=== PATIENT | male | born 1965 | race Caucasian/White ===

== ENCOUNTER 2021-08-12 20:39 | Observation (INO) ==
[2021-08-12 21:01] LABS: Basophils # (auto) 0.04 K/uL (0-0.2); Basophils % (auto) 0.8 %; Eosinophils # (auto) 0.32 K/uL (0-0.5); Eosinophils % (auto) 6.5 %; Hemoglobin 11.3 g/dL (14.0-18.0); Immature Granulocytes # (auto) 0.01 K/uL (0.00-0.02); Immature Granulocytes % (auto) 0.2 %; Lymphocytes # (auto) 1.41 K/uL (1.2-3.4); Lymphocytes % (auto) 28.7 %; Mean Corpuscular Hemoglobin 34.9 pg (25-34); Mean Corpuscular Hgb Conc 34.2 g/dL (32-36); Mean Corpuscular Volume 101.9 fL (80-100); Mean Platelet Volume 10.1 fL (7.4-10.4); Monocytes # (auto) 0.62 K/uL (0.11-0.59); Monocytes % (auto) 12.6 %; Neutrophils # (auto) 2.51 K/uL (1.4-6.5); Neutrophils % (auto) 51.2 %; Platelet Count 109 K/uL (130-400); RDW Coefficient of Variation 13.2 % (11.5-14.5); RDW Standard Deviation 49.1 fL (36.4-46.3); Red Blood Count 3.24 M/uL (4.7-6.1); White Blood Count 4.91 K/uL (4.8-10.8)
[2021-08-12 21:21] LABS: Albumin Globulin Ratio 1.3 (0.9-2); Albumin Level 3.7 gm/dl (3.4-5.0); BUN Creatinine Ratio 14.5 (10-20); Calcium 8.3 mg/dl (8.5-10.1); Creatinine Clr Calc Pharmacy 90.7 ml/min; Est GFR (African American) 114.8 ml/min; Est GFR (Non-African American) 99.1 ml/min; Globulin 2.9 gm/dl (2.5-4.0); Total Protein 6.6 gm/dl (6.0-8.3)
--- NOTE | 2021-08-12 21:29 | CT Scan Report ---
CT head/brain wo con CLINICAL HISTORY: etoh, fall Technique: Contiguous axial CT images of the head were acquired from the base of the skull to the praveena delma without intravenous contrast administration. Images were viewed in brain, subdural and bone [facility]. Automated dose lowering techniques and/or adjustment according to patient size were utilized for this exam. Comparison: Comparison is made to CT head 01/09/2021 Findings: Areas of decreased attenuation are present in the periventricular and subcortical white matter bilate rally consistent with small vessel ischemic disease. Generalized cerebral atrophy with commensurate e nlargement of the ventricles, sulci, and cisterns is also present. There is no acute intracranial hem orrhage or evidence of acute territorial infarction. No shift of the midline structures, mass effect, or extra-axial abnormalities are shown. Atherosclerotic calcifications are present in the intracran ial segments of the internal carotid arteries. Imaged portions of the paranasal sinuses and mastoid air cells are clear. The orbits appear normal. There are no acute fractures of the calvaria or scalp swelling. Impression: No acute intracranial hemorrhage, no evidence of acute territorial infarction or other acute intracra nial disease process. ACT 112: Negative or not required by law. Electronically signed by: Alessandro Ames M.D. 08/12/2021 9:27 PM
[2021-08-12 21:42] LABS: Troponin I High Sensitivity 5.9 pg/ml (0-20)
[2021-08-12 22:02] LABS: RBC Morphology Unremarkable
[2021-08-12] MEDS ORDERED: POTASSIUM CHLORIDE / WTR 10 MEQ/100 ML PLCT IV ONE (23:31)
--- NOTE | 2021-08-13 00:29 | Emergency Department Note ---
Impression & Plan Alcohol intoxication, Hypomagnesemia, Acute hypokalemia, Fall, Abrasion of forearm, left ED Provider Note INFORMANT: Patient and EMS ED PROVIDER(S): Alvaro Landers MD CHIEF COMPLAINT: Alcohol intoxication PLAN: Disposition: Admitted Condition: Good Outpatient prescription management: none Referral: None MEDICAL DECISION MAKING: Patient presented to the emergency department because of alcohol intoxication and a fall. He was intoxicated on clinical examination. CT imaging of the head was performed and was negative for acute process. Patient's CBC was unremarkable. Chemistry panel revealed marked hypomagnesemia and hypokalemia. Patient had a significant elevation of his blood alcohol level at 470 mg/dL. ECG did not reveal any dysrhythmia nor did cardiac monitoring. Further management in the hospital will be necessary. Patient was given IV magnesium and potassium. Consultation was made with Dr. Emory Kaur of the [facility] service. Patient was evaluated in the ER for further management. Triage Nursing notes reviewed and agree them. Vital Signs: reviewed and remarkable for no significant abnormalities Differential diagnosis: Alcohol intoxication, toxicologic, infection, hypoglycemia, electrolyte abnormalities, cardiac sources, intracerebral event, neurologic, trauma, as well as other pathologies. Diagnostics interpreted by me: EC Lead ECG performed and revealed Normal sinus rhythm at 73, normal [place], QRS normal. No elevation or depression. No PACs or PVCs Cardiac Monitoring: Cardiac monitoring ordered by me: The patient was placed on continuous cardiac monitoring and observed. It revealed a normal sinus rhythm at 70 beats per minute without ectopy or evidence of dysrhythmia. Imaging studies: Head CT: A noncontrast CT scan of the head was performed and was negative for tumor, fracture, intracranial hemorrhage, or other acute pathology. HPI: The patient is a 55 year old male who presents to the Emergency Room with complaints of alcohol intoxication. This started this evening. Patient mitts to drinking multiple martinis. He was trying to walk home and felt like he could not make it. He slumped over a guardrail. He suffered abrasions to the left forearm. There was abrasion on the scalp as well. Patient Was found by bystanders who thought he was and called 911. EMS arrived. Patient was intoxicated. A breathalyzer test was performed and was 0.389. Pt also notes the following associated symptoms, chronic neck back pain. Patient states that he does not feel he has any new neck or back injury. The patient has been given no medication for relieving factors. Current pain is rated as 3/10. Tetanus up-to-date. Pt denies headache, fevers, chills, diaphoresis, visual changes, new neck pain, chest pain, breathing difficulties, nausea, vomiting, abdominal pain, new back pain, urinary symptoms, numbness, weakness, lymphadenopathy, rash, or other complaints. ROS: See above HPI for pertinent positives & negatives. A total of 8 systems reviewed and were otherwise negative. PAST MEDICAL HISTORY:See Below , RENÉE, thrombocytopenia PAST SURGICAL HISTORY:See Below, FAMILY HISTORY:See Below SOCIAL HISTORY:See Below, drinks alcohol HOME MEDICATIONS:See Below ALLERGIES:See Below VITALS:See Below PHYSICAL EXAMINATION: GENERAL: Awake, alert, intoxicated-appearing, in no distress HENT: Normocephalic, abrasions noted to the frontal scalp. Oropharynx unre markable. EYES: Normal conjunctiva. Sclera non-icteric. PERRLA. EOMI. NECK: Inspection normal. Non-tender. Supple. No nuchal rigidity. FROM. No masses. RESPIRATORY: Clear to auscultation. No wheezes. No rales. Normal respiratory effort. CARDIAC: Normal rate. Normal rhythm. No murmurs. No rubs. Extremities warm and well perfused. Pulses equal. No JVD. GI: Soft, non-distended. No tenderness to palpation. No rebound or guarding. No masses. MUSCULOSKELETAL: Abrasions noted to the left forearm. Chest examination reveals no tenderness. The back is symmetrical on inspection without obvious ab normality. There is no CVA tenderness to palpation. No joint edema. LOWER EXTREMITIES: Calves are equal size bilaterally and non-tender. No edema. No discoloration. NEURO: Intoxicated sensorium. No focal sensory or motor deficits noted. SKIN: No rash or jaundice noted. Alvaro Landers MD Past Med/Surg History Medical History Anxiety and depression Asthma Back problem Elevated PSA Fatty liver History of rectal bleeding History of skin cancer Hx of esophageal reflux Positive colorectal cancer screening using Cologuard test (~08/09/20) Sleep apnea Varicose veins of both lower extremities Surgical History History of colonoscopy History of tonsillectomy Hx of wisdom tooth extraction Family History Mother Breast cancer Father Diabetes Colorectal cancer Stroke Brother Prostate cancer Heart disease Colorectal cancer Other Unknown family medical history Denies family history of Ovarian cancer Coronary heart disease Myocardial infarction Congenital kidney disease Lung cancer Cystic kidney disease Social History Smoking Status: Unknown if ever smoked Second Hand Exposure: No; Hx Alcohol Use: Yes Alcohol type: beer, wine and hard liquor Alcohol Intake Frequency: 4 or More x per/Week Alcohol Intake Frequency Comment: pt states he drinks daily 5 drinks Hx Substance Use: No Preferred Language: Japanese Communication Ability: Effective Visual Impairment: Limited Hearing Ability: Normal Access Representative Required: No Beliefs That Will Affect Care: None marital status: Current Living Situation: Alone current occupational status: retired How many Children do You have: 2 Feels Safe at Home: Yes Childhood Exposure to Second-Hand Smoke: Yes caffeine: Yes Dental Care, Regularly: No Physical Activity Frequency: Does not Exercise Seatbelt Use: always Sunscreen Use: No Assistive Devices: Glasses Allergies Allergies Allergy/AdvReac Type Severity Reaction Status Date / Time No Known Allergies Allergy Verified 08/12/21 20:54 Home Meds Home Medications Medication Instructions Recorded Confirmed multivitamin 1 tab PO [facility] 09/19/20 08/12/21 folic acid 1 mg tablet 1 mg PO M 08/12/21 08/12/21 pantoprazole 40 mg tablet,delayed 40 mg PO [facility] 08/12/21 08/12/21 release (Protonix) Results & Data (ED) Vital Signs Vital Signs - 24 hr 08/12/21 20:26 08/12/21 20:44 Temperature 36.7 C Temperature Source Oral Pulse Rate 70 Respiratory Rate 16 Respiratory Effort / Characteristics Non-Labored Respiratory Depth Normal Respiratory Pattern Regular Blood Pressure 107/71 Blood Pressure Mean 83 Pulse Oximetry 97 97 Oxygen Delivery Method Room Air Room Air Sepsis Recent Fever Within 48 Hours No Sepsis New/Unexplained Change in Mental Status No Sepsis Action Taken by Nursing No Action Required Laboratory Data Result diagrams: 08/12/21 20:40 08/12/21 20:40 Lab Results 08/12/21 08/12/2122 Range/Units 20:40 20:40 20:40 WBC 4.91 (4.8-10.8) K/uL RBC 3.24 L (4.7-6.1) M/uL Hgb 11.3 L (14.0-18.0) g/dL Hct 33.0 L (42-52) % MCV 101.9 H (80-100) fL MCH 34.9 H (25-34) pg MCHC 34.2 (32-36) g/dL RDW Std Deviation 49.1 H (36.4-46.3) fL RDW Coeff of Melissa 13.2 (11.5-14.5) % Plt Count 109 L (130-400) K/uL MPV 10.1 (7.4-10.4) fL Immature Gran % (Auto) 0.2 % Neut % (Auto) 51.2 % Lymph % (Auto) 28.7 % [place] % (Auto) 12.6 % Eos % (Auto) 6.5 % Baso % (Auto) 0.8 % Neut # (Auto) 2.51 (1.4-6.5) K/uL Lymph # (Auto) 1.41 (1.2-3.4) K/uL [place] # (Auto) 0.62 H (0.11-0.59) K/uL Eos # (Auto) 0.32 (0-0.5) K/uL Baso # (Auto) 0.04 (0-0.2) K/uL Immature Gran # (Auto) 0.01 (0.00-0.02) K/uL RBC Morphology Unremarkable Sodium 140 (136-145) mmol/L Potassium 3.0 L (3.5-5.1) mmol/L Chloride 104 (98-107) mmol/L Carbon Dioxide 25 (21-32) mmol/L Anion Gap 11 (3-11) BUN 12 (6-23) mg/dl Creatinine 0.83 (0.6-1.4) mg/dl Est Cr Clr Drug Dosing 90.7 ml/min Est GFR ( Amer) 114.8 ml/min Est GFR (Non-Af Amer) 99.1 ml/min BUN/Creatinine Ratio 14.5 (10-20) Glucose 90 (70-99(Fasting)) mg/dl Calcium 8.3 L (8.5-10.1) mg/dl Magnesium 1.0 L (1.7-2.4) mg/dl Total Bilirubin 1.0 (0.2-1.0) mg/dl AST 48 H (13-39) U/L ALT 21 (7-52) U/L Alkaline Phosphatase 68 (34-104) U/L Troponin I High Sens 5.9 (0-20) pg/ml Total Protein 6.6 (6.0-8.3) gm/dl Albumin 3.7 (3.4-5.0) gm/dl Globulin 2.9 (2.5-4.0) gm/dl Albumin/Globulin Ratio 1.3 (0.9-2) Ethyl Alcohol mg/dL 470.4 H (<10.0) mg/dl SARS-CoV-2, RNA, NAAT (NEGATIVE) 08/13/21 Range/Units 00:00 WBC (4.8-10.8) K/uL RBC (4.7-6.1) M/uL Hgb (14.0-18.0) g/dL Hct (42-52) % MCV (80-100) fL MCH (25-34) pg MCHC (32-36) g/dL RDW Std Deviation (36.4-46.3) fL RDW Coeff of Melissa (11.5-14.5) % Plt Count (130-400) K/uL MPV (7.4-10.4) fL Immature Gran % (Auto) % Neut % (Auto) % Lymph % (Auto) % [place] % (Auto) % Eos % (Auto) % Baso % (Auto) % Neut # (Auto) (1.4-6.5) K/uL Lymph # (Auto) (1.2-3.4) K/uL [place] # (Auto) (0.11-0.59) K/uL Eos # (Auto) (0-0.5) K/uL Baso # (Auto) (0-0.2) K/uL Immature Gran # (Auto) (0.00-0.02) K/uL RBC Morphology Sodium (136-145) mmol/L Potassium (3.5-5.1) mmol/L Chloride (98-107) mmol/L Carbon Dioxide (21-32) mmol/L Anion Gap (3-11) BUN (6-23) mg/dl Creatinine (0.6-1.4) mg/dl Est Cr Clr Drug Dosing ml/min Est GFR ( Amer) ml/min Est GFR (Non-Af Amer) ml/min BUN/Creatinine Ratio (10-20) Glucose (70-99(Fasting)) mg/dl Calcium (8.5-10.1) mg/dl Magnesium (1.7-2.4) mg/dl Total Bilirubin (0.2-1.0) mg/dl AST (13-39) U/L ALT (7-52) U/L Alkaline Phosphatase (34-104) U/L Troponin I High Sens (0-20) pg/ml Total Protein (6.0-8.3) gm/dl Albumin (3.4-5.0) gm/dl Globulin (2.5-4.0) gm/dl Albumin/Globulin Ratio (0.9-2) Ethyl Alcohol mg/dL (<10.0) mg/dl SARS-CoV-2, RNA, NAAT NEGATIVE (NEGATIVE) Imaging Data Radiologist's Impression: Head CT 08/12/21 20:59 CT head/brain wo con CLINICAL HISTORY: etoh, fall Technique: Contiguous axial CT images of the head were acquired from the base of the skull to the vertex without intravenous contrast administration. Images were viewed in brain, subdural and bone windows. Automated dose lowering techniques and/or adjustment according to patient size were utilized for this exam. Comparison: Comparison is made to CT head 01/09/2021 Findings: Areas of decreased attenuation are present in the periventricular and subcortical white matter bilaterally consistent with small vessel ischemic disease. Generalized cerebral atrophy with commensurate enlargement of the ventricles, sulci, and cisterns is also present. There is no acute intracranial hemorrhage or evidence of acute territorial infarction. No shift of the midline structures, mass effect, or extra-axial abnormalities are shown. Atherosclerotic calcifications are present in the intracranial segments of the internal carotid arteries. Imaged portions of the paranasal sinuses and mastoid air cells are clear. The orbits appear normal. There are no acute fractures of the calvaria or scalp swelling. Impression: No acute intracranial hemorrhage, no evidence of acute territorial infarction or other acute intracranial disease process. ACT 112: Negative or not required by law. Electronically signed by: Alessandro Ames M.D. 08/12/2021 9:27 PM Discharge Plan Visit Data Chief Complaint: Alcohol Intoxication Stated Complaint: ALCOHOL OVERDOSE ED Provider: Alvaro Landers Discharge Problem: Alcohol intoxication, Hypomagnesemia, Acute hypokalemia, Fall, Abrasion of forearm, left Forms Stand Alone Forms: [facility] [employer] Prescriptions Prescriptions: No Action multivitamin Tablet 1 tab PO QAM RF: 0 pantoprazole [Protonix] 40 mg tablet,delayed release (DR/EC) 40 mg PO QAM RF: 0 folic acid 1 mg tablet 1 mg PO QAM RF: 0 Referrals Referrals: Valdemar Santo DO [Primary Care Provider] -
[2021-08-13] MEDS ORDERED: THIAMINE HCL 200 MG in SODIUM CHLORIDE 0.9% 50 ML IV STA (00:50)
--- NOTE | 2021-08-13 00:52 | History & Physical Report ---
Date of Service August 13, 2021 Assessment & Plan (1) Alcohol intoxication: Plan: Severe alcohol intoxication, with alcohol level 470.4 (2) Hypomagnesemia: Plan: Magnesium 1.0 upon admission 2 g IV ordered by the ED, will add additional 2 for total of 4 (3) Acute hypokalemia: Plan: Potassium 3.0 upon admission 1K rider ordered by the ED NSS plus KCl 20 mEq at 125 mils per hour Repeat BMP and magnesium every morning (4) Fall: Plan: Multiple abrasions, but no other injuries (5) Cirrhosis: Plan: Cirrhosis/hepatic steatosis/esophageal varices/folate deficiency/vitamin D deficiency/thrombocytopenia Secondary to alcohol dependence Counseling regarding cessation of alcohol (6) Alcohol dependence: Plan: See above (7) Thrombocytopenia: Plan: Platelets 109 upon admission Follow serially (8) Folate deficiency: Plan: Continue folate 1 mg p.o. daily Add thiamine 100 mg p.o. daily Give thiamine 200 mg IV now History of Present Illness Chief Complaint: The patient presented to the emergency department due to severe alcohol intoxication and a fall. Primary Care Provider: Valdemar Santo DO The patient is a 55-year-old male with a past medical history including alcohol intoxication, esophageal varices, cirrhosis, alcohol dependence, thromb ocytopenia, folate deficiency, hepatic steatosis, vitamin D deficiency, elevated LFTs, RENÉE and gastritis. He presents to the emergency department after reportedly drinking multiple martinis, with trying to walk home and felt like he could not make it. He was found slumped over a guardrail where he was found by bystanders who thought he was and called 911. Allergies Allergy/AdvReac Type Severity Reaction Status Date / Time No Known Allergies Allergy Verified 08/12/21 20:54 Home Medications Medication Instructions Recorded Confirmed Type multivitamin 1 tab PO QAM 09/19/20 08/12/21 History folic acid 1 mg tablet 1 mg PO QAM 08/12/21 08/12/21 History pantoprazole 40 mg tablet,delayed 40 mg PO QAM 08/12/21 08/12/21 History release (Protonix) Past Med/Surg History Medical History Anxiety and depression Asthma Back problem Elevated PSA Fatty liver History of rectal bleeding History of skin cancer Hx of esophageal reflux Positive colorectal cancer screening using Cologuard test (~05/11/21) Sleep apnea Varicose veins of both lower extremities Surgical History History of colonoscopy History of tonsillectomy Hx of wisdom tooth extraction Family History Mother Breast cancer Father Diabetes Colorectal cancer Stroke Brother Prostate cancer Heart disease Colorectal cancer Other Unknown family medical history Denies family history of Ovarian cancer Coronary heart disease Myocardial infarction Congenital kidney disease Lung cancer Cystic kidney disease Social History Smoking Status: Unknown if ever smoked Second Hand Exposure: No; Hx Alcohol Use: Yes Alcohol type: beer, wine and hard liquor Alcohol Intake Frequency: 4 or More x per/Week Alcohol Intake Frequency Comment: pt states he drinks daily 5 drinks Hx Substance Use: No Preferred Language: Korean Communication Ability: Effective Visual Impairment: Limited Hearing Ability: Normal Aquatic Habitat Biologist Required: No Beliefs That Will Affect Care: None marital status: Current Living Situation: Alone current occupational status: retired How many Children do You have: 2 Feels Safe at Home: Yes Childhood Exposure to Second-Hand Smoke: Yes caffeine: Yes Dental Care, Regularly: No Physical Activity Frequency: Does not Exercise Seatbelt Use: always Sunscreen Use: No Assistive Devices: Glasses Review of Systems Review of Systems: Limited review of systems due to severe alcohol intoxication Physical Exam Physical Exam: The patient is awake, intoxicated, multiple skin abrasions, in bed and in no acute distress. HEENT--PERRL, EOMI, mucous membranes and oropharynx normal. Neck--supple. No JVD. No bruits. Thyroid normal, trachea midline, no adenopathy. Heart--normal S1 and S2. No murmurs, rubs or gallops. Lungs--clear bilaterally, no respiratory distress, no accessory muscle use. Abdomen--normal bowel sounds and soft. Nontender. Nondistended. Extremities--no cyanosis or clubbing. No edema. Dermatologic--normal skin turgor, normal color, no abnormal lymph nodes, no rash. Neurologic--cranial nerves II through XII grossly intact. Rheumatologic--normal range of motion. Psychiatric--intoxicated Results & Data Results & Data ([facility]) Vital Signs (Past 12 Hours) Vital Signs Temp Pulse Resp BP Pulse Ox 08/12/21 20:44 97 08/12/21 20:26 36.7 C 70 16 107/71 97 Laboratory Results Laboratory Results WBC 4.91 K/uL (4.8-10.8) 08/12/21 20:40 RBC 3.24 M/uL (4.7-6.1) L 08/12/21 20:40 Hgb 11.3 g/dL (14.0-18.0) L 08/12/21 20:40 Hct 33.0 % (42-52) L 08/12/21 20:40 MCV 101.9 fL (80-100) H 08/12/21 20:40 MCH 34.9 pg (25-34) H 08/12/21 20:40 MCHC 34.2 g/dL (32-36) 08/12/21 20:40 RDW Std Deviation 49.1 fL (36.4-46.3) H 08/12/21 20:40 RDW Coeff of Melissa 13.2 % (11.5-14.5) 08/12/21 20:40 Plt Count 109 K/uL (130-400) L 08/12/21 20:40 MPV 10.1 fL (7.4-10.4) 08/12/21 20:40 Immature Gran % (Auto) 0.2 % 08/12/21 20:40 Neut % (Auto) 51.2 % 08/12/21 20:40 Lymph % (Auto) 28.7 % 08/12/21 20:40 [place] % (Auto) 12.6 % 08/12/21 20:40 Eos % (Auto) 6.5 % 08/12/21 20:40 Baso % (Auto) 0.8 % 08/12/21 20:40 Neut # (Auto) 2.51 K/uL (1.4-6.5) 08/12/21 20:40 Lymph # (Auto) 1.41 K/uL (1.2-3.4) 08/12/21 20:40 [place] # (Auto) 0.62 K/uL (0.11-0.59) H 08/12/21 20:40 Eos # (Auto) 0.32 K/uL (0-0.5) 08/12/21 20:40 Baso # (Auto) 0.04 K/uL (0-0.2) 08/12/21 20:40 Immature Gran # (Auto) 0.01 K/uL (0.00-0.02) 08/12/21 20:40 RBC Morphology Unremarkable 08/12/21 20:40 Sodium 140 mmol/L (136-145) 08/12/21 20:40 Potassium 3.0 mmol/L (3.5-5.1) L 08/12/21 20:40 Chloride 104 mmol/L (98-107) 08/12/21 20:40 Carbon Dioxide 25 mmol/L (21-32) 08/12/21 20:40 Anion Gap 11 (3-11) 08/12/21 20:40 BUN 12 mg/dl (6-23) 08/12/21 20:40 Creatinine 0.83 mg/dl (0.6-1.4) 08/12/21 20:40 Est Cr Clr Drug Dosing 90.7 ml/min 08/12/21 20:40 Est GFR ( Amer) 114.8 ml/min 08/12/21 20:40 Est GFR (Non-Af Amer) 99.1 ml/min 08/12/21 20:40 BUN/Creatinine Ratio 14.5 (10-20) 08/12/21 20:40 Glucose 90 mg/dl (70-99(Fasting)) 08/12/21 20:40 Calcium 8.3 mg/dl (8.5-10.1) L 08/12/21 20:40 Magnesium 1.0 mg/dl (1.7-2.4) L 08/12/21 20:40 Total Bilirubin 1.0 mg/dl (0.2-1.0) 08/12/21 20:40 AST 48 U/L (13-39) H 08/12/21 20:40 ALT 21 U/L (7-52) 08/12/21 20:40 Alkaline Phosphatase 68 U/L (34-104) 08/12/21 20:40 Troponin I High Sens 5.9 pg/ml (0-20) 08/12/21 20:40 Total Protein 6.6 gm/dl (6.0-8.3) 08/12/21 20:40 Albumin 3.7 gm/dl (3.4-5.0) 08/12/21 20:40 Globulin 2.9 gm/dl (2.5-4.0) 08/12/21 20:40 Albumin/Globulin Ratio 1.3 (0.9-2) 08/12/21 20:40 Ethyl Alcohol mg/dL 470.4 mg/dl (<10.0) H 08/12/21 20:40 SARS-CoV-2, RNA, NAAT NEGATIVE (NEGATIVE) 08/13/21 00:[address] 08/12/21 20:59 CT head/brain wo con CLINICAL HISTORY: etoh, fall Technique: Contiguous axial CT images of the head were acquired from the base of the skull to the vertex without intravenous contrast administration. Images were viewed in brain, subdural and bone windows. Automated dose lowering techniques and/or adjustment according to patient size were utilized for this exam. Comparison: Comparison is made to CT head 01/09/2021 Findings: Areas of decreased attenuation are present in the periventricular and subcortical white matter bilaterally consistent with small vessel ischemic disease. Generalized cerebral atrophy with commensurate enlargement of the ventricles, sulci, and cisterns is also present. There is no acute intracranial hemorrhage or evidence of acute territorial infarction. No shift of the midline structures, mass effect, or extra-axial abnormalities are shown. Atherosclerotic calcifications are present in the intracranial segments of the internal carotid arteries. Imaged portions of the paranasal sinuses and mastoid air cells are clear. The orbits appear normal. There are no acute fractures of the calvaria or scalp swelling. Impression: No acute intracranial hemorrhage, no evidence of acute territorial infarction or other acute intracranial disease process. ACT 112: Negative or not required by law. Electronically signed by: Alessandro Ames M.D. 08/12/2021 9:27 PM Code Status & VTE Plan Code Status Full code VTE Prophylaxis Plan VTE Prophylaxis will be ordered: Yes PG Care Time/CCT Total # of Minutes Spent Total Time Spent with Patient: Total time spent is greater than 50% in coordination of care (as documented) at patient's floor/unit and/or counseling patient: Coding Level of Care Code 77281 Initial Inpt Care Lvl 3 Diagnoses Alcohol intoxication F10.929 Hypomagnesemia E83.42 Acute hypokalemia E87.6 Fall W19.XXXA Cirrhosis K74.60 Alcohol dependence F10.20 Thrombocytopenia D69.6 Folate deficiency E53.8
[2021-08-13] MEDS: MAGNESIUM SULFATE / D5W 1 GM/100 ML BAG IV SCH ×4 (01:00→05:01)
[2021-08-13] MEDS ORDERED: ONDANSETRON INJ 2 MG/ML 2 ML VIAL IV PRN (02:25)
[2021-08-13] MEDS ORDERED: LORazepam 2 MG/1 ML VIAL IV PRN ×3 (02:25)
[2021-08-13] MEDS ORDERED: ATIVAN IV ALCOHOL WITHDRAWL IV PRN (02:25)
[2021-08-13] MEDS: NSS + 20MEQ KCL 20 MEQ/1,000 ML BAG IV SCH ×3 (03:45→19:54)
[2021-08-13 06:22] LABS: Hematocrit (blood only) 27.8 % (42-52); Hemoglobin 9.8 g/dL (14.0-18.0); Mean Corpuscular Hemoglobin 35.6 pg (25-34); Mean Corpuscular Hgb Conc 35.3 g/dL (32-36); Mean Corpuscular Volume 101.1 fL (80-100); RDW Coefficient of Variation 13.4 % (11.5-14.5); RDW Standard Deviation 49.3 fL (36.4-46.3); Red Blood Count 2.75 M/uL (4.7-6.1); White Blood Count 3.05 K/uL (4.8-10.8)
[2021-08-13 06:39] LABS: Albumin Globulin Ratio 1.3 (0.9-2); BUN Creatinine Ratio 14.3 (10-20); Bilirubin,Total 0.7 mg/dl (0.2-1.0); Calcium 7.8 mg/dl (8.5-10.1); Creatinine Clr Calc Pharmacy 107.6 ml/min; Est GFR (African American) 123.1 ml/min; Est GFR (Non-African American) 106.2 ml/min; Globulin 2.4 gm/dl (2.5-4.0); Total Protein 5.4 gm/dl (6.0-8.3)
[2021-08-13 07:09] LABS: Basophils # (auto) 0.04 K/uL (0-0.2); Basophils % (auto) 1.3 %; Eosinophils % (auto) 6.6 %; Immature Granulocytes # (auto) 0.02 K/uL (0.00-0.02); Immature Granulocytes % (auto) 0.7 %; Lymphocytes % (auto) 26.2 %; Mean Platelet Volume 9.6 fL (7.4-10.4); Monocytes # (auto) 0.42 K/uL (0.11-0.59); Monocytes % (auto) 13.8 %; Neutrophils # (auto) 1.57 K/uL (1.4-6.5); Neutrophils % (auto) 51.4 %; Platelet Count 90 K/uL (130-400); Platelet Estimate Decreased (Normal)
--- NOTE | 2021-08-13 07:31 | Hospitalist Progress Note ---
Date of Service August 13, 2021 Assessment & Plan (1) Alcohol dependence: Plan: Patient is a 55 year old male that presented initially for severe alcohol intoxication with medical alcohol level 470.4. Patient was found to have been unconscious over a guardrail where he waas found by bystanders that had called 911 for evaluation of the patient. Severe Alcohol Use Disorder with history of Cirrhosis -Last supposed drink 21:00 on 08/12/21 -Reported initial medical alcohol level of 470.4 on admission -Notes he drinks 6-12 alcoholic beverages daily and is interested in cessation -AWSS ordered with PRN ativan for withdrawal symptoms -LFTs stable -Continue Folate 1mg QD -Thiamine 100mg QD -Discussed Naltrexone therapy, inpatient and outpatient rehab -Patient interested in Naltrexone therapy - may benefit with initiation prior to discharge -IVF NSS +20meq KCl 125ml/hr Fall -Secondary to intoxication -CT head negative for acute bleed or fractures Hypokalemia -Potassium 3 this AM -Will replete Hypomagnesemia -Mag 1 on admission, repleted with 4g IV -Repeat this AM 1.9 Thrombocytopenia -Platelets 90k this AM -Continue to monitor Dispo: M/S Telemetry FEN: Regular diet, NSS +20meq KCl 125ml/hr DVT: SCDs Code: Full (2) Alcohol intoxication: (3) Hypomagnesemia: (4) Fall: (5) Esophageal varices: (6) Cirrhosis: (7) Thrombocytopenia: Admission and Anticipated Discharge Date Admission Date: August 13, 2021 Supervising Physician Co-Signing Physician Notes I personally examined the patient and verified all chapman points of history and exam, discussed case, and agree with decision making with Dr Mcgarry. Mildly shaky. 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 Despite all that he is optimistic that this time he will succeed. Quite excited to try naltrexone Vitals noted, in general he is mildly tremulous but otherwise no distress. HEENT normocephalic atraumatic mucous membranes moist. Breathing unlabored no accessory muscle use good effort. Skin shows no rashes no pallor or icterus. Neuro without focal deficitsminor tremor as above Alcohol intoxication/abuse/withdrawaldoes sincerely want to try for sobriety. Trial of naltrexone once he is out of intoxication does seem to be a pretty reasonable plan. Discussed with patient cause for optimism given that his bilirubin is completely normal, I mistakenly quoted an INR value of 1.2 is being currentit was his most recent, but was from DecemberI will check a current 1 in the morning. Supportive care, symptom triggered benzodiazepines, thiamine and folate. Otherwise as above Subjective Patient evaluated at the bedside this morning. Patient noting that he has slight recollection of the night prior. He remembers his last drink being around 9PM last night and believes he had at least 2 martinis and 4oz of hard liquor in the form of shots. He states that he recalls the ambulance picking him up and arriving at the ED, but not much otherwise. He states that this has occurred at least 2 times in the past. He does not recall falling, but does note slight L head tenderness. He also notes that he drinks at minimum 6 drinks daily, but more often is closer to 10-12 on average. Currently he notes that he realizes he has a problem and wants to improve. He has done AA for at least 1 year and has trialed therapy in the past with minimal improvements. He has not trialed any medications in regards to cessation. He denies any fever, chills, SOB, chest pain, abdominal pain, nausea. Review of Systems Review of Systems: All systems reviewed & are unremarkable except as noted in Subjective Physical Exam Constitutional: cooperative; no acute distress Eyes: PERRL, conjunctivae normal, anicteric sclerae ENMT: external ear and nose normal, oropharynx normal Neck: trachea midline, no thyromegaly Respiratory: normal respiratory effort, lungs clear to auscultation Cardiovascular: RRR, no murmur, no edema Gastrointestinal (Abdomen): normal bowel sounds, soft, nontender, no hepatosplenomegaly Skin: no rashes, warm and dry Neurologic: PERRL, EOMI, accommodation nl, no face palsy, no dysarthria Psychiatric: A+Ox3, euthymic affect Results & Data Results & Data ([facility]) Vital Signs (Past 12 Hours) Vital Signs Temp Pulse Pulse Resp BP BP Pulse Ox 08/13/21 06:40 36.5 C 82 20 96/53 L 94 08/13/21 05:31 92 H 08/13/21 04:11 36.6 C 91 H 18 93/58 L 96 08/13/21 03:36 36.4 C L 97 H 18 99/56 L 94 08/13/21 02:00 116/64 96 08/13/21 01:40 86 14 95 08/13/21 01:30 92 H 16 96 08/13/21 01:20 95 H 15 95 08/13/21 01:10 82 14 96 08/13/21 01:00 79 14 92/63 L 94 08/13/21 00:50 81 19 97 08/13/21 00:40 70 17 95 08/13/21 00:30 90 17 95 08/13/21 00:20 79 16 99 08/13/21 00:10 85 19 96 08/13/21 00:00 95 H 22 100/68 96 08/12/21 23:50 87 14 94 08/12/21 23:40 94 H 15 08/12/21 23:30 14 08/12/21 23:20 15 90 08/12/21 23:10 0 L 16 94 08/12/21 23:00 16 90/66 L 08/12/21 22:50 14 08/12/21 22:40 17 08/12/21 22:30 15 08/12/21 22:20 15 08/12/21 22:10 15 08/12/21 22:00 16 96/60 L 08/12/21 21:50 16 08/12/21 21:40 15 08/12/21 21:30 91 H 18 08/12/21 21:20 73 13 08/12/21 21:19 81 14 105/73 08/12/21 21:00 85 15 08/12/21 20:52 67 20 94 08/12/21 20:48 99 08/12/21 20:44 97 08/12/21 20:26 36.7 C 70 16 107/71 97 Resident Activity Tracking Resident Involvement: Resident Care Provided Care Provided: Adult [facility] Medicine
[2021-08-13] MEDS ORDERED: POTASSIUM CHLORIDE CRTAB 20 MEQ TABCR PO STA (07:34)
[2021-08-13] MEDS: FOLIC ACID 1 MG TAB PO SCH (08:09)
[2021-08-13] MEDS: PANTOprazole 40 MG TAB PO SCH (08:09)
[2021-08-13] MEDS: MULTIVITAMIN TAB PO SCH (08:09)
[2021-08-13] MEDS ORDERED: THIAMINE HCL 100 MG TAB PO SCH (09:00)
--- NOTE | 2021-08-13 10:28 | Electrocardiogram Report ---
Test Reason : Blood Pressure : / mmHG Vent. Rate : 073 BPM Atrial Rate : 073 BPM P-R Int : 144 ms QRS Dur : 086 ms QT Int : 402 ms P-R-T Axes : 013 019 023 degrees QTc Int : 442 ms Normal sinus rhythm Normal ECG No previous ECGs available Confirmed by Konrad Stevenson ([id number]) on 08/13/2021 10:28:18 AM Referred By: REFERRED SELF Confirmed By:Konrad Stevenson
[2021-08-13] MEDS ORDERED: POTASSIUM CHLORIDE CRTAB 20 MEQ TABCR PO ONE (12:00)
[2021-08-14] MEDS: NSS + 20MEQ KCL 20 MEQ/1,000 ML BAG IV SCH (04:01)
--- NOTE | 2021-08-14 06:04 | Hospitalist Progress Note ---
Date of Service August 14, 2021 Assessment & Plan (1) Alcohol dependence: Plan: Patient is a 55 year old male with history of cirrhosis, esophageal varices, RENÉE that presented for severe alcohol intoxication with medical alcohol level 470.4. Patient was found to have been unconscious over a guardrail where he was found by bystanders that had called 911 for evaluation of the patient. Severe Alcohol Use Disorder -Last supposed drink 21:00 on 08/12/21 ; consumes between 6-12 beverages/day -Initial medical alcohol level of 470.4 on admission -AWSS ordered with PRN ativan for withdrawal symptoms -- has not yet required -LFTs largely stable - TBili appreciated at 1.5 in the AM of 08/14, otherwise WNL -Continue Folate 1mg , thiamine 300mg daily -- would likely benefit from scheduled MVI as outpatient -Discussed Naltrexone therapy, inpatient and outpatient rehab: interested -Plan on initiating naltrexone prior to discharge -Stop IVF, tolerating PO well Alcohol-Associated Cirrhosis, Esophageal Varices -Diagnosed as outpatient, follows with [facility] Hepatology (see note 08/2020) -Complicated by grade I esophageal varices and portal hypertensive gastropathy (EGD 08/2020) - follows with [facility] GI (last visit 09/2020), not currently on beta-blockade -MELD 10, Child-Davis 6 (Class A) -Follow-up with Hepatology/GI as outpatient: follow-up planned for later this summer Fall - [employer]; secondary to intoxication - CT head negative for acute bleed or fractures Hypokalemia -- resolved - Noted on arrival, DOA#1 - Replete p.r.n. Hypomagnesemia - Noted on arrival, intermittently throughout admission - Replete p.r.n. Macrocytic Anemia / Leukopenia / Thrombocytopenia - Platelets stable around ~90-100 throughout admission; WBCs ~3-3.5; Hgb 9-10 - Suspect secondary to marrow suppression in setting of chronic EtOH use - Continue to monitor while here - Check B12, folate - No e/o active bleeding Dispo: M/S Telemetry FEN: Regular diet DVT: SCDs-- will hold in setting of elevated INR, thrombocytopenia for now Code: Full (2) Alcohol intoxication: (3) Hypomagnesemia: (4) Fall: (5) Esophageal varices: (6) Cirrhosis: (7) Thrombocytopenia: Admission and Anticipated Discharge Date Admission Date: August 13, 2021 Supervising Physician Co-Signing Physician Notes I also saw the patient and confirmed chapman portions of the history and physical examination. I agree with the impression and plan as noted in the resident documentation. Exam 114/74, 75, 18, 37.2, 93% room air Lying semireclined in bed, no distress. States he feels well. Very mild shakes of the upper extremities. Heart regular rate and rhythm Lungs clear with nonlabored respirations Data Hemoglobin 9.7, platelet count 95. PT 12.5, INR 1.2 Sodium 139, potassium 4.2, BUN 8, creatinine 0.67 Total bilirubin 1.5, total protein 5.5, albumin 3.0 Alcohol use disorder Alcohol associated cirrhosis, esophageal varices Hypokalemia, repleted Hypomagnesemia, repleted Monitor for withdrawal Continue folate and thiamine supplementation Discussed naltrexone prior to discharge He is established with hepatology/gastroenterology and has follow-up planned for later this summer Subjective NAEO. Feeling a little shaky this morning. Not really anxious. Eager to make changes to prevent something like this from happening againt -- says this was an "eye opening" event. No CP, palpitations, SOB. No nausea. No hallucinations. No h/o alcoholic hallucinations or DTs. Said he's tried AA, an IOP (back in 2013), and methodist groups to help with cessation in past. Really interested in naltrexone. Review of Systems Review of Systems: as per HPI Physical Exam Physical Exam: General: 55-year old male who is alert, oriented, and NAD. Tremulous in the upper extremities appreciated. No diaphoresis. HEENT: NCAT. - Eyes - Sclera are white, anicteric, and without injection. - Mouth - MMM - Neck - supple, no appreciable JVD Cardiac: Normal rate and regular rhythm; S1 and S2 present with no murmurs, rubs, or gallops. Pulmonary: Good respiratory effort with symmetric expansion of the chest. No use of accessory muscles. Lungs were clear to auscultation bilaterally with no crackles or wheezes. Abdominal: Normoactive bowel sounds. Abdomen was soft, nondistended, and non- tender to palpation. Extremities: Upper and lower extremities are warm and well perfused. No peripheral edema in the lower extremities bilaterally Results & Data Results & Data ([facility]) Vital Signs (Past 12 Hours) Vital Signs Temp Pulse Pulse Resp BP BP Pulse Ox 08/14/21 02:51 36.9 C 79 18 117/75 95 08/14/21 02:25 08/14/21 01:59 72 08/13/21 22:36 36.8 C 72 16 110/73 95 08/13/21 19:24 37.3 C 84 20 111/69 96 Pulse Ox 08/14/21 02:51 08/14/21 02:25 95 08/14/21 01:59 08/13/21 22:36 08/13/21 19:24 Resident Activity Tracking Resident Involvement: Resident Care Provided Care Provided: Adult Hospital Medicine
[2021-08-14 07:10] LABS: Hemoglobin 9.7 g/dL (14.0-18.0); Mean Corpuscular Hemoglobin 34.8 pg (25-34); Mean Corpuscular Hgb Conc 33.4 g/dL (32-36); Mean Corpuscular Volume 103.9 fL (80-100); RDW Coefficient of Variation 13.3 % (11.5-14.5); RDW Standard Deviation 50.8 fL (36.4-46.3); Red Blood Count 2.79 M/uL (4.7-6.1); White Blood Count 3.23 K/uL (4.8-10.8)
[2021-08-14 07:13] LABS: INR 1.2 (0.9-1.1); Prothrombin Time 12.5 Seconds (9.0-12.0)
[2021-08-14 07:18] LABS: Mean Platelet Volume 10.2 fL (7.4-10.4); Platelet Count 95 K/uL (130-400)
[2021-08-14 07:34] LABS: Albumin Globulin Ratio 1.2 (0.9-2); BUN Creatinine Ratio 11.9 (10-20); Basophils # (auto) 0.02 K/uL (0-0.2); Basophils % (auto) 0.6 %; Bilirubin,Total 1.5 mg/dl (0.2-1.0); Calcium 7.5 mg/dl (8.5-10.1); Creatinine Clr Calc Pharmacy 112.4 ml/min; Eosinophils # (auto) 0.16 K/uL (0-0.5); Est GFR (African American) 125.4 ml/min; Est GFR (Non-African American) 108.2 ml/min; Globulin 2.5 gm/dl (2.5-4.0); Lymphocytes # (auto) 0.62 K/uL (1.2-3.4); Lymphocytes % (auto) 19.2 %; Monocytes # (auto) 0.44 K/uL (0.11-0.59); Monocytes % (auto) 13.6 %; Neutrophils # (auto) 1.99 K/uL (1.4-6.5); Neutrophils % (auto) 61.6 %; Potassium 4.2 mmol/L (3.5-5.1); Total Protein 5.5 gm/dl (6.0-8.3)
[2021-08-14] MEDS: PANTOprazole 40 MG TAB PO SCH (09:06)
[2021-08-14] MEDS: MULTIVITAMIN TAB PO SCH (09:07)
[2021-08-14] MEDS: FOLIC ACID 1 MG TAB PO SCH (09:07)
[2021-08-14] MEDS: THIAMINE HCL 100 MG TAB PO SCH (09:11)
[2021-08-14] MEDS: MAGNESIUM SULFATE / D5W 1 GM/100 ML BAG IV SCH ×2 (09:12→11:22)
--- NOTE | 2021-08-15 06:28 | Hospitalist Progress Note ---
Date of Service August 15, 2021 Assessment & Plan (1) Alcohol dependence: Plan: Patient is a 55 year old male with history of cirrhosis, esophageal varices, RENÉE that presented for severe alcohol intoxication with medical alcohol level 470.4. Patient was found to have been unconscious over a guardrail where he was found by bystanders that had called 911 for evaluation of the patient. Severe Alcohol Use Disorder -Last supposed drink 21:00 on 08/12/21 ; consumes between 6-12 beverages/day -Initial medical alcohol level of 470.4 on admission -AWSS ordered with PRN ativan for withdrawal symptoms -- has not yet required -LFTs largely stable - TBili appreciated at 1.5 in the AM of 08/14, otherwise WNL -Continue Folate 1mg , thiamine 300mg daily -- would likely benefit from scheduled MVI as outpatient -Discussed Naltrexone therapy, inpatient and outpatient rehab -Plan on initiating naltrexone within next 7 days -Will consider gabapentin vs. Librium taper upon d/c -Consult CM: appreciate aid with identifying inpatient/outpatient rehab options Alcohol-Associated Cirrhosis, Esophageal Varices -Diagnosed as outpatient, follows with [facility] [place] Hepatology (see note 08/2020) -Complicated by grade I esophageal varices and portal hypertensive gastropathy (EGD 08/2020) - follows with [facility] [place] GI (last visit 09/2020), not currently on beta-blockade -MELD 10, Child-Davis 6 (Class A) -Follow-up with Hepatology/GI as outpatient: follow-up planned for later this summer Fall - [employer]; secondary to intoxication - CT head negative for acute bleed or fractures Hypokalemia -- resolved - Noted on arrival, DOA#1 - Replete p.r.n. Hypomagnesemia - Noted on arrival, intermittently throughout admission - Replete p.r.n. Macrocytic Anemia / Leukopenia / Thrombocytopenia - Platelets stable around ~90-100 throughout admission; WBCs ~3-3.5; Hgb 9-11 - Suspect secondary to marrow suppression in setting of chronic EtOH use - Continue to monitor while here - Check B12, folate: WNL - No e/o active bleeding Dispo: M/S Telemetry FEN: Regular diet DVT: SCDs-- will hold in setting of elevated INR, thrombocytopenia for now Code: Full (2) Alcohol intoxication: (3) Hypomagnesemia: (4) Fall: (5) Esophageal varices: (6) Cirrhosis: (7) Thrombocytopenia: Admission and Anticipated Discharge Date Admission Date: August 13, 2021 Supervising Physician Co-Signing Physician Notes Attending attestation Pt seen and examined in concert with Dr. Molina. In agreement with the documented findings as noted in the resident documentation with any exceptions or additions as noted here. Resting comfortably with mild tremor as the only symptom presently. On examination, S1/S2 nl RRR no MCG. CTAB. Abd NT/ND BS+ve. Mild tremor of the hands bilaterally at rest. VS as appreciated. Data: Hgb 11.1, Plt 111. M.0 Alcohol use disorder with associated cirrhosis with esophageal varices - continue thiamine/folate. Interested in naltrexone, reviewed risk/benefit. GI f/u as outpatient Hypomagnesemia - repleted Macrocytic anemia - improving, continue thiamine/folate Else see resident documentation as noted. Subjective NAEO. Feeling well. No CP/palpitations/SOB/n/v. Tremors getting better. Slept we ll. --- AWSS overnight scored at: (2) x 2 No Ativan administered. Review of Systems Review of Systems: as per HPI Physical Exam Physical Exam: General: 55-year old male who is alert, oriented, and NAD. Mild tremor in the upper extremities appreciated. No diaphoresis. HEENT: NCAT. - Eyes - Sclera are white, anicteric, and without injection. - Mouth - MMM - Neck - supple, no appreciable JVD Cardiac: Normal rate and regular rhythm; S1 and S2 present with no murmurs, rubs, or gallops. Pulmonary: Good respiratory effort with symmetric expansion of the chest. No use of accessory muscles. Lungs were clear to auscultation bilaterally with no crackles or wheezes. Abdominal: Normoactive bowel sounds. Abdomen was soft, nondistended, and non- tender to palpation. Extremities: Upper and lower extremities are warm and well perfused. No peripheral edema in the lower extremities bilaterally Results & Data Results & Data ([facility]) Vital Signs (Past 12 Hours) Vital Signs Temp Pulse Pulse Resp BP BP Pulse Ox 08/15/21 03:22 37.3 C 72 18 125/73 92 08/14/21 23:30 72 08/14/21 23:25 37.3 C 89 18 142/84 H 96 08/14/21 19:12 37.3 C 83 20 127/78 94 Resident Activity Tracking Resident Involvement: Resident Care Provided Care Provided: Adult Hospital Medicine
[2021-08-15 08:50] LABS: Basophils # (auto) 0.03 K/uL (0-0.2); Basophils % (auto) 0.5 %; Eosinophils # (auto) 0.24 K/uL (0-0.5); Eosinophils % (auto) 4.3 %; Hematocrit (blood only) 32.8 % (42-52); Hemoglobin 11.1 g/dL (14.0-18.0); Immature Granulocytes # (auto) 0.01 K/uL (0.00-0.02); Immature Granulocytes % (auto) 0.2 %; Lymphocytes % (auto) 12.6 %; Mean Corpuscular Hgb Conc 33.8 g/dL (32-36); Mean Corpuscular Volume 103.5 fL (80-100); Mean Platelet Volume 10.6 fL (7.4-10.4); Monocytes # (auto) 0.52 K/uL (0.11-0.59); Monocytes % (auto) 9.4 %; Neutrophils # (auto) 4.05 K/uL (1.4-6.5); Platelet Count 111 K/uL (130-400); RDW Standard Deviation 48.8 fL (36.4-46.3); Red Blood Count 3.17 M/uL (4.7-6.1); White Blood Count 5.55 K/uL (4.8-10.8)
[2021-08-15] MEDS: MULTIVITAMIN TAB PO SCH (09:02)
[2021-08-15] MEDS: PANTOprazole 40 MG TAB PO SCH (09:02)
[2021-08-15] MEDS: FOLIC ACID 1 MG TAB PO SCH (09:02)
[2021-08-15] MEDS: THIAMINE HCL 100 MG TAB PO SCH (09:03)
[2021-08-15] MEDS: MAGNESIUM SULFATE / D5W 1 GM/100 ML BAG IV SCH ×4 (09:06→15:31)
[2021-08-15 09:19] LABS: Albumin Globulin Ratio 1.2 (0.9-2); Albumin Level 3.5 gm/dl (3.4-5.0); BUN Creatinine Ratio 14.3 (10-20); Bilirubin,Total 1.9 mg/dl (0.2-1.0); Calcium 8.6 mg/dl (8.5-10.1); Creatinine Clr Calc Pharmacy 134.5 ml/min; Est GFR (Non-African American) 116.4 ml/min; Total Protein 6.5 gm/dl (6.0-8.3)
[2021-08-15 09:43] LABS: Folate (Folic Acid) > 22.30 ng/ml (>5.38)
[2021-08-15 09:44] LABS: Vitamin B12 368 pg/ml (180-914)
--- NOTE | 2021-08-16 06:33 | Discharge Summary ---
Date of Service August 16, 2021 Admission HPI Per Admitting Provider The patient is a 55-year-old male with a past medical history including alcohol intoxication, esophageal varices, cirrhosis, alcohol dependence, thrombocytopenia, folate deficiency, hepatic steatosis, vitamin D deficiency, elevated LFTs, RENÉE and gastritis. He presents to the emergency department after reportedly drinking multiple martinis, with trying to walk home and felt like he could not make it. He was found slumped over a guardrail where he was found by bystanders who thought he was and called 911. Admission Exam Per Admitting Provider The patient is awake, intoxicated, multiple skin abrasions, in bed and in no acute distress. HEENT--PERRL, EOMI, mucous membranes and oropharynx normal. Neck--supple. No JVD. No bruits. Thyroid normal, trachea midline, no adenopathy. Heart--normal S1 and S2. No murmurs, rubs or gallops. Lungs--clear bilaterally, no respiratory distress, no accessory muscle use. Abdomen--normal bowel sounds and soft. Nontender. Nondistended. Extremities--no cyanosis or clubbing. No edema. Dermatologic--normal skin turgor, normal color, no abnormal lymph nodes, no rash. Neurologic--cranial nerves II through XII grossly intact. Rheumatologic--normal range of motion. Psychiatric--intoxicated Principal Diagnosis severe alcohol intoxication Discharge Exam General: 55-year old male who is alert, oriented, and NAD. Mild tremor in the upper extremities appreciated. No diaphoresis. HEENT: NCAT. - Eyes - Sclera are white, anicteric, and without injection. - Mouth - MMM - Neck - supple, no appreciable JVD Cardiac: Normal rate and regular rhythm; S1 and S2 present with no murmurs, rubs, or gallops. Pulmonary: Good respiratory effort with symmetric expansion of the chest. No use of accessory muscles. Lungs were clear to auscultation bilaterally with no crackles or wheezes. Abdominal: Normoactive bowel sounds. Abdomen was soft, nondistended, and non- tender to palpation. Extremities: Upper and lower extremities are warm and well perfused. No peripheral edema in the lower extremities bilaterally Discharge Data Allergies Allergy/AdvReac Type Severity Reaction Status Date / Time No Known Allergies Allergy Verified 08/12/21 20:54 Consultations 08/13/21 00:17 ED Decision to Admit Stat Ordered Studies 08/12/21 20:59 CT head/brain wo con Stat mpression: No acute intracranial hemorrhage, no evidence of acute territorial infarction or other acute intracranial disease process. Hospital Course (1) Alcohol dependence: Patient is a 55 year old male with history of cirrhosis, esophageal varices, RENÉE that presented for severe alcohol intoxication with medical alcohol level 470.4. Patient was found to have been unconscious over a guardrail where he was found by bystanders that had called 911 for evaluation of the patient. Severe Alcohol Use Disorder -Last supposed drink 21:00 on 08/12/21 ; consumes between 6-12 beverages/day -Initial medical alcohol level of 470.4 on admission -AWSS ordered with PRN ativan for withdrawal symptoms -- has not yet required -LFTs largely stable - however, history of cirrhosis noted which may distort results - TBili elevated up to 1.9 on admission - Recheck CMP within 1 week following discharge -Continue Folate 1mg , thiamine 300mg daily -- will continue at discharge -Discussed Naltrexone, inpatient/outpatient therapy: - Not interested in EtOH abuse therapy services at this time - Would like to start Naltrexone. Initiate at 50mg. Start 08/20/21 with close PCP f/u and monitoring of CMP - Patient did not demonstrate significant signs of withdrawal >72 hours since his last drink. He is still at [id number] risk for withdrawal. Initiate gabapentin taper on d/c, close PCP f/u. Alcohol-Associated Cirrhosis, Esophageal Varices -Diagnosed as outpatient, follows with [facility] (see note 08/2020) -Complicated by grade I esophageal varices and portal hypertensive gastropathy (EGD 08/2020) - follows with [facility] (last visit 09/2020), not currently on beta-blockade -MELD 10, Child-Davis 6 (Class A) -Follow-up with Hepatology/GI as outpatient: follow-up EGD will be needed this summer Fall - [employer]; secondary to intoxication - CT head negative for acute bleed or fractures Hypokalemia -- resolved - Noted on arrival, DOA#1; resolved prior to discharge Hypomagnesemia - Noted on arrival, intermittently throughout admission - Start Mg Oxide 400mg daily on discharge - Recheck Mg level in 1 month Macrocytic Anemia / Leukopenia / Thrombocytopenia - Platelets stable around ~90-100 throughout admission; WBCs ~3-3.5; Hgb 9-11 - Suspect secondary to marrow suppression in setting of chronic EtOH use - Check B12, folate: WNL - Monitor CBC as outpatient Code: Full (2) Alcohol intoxication: (3) Hypomagnesemia: (4) Fall: (5) Esophageal varices: (6) Cirrhosis: (7) Thrombocytopenia: Total Time Total Time Spent Total Time Spent (In Minutes): 30 Discharge Plan Discharge Items Patient Disposition: Home - Self-Care Reason For Visit: ALCOHOL INTOXICATION, HYPOMAGNESEMIA, HYPOKALEMIA Discharge Diagnosis: alcohol use disorder alcohol intoxication Activity: Per Instructions section Non-emergency contact: Primary Care Provider Call non-emergency contact if: you have any medication questions and your temperature is above 101 Follow-up/Referrals: Valdemar Santo DO [Primary Care Provider] - 08/23/21 11:30 am Diet: Regular Addtl Attending Provider Instructions: You were seen in [facility] for alcohol intoxication and altered mental status. During your stay here, we ensured safe recovery from the state and repletion of nutritional deficits (potassium, magnesium). Thankfully, your recovery course was largely uncomplicated. Because she reported consuming between 6-12 drinks per day, you were monitored closely for alcohol withdrawal. While you are still considered higher than average risk for withdrawal, you demonstrated only mild symptoms while here. We also connected you with case management, who did discuss inpatient and outpatient alcohol treatment options; you noted that you would like to hold off from engaging with these services at this time. However, we did discuss initiating naltrexone (a medication that helps decrease the urge/craving for consumption of alcohol)this will be initiated shortly after your discharge. Upon your discharge, please note the following medication additions/deletions/modifications: Begin naltrexone 50 mg daily on 08/20/2021 with close PCP follow-up a few days after initiation Begin gabapentin taper (as discussed, you are at higher than average risk for withdrawal symptoms, which can present later in some peoplethis medication reduces symptoms of withdrawal) on the following schedule: --> Take 300mg three times daily for days 1, 2, and 3 following discharge --> Take 300mg two times daily for days 4 and 5 --> If further doses are needed for withdrawal symptoms, please speak with your PCP immediately Take thiamine 100 mg daily and folate 1 mg daily Take magnesium oxide 400 mg daily It is critical that you follow-up with your primary care physician within the next 7 days to review this visit and the initiation of naltrexone. Like we discussed, alcohol cessation is most effective when combined tactics are usedmedication and rehabilitation therapy. We commend you for taking the steps to treat this condition. In the interim, if you experience any significantly worsening anxiety, tremor, hallucinations, fever, chills, night sweats, palpitations, feeling like her heart is racing, or other worrisome symptoms, please report to the ER immediately for evaluation. We wish you all the best in your recovery, and it was a pleasure for caring for you while you are here. Pending Studies at Discharge: No Stand-Alone Forms: My [facility], Smoking Cessation Medications and DC Order Prescriptions: New thiamine HCl (vitamin B1) 100 mg Tablet 100 mg PO QAM 30 Days Qty: 30 RF: 2 naltrexone 50 mg tablet 50 mg PO DAILY Qty: 30 RF: 0 gabapentin 300 mg capsule See Rx Instructions .ROUTE .COMPLEX Qty: 13 RF: 0 magnesium oxide 400 mg (241.3 mg magnesium) tablet 400 mg PO DAILY Qty: 30 RF: 0 Continued multivitamin Tablet 1 tab PO QAM RF: 0 pantoprazole [Protonix] 40 mg tablet,delayed release (DR/EC) 40 mg PO QAM RF: 0 folic acid 1 mg tablet 1 mg PO QAM RF: 0 Discharge Orders: Discharge Order (Routine); Ordered 08/16/21 Ordered By: Henrik Hsu/Other Patient Handouts: Alcoholism: Myths and Facts, Alcoholism Resources, Alcoholism: Getting Help, Alcohol Addiction Admission Data Admit Date/Time: 08/13/21 00:50 Attending Provider: Hernesto Helm Admit Provider: Emory Kuar Primary Care Provider: Valdemar Santo Other Providers: Emory Kaur ; Henrik Gomez Other Interventions: Discharge Summary Assessment (RN) Last Done: 08/16/21 11:10 Supervising Physician Co-Signing Physician Notes I also saw the patient and confirmed chapman portions of the history and physical examination. I agree with the impression and plan as noted in the resident documentation. Exam 130/84, 91, 18, 37.2, 95% on room air Seated in bedside chair, no complaints. He feels well. Heart regular rate and rhythm Lungs clear with nonlabored respirations Data Sodium 137, potassium 4.8, BUN 13, creatinine 0.75 Magnesium 1.3, total bilirubin 1.5. Alcohol use disorder Alcohol associated cirrhosis, esophageal varices Hypokalemia, repleted Hypomagnesemia, repleted Discussed abstinence from all alcohol Discussed plan above including naltrexone Gabapentin taper Add p.o. Mag-Ox as outpatient CMP in 1 week Additional as noted in resident documentation Resident Activity Tracking Resident Involvement: Resident Care Provided Care Provided: Adult Hospital Medicine
[2021-08-16 08:18] LABS: Albumin Globulin Ratio 1.1 (0.9-2); Albumin Level 3.6 gm/dl (3.4-5.0); BUN Creatinine Ratio 17.3 (10-20); Bilirubin,Total 1.5 mg/dl (0.2-1.0); Calcium 9.5 mg/dl (8.5-10.1); Creatinine Clr Calc Pharmacy 100.4 ml/min; Est GFR (African American) 119.7 ml/min; Est GFR (Non-African American) 103.3 ml/min; Globulin 3.2 gm/dl (2.5-4.0); Potassium 4.8 mmol/L (3.5-5.1); Total Protein 6.8 gm/dl (6.0-8.3)
[2021-08-16] MEDS: MULTIVITAMIN TAB PO SCH (08:20)
[2021-08-16] MEDS: FOLIC ACID 1 MG TAB PO SCH (08:20)
[2021-08-16] MEDS: THIAMINE HCL 100 MG TAB PO SCH (08:20)
[2021-08-16] MEDS: PANTOprazole 40 MG TAB PO SCH (08:21)
[2021-08-16] MEDS ORDERED: GABAPENTIN 300 MG CAP PO SCH (09:00)
[2021-08-16] MEDS ORDERED: MAGNESIUM OXIDE 400 MG TAB PO SCH (21:00)
== END 2021-08-16 12:20 | disposition home or self-care (01) ==
LOC: ED 20:39 → SUATTDRO 08-13 00:50 → INTOOBSV 08-13 00:50 → 2N 08-13 00:50

== ENCOUNTER 2021-12-23 02:58 | Inpatient (IN) ==
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
[2021-12-23 03:50] LABS: Basophils # (auto) 0.07 K/uL (0-0.2); Basophils % (auto) 1.8 %; Eosinophils # (auto) 0.29 K/uL (0-0.50); Eosinophils % (auto) 7.4 %; Hematocrit (blood only) 29.1 % (40.1-51.0); Hemoglobin 10.3 g/dl (14.0-18.0); Immature Granulocytes # (auto) 0.01 K/uL (0.00-0.02); Immature Granulocytes % (auto) 0.3 %; Lymphocytes # (auto) 1.15 K/uL (1.2-3.4); Lymphocytes % (auto) 29.5 %; Mean Platelet Volume 10.1 fL (9.4-12.4); Monocytes # (auto) 0.39 K/uL (0.24-0.82); Neutrophils # (auto) 1.99 K/uL (1.4-6.5); Platelet Count 101 K/uL (130-400)
[2021-12-23 04:12] LABS: Albumin Globulin Ratio 1.3 (0.9-2); Albumin Level 3.7 gm/dl (3.4-5.0); BUN Creatinine Ratio 10.3 (10-20); Bilirubin,Total 1.3 mg/dl (0.2-1.0); Calcium 7.8 mg/dl (8.5-10.1); Creatinine Clr Calc Pharmacy 86.2 ml/min; Est GFR (Non-African American) 100.9 ml/min; Globulin 2.9 gm/dl (2.5-4.0); Potassium 2.6 mmol/L (3.5-5.1); Total Protein 6.6 gm/dl (6.0-8.3)
[2021-12-23 04:15] LABS: Mean Corpuscular Hemoglobin 35.3 pg (25.0-34.0); Mean Corpuscular Hgb Conc 35.4 g/dL (32.0-36.0); Mean Corpuscular Volume 99.7 fL (80.0-100.0); RDW Coefficient of Variation 13.4 % (11.5-14.5); RDW Standard Deviation 49.5 fL (36.4-46.3); Red Blood Count 2.92 M/uL (4.63-6.08)
[2021-12-23] MEDS ORDERED: POTASSIUM CHLORIDE 10 MEQ TABCR PO STA (04:38)
[2021-12-23] MEDS ORDERED: SODIUM CHLORIDE 0.9% 1000ML 1,000 ML IV ONE (04:38)
--- NOTE | 2021-12-23 05:07 | History & Physical Report ---
Date of Service December 23, 2021 Assessment & Plan (1) Alcohol dependence: Plan: All his issues stem from his alcohol abuse. * Electrolyte disturbances -> Will replete K+, Mg as needed. * Alcohol withdrawal -> None on prior admission, but will put in BONNIE and Ativan PRN. * Cirrhosis with varices -> Diagnosed by liver elastogram in [place] in 2020. No signs/symptoms of bleeding from varices or decompensation from cirrhosis. Continue PPI. F/u with GI as outpatient. * Leukopenia & thrombocytopenia -> Due to bone marrow suppression and cirrhosis from alcohol. 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 Will get PT/INR to ensure no need for steroids, but unlikely. - Continue thiamine and folate daily - Offer alcohol abuse medication on discharge. Last time took naltrexone for 1 week, then stopped. (2) DVT prophylaxis: Plan: SCDs - Avoid heparin in setting of known varices. FULL CODE per patient on admission. History of Present Illness Primary Care Provider: Valdemar Santo, 56yo M w/ hx of alcoholism, alcoholic cirrhosis who presents with alcohol intoxication and electrolyte abnormalities related to this. Patient was admitted in July for the same. Has been drinking since that time. Again tonight, drank enough that he was found intoxicated and unable to get home. Was brought to the ER and found to have low potassium and low magnesium. Denies any emesis, hematemesis, melena. Allergies Allergy/AdvReac Type Severity Reaction Status Date / Time No Known Allergies Allergy Verified 08/12/21 20:54 Home Medications Medication Instructions Recorded Confirmed Type multivitamin 1 tab PO QAM 09/19/20 08/12/21 History folic acid 1 mg tablet 1 mg PO QAM 08/12/21 08/12/21 History pantoprazole 40 mg tablet,delayed 40 mg PO QAM gastritis, erosions 08/12/21 08/12/21 History release (Protonix) gabapentin 300 mg capsule See Rx Instructions .Route 08/16/21 Rx .COMPLEX #13 caps magnesium oxide 400 mg (241.3 mg 400 mg PO DAILY #30 tabs 08/16/21 Rx magnesium) tablet naltrexone 50 mg tablet 50 mg PO DAILY #30 tabs 08/16/21 Rx thiamine HCl (vitamin B1) 100 mg 100 mg PO QAM 30 days #30 tabs 08/16/21 Rx tablet Past Med/Surg History Medical History Abrasion of forearm, left Acute hypokalemia Alcohol intoxication Anxiety and depression Asthma "MILD" NO INHALER Back problem "MESSED UP DISCS IN MY BACK" Elevated PSA Fall Fatty liver History of rectal bleeding History of skin cancer ON CHEEK--removed in office Hx of esophageal reflux Hypomagnesemia Positive colorectal cancer screening using Cologuard test (~08/09/20) Sleep apnea DOES NOT USE DEVICE Varicose veins of both lower extremities Surgical History History of colonoscopy History of tonsillectomy Hx of wisdom tooth extraction Family History Mother Breast cancer Father Diabetes Colorectal cancer Stroke Brother Prostate cancer Heart disease Colorectal cancer Other Unknown family medical history Denies family history of Ovarian cancer Coronary heart disease Myocardial infarction Congenital kidney disease Lung cancer Cystic kidney disease Social History Smoking Status: Never smoker Second Hand Exposure: No; Hx Alcohol Use: Yes Alcohol type: beer, wine and hard liquor Alcohol Intake Frequency: 4 or More x per/Week Alcohol Intake Frequency Comment: pt states he drinks daily 5 drinks Hx Substance Use: No Preferred Language: Welsh Communication Ability: Effective Visual Impairment: Limited Hearing Ability: Normal School Bus Driver/Mechanic Required: No Beliefs That Will Affect Care: None marital status: Current Living Situation: Alone current occupational status: retired How many Children do You have: 2 Feels Safe at Home: Yes Childhood Exposure to Second-Hand Smoke: Yes caffeine: Yes Dental Care, Regularly: No Physical Activity Frequency: Does not Exercise Seatbelt Use: always Sunscreen Use: No Assistive Devices: Glasses Review of Systems Review of Systems: All systems reviewed & are unremarkable except as noted in HPI & below Physical Exam Constitutional: WD/WN, vitals as above Eyes: EOM intact bilaterally; no conjunctival abnormality ENMT: external ear and nose normal, oropharynx normal Neck: trachea midline, no thyromegaly normal visual inspection Respiratory: normal respiratory effort, lungs clear to auscultation no respiratory distress Cardiovascular: RRR, no murmur, no edema Gastrointestinal (Abdomen): Inspection/Auscultation: abdomen normal to inspection; abdomen not distended Musculoskeletal: no cyanosis or clubbing, extremities motor strength 5/5 Skin: no rashes, warm and dry Neurologic: moves all extremities and awake No tongue fasculations and no tremor Psychiatric: Orientation: alert, oriented to person and cooperative Results & Data Results & Data ([facility]) Vital Signs (Past 12 Hours) Vital Signs Temp Pulse Resp BP Pulse Ox O2 Del Method 12/23/21 03:17 96 Room Air 12/23/21 03:17 97 Room Air 12/23/21 03:08 36.6 C 88 16 115/79 98 Room Air Code Status & VTE Plan VTE Prophylaxis Plan VTE Prophylaxis will be ordered: Yes PG Care Time/CCT Total # of Minutes Spent Total Time Spent with Patient: Total time spent is greater than 50% in coordination of care (as documented) at patient's floor/unit and/or counseling patient: Coding Level of Care Code 00233 Initial Inpt Care Lvl 3 Diagnoses Alcohol dependence F10.20 DVT prophylaxis Z29.9
[2021-12-23] MEDS ORDERED: MULTI-VITAMIN INFUSION 10 ML, THIAMINE HCL 100 MG, FOLIC ACID 1 MG in SODIUM CHLORIDE 0... IV ONE (05:15)
[2021-12-23] MEDS: POTASSIUM CHLORIDE / WTR 10 MEQ/100 ML PLCT IV SCH ×4 (05:51→13:50)
[2021-12-23 05:58] LABS: INR 1.3 (0.9-1.1); Prothrombin Time 13.5 Seconds (9.0-12.0)
[2021-12-23] MEDS: MAGNESIUM SULFATE / D5W 1 GM/100 ML BAG IV SCH ×7 (06:55→23:23)
[2021-12-23] MEDS ORDERED: LORazepam 1 MG in SYRINGE 0.5 ML IV PRN (09:49)
[2021-12-23] MEDS ORDERED: ONDANSETRON INJ 2 MG/ML 2 ML VIAL IV PRN (09:49)
[2021-12-23] MEDS ORDERED: PANTOprazole 40 MG TAB PO SCH (09:49)
[2021-12-23] MEDS ORDERED: ACETAMINOPHEN 500 MG TAB PO PRN (09:49)
[2021-12-23] MEDS: THIAMINE HCL 100 MG TAB PO SCH (12:25)
[2021-12-23] MEDS: FOLIC ACID 1 MG TAB PO SCH (12:25)
[2021-12-23] MEDS: PANTOprazole 40 MG TAB PO SCH ×2 (12:25→21:17)
--- NOTE | 2021-12-23 16:03 | Hospitalist Progress Note ---
Date of Service December 23, 2021 Assessment & Plan (1) DVT prophylaxis: Plan: SCDs - Avoid heparin in setting of known varices. Early ambulation. (2) Hypomagnesemia: Plan: IV replacement. Serial labs (3) Hypokalemia: Plan: Replacement therapy. Serial labs (4) Alcoholic intoxication: Plan: Supportive care. Treat withdrawal symptoms as needed (5) Alcoholism: Plan: Supportive care. Treat withdrawal symptoms as needed (6) Esophageal varices: Plan: Due to underlying alcohol induced cirrhosis. No current upper GI bleeding (7) Cirrhosis: Plan: Alcohol induced. We will follow Plan Eventual discharge to home. Hopefully tomorrow, December 24 Admission and Anticipated Discharge Date Admission Date: December 23, 2021 Subjective Currently alert and oriented. Potassium and magnesium supplementation underway. Hopefully he will be able to go home tomorrow, December 24 Review of Systems Review of Systems: Constitutional-no fever or chills ENT-no blurred vision, no double vision, no epistaxis, no sore throat Respiratory-no cough, no wheezing, no shortness of breath Cardiac-no palpitations, no chest pain, no syncope GI-no nausea, vomiting, diarrhea, melena, hematochezia -no urinary retention, no urinary incontinence, no dysuria, no hematuria Musculoskeletal-no joint pain, no muscle tenderness Skin-no bruising, no rashes, no pruritus Neuro-no isolated weakness, no paresthesia, no weakness Psych-no depression, no anxiety Physical Exam Physical Exam: General-alert and oriented x3, no fevers, no chills HEENT-head atraumatic and normocephalic, pupils equal and reactive to light, extraocular muscles intact Neck-no lymphadenopathy or thyromegaly, trachea midline Chest-clear to auscultation percussion. No rales wheezing or rhonchi Cardiac-regular rate and rhythm, normal S1 and S2, no murmurs Abdomen-normal bowel sounds, nontender, no hepatosplenomegaly Extremities-no cyanosis, clubbing, or edema Neuro-cranial nerves II through XII intact, motor and sensory function within normal limits, strength symmetrical , no focal deficits Psych-normal affect, normal mood Results & Data Results & [facility] ([facility]) Vital Signs (Past 12 Hours) Vital Signs Temp Pulse Pulse Resp BP BP Pulse Ox 12/23/21 11:57 115 H 12/23/21 11:54 12/23/21 09:49 36.6 C 90 20 111/81 97 12/23/21 09:20 66 17 100 12/23/21 09:10 80 10 L 100 12/23/21 09:00 74 14 100 12/23/21 09:00 93/64 L 12/23/21 08:30 83 14 100 12/23/21 08:30 89/68 L 12/23/21 08:00 88 21 100 12/23/21 08:00 103/71 12/23/21 06:24 96/62 L 12/23/21 06:24 81 97 O2 Del Method O2 Flow Rate 12/23/21 11:57 12/23/21 11:54 Nasal Cannula 2 12/23/21 09:49 Nasal Cannula 2 12/23/21 09:20 12/23/21 09:10 12/23/21 09:00 12/23/21 09:00 12/23/21 08:30 12/23/21 08:30 12/23/21 08:00 12/23/21 08:00 12/23/21 06:24 12/23/21 06:24 Laboratory Results 12/23/21 03:35 12/23/21 03:35 PG Care Time/CCT Total # of Minutes Spent Total Time Spent with Patient: Total time spent is greater than 50% in coordination of care (as documented) at patient's floor/unit and/or counseling patient: Coding Level of Care Code 87643 Subseq Hosp Care Lvl 3 Diagnoses DVT prophylaxis Z29.9 Hypomagnesemia E83.42 Hypokalemia E87.6 Alcoholic intoxication F10.929 Alcoholism F10.20 Esophageal varices I85.00 Cirrhosis K74.60
[2021-12-23 18:02] LABS: Albumin Globulin Ratio 1.3 (0.9-2); Albumin Level 3.2 gm/dl (3.4-5.0); BUN Creatinine Ratio 10.8 (10-20); Bilirubin,Total 1.1 mg/dl (0.2-1.0); Calcium 7.4 mg/dl (8.5-10.1); Creatinine Clr Calc Pharmacy 110.9 ml/min; Est GFR (African American) 126.1 ml/min; Est GFR (Non-African American) 108.8 ml/min; Globulin 2.4 gm/dl (2.5-4.0); Potassium 3.3 mmol/L (3.5-5.1); Total Protein 5.6 gm/dl (6.0-8.3)
[2021-12-23] MEDS ORDERED: POTASSIUM CHLORIDE CRTAB 20 MEQ TABCR PO STA (19:15)
--- NOTE | 2021-12-23 22:42 | Electrocardiogram Report ---
Test Reason : Blood Pressure : / mmHG Vent. Rate : 091 BPM Atrial Rate : 091 BPM P-R Int : 122 ms QRS Dur : 070 ms QT Int : 390 ms P-R-T Axes : 067 029 026 degrees QTc Int : 479 ms Poor data quality, interpretation may be adversely affected Normal sinus rhythm Borderline ECG When compared with ECG of 12-AUG-2021 20:51, No significant change was found Confirmed by Britton Chavarria ([id number]) on 12/23/2021 10:42:18 PM Referred By: REFERRED SELF Confirmed By:Britton Chavarria
[2021-12-24 06:10] LABS: Hematocrit (blood only) 26.8 % (40.1-51.0); Hemoglobin 9.4 g/dl (14.0-18.0); Mean Platelet Volume 10.2 fL (9.4-12.4); Platelet Count 75 K/uL (130-400); White Blood Count 2.97 K/ul (4.8-10.8)
[2021-12-24 06:31] LABS: Mean Corpuscular Hemoglobin 35.1 pg (25.0-34.0); Mean Corpuscular Hgb Conc 35.1 g/dL (32.0-36.0); RDW Coefficient of Variation 13.6 % (11.5-14.5); RDW Standard Deviation 49.9 fL (36.4-46.3); Red Blood Count 2.68 M/uL (4.63-6.08)
[2021-12-24 07:27] LABS: Albumin Globulin Ratio 1.3 (0.9-2); Albumin Level 3.3 gm/dl (3.4-5.0); BUN Creatinine Ratio 9.7 (10-20); Bilirubin,Total 2.4 mg/dl (0.2-1.0); Calcium 7.7 mg/dl (8.5-10.1); Creatinine Clr Calc Pharmacy 100.5 ml/min; Est GFR (African American) 120.9 ml/min; Est GFR (Non-African American) 104.3 ml/min; Globulin 2.5 gm/dl (2.5-4.0); Magnesium 1.7 mg/dl (1.7-2.4); Phosphorus 1.9 mg/dl (2.5-4.9); Potassium 3.4 mmol/L (3.5-5.1); Total Protein 5.8 gm/dl (6.0-8.3)
[2021-12-24] MEDS ORDERED: LORazepam 1 MG TAB PO PRN (07:51)
[2021-12-24] MEDS: FOLIC ACID 1 MG TAB PO SCH (08:34)
[2021-12-24] MEDS: PANTOprazole 40 MG TAB PO SCH (08:34)
[2021-12-24] MEDS: THIAMINE HCL 100 MG TAB PO SCH (08:34)
[2021-12-24] MEDS ORDERED: POTASSIUM CHLORIDE CRTAB 20 MEQ TABCR PO STA (10:11)
[2021-12-24] MEDS ORDERED: MAGNESIUM OXIDE 400 MG TAB PO SCH (10:15)
--- NOTE | 2021-12-24 12:21 | Discharge Summary ---
Date of Service December 24, 2021 Admission HPI Per Admitting Provider 56yo M w/ hx of alcoholism, alcoholic cirrhosis who presents with alcohol intoxication and electrolyte abnormalities related to this. Patient was admitted in July for the same. Has been drinking since that time. Aga in [facility], drank enough that he was found intoxicated and unable to get home. Was brought to the ER and found to have low potassium and low magnesium. Denies any emesis, hematemesis, melena. Principal Diagnosis Alcoholism, alcohol intoxication, hypokalemia, hypomagnesemia Discharge Exam General-alert and oriented x3, no fevers, no chills HEENT-head atraumatic and normocephalic, pupils equal and reactive to light, extraocular muscles intact Neck-no lymphadenopathy or thyromegaly, trachea midline Chest-clear to auscultation percussion. No rales wheezing or rhonchi Cardiac-regular rate and rhythm, normal S1 and S2 Abdomen-normal bowel sounds, nontender, no hepatosplenomegaly Extremities-no cyanosis, clubbing, or edema Neuro-cranial nerves II through XII intact, motor and sensory function within normal limits, strength symmetrical , no focal deficits Psych-normal affect, normal mood Discharge Data Allergies Allergy/AdvReac Type Severity Reaction Status Date / Time No Known Allergies Allergy Verified 12/23/21 06:58 Consultations 12/23/21 04:39 ED Decision to Admit Stat 12/23/21 04:48 ED Decision to Admit Stat Hospital Course (1) DVT prophylaxis: SCDs - Avoid heparin in setting of known varices. Early ambulation. (2) Hypomagnesemia: IV replacement. Serial labs (3) Hypokalemia: Replacement therapy. Serial labs (4) Alcoholic intoxication: Supportive care. Treat withdrawal symptoms as needed (5) Alcoholism: Supportive care. Treat withdrawal symptoms as needed (6) Esophageal varices: Due to underlying alcohol induced cirrhosis. No current upper GI bleeding (7) Cirrhosis: Alcohol induced. We will follow Plan Home today, December 24 Total Time Total Time Spent Total Time Spent (In Minutes): 35 minutes Discharge Plan Discharge Items Patient Disposition: Home - Self-Care Reason For Visit: ALCHOHOL INTOXICATION Discharge Diagnosis: Alcohol intoxication, hypokalemia, hypomagnesemia Condition on Discharge: Good Activity: Resume your previous activity Non-emergency contact: Primary Care Provider Call non-emergency contact if: you have any medication questions Follow-up/Referrals: Valdemar Santo, [Primary Care Provider] - Diet: Regular Addtl Attending Provider Instructions: Stop all alcohol consumption if possible. Take magnesium supplements as directed Pending Studies at Discharge: No Stand-Alone Forms: My [facility], Smoking Cessation Medications and DC Order Prescriptions: New magnesium oxide 400 mg (241.3 mg magnesium) Tablet 400 mg PO BID Qty: 60 0RF Continued multivitamin Liquid 10 ml PO DAILY pantoprazole [Protonix] 40 mg tablet,delayed release (DR/EC) 40 mg PO QAM folic acid 1 mg tablet 1 mg PO QAM Rx Instructions: TAKE 1 TAB BY MOUTH EVERY MORNING Discharge Orders: Discharge Order (Routine); Ordered 12/24/21 Ordered By: Song Zamorano Admission Data Admit Date/Time: 12/23/21 04:59 Attending Provider: Song Zamorano Admit Provider: Randy Velasquez Primary Care Provider: Valdemar Santo Other Providers: Randy Velasquez Coding Level of Care Code D/C DAY MANAGEMENT >30 MINS Diagnoses DVT prophylaxis Z29.9 Hypomagnesemia E83.42 Hypokalemia E87.6 Alcoholic intoxication F10.929 Alcoholism F10.20 Esophageal varices I85.00 Cirrhosis K74.60
== END 2021-12-24 14:55 | disposition home or self-care (01) | DRG 897 ==
LOC: ED 02:58 → 2E 04:59 → SUATTDRO 04:59 → 2E 09:30

== ENCOUNTER 2023-09-15 00:24 | Inpatient (IN) ==
--- NOTE | 2023-09-15 01:03 | Emergency Department Note ---
Impression & Plan Alcohol overdose, Hypomagnesemia, Acute alteration in mental status, Hypokalemia ED Provider Note CHIEF COMPLAINT: Altered mental status from possible alcohol overdose HISTORY OF PRESENT ILLNESS: Patient is a 57-year-old male, well-known to the emergency department for frequent visits, known history of alcohol abuse, prostate cancer, cirrhosis, esophageal varices, among other chronic medical problems who was brought to the emergency department via EMS for for evaluation of altered mental status, presumably from alcohol intoxication. History obtained from EMS and nursing staff. Patient was found passed out downtown by bystanders. He was unconscious when police/EMS arrived, and he was thus brought to the emergency department. No identified trauma. Patient is unconscious at time of exam and further history is unable to be obtained. REVIEW OF SYSTEMS: Review of systems was limited secondary to patient's altered status. PMH: External medical records are reviewed and summarized as above/below. See Problem List. SOCIAL HISTORY: Alcoholic PHYSICAL EXAM VITALS: Vitals are noted on the nurse's note and reviewed by myself. Oxygen saturations low on room air, placed on nasal cannula oxygen, 3 L. GENERAL: White male, snoring respirations, prone on the gurney. HEAD: Normocephalic atraumatic. EARS: External ear normal. External auditory canals clear, tympanic membranes pearly luo without erythema or effusion bilaterally. No hemotympanum EYES: Pupils equal round and reactive to light. Conjunctivae with scant injection. EOMI intact spontaneously NOSE: Patent, turbinates without inflammation or discharge. MOUTH: Mucous membranes moist. Tonsils are not enlarged. Pharynx without erythema, blood, vomitus, or exudate. Uvula midline. Airway patent. NECK: Supple without nuchal rigidity. No lymphadenopathy. Cervical spine is nontender. HEART: Regular rate and rhythm. LUNGS: Clear to auscultation bilaterally. ABDOMEN: Positive normal bowel sounds x 4. Soft, nontender, without masses or organomegaly. No guarding or rebound tenderness. MUSCULOSKELETAL: No muscle atrophy, erythema, or edema noted. Gross motor function intact to all extremities. NEURO: Patient was unconscious with snoring respirations. SKIN: The skin was without rashes, erythema, edema, or bruising. EMERGENCY DEPARTMENT COURSE: The patient was seen and assessed as above. Full history unable to be obtained due to AMS. Physical exam performed. Nursing notes and EMR were reviewed. The patient appears to be altered on my examination. I suspect this is from an alcohol overdose. Conservative care measures and aspiration precautions were instituted. The patient was placed in a prone position. An order was placed for continuous cardiac monitoring. The monitor shows a rate of 85 with normal sinus rhythm. Patient did require supplemental oxygen by nasal cannula, then subsequently oxy mask. Blood work was obtained and was reviewed. Per my interpretation: Chronic, stable anemia, hemoglobin 11.2, hematocrit 33.3. Chronic thrombocytopenia, platelet count 91. Blood alcohol is markedly elevated at 667. Hypokalemia, potassium 2.8, hypomagnesia, magnesium 1.3. Mildly elevated bilirubin and AST, remainder transaminases are normal. No BARRERA. Patient reviewed with attending physician, Dr. Yung. Given his markedly elevated blood alcohol level, in addition to electrolyte imbalances requiring repletion, will discuss admission with hospitalist service for further care and management. Patient was ordered a banana bag, K riders and magnesium repletion. Patient reviewed with environmental conflict manager and discussed with the [facility] hospitalist. Patient discussed with Dr. Pillai. Please refer to admission H&P for further information. Differential diagnosis: Etiologies such as alcohol intoxication, metabolic, infection, hypoglycemia, electrolyte abnormalities, cardiac sources, intracerebral event, toxicologic, neurologic, as well as others were entertained. Past Med/Surg History Problem List (Updated 09/15/23 @ 04:05 by Tobi Pickard) Hypokalemia (Acute) Acute alteration in mental status (Acute) Hypomagnesemia (Acute) Alcohol overdose (Acute) Prostate cancer (Chronic 06/27/23) B12 deficiency Alcohol use disorder, severe, dependence Cirrhosis Thrombocytopenia (07/06/20) Cirrhosis vs. Folate deficiency vs. EtOH marrow suppression Esophageal varices Elevated PSA, less than 10 ng/ml (07/11/20) Urology referral placed. Hypomagnesemia (Acute) Obstructive sleep apnea Tubular adenoma Urinary urgency Vitamin D deficiency (07/11/20) Medical History Gastritis Elevated ferritin (07/11/20) HH genetic testing ordered. Cirrhosis History of COVID-19 2021 Back problem "MESSED UP DISCS IN MY BACK" Hx of esophageal reflux History of skin cancer ON CHEEK--removed in office Anxiety and depression Varicose veins of both lower extremities Sleep apnea CPAP Asthma "MILD" NO INHALER Hepatic steatosis (07/15/20) On US 07/15/2020 Not immune to hepatitis B virus He's waiting to find a ride to get scheduled. Looking into local pharmacies. Hepatitis A vaccination not up to date He's waiting to find a ride to get scheduled. Looking into local pharmacies. Surgical History History of tonsillectomy History of colonoscopy 08/2020 repeat 3 yrs Hx of wisdom tooth extraction Family History Mother Breast cancer Father Diabetes Colorectal cancer Stroke Brother Prostate cancer Heart disease Colorectal cancer Other Unknown family medical history Denies family history of Ovarian cancer Coronary heart disease Myocardial infarction Congenital kidney disease Lung cancer Cystic kidney disease Social History Smoking Status: Unknown if ever smoked Second Hand Exposure: No; Do You Dip or Chew Tobacco: No; Hx Alcohol Use: Yes Alcohol type: beer, wine and hard liquor Alcohol Intake Frequency: 4 or More x per/Week Alcohol Intake Frequency Comment: pt states he drinks daily 5 drinks Hx Substance Use: No Preferred Language: Slovenian Communication Ability: Effective Visual Impairment: Limited Hearing Ability: Normal Cloth Covered Helmet Puller Required: No Beliefs That Will Affect Care: None marital status: Current Living Situation: Alone current occupational status: retired How many Children do You have: 2 Feels Safe at Home: Yes Childhood Exposure to Second-Hand Smoke: Yes Diet: regular caffeine: Yes Dental Care, Regularly: Yes Seatbelt Use: always Sunscreen Use: No Assistive Devices: Crutches and Glasses Allergies Allergies Allergy/AdvReac Type Severity Reaction Status Date / Time No Known Allergies Allergy Verified 09/11/23 09:12 Home Meds Home Medications Medication Instructions Recorded Confirmed ibuprofen 600 mg tablet 600 mg PO DAILY PRN Pain 05/30/23 09/11/23 naltrexone microspheres 380 mg 0 mg IM DIRECTED 07/08/23 09/11/23 intramuscular suspension,extended release (Vivitrol) naltrexone microspheres 380 mg mg IM .Q28 days 09/11/23 09/11/23 intramuscular suspension,extended release (Vivitrol) Previous Rx's Medication Instructions Recorded folic acid 1 mg tablet 1 mg PO QAM #90 tabs 07/26/22 sildenafil 25 mg tablet 25 mg PO DAILY PRN sexual activity 09/13/22 #30 tabs cane #2 ea 11/13/22 fluticasone propionate 50 1 spray intranasal BID 90 days #48 11/14/22 mcg/actuation nasal grams spray,suspension (Allergy Relief (fluticasone)) magnesium oxide 400 mg (241.3 mg 400 mg PO BID 90 days #180 tabs 11/20/22 magnesium) tablet thiamine HCl (vitamin B1) 100 mg 100 mg PO QAM #90 tabs 05/14/23 tablet famotidine 40 mg tablet 40 mg PO QAM #90 tabs 05/16/23 potassium chloride 20 mEq 20 meq PO QAM #90 tabs 09/05/23 tablet,extended release Results & Data (ED) Vital Signs Vital Signs - 24 hr 09/15/23 00:17 09/15/23 00:42 09/15/23 00:44 Pulse Rate 120 H 85 Pulse Rate [Apical] Respiratory Rate 20 Respiratory Effort / Characteristics Non-Labored Respiratory Depth Normal Respiratory Pattern Regular Blood Pressure 115/78 Blood Pressure [Right Arm] Blood Pressure Mean 90 Blood Pressure Mean [Right Arm] Pulse Oximetry 98 87 L Oxygen Delivery Method Nasal Cannula Room Air Nasal Cannula Oxygen Flow Rate 3 0 Sepsis Recent Fever Within 48 Hours No Sepsis New/Unexplained Change in Mental Status N/A Sepsis Action Taken by Nursing No Action Required Oxygen Flow Rate - Titration 3 Pulse Oximetry Post Tiitration 98 09/15/23 00:44 09/15/23 01:00 09/15/23 02:00 Pulse Rate Pulse Rate [Apical] 105 H 126 H Respiratory Rate 20 18 Respiratory Effort / Characteristics Non-Labored Non-Labored Respiratory Depth Normal Normal Respiratory Pattern Regular Regular Blood Pressure Blood Pressure [Right Arm] 113/78 136/112 H Blood Pressure Mean Blood Pressure Mean [Right Arm] 89 120 Pulse Oximetry 98 91 92 Oxygen Delivery Method Nasal Cannula Nasal Cannula Nasal Cannula Oxygen Flow Rate 3 3 4 Sepsis Recent Fever Within 48 Hours Sepsis New/Unexplained Change in Mental Status Sepsis Action Taken by Nursing Oxygen Flow Rate - Titration Pulse Oximetry Post Tiitration 09/15/23 03:00 09/15/23 04:00 Pulse Rate Pulse Rate [Apical] 128 H 115 H Respiratory Rate 18 18 Respiratory Effort / Characteristics Non-Labored Non-Labored Respiratory Depth Normal Normal Respiratory Pattern Regular Regular Blood Pressure Blood Pressure [Right Arm] 93/58 L 82/62 L Blood Pressure Mean Blood Pressure Mean [Right Arm] 69 68 Pulse Oximetry 90 93 Oxygen Delivery Method Nasal Cannula Oxymask Oxygen Flow Rate 4 6 Sepsis Recent Fever Within 48 Hours Sepsis New/Unexplained Change in Mental Status Sepsis Action Taken by Nursing Oxygen Flow Rate - Titration Pulse Oximetry Post Tiitration Home Medications Current Medication List: was personally reviewed by me Laboratory Data Attestation: I reviewed the patient's lab results. 09/15/23 00:53 09/15/23 00:53 Lab Results 09/15/23 Range/Units 00:53 WBC 5.05 (4.8-10.8) K/ul RBC 3.30 L (4.70-6.10) M/uL Hgb 11.2 L (14.0-18.0) g/dl Hct 33.3 L (42.0-52.0) % MCV 100.9 H (80.0-100.0) fL MCH 33.9 (25.0-34.0) pg MCHC 33.6 (32.0-36.0) g/dL RDW Std Deviation 59.7 H (36.4-46.3) fL RDW Coeff of Melissa 16.1 H (11.5-14.5) % Plt Count 91 L (130-400) K/uL MPV 10.1 (9.4-12.4) fL Immature Gran % (Auto) 0.2 % Neut % (Auto) 41.3 % Lymph % (Auto) 33.3 % Giles % (Auto) 14.5 % Eos % (Auto) 7.7 % Baso % (Auto) 3.0 % Neut # (Auto) 2.09 (1.40-6.50) K/uL Lymph # (Auto) 1.68 (1.20-3.40) K/uL Giles # (Auto) 0.73 H (0.11-0.59) K/uL Eos # (Auto) 0.39 (0.00-0.50) K/uL Baso # (Auto) 0.15 (0.00-0.20) K/uL Immature Gran # (Auto) 0.01 (0.01-0.20) K/uL PT 13.5 H (9.0-12.0) Seconds INR 1.3 H (0.9-1.1) Sodium 141 (136-145) mmol/L Potassium 2.8 L (3.5-5.1) mmol/L Chloride 106 (98-107) mmol/L Carbon Dioxide 25 (21-32) mmol/L Anion Gap 10 (3-11) BUN 14 (6-23) mg/dl Creatinine 1.18 (0.6-1.4) mg/dl Est Cr Clr Drug Dosing 58.5 ml/min Est GFR ( Amer) 78.9 ml/min Est GFR (Non-Af Amer) 68.1 ml/min BUN/Creatinine Ratio 11.9 (10-20) Glucose 198 H (70-99(Fasting)) mg/dl Calcium 8.0 L (8.6-10.3) mg/dl Magnesium 1.3 L (1.7-2.4) mg/dl Total Bilirubin 1.6 H (0.2-1.0) mg/dl AST 80 H (13-39) U/L ALT 35 (7-52) U/L Alkaline Phosphatase 92 (34-104) U/L Total Creatine Kinase 164 (30-223) U/L Total Protein 7.4 (6.0-8.3) gm/dl Albumin 3.7 (3.4-5.0) gm/dl Globulin 3.7 (2.5-4.0) gm/dl Albumin/Globulin Ratio 1.0 (0.9-2) TSH 1.865 (0.300-4.500) uIu/ml Ethyl Alcohol mg/dL 667.8 H (<10.0) mg/dl Administered Medications Multivitamins 10 ml/ Thiamine HCl 100 mg/ Folic Acid 1 mg/Sodium Chloride 1,011.2 mls @ 500 mls/hr IV .Q2H2M ONE Stop: 09/15/23 05:26 Last Admin: 09/15/23 04:26 Dose: 500 mls/hr Documented By: RADHA Potassium Chloride (K Vlad / Wtr) 10 meq in 100 mls @ 100 mls/hr IV Q1H JORGE L Stop: 09/15/23 06:29 Last Admin: 09/15/23 05:03 Dose: 100 mls/hr Documented By: Infusion: 09/15/23 04:51 Dose: Infused Documented By: Admin: 09/15/23 03:51 Dose: 100 mls/hr Documented By: RADHA Discontinued Medications Multivitamins 10 ml/ Thiamine HCl 100 mg/ Folic Acid 1 mg/Sodium Chloride 1,011.2 mls @ 500 mls/hr IV .Q2H2M ONE Stop: 09/15/23 02:45 Last Admin: 09/15/23 03:53 Dose: Not Given Documented By: RADHA Magnesium Sulfate/Dextrose (Magnesium Sulfate / D5w) 1 gm in 100 mls @ 100 mls/hr IV NOW STA Stop: 09/15/23 04:25 Last Infusion: 09/15/23 05:03 Dose: Infused Documented By: Admin: 09/15/23 03:51 Dose: 100 mls/hr Documented By: RADHA Discharge Plan Visit Data Chief Complaint: Alcohol Intoxication Stated Complaint: UNCONSCIOUS ALCOHOL OVERDOSE ED Provider: Joanna Yung ED Midlevel Provider: Tobi Pickard Discharge Problem: Alcohol overdose, Hypomagnesemia, Acute alteration in mental status, Hypokalemia Patient Disposition: Being Evaluated by Hospitalist Discharge Instructions Interventions: ED Discharge Assessment Last Done: 09/15/23 05:05
[2023-09-15 01:21] LABS: Basophils # (auto) 0.15 K/uL (0.00-0.20); Eosinophils # (auto) 0.39 K/uL (0.00-0.50); Eosinophils % (auto) 7.7 %; Hematocrit (blood only) 33.3 % (42.0-52.0); Hemoglobin 11.2 g/dl (14.0-18.0); Immature Granulocytes # (auto) 0.01 K/uL (0.01-0.20); Immature Granulocytes % (auto) 0.2 %; Lymphocytes # (auto) 1.68 K/uL (1.20-3.40); Lymphocytes % (auto) 33.3 %; Mean Corpuscular Hemoglobin 33.9 pg (25.0-34.0); Mean Corpuscular Hgb Conc 33.6 g/dL (32.0-36.0); Mean Corpuscular Volume 100.9 fL (80.0-100.0); Mean Platelet Volume 10.1 fL (9.4-12.4); Monocytes # (auto) 0.73 K/uL (0.11-0.59); Monocytes % (auto) 14.5 %; Neutrophils # (auto) 2.09 K/uL (1.40-6.50); Neutrophils % (auto) 41.3 %; Platelet Count 91 K/uL (130-400); RDW Coefficient of Variation 16.1 % (11.5-14.5); RDW Standard Deviation 59.7 fL (36.4-46.3); White Blood Count 5.05 K/ul (4.8-10.8)
[2023-09-15 01:33] LABS: Albumin Level 3.7 gm/dl (3.4-5.0); BUN Creatinine Ratio 11.9 (10-20); Bilirubin,Total 1.6 mg/dl (0.2-1.0); Creatinine Clr Calc Pharmacy 58.5 ml/min; Est GFR (African American) 78.9 ml/min; Est GFR (Non-African American) 68.1 ml/min; Globulin 3.7 gm/dl (2.5-4.0); Magnesium 1.3 mg/dl (1.7-2.4); Potassium 2.8 mmol/L (3.5-5.1); Total Protein 7.4 gm/dl (6.0-8.3)
[2023-09-15 01:48] LABS: Thyroid Stimulating Hormone 1.865 uIu/ml (0.300-4.500)
[2023-09-15 01:49] LABS: INR 1.3 (0.9-1.1); Prothrombin Time 13.5 Seconds (9.0-12.0)
[2023-09-15] MEDS: POTASSIUM CHLORIDE / WTR 10 MEQ/100 ML PLCT IV SCH (03:51)
[2023-09-15] MEDS: MAGNESIUM SULFATE / D5W 1 GM/100 ML BAG IV STA (03:51)
--- NOTE | 2023-09-15 03:51 | History & Physical Report ---
Date of Service September 15, 2023 Assessment & Plan (1) Alcohol overdose: Plan: -Limited exam due to patient's level of consciousness. -Found facedown, no signs of trauma, alcohol level of 667.8. -Potassium of 2.8, magnesium 1.3. AST of 80. -Banana bag given in the ED, magnesium and potassium repletion started in the ED. -AWSS ordered due to patient being at high risk to go through alcohol withdrawal. -Continue with supportive care. Will monitor on telemetry. -Should reassess once patient's level of consciousness improves. -Drug profile and UA pending collection. -CBC, CMP, magnesium, phosphorus in the a.m. -Thiamine 100 mg every morning. -Currently requiring OxyMask at 6 L. Should reassess respiratory status once consciousness improves. (2) Acute alteration in mental status: Plan: -As above. (3) Hypomagnesemia: Plan: -Magnesium of 1.3. -Started repletion in the ED, continued at time of admission. -Monitor with daily labs. (4) Hypokalemia: Plan: -Potassium of 2.8, started repletion in the ED, continue at time of admission. -Will monitor with daily labs. Plan Fluids: Multivitamin infusion x 2 L Nutrition: Regular diet Code status: Unable to assess, full code on previous admissions. Should recheck CODE STATUS once level of consciousness improves DVT ppx: Should consider if extended stay. Dispo: PCU/telemetry History of Present Illness Chief Complaint: Alcohol intoxication, hypomagnesia, hypokalemia Primary Care Provider: Valdemar Santo DO Patient was brought in by EMS after being found unconscious downtown. Patient does have a history of alcoholism. Unable to obtain full history from patient as he is obtunded in the ED. Majority of history obtained from EMS and nursing staff. Patient was found passed out downtown by bystanders. He was unconscious when arriving to the ED and no identified trauma was noted. Patient was unconscious on admission but snoring. Allergies Allergy/AdvReac Type Severity Reaction Status Date / Time No Known Allergies Allergy Verified 09/11/23 09:12 Home Medications Medication Instructions Recorded Confirmed Type folic acid 1 mg tablet 1 mg PO QAM #90 tabs 07/26/22 09/11/23 Rx sildenafil 25 mg tablet 25 mg PO DAILY PRN sexual activity 09/13/22 09/11/23 Rx #30 tabs cane #2 ea 11/13/22 09/11/23 Rx fluticasone propionate 50 1 spray intranasal BID 90 days #48 11/14/22 09/11/23 Rx mcg/actuation nasal grams spray,suspension (Allergy Relief (fluticasone)) magnesium oxide 400 mg (241.3 mg 400 mg PO BID 90 days #180 tabs 11/20/22 09/11/23 Rx magnesium) tablet thiamine HCl (vitamin B1) 100 mg 100 mg PO QAM #90 tabs 05/14/23 09/11/23 Rx tablet famotidine 40 mg tablet 40 mg PO QAM #90 tabs 05/16/23 09/11/23 Rx ibuprofen 600 mg tablet 600 mg PO DAILY PRN Pain 05/30/23 09/11/23 History naltrexone microspheres 380 mg 0 mg IM DIRECTED 07/08/23 09/11/23 History intramuscular suspension,extended release (Vivitrol) potassium chloride 20 mEq 20 meq PO QAM #90 tabs 09/05/23 09/11/23 Rx tablet,extended release naltrexone microspheres 380 mg mg IM .Q28 days 09/11/23 09/11/23 History intramuscular suspension,extended release (Vivitrol) Past Med/Surg History Problem List (Updated 09/15/23 @ 19:30 by Darshan Stafford MD) Acute encephalopathy Septic shock Aspiration pneumonitis ARDS (adult respiratory distress syndrome) Hypokalemia (Acute) Acute alteration in mental status (Acute) Hypomagnesemia (Acute) Alcohol overdose (Acute) Prostate cancer (Chronic 06/27/23) B12 deficiency Alcohol use disorder, severe, dependence Cirrhosis Thrombocytopenia (07/06/20) Cirrhosis vs. Folate deficiency vs. EtOH marrow suppression Esophageal varices Elevated PSA, less than 10 ng/ml (07/11/20) Urology referral placed. Hypomagnesemia (Acute) Obstructive sleep apnea Tubular adenoma Urinary urgency Vitamin D deficiency (07/11/20) Medical History Gastritis Elevated ferritin (07/11/20) HH genetic testing ordered. Cirrhosis History of COVID-19 2021 Back problem "MESSED UP DISCS IN MY BACK" Hx of esophageal reflux History of skin cancer ON CHEEK--removed in office Anxiety and depression Varicose veins of both lower extremities Sleep apnea CPAP Asthma "MILD" NO INHALER Hepatic steatosis (07/15/20) On US 07/15/2020 Not immune to hepatitis B virus He's waiting to find a ride to get scheduled. Looking into local pharmacies. Hepatitis A vaccination not up to date He's waiting to find a ride to get scheduled. Looking into local pharmacies. Surgical History History of tonsillectomy History of colonoscopy 08/2020 repeat 3 yrs Hx of wisdom tooth extraction Family History Mother Breast cancer Father Diabetes Colorectal cancer Stroke Brother Prostate cancer Heart disease Colorectal cancer Other Unknown family medical history Denies family history of Ovarian cancer Coronary heart disease Myocardial infarction Congenital kidney disease Lung cancer Cystic kidney disease Social History Smoking Status: Unknown if ever smoked Second Hand Exposure: No; Do You Dip or Chew Tobacco: No; Hx Alcohol Use: Yes Alcohol type: beer, wine and hard liquor Alcohol Intake Frequency: 4 or More x per/Week Alcohol Intake Frequency Comment: pt states he drinks daily 5 drinks Hx Substance Use: No Preferred Language: Amharic Communication Ability: Effective Visual Impairment: Limited Hearing Ability: Normal Assistant Terminal Manager Required: No Beliefs That Will Affect Care: None marital status: Current Living Situation: Alone current occupational status: retired How many Children do You have: 2 Feels Safe at Home: Yes Childhood Exposure to Second-Hand Smoke: Yes Diet: regular caffeine: Yes Dental Care, Regularly: Yes Seatbelt Use: always Sunscreen Use: No Assistive Devices: Crutches and Glasses Review of Systems Review of Systems: Unobtainable due to reduced consciousness Physical Exam Physical Exam: Constitutional: Snoring respirations with oxygen mask, laying face down HEENT: NCAT, no conjunctival injection CV: regular rhythm, no murmur appreciated, extremities well-perfused, no LE edema Resp: CTABL, no wheezes/rales/rhonchi appreciated, snoring respirations GI: soft, nondistended, nontender, BS normoactive MSK: no gross deformities appreciated Skin: warm, dry, no rash appreciated Results & Data Results & Data Vital Signs (Past 12 Hours) Vital Signs Pulse Pulse Resp BP BP Pulse Ox O2 Del Method 09/15/23 03:00 128 H 18 93/58 L 90 Nasal Cannula 09/15/23 02:00 126 H 18 136/112 H 92 Nasal Cannula 09/15/23 01:00 105 H 20 113/78 91 Nasal Cannula 09/15/23 00:44 98 Nasal Cannula 09/15/23 00:44 87 L Room Air, Nasal Cannula 09/15/23 00:42 85 09/15/23 00:17 120 H 20 115/78 98 Nasal Cannula O2 Flow Rate 09/15/23 03:00 4 09/15/23 02:00 4 09/15/23 01:00 3 09/15/23 00:44 3 09/15/23 00:44 0 09/15/23 00:42 09/15/23 00:17 3 Supervising Physician Co-Signing Physician Notes Attending addendum: I have physically seen this patient, have supervised the medical residents activities, and agree with the H&P unless as otherwise noted. Assessment and Plan: Alcohol overdose- NPO Alcohol level 667.8 Vital signs stable and patient is afebrile Patient laying face down in bed Stable on current level of oxygen supplementation OxyMask at 6 L Benign examination Thiamine 100 mg IV every morning Folic acid 1 mg IV every morning Complete banana bags, then place on maintenance IV fluids as noted Pantoprazole 40 mg IV daily Zofran 4 mg IV every 6 hours as needed Electrolyte disturbances/hypomagnesemia/hypokalemia- Magnesium 1.3 on admission give IV supplementation and recheck laboratories in a.m. 2.8 on admission, give IV supplementation and recheck laboratories in a.m. Normal LFTs- AST 80 and total bilirubin 1.6 Repeat laboratories in a.m. likely secondary to alcohol abuse
[2023-09-15] MEDS: MULTI-VITAMIN INFUSION 10 ML, THIAMINE HCL 100 MG, FOLIC ACID 1 MG in SODIUM CHLORIDE 0... IV ONE ×2 (03:53→04:26)
[2023-09-15] MEDS ORDERED: ONDANSETRON INJ 2 MG/ML 2 ML VIAL IV PRN (05:04)
[2023-09-15] MEDS ORDERED: LORazepam 1 MG in SYRINGE 0.5 ML IV PRN (05:04)
[2023-09-15] MEDS: MAGNESIUM SULFATE / D5W 1 GM/100 ML BAG IV SCH (05:39)
--- NOTE | 2023-09-15 07:42 | Hospitalist Progress Note ---
Date of Service September 15, 2023 Assessment & Plan (1) Alcohol overdose: Plan: 57 year old male with history of chronic alcohol use admitted for alcohol intoxication and found to be hypoxic, obtunded and have a multifocal pneumonia on CXR. Acute alteration in mental status: -Patient found facedown without signs of trauma along with alcohol level 667.8 prior to admission. -Remained somnolent throughout admission today with tachycardia and soft blood pressures. -On admission bicarb 24 and 25, requiring 6L O2 then 8L. -CT head negative for any acute process. -CXR revealed multifocal pneumonia. -Will obtain lactate, repeat CBC, CMP, INR, blood cultures, U/A and urine culture. -Needed to be intubated and transferred to ICU. -Cause of AMS may be from alcohol intoxication. -On intubation there was tongue edema noted reminiscent of possible seizure - placed order for EEG as well as seizure precautions. -Alcohol use treatment as below. -Continue to monitor closely in ICU. Hypoxia/PNA/Hypotension: -Patient hypoxic on entry to 80's, placed on 6L O2 then 8L. -At code purple patient desatting on 8L requiring intubation. -Hypotensive on admission, soft pressures for most of 09/14, hypotensive again at code purple. -Placed on levophed at time of code purple. -CXR revealed multifocal PNA, question of community acquired vs aspiration. -Patient meets sepsis criteria with possible pulmonary infection source. -Started on Zosyn 4.5gm q8h, methylpred 80mg IV q8hr -Will check lactate, repeat CBC. -Management of intubation and pressors per molded goods operator team, consulted and will appreciate assistance. Alcohol Use: -Limited exam due to patient's level of consciousness. -Found facedown, no signs of trauma, alcohol level of 667.8 on admission. -Potassium of 2.8, magnesium 1.3. AST of 80. -Banana bag given in the ED, magnesium and potassium repletion started in the ED. -AWSS ordered due to patient being at high risk to go through alcohol withdrawal however no Ativan received -Drug profile and UA pending collection. -Thiamine 100 mg IV qAM. Hypomagnesemia/Hypokalemia: -Given banana bag in the ER. -ICU repletion protocol. Diet: NPO while obtunded/intubated. Code status: Unable to assess, has been full code at previous admissions. No contacts in the system can be located to call. Dispo: ICU. (2) Acute alteration in mental status: (3) Hypomagnesemia: (4) Hypokalemia: Admission and Anticipated Discharge Date Admission Date: September 15, 2023 Supervising Physician Co-Signing Physician Notes I personally examined the patient and verified chapman points of history and exam, discussed case, and agree with decision making and plan documented by Dr. Ac. Patient on admission for alcohol intoxication/poisoning in setting of chronic alcohol use disorder. Oxygen saturations dropped during imaging, required intubation for respiratory support, and sent to ICU for further management. Subjective Patient seen this AM without much response however sleeping with saturations in the low 90's on 6L O2. I was notified later in the day that patient was still unresponsive by nursing and not reactive to blood draw/prick. Upon evaluation of the patient he was still unresponsive to tactile and verbal stimuli however pupils were still reactive to light. At that time I ordered a stat CT head, CXR, EKG, and VBG as well as ordered 500cc plasmalyte. A few minutes after my evaluation a code purple was called after patient returned from CT due to low blood pressure, tachycardia, and hypoxia with Dex coma scale of 6. Patient was intubated, placed on levophed, and then sent to the ICU at that time. Review of Systems Review of Systems: As per HPI. Physical Exam Constitutional: somnolent unable to be aroused. Eyes: PERRL, conjunctivae normal, anicteric sclerae Respiratory: vibratory expiratory breathing however clear to auscultation on the posterior talia ng tenorio on inhalation. Cardiovascular: Rate/Rhythm: regular rhythm and + tachycardic Heart Sounds: normal S1 and normal S2 Results & Data Results & Data Vital Signs (Past 12 Hours) Vital Signs Pulse Pulse Resp BP BP Pulse Ox Pulse Ox 09/15/23 07:08 136 H 09/15/23 06:18 91 09/15/23 05:30 105 H 16 99/65 L 90 09/15/23 04:35 110 H 09/15/23 04:30 108 H 15 80/62 L 96 09/15/23 04:15 112 H 14 73/58 L 94 09/15/23 04:00 115 H 18 82/62 L 93 09/15/23 03:44 82/62 L 09/15/23 03:30 130 H 17 71/49 L 89 L 09/15/23 03:00 128 H 18 93/58 L 90 09/15/23 02:00 125 H 20 136/112 H 88 L 09/15/23 02:00 126 H 18 136/112 H 92 09/15/23 01:00 105 H 20 113/78 91 09/15/23 00:44 98 09/15/23 00:44 87 L 09/15/23 00:42 85 09/15/23 00:17 120 H 20 115/78 98 O2 Del Method O2 Del Method O2 Flow Rate O2 Flow Rate 09/15/23 07:08 09/15/23 06:18 Oxymask 6 09/15/23 05:30 09/15/23 04:35 09/15/23 04:30 09/15/23 04:15 09/15/23 04:00 Oxymask 6 09/15/23 03:44 09/15/23 03:30 09/15/23 03:00 Nasal Cannula 4 09/15/23 02:00 09/15/23 02:00 Nasal Cannula 4 09/15/23 01:00 Nasal Cannula 3 09/15/23 00:44 Nasal Cannula 3 09/15/23 00:44 Room Air, Nasal Cannula 0 09/15/23 00:42 09/15/23 00:17 Nasal Cannula 3 Resident Activity Tracking Resident Involvement: Resident Care Provided Care Provided: Adult Hospital Medicine
[2023-09-15 07:57] LABS: Basophils # (auto) 0.12 K/uL (0.00-0.20); Basophils % (auto) 1.4 %; Eosinophils # (auto) 0.07 K/uL (0.00-0.50); Eosinophils % (auto) 0.8 %; Hematocrit (blood only) 39.2 % (42.0-52.0); Hemoglobin 12.9 g/dl (14.0-18.0); Immature Granulocytes # (auto) 0.02 K/uL (0.01-0.20); Immature Granulocytes % (auto) 0.2 %; Lymphocytes # (auto) 1.02 K/uL (1.20-3.40); Lymphocytes % (auto) 11.9 %; Mean Corpuscular Hemoglobin 33.7 pg (25.0-34.0); Mean Corpuscular Hgb Conc 32.9 g/dL (32.0-36.0); Mean Corpuscular Volume 102.3 fL (80.0-100.0); Mean Platelet Volume 9.8 fL (9.4-12.4); Monocytes # (auto) 1.55 K/uL (0.11-0.59); Monocytes % (auto) 18.1 %; Neutrophils # (auto) 5.77 K/uL (1.40-6.50); Neutrophils % (auto) 67.6 %; Platelet Count 148 K/uL (130-400); RDW Coefficient of Variation 15.6 % (11.5-14.5); RDW Standard Deviation 58.7 fL (36.4-46.3); Red Blood Count 3.83 M/uL (4.70-6.10); White Blood Count 8.55 K/ul (4.8-10.8)
[2023-09-15 08:34] LABS: Alanine Aminotransferase 37 U/L (7-52); Albumin Globulin Ratio 0.9 (0.9-2); Albumin Level 3.8 gm/dl (3.4-5.0); Alkaline Phosphatase 105 U/L (34-104); Anion Gap 7 (3-11); BUN Creatinine Ratio 11.8 (10-20); Bilirubin,Total 1.4 mg/dl (0.2-1.0); Blood Urea Nitrogen 14 mg/dl (6-23); Calcium 7.8 mg/dl (8.6-10.3); Carbon Dioxide 24 mmol/L (21-32); Chloride 108 mmol/L (98-107); Est GFR (African American) 78.1 ml/min; Est GFR (Non-African American) 67.4 ml/min; Globulin 4.1 gm/dl (2.5-4.0); Glucose 212 mg/dl (70-99(Fasting)); Magnesium 2.2 mg/dl (1.7-2.4); Phosphorus 7.2 mg/dl (2.5-4.9); Sodium 139 mmol/L (136-145); Total Protein 7.9 gm/dl (6.0-8.3)
[2023-09-15] MEDS: THIAMINE HCL 100 MG TAB PO SCH (10:06)
[2023-09-15] MEDS: THIAMINE HCL 100 MG in SYRINGE 9 ML IV SCH (10:36)
[2023-09-15] MEDS ORDERED: ETOMIDATE 2 MG/ML 20 ML VIAL IV ONE (12:39)
[2023-09-15] MEDS ORDERED: SUCCINYLCHOLINE CHLORIDE 20 MG/ML 10 ML VIAL IV ONE (12:39)
[2023-09-15] MEDS ORDERED: STAT IV Infusion **Titration per Protocol STA ×5 (16:18→19:20)
[2023-09-15] MEDS: NOREPINEPHRINE/D5W 4 MG/250 ML PLCT IV SCH (16:20)
[2023-09-15] MEDS: NOREPINEPHRINE/D5W 4 MG/250 ML IV ONE (16:22)
[2023-09-15] MEDS: PLASMA-LYTE A 500 ML IV ONE (16:24)
--- NOTE | 2023-09-15 16:29 | XRay Report ---
XR chest 1V portable HISTORY: 57 years-old Male Hypoxia acute respiratory failure COMPARISON: 05/19/2023 TECHNIQUE: AP view the chest FINDINGS: Endotracheal tube overlies the midline, 3.8 cm superior to the carmine. Heart is mildly enlarged. Patc hy right mid lung and right upper lobe predominant bilateral airspace opacities. No pneumothorax or p leural effusion. IMPRESSION: 1. Endotracheal tube overlies the midline, 3.8 cm superior to the carmine. 2. Findings suggestive of multifocal pneumonia. ACT 112: Negative or not required by law. The above report was generated using voice recognition software. It may contain grammatical, syntax o r spelling errors. Electronically signed by: Zachery Dsouza M.D. 09/15/2023 4:27 PM
--- NOTE | 2023-09-15 16:32 | Emergency Department Note ---
ED Visit Note CODE PURPLE: Date: 09/15/23. Time: 4:00pm Called to room C5 for code purple Code being run by Nursing staff Code Status: Full per nursing staff and resident who arrived Brief summary: 57-year-old alcoholic admitted overnight for altered mental status and severe alcohol intoxication. He had just returned from CT and has become completely obtunded. Reportedly has been having worsening mental status throughout the morning and afternoon. No recent Ativan or other medications given. On examination patient is obtunded not protecting airway with sonorous respirations. He has fair amount of saliva within the mouth as well as some bloody secretions. Tongue itself is bitten and bruised. At this point patient is in need of definitive airway. He was intubated by me without difficulty. Postintubation O2 93% crackles all lung tenorio. Suspect aspiration. Medical team primary at bedside plan to take to the ICU for further management. Pressors along with blood cultures, abx, being ordered by medical team. Endotracheal Intubation Indication: Respiratory failure The patient was being bagged by respiratory with BVM. Suction, airway equipment, RSI drugs, respiratory equipment, and appropriate personnel were prepared prior to the initiation of the procedure. A time out was taken. Induction was performed with succinylcholine and etomidate. After observing the clinical benefit of the medications, the airway was easily visualized utilizing a #3 glide scope. A 8.0 size ETT tube was placed atraumatically to 23 cm using standard technique. The cuff inflated without signs of malfunction. There were bilateral breath sounds, positive colormetric change, no gastric sounds, a good capnography waveform, and post procedure pulse oximetry was 93%. There were no complications. X ray results are stated below per my interpretation: Chest: 1 view: ET Tube sits about 3 cm above carmine without pneumothorax. There are infitrates throughout consistent with multifocal pneumonia. Yazan Almaguer MD
--- NOTE | 2023-09-15 16:32 | CT Scan Report ---
CT head/brain wo con CLINICAL HISTORY: 57 years-old Male with Somnolent since arrival, alcohol intox. Acutely altered men james status TECHNIQUE: Multiple axial CT images of the head were obtained without contrast. A dose lowering tech nique was utilized adhering to the principles of ALARA. CT DOSE: 781.9 mGy.cm COMPARISON: 03/23/2023 FINDINGS: No acute intracranial hemorrhage, midline shift, intracranial mass, hydrocephalus, territorial ischem ia or abnormal extra-axial collection. Mild involutional changes. The calvarium is intact. Small right maxillary sinus air-fluid level. Mastoid air cells are clear. IMPRESSION: No acute intracranial abnormality ACT 112: Negative or not required by law. The above report was generated using voice recognition software. It may contain grammatical, syntax o r spelling errors. Electronically signed by: Zachery Dsouza M.D. 09/15/2023 4:30 PM
[2023-09-15] MEDS ORDERED: SUCCINYLCHOLINE CHLORIDE 20 MG/ML 10 ML VIAL IV STA (16:38)
[2023-09-15] MEDS ORDERED: VECURONIUM BROMIDE 10 MG VIAL IV STA (17:13)
[2023-09-15] MEDS: PROPOFOL IV EMULSION 10 MG/ML 100 ML VIAL IV ONE (17:19)
[2023-09-15] MEDS: ETOMIDATE 2 MG/ML 20 ML VIAL IV ONE (17:19)
[2023-09-15] MEDS: RAPID SEQUENCE INDUCTION BAG ONE (17:19)
[2023-09-15] MEDS: VECURONIUM BROMIDE 10 MG VIAL IV ONE (17:20)
[2023-09-15] MEDS: fentaNYL citrate 2,500 MCG/250 ML BAG IV ONE (17:20)
[2023-09-15] MEDS: THIAMINE HCL 500 MG in SODIUM CHLORIDE 0.9% 50 ML IV SCH (17:27)
[2023-09-15] MEDS: VASOPRESSIN 20 UNITS in 0.9 % SODIUM CHLORIDE 100 ML IV SCH (17:27)
[2023-09-15] MEDS ORDERED: STAT IV/IM STA (17:36)
--- NOTE | 2023-09-15 17:43 | Procedure Note ---
Procedure Note Date of Service September 15, 2023 Note PREOPERATIVE DIAGNOSIS: Hypoxemic respiratory failure currently on ventilator, hemoptysis and diffuse right midlung and right upper lung infiltrates on x-ray POSTOPERATIVE DIAGNOSIS: Same as above PROCEDURE PERFORMED: Flexible fiberoptic bronchoscopy with bronchial washings from the right upper lobe and right lower lobe COMPLICATIONS: None. INDICATION: Evaluate for active bleeding and rule out infection PROCEDURE: Emergency consent was implied as the patient was currently intubated and sedated. Neuromuscular blockade was added with 10 mg of vecuronium as well due to severe hypoxemic respiratory failure. Procedure was indicated to rule out active bleeding and airway anomalies. Timeout performed immediately prior to procedure. Patient was placed on 100% FiO2 via the ventilator with full vent support. Bronchoscope was inserted via the endotracheal tube adapter. The endotracheal tube appeared approximately 3-1/2 cm above the carmine. Carmine appeared sharp. Trachea appeared normal. Evaluation of the bilateral tracheobronchial tree revealed bilateral mucous plugging with evidence of bloody secretions. No active bleeding was identified in the tracheobronchial tree. Washings were performed of the right lower lobe and right upper lobe with approximately 120 mL of saline. Approximately 50 mL returned bloody appearing fluid was aspirated back and sent to the lab. Washings were performed of the left lower lobe as well to clear out impacted mucus. The scope was then withdrawn and the patient tolerated the procedure well. Recommendations: The airways particularly in the in the right upper lobe and right lower lobe did appear to have impacted bloody secretions, but this cleared with sequential lavage. Doubtful of diffuse alveolar hemorrhage at this time. Please follow routine bronchoscopy cultures, Legionella DNA probe, cell counts and cytology from the washings. Will continue with full vent support at this time. Coding CPT Codes Pulmonary/Thoracic - Pulmonary and Thoracic: 94564 Dx bronchoscopy/wash ([id number]) [facility] [place] (Charges) Pulmonary/Thoracic Procedure 1: Pulmonary and Thoracic: 24072 Dx bronchoscopy/wash
[2023-09-15 18:04] LABS: Basophils # (auto) 0.02 K/uL (0.00-0.20); Basophils % (auto) 0.2 %; Hematocrit (blood only) 36.2 % (42.0-52.0); Hemoglobin 11.7 g/dl (14.0-18.0); Immature Granulocytes # (auto) 0.07 K/uL (0.01-0.20); Immature Granulocytes % (auto) 0.5 %; Lymphocytes # (auto) 0.22 K/uL (1.20-3.40); Lymphocytes % (auto) 1.7 %; Mean Corpuscular Hgb Conc 32.3 g/dL (32.0-36.0); Mean Corpuscular Volume 105.2 fL (80.0-100.0); Mean Platelet Volume 9.7 fL (9.4-12.4); Monocytes # (auto) 1.58 K/uL (0.11-0.59); Monocytes % (auto) 12.4 %; Neutrophils % (auto) 85.2 %; Platelet Count 197 K/uL (130-400); Red Blood Count 3.44 M/uL (4.70-6.10); White Blood Count 12.79 K/ul (4.8-10.8)
[2023-09-15 18:05] LABS: Appearance Urine Clear (Clear); Bacteria Urine Automated None Seen (None Seen); Bilirubin Urine Negative (Negative); Blood Urine Negative (Negative); Color Urine Dark Yellow; Epithelial Cell Urine Auto 0-2 /hpf (0-2); Glucose Urine UA Negative (Negative); Ketones Urine Negative (Negative); Leukocyte Esterase Urine Negative (Negative); Nitrite Urine Negative (Negative); Protein Urine 2+ (Negative); RBC Urine Automated 0-2 /hpf (0-2); Specific Gravity Urine 1.018 (1.000-1.030); Urobilinogen Urine Negative (Negative); WBC Urine Automated 0-5 /hpf (0-5); pH Urine 5.5 (4.5-7.5)
[2023-09-15 18:22] LABS: Albumin Level 3.8 gm/dl (3.4-5.0); Bilirubin,Total 1.8 mg/dl (0.2-1.0); Calcium 7.7 mg/dl (8.6-10.3); Creatinine Clr Calc Pharmacy 51.9 ml/min; Est GFR (African American) 68.3 ml/min; Est GFR (Non-African American) 58.9 ml/min; Globulin 3.8 gm/dl (2.5-4.0); Magnesium 1.9 mg/dl (1.7-2.4); Phosphorus 6.3 mg/dl (2.5-4.9); Potassium 4.5 mmol/L (3.5-5.1); Total Protein 7.6 gm/dl (6.0-8.3)
[2023-09-15 18:26] LABS: INR 1.2 (0.9-1.1); Partial Thromboplastin Time 27 Seconds (21-31)
[2023-09-15 18:33] LABS: Troponin I High Sensitivity 54.8 pg/ml (0-20)
[2023-09-15 18:44] LABS: Amphetamines+Metham, Urine Neg (Neg); Barbiturates, Urine Neg (Neg); Benzodiazepine, Urine Neg (Neg); Cocaine, Urine Neg (Neg); Fentanyl, Urine Neg (Neg); MDMA (Ecstacy), Urine Neg (Neg); Marijuana, Urine Neg (Neg); Methadone, Urine Neg (Neg); Opiate, Urine Neg (Neg); Phencyclidine, Urine Neg (Neg)
[2023-09-15 18:54] LABS: C Reactive Protein 0.55 mg/dl (0-0.5)
[2023-09-15] MEDS: ICU Protocol for HYPERglycemia SCH (19:02)
[2023-09-15] MEDS: fentaNYL citrate 2,500 MCG/250 ML BAG IV SCH (19:05)
[2023-09-15 19:14] LABS: Eosinophil Body Fluid Man 1 %; Fluid Mono/Macrophage 8 %; Lymphocyte Body Fluid Man 1 %; Neutrophil Body Fluid Man 90 %
[2023-09-15] MEDS: propofoL 1,000 MG/100 ML VIAL IV SCH (19:27)
--- NOTE | 2023-09-15 19:37 | Critical Care Consultation ---
Date of Consultation September 15, 2023 Assessment & Plan (1) ARDS (adult respiratory distress syndrome): (2) Aspiration pneumonitis: (3) Septic shock: (4) Alcohol overdose: (5) Prostate cancer: (6) Acute encephalopathy: Supervising Physician Co-Signing Physician Notes 57-year-old male who presented to the ER obtunded and found to have ARDS with septic shock. Presumably with aspiration pneumonitis versus pneumonia. Patient currently intubated and sedated. He is on a lung protective ventilation strategy. Plateau pressures currently acceptable. High PEEP and low FiO2 strategy at this time. Neuromuscular blockade initiated to help with ventilator synchrony and hypoxemia. Continue propofol and fentanyl for tolerance of the ventilator. Right femoral arterial line placed to monitor hemodynamics. Currently requiring high doses of Levophed and vasopressin. IV methylprednisone at a dose of 80 mg, 3 times daily initiated given hypotension and ARDS from presumptive pneumonitis. HIV screen checked emergently as well given the patient's history of alcoholism and unclear history. Fortunately HIV rapid antigen was negative. Bronchoscopy performed emergently with cultures and Legionella DNA screen sent. Pneumocystis PCR sent as well. Will check respiratory viral panel. MRSA screen negative on admission. Continue Zosyn and will add azithromycin. Hemoptysis noted was likely related to traumatic intubation and possible injury to the tongue from questionable seizure. Diffuse alveolar hemorrhage unlikely as the bloody secretions cleared with sequential aliquots of saline. Will continue Protonix 40 mg twice daily. Patient with re ported history of esophageal varices. Will hold off on OG or NG tube insertion at this time. Can consider insertion tomorrow for nutrition if hemoglobin remains stable and patient requires prolonged ventilation. Will initiate high- dose thiamine protocol. CRITICAL CARE TIME - I have personally spent 83 minutes of critical care time in the direct management of this patient. This is a life/limb threatening event. This includes time spent evaluating patient, direct bedside care, chart review, placing orders, interpretation of diagnostic studies, discussion with consultants, patient, and family members, as well as other required patient management activities. This time is exclusive of all separately billable procedures, and teaching time and separate from and in addition to any other critical care service time. History of Present Illness Reason for Consultation: Acute hypoxic respiratory failure and septic shock Attending Physician: Nikki Guevara DO History of Present Illness 57-year-old male with a history of severe alcoholism, cirrhosis and intermediate risk prostate cancer who presented to the ER obtunded. No history is obtainable from the patient as he is currently intubated and sedated. He was found unconscious [place]. Throughout his ER course he decompensated and became apneic. He was intubated by the ER staff. He was also hypotensive prior to his intubation and a norepinephrine infusion was started. After he was intubated he was found to have bright red blood coming through his endotracheal tube. There is transferred to the ICU. I emergently bronched the patient and aspirated bloody secretions. Patient required escalating doses of Levophed that was rapidly being titrated up and vasopressin was added. I emergently placed a right femoral arterial line. He is currently on Zosyn and has received 2 L of crystalloid infusion in the ER. I did perform a cardiac POCUS, thoracic ultrasound and abdominal ultrasound. EF appears to be intact. No evidence of overt RV failure. No pericardial effusion noted. IVC appeared dilated with minimal respiratory variation. Thoracic ultrasound revealed diffuse B-lines without evidence of pleural effusions. Abdominal ultrasound revealed small amount of ascites around the liver. No overt hydronephrosis noted. Allergies Allergy/AdvReac Type Severity Reaction Status Date / Time No Known Allergies Allergy Verified 09/11/23 09:12 Home Medications Medication Instructions Recorded Confirmed Type folic acid 1 mg tablet 1 mg PO QAM #90 tabs 07/26/22 09/11/23 Rx sildenafil 25 mg tablet 25 mg PO DAILY PRN sexual activity 09/13/22 09/11/23 Rx #30 tabs cane #2 ea 11/13/22 09/11/23 Rx fluticasone propionate 50 1 spray intranasal BID 90 days #48 11/14/22 09/11/23 Rx mcg/actuation nasal grams spray,suspension (Allergy Relief (fluticasone)) magnesium oxide 400 mg (241.3 mg 400 mg PO BID 90 days #180 tabs 11/20/22 09/11/23 Rx magnesium) tablet thiamine HCl (vitamin B1) 100 mg 100 mg PO QAM #90 tabs 05/14/23 09/11/23 Rx tablet famotidine 40 mg tablet 40 mg PO QAM #90 tabs 05/16/23 09/11/23 Rx ibuprofen 600 mg tablet 600 mg PO DAILY PRN Pain 05/30/23 09/11/23 History naltrexone microspheres 380 mg 0 mg IM DIRECTED 07/08/23 09/11/23 History intramuscular suspension,extended release (Vivitrol) potassium chloride 20 mEq 20 meq PO QAM #90 tabs 09/05/23 09/11/23 Rx tablet,extended release naltrexone microspheres 380 mg mg IM .Q28 days 09/11/23 09/11/23 History intramuscular suspension,extended release (Vivitrol) Patient History Medical History Gastritis Elevated ferritin (07/11/20) HH genetic testing ordered. Cirrhosis History of COVID-19 2021 Back problem "MESSED UP DISCS IN MY BACK" Hx of esophageal reflux History of skin cancer ON CHEEK--removed in office Anxiety and depression Varicose veins of both lower extremities Sleep apnea CPAP Asthma "MILD" NO INHALER Hepatic steatosis (07/15/20) On US 07/15/2020 Not immune to hepatitis B virus He's waiting to find a ride to get scheduled. Looking into local pharmacies. Hepatitis A vaccination not up to date He's waiting to find a ride to get scheduled. Looking into local pharmacies. Surgical History History of tonsillectomy History of colonoscopy 08/2020 repeat 3 yrs Hx of wisdom tooth extraction Family History Mother Breast cancer Father Diabetes Colorectal cancer Stroke Brother Prostate cancer Heart disease Colorectal cancer Other Unknown family medical history Denies family history of Ovarian cancer Coronary heart disease Myocardial infarction Congenital kidney disease Lung cancer Cystic kidney disease Social History Smoking Status: Unknown if ever smoked Second Hand Exposure: No; Do You Dip or Chew Tobacco: No; Hx Alcohol Use: Yes Alcohol type: beer, wine and hard liquor Alcohol Intake Frequency: 4 or More x per/Week Alcohol Intake Frequency Comment: pt states he drinks daily 5 drinks Hx Substance Use: No Preferred Language: Kosovan Communication Ability: Effective Visual Impairment: Limited Hearing Ability: Normal Cloth Mercerizer Back Tender Required: No Beliefs That Will Affect Care: None marital status: Current Living Situation: Alone current occupational status: retired How many Children do You have: 2 Feels Safe at Home: Yes Childhood Exposure to Second-Hand Smoke: Yes Diet: regular caffeine: Yes Dental Care, Regularly: Yes Seatbelt Use: always Sunscreen Use: No Assistive Devices: Crutches and Glasses Review of Systems Review of Systems: Unobtainable due to cognitive status and Unobtainable due to endotracheal tube Physical Exam Physical Exam: Constitutional: Thin appearing male who is currently intubated and sedated. Eyes: Pupils are equal round and reactive to light. Conjunctivae are normal. Anicteric sclera. Ears nose, mouth and throat: Endotracheal tube in place. Neck: Trachea is midline. Visual inspection is normal. Respiratory: Clear to auscultation bilaterally. No use of accessory muscles. No significant clubbing noted. Cardiovascular: Regular rate and rhythm. No murmurs. No edema. Gastrointestinal: Normal bowel sounds, soft, nontender and nondistended. No hepatosplenomegaly noted. Musculoskeletal: No cyanosis. Patient is able to move all extremities. Skin: No rashes, warm dry and intact. Neurologic: Patient was moving limbs spontaneously prior to the use of neuromuscular blockade. Otherwise exam is limited due to sedation. Psychiatric: Unable to assess. Results & Data Results & Data Vital Signs (Past 12 Hours) Vital Signs Temp Pulse Pulse Resp BP BP Pulse Ox 09/15/23 16:46 90/64 L 09/15/23 16:45 35.6 C L 116 H 18 96 09/15/23 16:40 93/59 L 09/15/23 16:38 115 H 26 H 94 09/15/23 16:20 73/50 L 09/15/23 16:06 112 H 28 H 84 L 09/15/23 15:45 83/59 L 09/15/23 15:45 154 H 21 89 L 09/15/23 15:03 148 H 22 90 09/15/23 11:06 130 H 19 107/71 89 L 09/15/23 10:33 132 H 19 108/75 89 L 09/15/23 09:15 141 H 20 117/85 90 09/15/23 09:11 09/15/23 08:36 139 H 17 118/70 90 09/15/23 08:00 133 H 17 105/78 90 09/15/23 07:45 141 H 16 101/66 90 09/15/23 07:08 136 H 09/15/23 07:06 119 H 16 113/72 90 09/15/23 06:18 Pulse Ox O2 Del Method O2 Del Method O2 Flow Rate O2 Flow Rate FiO2 09/15/23 16:46 09/15/23 16:45 09/15/23 16:40 09/15/23 16:38 70 09/15/23 16:20 09/15/23 16:06 09/15/23 15:45 09/15/23 15:45 09/15/23 15:03 09/15/23 11:06 Oxymask 8 09/15/23 10:33 Oxymask 8 09/15/23 09:15 Oxymask 8 09/15/23 09:11 Oxymask 8 09/15/23 08:36 Oxymask 6 09/15/23 08:00 Oxymask 6 09/15/23 07:45 Oxymask 6 09/15/23 07:08 09/15/23 07:06 Oxymask 6 09/15/23 06:18 91 Oxymask 6 Coding Level of Care Code 81065 Prolonged Care (int'l) Diagnoses ARDS (adult respiratory distress syndrome) J80 Aspiration pneumonitis J69.0 Septic shock A41.9; R65.21 Alcohol overdose T51.91XA Prostate cancer C61 Acute encephalopathy G93.40 Time Spent (min) 83
--- NOTE | 2023-09-15 20:06 | Procedure Note ---
Procedure Note Date of Service September 15, 2023 Note INTERNAL JUGULAR CENTRAL LINE PROCEDURE NOTE: Procedure: Internal Jugular Central Line Placement Attending: Dr. Stafford Provider: MICHEL Caldwell Indication: Central Drug Administration, Anesthesia: None Line placed emergently and intubated patient with septic shock, requiring central access with vasopressor support. A time-out was completed verifying correct patient, procedure, site, positioning, and implants(s) or special equipment if applicable. Patients Right Neck was cleansed and draped in the typical sterile fashion using Chloraprep. The Internal Jugular Vein and Carotid Artery were identified using ultrasound. The Internal Jugular vein was cannulated under direct ultrasound guidance using an introducer needle on a syringe. Good venous blood return was maintained prior to removal of syringe from introducer needle. Using Seldinger Technique, a guide wire was advanced through the introducer needle without resistance. The introducer needle was removed and ultrasound images were obtained of the guide wire within the Internal Jugular Vein and saved to the patients medical record. A small incision was made in penetrating fashion at the guide wire insertion site utilizing an 11 blade scalpel. The dilator was advanced to the vessel without resistance. The dilator was exchanged for the triple lumen catheter which was advanced into the vessel without resistance. The guide wire was removed intact from the catheter without issue. Claves were placed on each catheter tip with confirmation of good blood flow from each lumen. Each port was easily flushed with sterile saline. The catheter was placed at 16 cm and sutured in place. BioPatch was applied to the catheter and a sterile Tegaderm dressing was applied over the catheter with careful attention to sterility. Patient tolerated procedure well. No immediate complications were met. Post procedure x-ray was completed, placement was appropriate and no pneumothorax was noted. Images obtained are saved for permanent record Procedural Ultrasound Guidance: Procedure Date: 09/15/2023 Indication: Central Venous Catheter Insertion Attending: Dr. Stafford Provider: MICHEL Caldwell Artery AND Vein visualized: Yes Compressible Vein: Yes Guidewire or Short Catheter seen in vein prior to dilation: Yes Line confirmed in Vein with ultrasound: Yes Images obtained are saved for permanent record. Coding CPT Codes Tubes, Drains, and Vasc Access - Tubes, Drains, and Vasc Access: [id number] Insertion Of Non-tunneled Catheter Age 5 Yrs> ([id number]) Tubes, Drains, and Vasc Access - Tubes, Drains, and Vasc Access: [id number] Ultrasound Guidance For Vascular ([id number]) [facility] [place] Codes (Charges) Tubes, Drains, and Vasc Access Procedure 1: Tubes, Drains, and Vasc Access: [id number] Insertion Of Non-tunneled Catheter Age 5 Yrs> Procedure 2: Tubes, Drains, and Vasc Access: [id number] Ultrasound Guidance For Vascular
[2023-09-15 20:38] LABS: iSTAT Art Bld Gas pCO2 Correct 40 mmHg (35-46); iSTAT Art Bld Gas pH Corrected 7.259 (7.35-7.45); iSTAT Arterial Blood Gas HCO3 18 meg/L (19-24); iSTAT Arterial Blood Gas pCO2 41 mmHg (35-46); iSTAT Arterial Blood Gas pH 7.26 (7.35-7.45); iSTAT Arterial Blood Gas pO2 209 mmHg (80-95); iSTAT Arterial Blood Gas pO2 C 207; iSTAT Carbon Dioxide 19 mmol/L (24-31); iSTAT FiO2 50 %; iSTAT Hematocrit 38 % (42-52); iSTAT Hemoglobin 12.9 g/dl (14.0-18.0); iSTAT Site Art Line; iSTAT Sodium 142 mmol/L (135-144)
[2023-09-15] MEDS: PIPERACILLIN/TAZOBACTAM 4.5 GM/100 ML BAG IV ONE (20:40)
[2023-09-15] MEDS: CALCIUM GLUCONATE 1,000 MG/60 ML BAG IV SCH (20:46)
[2023-09-15] MEDS: ARTIFICIAL TEARS OP OINT 3.5 GM TUBE OP SCH (20:56)
[2023-09-15] MEDS ORDERED: methylPREDNISolone 125 MG/2 ML VIAL IV SCH (21:00)
[2023-09-15] MEDS: AZITHROMYCIN 500 MG in DEXTROSE 5% 250 ML IV STA (21:12)
[2023-09-15] MEDS: ICU ELECTROLYTE REPLACEMENT PROTOCOL SCH (21:32)
--- NOTE | 2023-09-15 21:40 | Billing Data ---
Date of Service September 15, 2023 Coding Level of Care Code 59201 INT INP/OBS CARE
[2023-09-15] MEDS: MAGNESIUM SULFATE / D5W 1 GM/100 ML BAG IV ONE (21:55)
[2023-09-15] MEDS: methylPREDNISolone 80 MG in SYRINGE 0 ML IV SCH (22:08)
[2023-09-15] MEDS: PANTOprazole 40 MG in SYRINGE 0 ML IV SCH (22:08)
[2023-09-15] MEDS ORDERED: GLUCOSE 10 TAB/TUBE PO PRN (22:56)
[2023-09-15] MEDS ORDERED: DEXTROSE 50% 50 ML SYRINGE IV PRN (22:56)
[2023-09-15] MEDS ORDERED: GLUCAGON FOR INJ 1 MG VIAL SQ PRN (22:56)
[2023-09-15] MEDS ORDERED: CARBOHYDRATES FOR HYPOGLYCEMIA PO PRN (22:56)
[2023-09-15] MEDS ORDERED: GLUCOSE 40% GEL 15 GM TUBE PO PRN (22:56)
[2023-09-15] MEDS: LACTULOSE SYRUP 30 GM/45 ML UDP PO SCH (23:19)
[2023-09-16] MEDS: INSULIN ASPART PER UNIT CHARGE SC SCH ×2 (00:19→17:19)
[2023-09-16] MEDS: LACTULOSE 200GM/700ML WTR ENEMA PR SCH (02:29)
[2023-09-16] MEDS: PIPERACILLIN/TAZOBACTAM 4.5 GM in DEXTROSE 5% MINI-B 100 ML IV SCH (03:15)
[2023-09-16 03:46] LABS: iSTAT Art Bld Gas pCO2 Correct 26 mmHg (35-46); iSTAT Art Bld Gas pH Corrected 7.381 (7.35-7.45); iSTAT Arterial Blood Gas HCO3 15 meg/L (19-24); iSTAT Arterial Blood Gas pCO2 25 mmHg (35-46); iSTAT Arterial Blood Gas pO2 120 mmHg (80-95); iSTAT Arterial Blood Gas pO2 C 126; iSTAT Carbon Dioxide 16 mmol/L (24-31); iSTAT FiO2 40 %; iSTAT Hematocrit 31 % (42-52); iSTAT Hemoglobin 10.5 g/dl (14.0-18.0); iSTAT Potassium 3.4 mmol/L (3.3-5.0); iSTAT Site Art Line; iSTAT Sodium 140 mmol/L (135-144)
[2023-09-16 04:09] LABS: Hematocrit (blood only) 28.3 % (42.0-52.0); Hemoglobin 9.6 g/dl (14.0-18.0); Mean Corpuscular Hemoglobin 33.6 pg (25.0-34.0); Mean Corpuscular Hgb Conc 33.9 g/dL (32.0-36.0); Mean Platelet Volume 10.4 fL (9.4-12.4); Platelet Count 75 K/uL (130-400); Platelet Estimate Decreased (Normal); RDW Coefficient of Variation 14.8 % (11.5-14.5); RDW Standard Deviation 54.4 fL (36.4-46.3); Red Blood Count 2.86 M/uL (4.70-6.10)
[2023-09-16 04:36] LABS: Albumin Globulin Ratio 0.9 (0.9-2); Albumin Level 2.8 gm/dl (3.4-5.0); BUN Creatinine Ratio 17.5 (10-20); Bilirubin,Total 1.5 mg/dl (0.2-1.0); Calcium 7.7 mg/dl (8.6-10.3); Creatinine Clr Calc Pharmacy 78.4 ml/min; Est GFR (Non-African American) 86.3 ml/min; Globulin 3.1 gm/dl (2.5-4.0); Magnesium 1.6 mg/dl (1.7-2.4); Phosphorus 1.3 mg/dl (2.5-4.9); Potassium 3.5 mmol/L (3.5-5.1); Total Protein 5.9 gm/dl (6.0-8.3)
[2023-09-16 04:36] LABS: Adenovirus PCR Not Detected (NotDetected); Bordetella parapertussis PCR Not Detected (NotDetected); Bordetella pertussis PCR Not Detected (NotDetected); Chlamydia pneumoniae PCR Not Detected (NotDetected); Coronavirus 229E PCR Not Detected (NotDetected); Coronavirus CoV-2 (COVID19)PCR Not Detected (NotDetected); Coronavirus HKU1 PCR Not Detected (NotDetected); Coronavirus NL63 PCR Not Detected (NotDetected); Coronavirus OC43PCR Not Detected (NotDetected); Human Metapneumovirus PCR Not Detected (NotDetected); Influenza A PCR Not Detected (NotDetected); Influenza B PCR Not Detected (NotDetected); Mycoplasma pneumoniae PCR Not Detected (NotDetected); Parainfluenza Virus 1 PCR Not Detected (NotDetected); Parainfluenza Virus 2 PCR Not Detected (NotDetected); Parainfluenza Virus 3 PCR Not Detected (NotDetected); Parainfluenza Virus 4 PCR Not Detected (NotDetected); Respiratory Syncytial VirusPCR Not Detected (NotDetected); Rhinovirus/Enterovirus PCR Not Detected (NotDetected)
[2023-09-16] MEDS ORDERED: POTASSIUM PHOS 3 MMOL/1 ML INFUSION IV STA (04:52)
[2023-09-16] MEDS: MAGNESIUM SULFATE / D5W 1 GM/100 ML BAG IV SCH (05:03)
[2023-09-16] MEDS: POTASSIUM PHOSPHATE 24 MMOL in SODIUM CHLORIDE 0.9% 500 ML IV ONE (05:10)
[2023-09-16] MEDS: CISATRACURIUM BESYLATE 40 MG in DEXTROSE 5% 80 ML IV SCH (05:15)
--- NOTE | 2023-09-16 06:47 | Critical Care Progress Note ---
Date of Service September 16, 2023 Assessment & Plan (1) Acute encephalopathy: (2) Septic shock: (3) Aspiration pneumonitis: (4) ARDS (adult respiratory distress syndrome): (5) Alcohol overdose: (6) Thrombocytopenia: Plan Assessment 57-year-old male who presented to the ER obtunded admitted to the ICU for ARDS with septic shock. Presumably with aspiration pneumonitis versus pneumonia. Critical care indication: need for mechanical ventilation- Currently intubated and sedated need for pressor support Plan: Neurologic CAM ICU negative Sedation: Propofol and fentanyl while intubated Acute encephalopathy - Secondary to EtOH vs Metabolic Alcohol use disorder - AWSS - will consider phenobarb Cardiac Hypotension: BP 90/60 - Currently on Levophed and Vasopressin - IV methylprednisone - Troponin elevation- secondary to hypotension/septic shock - JOSE: mild concentric left ventricular hypertrophy, EF 60-65% Respiratory Hypoxemic respiratory failure currently on Mechanical ventilation Will extubate today Hemoptysis - Secondary to traumatic intubation ARDS - right midlung and right upper lung infiltrates on CXR Bronchoscopy done yesterday- Cultures and legionella NIKKY screen sent Gastrointestinal: - hx of esophageal varices - hx of Severe alcoholism, cirrhosis - Alcohol overdose - level at admission 667 Diet: NPO Protonix 40 mg High dose thiamine Renal/electrolytes: Hypomagnesemia Hypophosphatemia Replete electrolytes as needed Genitourinary No concerns at this time Rosas catheter draining normal-appearing urine at this time Strict I/O's Endocrine BSG stable Continue ISS per protocol Hematologic Hgb 9.6 drop from 11.7 - Thrombocytopenia: - Cirrhosis vs EtOH use Will monitor for any drops in the setting hemoptysis Follow daily CBC: Infectious disease Septic Shock - Pneumonia vs aspiration pneumonitis Lactic acid: 3.5 - Continue Zosyn and Azithromycin - Continue IV methylprednisone -Follow blood and urine,bronchoscopy culture - Follow Legionella DNA screen Monitor fever curve Integumentary No concerns at this time Lines/access Right femoral arterial line placed for hemodynamics Internal jugular central line placed lat night Prophylaxis DVT ppx: Hold for now GI ppx: Protonix Thank you the opportunity to participate in this patient's care. Please see attending documentation for further recommendations. Admission and Anticipated Discharge Date Admission Date: September 15, 2023 Supervising Physician Co-Signing Physician Notes Dr. Maninder Marquez was resident physician during care of patient. I separately evaluated patient for chapman portions of the history and the exam. I was present during the critical portion of medical decision making, and I discussed the case with the resident. I generally agree with the findings and plan. Liberated from the ventilator this morning. Alert oriented. Has longstanding h istory of alcoholism, reports he was approximately 1 year sober previously. Otherwise he has engaged in daily alcohol consumption. Exhibits insight and understanding into the underlying disease process. Patient reports that he is interested in attempting to decrease his alcohol consumption, however he is not not interested in inpatient recovery/rehabilitation programs. He reports that he is currently in an outpatient program. Will require medication to facilitate safe decrease in alcohol consumption. Patient reports this alcohol level was the highest he has ever had when he has needed medical intervention secondary to his alcohol use. Patient is already tremulous after extubation. Given that patient does not desire inpatient treatment I feel phenobarbital is better suited given long half-life and tapering effect. Will proceed with 15 mg/kg IV load, extended infusion from 30 minutes to 60 and then treat with additional as needed phenobarbital as needed. Ordered oral taper to start at 5 PM this evenin mg phenobarbital 4 times daily then decreasing 3 times daily day 2, twice daily day 3 and once day 4. Patient has remained asymptomatic and off ventilator for greater than 2 hours stable for downgrade out of ICU. Subjective 57 year old male with PMH of severe alcoholism, cirrhosis and intermediate risk prostate cancer who presented to the ER obtunded. Patient was intubated on the ED. Currently intubated and sedated. He continue to be hypotensive currently on pressors: norepinephrine and vasopressin. Hemoptysis was found to me secondary to traumatic intubation and injury to the tongue. Bronchoscopy was performed yesterday - cultures were sent. Diffuse alveolar hemorrhage was rule out. Review of Systems Review of Systems: as per HPI - patient sedated Physical Exam Constitutional: + ill appearing, + thin and + mechanical ly ventilated Eyes: + anicteric sclerae Pupils are equal round and reactive to light Respiratory: normal respiratory effort, lungs clear to auscultation Cardiovascular: RRR, no murmur, no edema Gastrointestinal (Abdomen): normal bowel sounds, soft, nontender, no hepatosplenomegaly Musculoskeletal: Extremities: no clubbing Move all limbs spontaneously Results & Data Results & Data Vital Signs (Past 12 Hours) Vital Signs Temp Pulse Resp BP Pulse Ox O2 Del Method FiO2 09/16/23 04:00 30 09/16/23 03:55 Mechanical Vent 30 09/16/23 03:46 92/62 L 09/16/23 03:42 38.0 C H 91 H 24 96 09/16/23 03:39 93 H 24 96 30 09/16/23 03:36 38.0 C H 92 H 24 95 09/16/23 03:21 37.9 C H 92 H 26 H 96 09/16/23 03:00 37.4 C 95 H 26 H 97 09/16/23 02:39 36.9 C 97 H 26 H 99 09/16/23 02:18 38.0 C H 92 H 28 H 98 09/16/23 02:00 38.0 C H 93 H 26 H 97 09/16/23 01:48 38.0 C H 93 H 26 H 97 09/16/23 01:30 38.0 C H 91 H 26 H 100 09/16/23 01:24 38.0 C H 91 H 26 H 98 09/16/23 01:09 38.0 C H 89 26 H 99 09/16/23 00:51 37.9 C H 87 26 H 99 09/16/23 00:30 37.9 C H 87 26 H 99 09/16/23 00:15 37.9 C H 85 26 H 100 09/16/23 00:09 37.9 C H 86 26 H 98 09/16/23 00:00 40 09/16/23 00:00 85 09/15/23 23:57 37.9 C H 86 26 H 98 09/15/23 23:45 86 26 H 98 40 09/15/23 23:36 37.9 C H 86 26 H 99 09/15/23 23:18 37.8 C H 87 26 H 100 09/15/23 23:00 37.7 C H 86 26 H 99 09/15/23 22:51 37.6 C H 86 26 H 100 09/15/23 22:33 37.5 C 86 26 H 100 09/15/23 22:12 37.4 C 89 26 H 99 09/15/23 21:54 37.3 C 89 26 H 98 09/15/23 21:21 37.1 C 89 26 H 96 09/15/23 21:03 37.0 C 89 26 H 97 09/15/23 20:52 81/59 L 09/15/23 20:36 36.8 C 92 H 26 H 94 09/15/23 20:35 87/61 L 09/15/23 20:33 36.8 C 94 H 26 H 94 09/15/23 20:15 36.7 C 93 H 22 96 09/15/23 20:12 36.7 C 94 H 22 96 09/15/23 20:00 40 09/15/23 19:45 36.5 C 96 H 22 93 09/15/23 19:30 36.5 C 97 H 10 L 97 09/15/23 19:30 100/69 09/15/23 19:15 36.4 C L 88 22 98 09/15/23 19:15 91/70 L 09/15/23 19:10 90/68 L 09/15/23 19:06 36.3 C L 89 22 97 09/15/23 19:00 36.3 C L 90 22 97 09/15/23 19:00 89/69 L 09/15/23 18:48 36.3 C L 89 22 97 Mechanical Vent Resident Activity Tracking Resident Involvement: Resident Care Provided Care Provided: Adult Hospital Medicine
--- NOTE | 2023-09-16 07:02 | Hospitalist Progress Note ---
"Date of Service September 16, 2023 Assessment & Plan (1) Alcohol overdose: (2) Acute alteration in mental status: (3) Hypomagnesemia: (4) Hypokalemia: (5) Acute encephalopathy: (6) Septic shock: (7) Aspiration pneumonitis: (8) ARDS (adult respiratory distress syndrome): (9) Thrombocytopenia: Gage Romero is a 57M with history of severe alcohol use disorder, cirrhosis, esophageal varices, and RENÉE admitted for alcohol intoxication and found to be hypoxic, obtunded and have a multifocal pneumonia on CXR. Patient now admitted to the ICU requiring intubation and pressors. AWSS protocol ordered. Patient requiring pressor support and mechanical ventilation, currently receiving ICU level care. Acute alteration in mental status: - Patient found facedown without signs of trauma along with alcohol level 667.8 prior to admission. - Remained somnolent throughout admission today with tachycardia and soft blood pressures. - On admission bicarb 24 and 25, requiring 6L O2 then 8L. - CT head negative for any acute process. - CXR revealed multifocal pneumonia. - Blood cultures NGTD - UA unremarkable, culture NGTD - Lactate elevated, but now downtrending - Patient w/ hx of chronic alcohol abuse, AMS likely 2/2 acute intoxication Will require AWSS protocol for increased withdrawal risk - EEG and seizure precautions ordered - Ongoing mgmt in ICU Hypoxia/PNA/Hypotension | Sepsis - Code Purple 09/14, subsequently requiring mechanical ventilation and pressor support - CXR revealed multifocal PNA, question of community acquired vs aspiration. Patient meets sepsis criteria with possible pulmonary infection source. - Lactate elevation as above, now downtrending - Bronchoscopy performed 09/14, cultures and Legionella pending - Continue Zosyn, Azithromycin, and Methylpred - Further BP/O2 support per ICU team Acute on Chronic Alcohol Use - Limited exam due to patient's level of consciousness - ETOH 667.8 on admission Potassium of 2.8, magnesium 1.3. AST of 80. Banana bag plus electrolyte repletion in ED, ongoing per ICU protocol - AWSS ordered due to patient being at high risk to go through alcohol withdrawal however no Ativan received - Drug profile negative - Continue Thiamine 100 mg IV qAM. Hypomagnesemia/Hypokalemia: - Given banana bag in the ER. - ICU repletion protocol. Diet: NPO while obtunded/intubated. Code status: Unable to assess, has been full code at previous admissions. No contacts in the system can be located to call. Dispo: ICU. Admission and Anticipated Discharge Date Admission Date: September 15, 2023 Supervising Physician Co-Signing Physician Notes I personally examined the patient and verified all chapman points of history and exam, discussed case, and agree with decision making with Dr Tillman Intubated whenever I saw him. ICU team later informed me that he was able to be extubated and started on p.o. phenobarbital. Vitals noted, sedated and intubated whenever I saw him. On exam otherwise as above. Alcohol abuse/overdose/pneumonia with septic shockcontinue ICU management. Appreciate assistance. Otherwise as above. Subjective 09/15: Patient resting comfortably in bed. No acute distress. Acute events managed by ICU overnight. No additional HPI as patient remained intubated. Review of Systems Review of Systems: As per HPI. Physical Exam Constitutional: + ill appearing, + thin and + mechanical ly ventilated; no acute distress Eyes: PERRL, conjunctivae normal, anicteric sclerae Respiratory: normal respiratory effort, lungs clear to auscultation Intubated w/ active mechanical ventilation Cardiovascular: Rate/Rhythm: regular rhythm and + tachycardic Heart Sounds: normal S1 and normal S2 Extremities: normal capillary refill; no edema Gastrointestinal (Abdomen): normal bowel sounds, soft, nontender, no hepatosplenomegaly Musculoskeletal: Extremities: no clubbing Skin: no rashes, warm and dry Neurologic: awake Results & Data Results & Data Vital Signs (Past 12 Hours) Vital Signs Temp Pulse Resp BP Pulse Ox O2 Del Method FiO2 09/16/23 04:00 30 09/16/23 03:55 Mechanical Vent 30 09/16/23 03:46 92/62 L 09/16/23 03:42 38.0 C H 91 H 24 96 09/16/23 03:39 93 H 24 96 30 09/16/23 03:36 38.0 C H 92 H 24 95 09/16/23 03:21 37.9 C H 92 H 26 H 96 09/16/23 03:00 37.4 C 95 H 26 H 97 09/16/23 02:39 36.9 C 97 H 26 H 99 09/16/23 02:18 38.0 C H 92 H 28 H 98 09/16/23 02:00 38.0 C H 93 H 26 H 97 09/16/23 01:48 38.0 C H 93 H 26 H 97 09/16/23 01:30 38.0 C H 91 H 26 H 100 09/16/23 01:24 38.0 C H 91 H 26 H 98 09/16/23 01:09 38.0 C H 89 26 H 99 09/16/23 00:51 37.9 C H 87 26 H 99 09/16/23 00:30 37.9 C H 87 26 H 99 09/16/23 00:15 37.9 C H 85 26 H 100 09/16/23 00:09 37.9 C H 86 26 H 98 09/16/23 00:00 40 09/16/23 00:00 85 09/15/23 23:57 37.9 C H 86 26 H 98 09/15/23 23:45 86 26 H 98 40 09/15/23 23:36 37.9 C H 86 26 H 99 09/15/23 23:18 37.8 C H 87 26 H 100 09/15/23 23:00 37.7 C H 86 26 H 99 09/15/23 22:51 37.6 C H 86 26 H 100 09/15/23 22:33 37.5 C 86 26 H 100 09/15/23 22:12 37.4 C 89 26 H 99 09/15/23 21:54 37.3 C 89 26 H 98 09/15/23 21:21 37.1 C 89 26 H 96 09/15/23 21:03 37.0 C 89 26 H 97 09/15/23 20:52 81/59 L 09/15/23 20:36 36.8 C 92 H 26 H 94 09/15/23 20:35 87/61 L 09/15/23 20:33 36.8 C 94 H 26 H 94 09/15/23 20:15 36.7 C 93 H 22 96 09/15/23 20:12 36.7 C 94 H 22 96 09/15/23 20:00 40 09/15/23 19:45 36.5 C 96 H 22 93 09/15/23 19:30 36.5 C 97 H 10 L 97 09/15/23 19:30 100/69 09/15/23 19:15 36.4 C L 88 22 98 09/15/23 19:15 91/70 L 09/15/23 19:10 90/68 L 09/15/23 19:06 36.3 C L 89 22 97 Resident Activity Tracking Resident Involvement: Resident Care Provided Care Provided: Adult Hospital Medicine"
--- NOTE | 2023-09-16 07:08 | XRay Report ---
XR chest 1V portable HISTORY: 57 years-old Male CVC Insertion COMPARISON: Chest radiograph of same day at 4:21 PM TECHNIQUE: AP view of the chest FINDINGS: Endotracheal tube overlies the midline, 5.5 cm superior to the carmine. Heart is mildly enlarged. Righ t IJ central venous catheter distal tip is noted in the expected location of the mid SVC. Patchy righ t mid lung and right upper lobe predominant bilateral airspace opacities. No pneumothorax or pleural effusion. IMPRESSION: 1. Endotracheal tube overlies the midline, 5.5 cm superior to the carmine. 2. Right IJ central venous catheter distal tip is noted in the expected location of the mid SVC. 3. Findings suggestive of multifocal pneumonia. ACT 112: Negative or not required by law. The above report was generated using voice recognition software. It may contain grammatical, syntax o r spelling errors. Electronically signed by: Zachery Dsouza M.D. 09/16/2023 7:07 AM
[2023-09-16] MEDS ORDERED: Nursing to Pharmacy Communication SCH ×2 (07:15→14:45)
[2023-09-16] MEDS: PROPOFOL BOLUS FROM BAG IV PRN (09:09)
[2023-09-16] MEDS: fentaNYL BOLUS from BAG IV PRN (09:09)
--- NOTE | 2023-09-16 09:26 | Electroencephalogram ---
EEG Procedure Note Date of Service September 16, 2023 Start / End Times Start Time: 608 End Time: [address] Ac History 57-year-old with history of possible seizures. Home Medication List Medication Instructions Recorded Confirmed Type folic acid 1 mg tablet 1 mg PO QAM #90 tabs 07/26/22 09/11/23 Rx sildenafil 25 mg tablet 25 mg PO DAILY PRN sexual activity 09/13/22 09/11/23 Rx #30 tabs cane #2 ea 11/13/22 09/11/23 Rx fluticasone propionate 50 1 spray intranasal BID 90 days #48 11/14/22 09/11/23 Rx mcg/actuation nasal grams spray,suspension (Allergy Relief (fluticasone)) magnesium oxide 400 mg (241.3 mg 400 mg PO BID 90 days #180 tabs 11/20/22 09/11/23 Rx magnesium) tablet thiamine HCl (vitamin B1) 100 mg 100 mg PO QAM #90 tabs 05/14/23 09/11/23 Rx tablet famotidine 40 mg tablet 40 mg PO QAM #90 tabs 05/16/23 09/11/23 Rx ibuprofen 600 mg tablet 600 mg PO DAILY PRN Pain 05/30/23 09/11/23 History naltrexone microspheres 380 mg 0 mg IM DIRECTED 07/08/23 09/11/23 History intramuscular suspension,extended release (Vivitrol) potassium chloride 20 mEq 20 meq PO QAM #90 tabs 09/05/23 09/11/23 Rx tablet,extended release naltrexone microspheres 380 mg mg IM .Q28 days 09/11/23 09/11/23 History intramuscular suspension,extended release (Vivitrol) Inpatient Medication List Fentanyl Citrate (Fentanyl Bolus From Bag) 50 mcg IV Q60M PRN PRN Reason: Pain or Agitation Stop: 09/29/23 17:35 Last Admin: 09/16/23 09:09 Dose: 50 mcg Documented By: GORDO Co-signed By: KIKI Norepinephrine Bitartrate (Levophed/D5w) 4 mg in 250 mls @ 13.478 mls/hr IV .[id number] JORGE L; Protocol Stop: 10/15/23 16:29 Last Titration: 09/16/23 07:05 Dose: 0.06 mcg/kg/min, 13.5 mls/hr Documented By: GORDO Co-signed By: [id number] Titration: 09/16/23 03:27 Dose: 0.06 mcg/kg/min, 13.5 mls/hr Documented By: [id number] Titration: 09/16/23 00:24 Dose: 0.04 mcg/kg/min, 9 mls/hr Documented By: [id number] Titration: 09/16/23 00:04 Dose: 0.06 mcg/kg/min, 13.5 mls/hr Documented By: [id number] Titration: 09/15/23 22:13 Dose: 0.08 mcg/kg/min, 18 mls/hr Documented By: [id number] Titration: 09/15/23 20:22 Dose: 0.1 mcg/kg/min, 22.5 mls/hr Documented By: [id number] Admin: 09/15/23 20:08 Dose: 0.15 mcg/kg/min, 33.7 mls/hr Documented By: [id number] Co-signed By: KOJO Titration: 09/15/23 20:08 Dose: Infused Documented By: [id number] Co-signed By: KOJO Titration: 09/15/23 19:06 Dose: 0.2 mcg/kg/min, 44.9 mls/hr Documented By: Admin: 09/15/23 16:20 Dose: 0.05 mcg/kg/min, 11.2 mls/hr Documented By: MT Co-signed By: SALMA Piperacillin Sod/Tazobactam (Sod 4.5 gm/ Dextrose) 100 mls @ 25 mls/hr IV Q8H JORGE L; Protocol Stop: 09/22/23 23:29 Last Infusion: 09/16/23 06:56 Dose: Infused Documented By: [id number] Admin: 09/16/23 03:15 Dose: 25 mls/hr Documented By: [id number] Thiamine HCl 500 mg/ Sodium (Chloride) 55 mls @ 210 mls/hr IV Q8H JORGE L Stop: 10/15/23 17:14 Last Infusion: 09/16/23 08:40 Dose: Infused Documented By: Admin: 09/16/23 08:01 Dose: 210 mls/hr Documented By: Infusion: 09/16/23 01:37 Dose: Infused Documented By: [id number] Admin: 09/16/23 01:21 Dose: 210 mls/hr Documented By: [id number] Infusion: 09/15/23 18:05 Dose: Infused Documented By: Admin: 09/15/23 17:27 Dose: 210 mls/hr Documented By: ROB Vasopressin 20 units/ Sodium (Chloride) 101 mls @ 0 mls/hr IV .Q0M JORGE L Stop: 10/15/23 17:29 Last Infusion: 09/16/23 05:57 Dose: Infused Documented By: [id number] Infusion: 09/16/23 01:21 Dose: 0 unit/min, 0 mls/hr Documented By: [id number] Infusion: 09/15/23 19:05 Dose: 0.04 unit/min, 12.1 mls/hr Documented By: ROB Co-signed By: [id number] Admin: 09/15/23 17:27 Dose: 0.04 unit/min, 12.1 mls/hr Documented By: ROB Co-signed By: KIKI Fentanyl Citrate (Fentanyl Citrate) 2,500 mcg in 250 mls @ 15 mls/hr IV .[id number] JORGE L; Protocol Stop: 09/29/23 17:44 Last Titration: 09/16/23 09:08 Dose: 150 mcg/hr, 15 mls/hr Documented By: GORDO Co-signed By: KIKI Titration: 09/16/23 07:05 Dose: 125 mcg/hr, 12.5 mls/hr Documented By: GORDO Co-signed By: [id number] Titration: 09/16/23 06:10 Dose: 125 mcg/hr, 12.5 mls/hr Documented By: [id number] Co-signed By: PARAS Admin: 09/15/23 19:05 Dose: 100 mcg/hr, 10 mls/hr Documented By: ROB Co-signed By: [id number] Cisatracurium Besylate 40 mg/ (Dextrose) 100 mls @ 8.985 mls/hr IV .Q11H8M JORGE L; Protocol Stop: 10/15/23 17:59 Last Admin: 09/16/23 06:12 Dose: Not Given Documented By: [id number] Admin: 09/16/23 05:15 Dose: Not Given Documented By: [id number] Pantoprazole Sodium 40 mg/ (Syringe) 10 mls @ 5 mls/min IV BID JORGE L Stop: 10/15/23 20:59 Last Admin: 09/16/23 08:01 Dose: 5 mls/min Documented By: Admin: 09/15/23 22:08 Dose: 5 mls/min Documented By: [id number] Methylprednisolone 80 mg/ (Syringe) 1.28 mls @ 0.427 mls/min IV TID JORGE L Stop: 10/15/23 20:59 Last Admin: 09/15/23 22:08 Dose: 0.427 mls/min Documented By: [id number] Propofol (Diprivan) 1,000 mg in 100 mls @ 15.84 mls/hr IV .Q6H19M JORGE L; Protocol Stop: 09/18/23 19:29 Last Titration: 09/16/23 09:08 Dose: 40 mcg/kg/min, 15.8 mls/hr Documented By: Titration: 09/16/23 08:00 Dose: 35 mcg/kg/min, 13.9 mls/hr Documented By: Admin: 09/16/23 07:31 Dose: 30 mcg/kg/min, 11.9 mls/hr Documented By: GORDO Co-signed By: JOE Titration: 09/16/23 07:31 Dose: Infused Documented By: GORDO Co-signed By: CB Titration: 09/16/23 07:05 Dose: 30 mcg/kg/min, 11.9 mls/hr Documented By: GORDO Co-signed By: [id number] Admin: 09/15/23 23:06 Dose: 30 mcg/kg/min, 11.9 mls/hr Documented By: [id number] Co-signed By: TP Titration: 09/15/23 23:06 Dose: Infused Documented By: [id number] Co-signed By: TP Titration: 09/15/23 21:51 Dose: 30 mcg/kg/min, 11.9 mls/hr Documented By: [id number] Titration: 09/15/23 20:55 Dose: 25 mcg/kg/min, 9.9 mls/hr Documented By: [id number] Admin: 09/15/23 19:27 Dose: 20 mcg/kg/min, 7.9 mls/hr Documented By: LAF Co-signed By: CLC Magnesium Sulfate/Dextrose (Magnesium Sulfate / D5w) 1 gm in 100 mls @ 50 mls/hr IV Q2H JORGE L Stop: 09/16/23 11:14 Last Admin: 09/16/23 08:59 Dose: 50 mls/hr Documented By: Infusion: 09/16/23 08:56 Dose: Infused Documented By: Admin: 09/16/23 06:56 Dose: 50 mls/hr Documented By: [id number] Infusion: 09/16/23 06:56 Dose: Infused Documented By: [id number] Admin: 09/16/23 05:03 Dose: 50 mls/hr Documented By: [id number] Potassium Phosphate 24 mmol/ (Sodium Chloride) 508 mls @ 88 mls/hr IV ONE ONE Stop: 09/16/23 11:01 Last Admin: 09/16/23 05:10 Dose: 88 mls/hr Documented By: [id number] Insulin Aspart (Insulin Aspart Per Unit Charge) 0 units SC Q6 JORGE L Stop: 10/16/23 00:00 Last Admin: 09/16/23 05:25 Dose: 2 units Documented By: [id number] Co-signed By: TP Admin: 09/16/23 00:19 Dose: 3 units Documented By: [id number] Co-signed By: CLC Lactulose (Lactulose 200gm/700ml Wtr Enema) 200 gm IL Q8H [facility], [facility]–1983 Stop: 10/16/23 00:00 Last Admin: 09/16/23 08:04 Dose: 200 gm Documented By: Admin: 09/16/23 02:29 Dose: 200 gm Documented By: [id number] Multi-Ingredient Cream (Artificial Tears Op Oint 3.5 Gm Tube) 1 appln OP Q4H [facility], 1928–1983 Stop: 10/15/23 17:44 Last Admin: 09/16/23 08:02 Dose: 1 appln Documented By: Admin: 09/16/23 05:07 Dose: 1 appln Documented By: [id number] Admin: 09/16/23 01:39 Dose: 1 appln Documented By: [id number] Admin: 09/15/23 22:31 Dose: 1 appln Documented By: [id number] Admin: 09/15/23 20:56 Dose: 1 appln Documented By: [id number] Propofol (Propofol Bolus From Bag) 20 mg IV Q5M PRN PRN Reason: Sedation Stop: 09/18/23 19:19 Last Admin: 09/16/23 09:09 Dose: 20 mg Documented By: GORDO Co-signed By: KIKI Discontinued Medications Etomidate (Etomidate 2 Mg/Ml 20 Ml Vial) 20 mg IV NOW ONE Stop: 09/15/23 16:39 Last Admin: 09/15/23 17:19 Dose: Not Given Documented By: ROB Fentanyl Citrate (Fentanyl Citrate 2,500 Mcg/250 Ml Bag) Confirm Administered Dose 2,500 mcg IV .STK-MED ONE Stop: 09/15/23 16:58 Last Admin: 09/15/23 17:20 Dose: 100 mcg Documented By: ROB Co-signed By: TAYLOR Multivitamins 10 ml/ Thiamine HCl 100 mg/ Folic Acid 1 mg/Sodium Chloride 1,011.2 mls @ 500 mls/hr IV .Q2H2M ONE Stop: 09/15/23 02:45 Last Admin: 09/15/23 03:53 Dose: Not Given Documented By: RADHA Multivitamins 10 ml/ Thiamine HCl 100 mg/ Folic Acid 1 mg/Sodium Chloride 1,011.2 mls @ 500 mls/hr IV .Q2H2M ONE Stop: 09/15/23 05:26 Last Infusion: 09/15/23 06:33 Dose: Infused Documented By: Admin: 09/15/23 04:26 Dose: 500 mls/hr Documented By: RADHA Potassium Chloride (K Vlad / Wtr) 10 meq in 100 mls @ 100 mls/hr IV Q1H JORGE L Stop: 09/15/23 06:29 Last Infusion: 09/15/23 07:15 Dose: Infused Documented By: Admin: 09/15/23 06:11 Dose: 100 mls/hr Documented By: Infusion: 09/15/23 06:10 Dose: Infused Documented By: Admin: 09/15/23 05:03 Dose: 100 mls/hr Documented By: Infusion: 09/15/23 04:51 Dose: Infused Documented By: Admin: 09/15/23 03:51 Dose: 100 mls/hr Documented By: RADHA Magnesium Sulfate/Dextrose (Magnesium Sulfate / D5w) 1 gm in 100 mls @ 100 mls/hr IV NOW STA Stop: 09/15/23 04:25 Last Infusion: 09/15/23 05:03 Dose: Infused Documented By: Admin: 09/15/23 03:51 Dose: 100 mls/hr Documented By: RADHA Magnesium Sulfate/Dextrose (Magnesium Sulfate / D5w) 1 gm in 100 mls @ 50 mls/hr IV Q2H JORGE L Stop: 09/15/23 09:14 Last Infusion: 09/15/23 09:25 Dose: Infused Documented By: Admin: 09/15/23 07:25 Dose: 50 mls/hr Documented By: Infusion: 09/15/23 07:25 Dose: Infused Documented By: Admin: 09/15/23 05:39 Dose: 50 mls/hr Documented By: BRENDON Thiamine HCl 100 mg/ Syringe 10 mls @ 2 mls/min IV QAM JORGE L Stop: 10/15/23 09:29 Last Admin: 09/15/23 10:36 Dose: 2 mls/min Documented By: DEANNA Parenteral Electrolytes (Plasma-Lyte A Ph 7.4) 500 mls @ 999 mls/hr IV .Q31M ONE Stop: 09/15/23 16:14 Last Infusion: 09/15/23 19:09 Dose: Infused Documented By: Admin: 09/15/23 16:24 Dose: 999 mls/hr Documented By: MT Piperacillin Sod/Tazobactam Sod (Zosyn) 4.5 gm in 100 mls @ 200 mls/hr IV NOW ONE Stop: 09/15/23 16:47 Last Infusion: 09/15/23 21:11 Dose: Infused Documented By: [id number] Admin: 09/15/23 20:40 Dose: 200 mls/hr Documented By: [id number] Calcium Gluconate () 1,000 mg in 60 mls @ 240 mls/hr IV Q15M [facility], [facility]1983 Stop: 09/15/23 19:44 Last Infusion: 09/15/23 22:00 Dose: Infused Documented By: [id number] Admin: 09/15/23 21:11 Dose: 240 mls/hr Documented By: [id number] Infusion: 09/15/23 21:01 Dose: Infused Documented By: [id number] Admin: 09/15/23 20:46 Dose: 240 mls/hr Documented By: [id number] Azithromycin 500 mg/ Dextrose 255 mls @ 127.5 mls/hr IV NOW STA Stop: 09/15/23 21:35 Last Infusion: 09/15/23 23:19 Dose: Infused Documented By: [id number] Admin: 09/15/23 21:12 Dose: 127.5 mls/hr Documented By: [id number] Magnesium Sulfate/Dextrose (Magnesium Sulfate / D5w) 1 gm in 100 mls @ 50 mls/hr IV ONE ONE Stop: 09/15/23 23:44 Last Infusion: 09/16/23 00:03 Dose: Infused Documented By: [id number] Admin: 09/15/23 21:55 Dose: 50 mls/hr Documented By: [id number] Lactulose (Lactulose Syrup 30 Gm/45 Ml Udp) 30 gm PO TID [facility], [facility]1983 Stop: 10/15/23 20:59 Last Admin: 09/15/23 23:19 Dose: Not Given Documented By: [id number] Miscellaneous (Rapid Sequence Induction Bag) Confirm Administered Dose 1 each N/A .STK-MED ONE Stop: 09/15/23 16:09 Last Admin: 09/15/23 17:19 Dose: Not Given Documented By: ROB Juarez (Icu Protocol For Hyperglycemia) 1 each N/A ACHS [facility], [facility]–1983 Stop: 09/17/23 16:43 Last Admin: 09/16/23 07:34 Dose: Not Given Documented By: Admin: 09/15/23 22:48 Dose: 1 each Documented By: [id number] Admin: 09/15/23 19:02 Dose: 1 each Documented By: ROB Juarez (Icu Electrolyte Replacement Protocol) 1 each N/A BID@18 [facility], [facility]–1983; Protocol Stop: 09/22/23 17:59 Last Admin: 09/15/23 21:32 Dose: 1 each Documented By: [id number] Norepinephrine Bitartrate (Norepinephrine/D5w 4 Mg/250 Ml) Confirm Administered Dose 4 mg IV .STK-MED ONE Stop: 09/15/23 16:17 Last Admin: 09/15/23 16:22 Dose: Not Given Documented By: MT Propofol (Propofol Iv Emulsion 10 Mg/Ml 100 Ml Vial) Confirm Administered Dose 1,000 mg IV .STK-MED ONE Stop: 09/15/23 16:45 Last Admin: 09/15/23 17:19 Dose: 20 mg Documented By: ROB Co-signed By: TAYLOR Thiamine HCl (Thiamine Hcl 100 Mg Tab) 100 mg PO QAM [facility], [facility]1983 Stop: 10/15/23 08:59 Last Admin: 09/15/23 10:06 Dose: Not Given Documented By: DEANNA Vecuronium [place] (Vecuronium [place] 10 Mg Vial) Confirm Administered Dose 10 mg IV .Advise Only ONE Stop: 09/15/23 17:07 Last Admin: 09/15/23 17:20 Dose: 10 mg Documented By: ROB Co-signed By: TAYLOR Description This is a 21 electrode EEG with a single channel dedicated to limited EKG. The electrodes were placed in accordance with the International 10-20 system. Interpretation The predominant background activity consists of an irregular 5.5 Hz activity, of up to 30 mV in amplitude, seen occasionally in the posterior head regions from time to time. Otherwise, the background was low amplitude 3 to 5 Hz activity of an irregular nature seen in all head regions diffusely. There was considerable artifact including muscle tension bifrontally, A1 and A2 artifact from time to time and head rocking artifact. Photic stimulation was performed and elicited no change in the background activity and no abnormal responses were seen. Hyperventilation was not performed. Throughout the recording, no focal abnormalities or potentially epileptogenic discharges were seen. The patient remained in a low amplitude slow generalized dysrhythmic state throughout the entire recording and drowsiness and sleep were not obtained. In summary, this EEG was abnormal, revealing a moderate generalized cerebral dysrhythmia of low amplitude. This generalized slowing showed no focal abnormalities or potentially epileptogenic discharges. Clinical Correlation The abscence of potentially epileptogenic activity does not exclude a seizure disorder, since interictally, EEGs can be normal. The generalized slowing is consistent with a moderate encephalopathy, which could be due to a wide variety of causes. Clinical correlation is required. [facility] Procedure Codes Indication for Procedure (1) Acute encephalopathy: Neurology Neurology: 49837 EEG include record awake & drowsy
--- NOTE | 2023-09-16 10:27 | XCELERA ---
[id number] \\[id number]
[2023-09-16] MEDS ORDERED: PANTOprazole 40 MG in SYRINGE 0 ML IV SCH (11:00)
[2023-09-16] MEDS: LANTUS PER UNIT CHARGE SC ONE (11:34)
[2023-09-16 11:35] LABS: Base Excess VBG -6.3 mEq/L; HCO3 VBG 18 mmol/L; Oxygen Saturation VBG 96.8 %; PCO2 VBG 32 mmHg (38-50); PO2 VBG 84 mmHg; pH VBG 7.36 (7.36-7.41)
[2023-09-16 11:40] LABS: BUN Creatinine Ratio 18.6 (10-20); Calcium 7.5 mg/dl (8.6-10.3); Creatinine Clr Calc Pharmacy 87.1 ml/min; Est GFR (African American) 111.6 ml/min; Est GFR (Non-African American) 96.3 ml/min; Potassium 3.4 mmol/L (3.5-5.1)
--- NOTE | 2023-09-16 12:00 | Billing Data ---
Date of Service September 16, 2023 Coding Level of Care Code 44398 SUB INP/OBS CARE MIN
[2023-09-16] MEDS ORDERED: PHENobarbital sodium 65 MG/ML VIAL IV STA (12:46)
[2023-09-16] MEDS: PHENobarbital sodium 65 MG/ML VIAL IV STA (15:00)
--- NOTE | 2023-09-16 17:10 | Billing Data ---
Date of Service September 16, 2023 Coding Level of Care Code 59254 SUB INP/OBS CARE
[2023-09-16] MEDS: PHENobarbitaL 30 MG TAB PO SCH (17:20)
[2023-09-16] MEDS: AZITHROMYCIN 250 MG in DEXTROSE 5% 250 ML IV SCH (20:19)
[2023-09-17 05:19] LABS: Hematocrit (blood only) 25.3 % (42.0-52.0); Hemoglobin 8.7 g/dl (14.0-18.0); Mean Corpuscular Hemoglobin 33.6 pg (25.0-34.0); Mean Corpuscular Hgb Conc 34.4 g/dL (32.0-36.0); Mean Corpuscular Volume 97.7 fL (80.0-100.0); Mean Platelet Volume 10.6 fL (9.4-12.4); Platelet Count 51 K/uL (130-400); RDW Coefficient of Variation 15.1 % (11.5-14.5); RDW Standard Deviation 54.2 fL (36.4-46.3); Red Blood Count 2.59 M/uL (4.70-6.10); White Blood Count 2.51 K/ul (4.8-10.8)
[2023-09-17 05:35] LABS: Albumin Level 2.9 gm/dl (3.4-5.0); BUN Creatinine Ratio 23.8 (10-20); Bilirubin,Total 1.9 mg/dl (0.2-1.0); Calcium 7.5 mg/dl (8.6-10.3); Creatinine Clr Calc Pharmacy 93.7 ml/min; Est GFR (African American) 114.9 ml/min; Est GFR (Non-African American) 99.2 ml/min; Globulin 2.9 gm/dl (2.5-4.0); Potassium 3.2 mmol/L (3.5-5.1); Total Protein 5.8 gm/dl (6.0-8.3)
[2023-09-17 06:05] LABS: INR 1.4 (0.9-1.1)
[2023-09-17 07:09] LABS: Magnesium 1.8 mg/dl (1.7-2.4); Phosphorus 2.3 mg/dl (2.5-4.9)
[2023-09-17] MEDS: POTASSIUM CHLORIDE / WTR 20 MEQ/100 ML PLCT IV SCH (07:16)
[2023-09-17] MEDS: POTASSIUM CHLORIDE / WTR 10 MEQ/100 ML PLCT IV SCH (07:40)
--- NOTE | 2023-09-17 07:56 | Critical Care Progress Note ---
Date of Service September 17, 2023 Assessment & Plan (1) Acute encephalopathy: (2) Alcohol overdose: (3) Thrombocytopenia: (4) Acute alcohol intoxication: (5) Alcohol use disorder, severe, dependence: Plan Assessment 57-year-old male who presented to the ER obtunded admitted to the ICU for ARDS with septic shock. Presumably with aspiration pneumonitis versus pneumonia. Critical care indication: need for mechanical ventilation- Currently intubated and sedated need for pressor support Plan: Neurologic Alcohol use disorder - AWSS - - 15 mg/kg IV load yesterday now on taper:, 120 mg phenobarbital 4 times daily then decreasing 3 times daily day 2, twice daily day 3 and once day 4. Cardiac Hypotension: Resolved, likely secondary to sedation effects Respiratory Liberated from ventilator yesterday Gastrointestinal: - hx of esophageal varices - hx of Severe alcoholism, cirrhosis, baseline alcoholic hepatitis - Alcohol overdose - level at admission 667 Renal/electrolytes: -Daily multivitamin Endocrine BSG stable Continue ISS per protocol Hematologic Hgb 9.6 drop from 11.7 - Thrombocytopenia: - Cirrhosis vs EtOH use Follow daily CBC: Infectious disease -No growth and blood cultures Integumentary No concerns at this time Lines/access Peripheral IVs Prophylaxis -Patient ambulatory Stable for downgrade out of ICU versus discharge Admission and Anticipated Discharge Date Admission Date: September 15, 2023 Subjective No tremulousness, no withdrawal symptoms at this time. Desires to go home. Physical Exam Physical Exam: General: Alert. nontoxic. Skin: Warm, dry, Head: Atraumatic Ears, nose, mouth and throat: airway patent Cardiovascular: Normal peripheral perfusion Respiratory: no respiratory distress Gastrointestinal: Non distended Musculoskeletal: No deformity Results & Data Results & Data Vital Signs (Past 12 Hours) Vital Signs Temp Pulse Resp BP BP Pulse Ox O2 Del Method 09/17/23 05:00 37.7 C H 114/69 09/17/23 05:00 37.8 C H 85 14 95 09/17/23 04:45 123/61 09/17/23 04:00 37.7 C H 78 14 92 09/17/23 03:12 37.7 C H 79 16 95 09/17/23 03:01 101/58 L 09/17/23 02:48 37.7 C H 82 17 95 09/17/23 02:27 37.5 C 90 18 92 09/17/23 02:00 115/70 09/17/23 01:45 37.4 C 86 20 115/70 91 09/17/23 01:33 37.4 C 89 24 89 L 09/17/23 01:15 37.5 C 79 18 92 09/17/23 01:06 37.5 C 80 16 91 09/17/23 00:45 37.5 C 84 16 91 09/17/23 00:30 37.4 C 81 18 111/66 91 09/17/23 00:00 87 09/16/23 23:03 37.7 C H 90 15 111/66 90 09/16/23 23:00 108/67 09/16/23 22:30 37.6 C H 89 15 90 09/16/23 22:27 37.6 C H 87 15 92 09/16/23 22:09 37.6 C H 87 15 111/66 93 09/16/23 21:45 37.6 C H 88 17 92 09/16/23 21:33 37.6 C H 96 H 19 93 09/16/23 21:21 37.6 C H 91 H 15 90 09/16/23 21:06 37.6 C H 89 17 90 09/16/23 21:00 114/69 09/16/23 20:51 37.6 C H 93 H 17 92 09/16/23 20:45 Nasal Cannula 09/16/23 20:27 37.5 C 89 16 93 09/16/23 20:21 37.5 C 90 17 92 09/16/23 20:15 37.5 C 92 H 16 93 09/16/23 20:09 37.5 C 102 H 18 93 09/16/23 20:00 37.5 C 85 17 92 09/16/23 20:00 122/71 09/16/23 19:57 37.5 C 94 H 15 92 O2 Flow Rate 09/17/23 05:00 09/17/23 05:00 09/17/23 04:45 09/17/23 04:00 09/17/23 03:12 09/17/23 03:01 09/17/23 02:48 09/17/23 02:27 09/17/23 02:00 09/17/23 01:45 09/17/23 01:33 09/17/23 01:15 09/17/23 01:06 09/17/23 00:45 09/17/23 00:30 09/17/23 00:00 09/16/23 23:03 09/16/23 23:00 09/16/23 22:30 09/16/23 22:27 09/16/23 22:09 09/16/23 21:45 09/16/23 21:33 09/16/23 21:21 09/16/23 21:06 09/16/23 21:00 09/16/23 20:51 09/16/23 20:45 2 09/16/23 20:27 09/16/23 20:21 09/16/23 20:15 09/16/23 20:09 09/16/23 20:00 09/16/23 20:00 09/16/23 19:57 Critical Care Results & Data Vital Signs (Past 12 Hours) Vital Signs Temp Pulse Resp BP BP Pulse Ox O2 Del Method 09/17/23 05:00 37.7 C H 114/69 09/17/23 05:00 37.8 C H 85 14 95 09/17/23 04:45 123/61 09/17/23 04:00 37.7 C H 78 14 92 09/17/23 03:12 37.7 C H 79 16 95 09/17/23 03:01 101/58 L 09/17/23 02:48 37.7 C H 82 17 95 09/17/23 02:27 37.5 C 90 18 92 09/17/23 02:00 115/70 09/17/23 01:45 37.4 C 86 20 115/70 91 09/17/23 01:33 37.4 C 89 24 89 L 09/17/23 01:15 37.5 C 79 18 92 09/17/23 01:06 37.5 C 80 16 91 09/17/23 00:45 37.5 C 84 16 91 09/17/23 00:30 37.4 C 81 18 111/66 91 09/17/23 00:00 87 09/16/23 23:03 37.7 C H 90 15 111/66 90 09/16/23 23:00 108/67 09/16/23 22:30 37.6 C H 89 15 90 09/16/23 22:27 37.6 C H 87 15 92 09/16/23 22:09 37.6 C H 87 15 111/66 93 09/16/23 21:45 37.6 C H 88 17 92 09/16/23 21:33 37.6 C H 96 H 19 93 09/16/23 21:21 37.6 C H 91 H 15 90 09/16/23 21:06 37.6 C H 89 17 90 09/16/23 21:00 114/69 09/16/23 20:51 37.6 C H 93 H 17 92 09/16/23 20:45 Nasal Cannula 09/16/23 20:27 37.5 C 89 16 93 09/16/23 20:21 37.5 C 90 17 92 09/16/23 20:15 37.5 C 92 H 16 93 09/16/23 20:09 37.5 C 102 H 18 93 09/16/23 20:00 37.5 C 85 17 92 09/16/23 20:00 122/71 09/16/23 19:57 37.5 C 94 H 15 92 O2 Flow Rate 09/17/23 05:00 09/17/23 05:00 09/17/23 04:45 09/17/23 04:00 09/17/23 03:12 09/17/23 03:01 09/17/23 02:48 09/17/23 02:27 09/17/23 02:00 09/17/23 01:45 09/17/23 01:33 09/17/23 01:15 09/17/23 01:06 09/17/23 00:45 09/17/23 00:30 09/17/23 00:00 09/16/23 23:03 09/16/23 23:00 09/16/23 22:30 09/16/23 22:27 09/16/23 22:09 09/16/23 21:45 09/16/23 21:33 09/16/23 21:21 09/16/23 21:06 09/16/23 21:00 09/16/23 20:51 09/16/23 20:45 2 09/16/23 20:27 09/16/23 20:21 09/16/23 20:15 09/16/23 20:09 09/16/23 20:00 09/16/23 20:00 09/16/23 19:57 Lab & Micro Results (Past 24 Hours) RBC 2.59 M/uL (4.70-6.10) L 09/17/23 WBC 2.51 K/ul (4.8-10.8) L 09/17/23 Hgb 8.7 g/dl (14.0-18.0) L 09/17/23 Hct 25.3 % (42.0-52.0) L 09/17/23 MCV 97.7 fL (80.0-100.0) 09/17/23 MCH 33.6 pg (25.0-34.0) 09/17/23 MCHC 34.4 g/dL (32.0-36.0) 09/17/23 RDW Standard Deviation 54.2 fL (36.4-46.3) H 09/17/23 RDW Coefficient of Variation 15.1 % (11.5-14.5) H 09/17/23 Plt Count 51 K/uL (130-400) L 09/17/23 MPV 10.6 fL (9.4-12.4) 09/17/23 Na 138 mmol/L (136-145) 09/17/23 K 3.2 mmol/L (3.5-5.1) L 09/17/23 Cl 110 mmol/L (98-107) H 09/17/23 CO2 23 mmol/L (21-32) 09/17/23 Anion Gap 5 (3-11) 09/17/23 BUN 19 mg/dl (6-23) 09/17/23 Creatinine 0.80 mg/dl (0.6-1.4) 09/17/23 Estimated GFR ( Amer) 114.9 ml/min 09/17/23 Estimated GFR (Non-Af Amer) 99.2 ml/min 09/17/23 BUN/Creatinine Ratio 23.8 (10-20) H 09/17/23 Glu 152 mg/dl (70-99(Fasting)) H 09/17/23 Ca 7.5 mg/dl (8.6-10.3) L 09/17/23 Phosphorus Level 2.3 mg/dl (2.5-4.9) L 09/17/23 Total Bilirubin 1.9 mg/dl (0.2-1.0) H 09/17/23 AST 56 U/L (13-39) H 09/17/23 ALT 29 U/L (7-52) 09/17/23 Alkaline Phosphatase 63 U/L (34-104) 09/17/23 TP 5.8 gm/dl (6.0-8.3) L 09/17/23 Albumin 2.9 gm/dl (3.4-5.0) L 09/17/23 Globulin 2.9 gm/dl (2.5-4.0) 09/17/23 Albumin/Globulin Ratio 1.0 (0.9-2) 09/17/23 Mg 1.8 mg/dl (1.7-2.4) 09/17/23 04:55 Calcium Level 7.5 mg/dl (8.6-10.3) L 09/17/23 04:55 Prothromb Time International Ratio 1.4 (0.9-1.1) H 09/17/23 04 :55 Venous Blood pH 7.36 (7.36-7.41) 09/16/23 10:55 Venous Blood Partial Pressure CO2 32 mmHg (38-50) L 09/16/23 10 :55 Venous Blood Partial Pressure O2 84 mmHg 09/16/23 10:55 Venous Blood HCO3 18 mmol/L 09/16/23 10:55 Venous Blood Base Excess -6.3 mEq/L 09/16/23 10:55 Venous Blood Oxygen Saturation 96.8 % 09/16/23 10:55 Microbiology 09/15/23 17:37 Aerobic Blood Culture - Preliminary Blood No growth in Aerobic bottle after 24 hours. Anaerobic Blood Culture - Preliminary No growth in Anaerobic bottle after 24 hours. 09/15/23 17:47 Aerobic Blood Culture - Preliminary Blood No growth in Aerobic bottle after 24 hours. Anaerobic Blood Culture - Preliminary No growth in Anaerobic bottle after 24 hours. 09/15/23 Unknown Urine Culture - Preliminary Urine,Clean Catch No growth - Less than 1,000 colonies/mL, Final report to follow. 09/15/23 17:28 Gram Stain - Final Bronch Wash,Right Lower Lobe Bronchial Culture - Preliminary Light normal davis present, final report to follow. I & O Totals 24 Hours 09/16/23 09/17/23 09/18/23 06:59 06:59 06:59 Intake Total 2101.747 / 2101.747 2673.648 / 2673.648 Output Total 995 / 995 1250 / 1250 Balance 1106.747 / 1944.233 3507.648 / 1423.648 Cumulative 09/15/23 00:14 thru 09/17/23 05:46 Intake Total 6086.595 Output Total 2245 Balance 3841.595 RT Ventilator Mngmt (Last Documented) Ventilator Ordered Settings Ventilator Support Mode Assist Control 09/16/23 08:02 Respiratory Rate 14 09/17/23 05:00 Ventilator Tidal Volume 450 09/16/23 08:02 Setting Minute Ventilation 10.8 09/16/23 08:02 Positive End Expiratory 5 09/16/23 08:02 Pressure Fraction of Inspired Oxygen 30 09/16/23 08:02 Peak Inspiratory Flow 60 09/16/23 08:02 Ventilator - PT Measurements Respiratory Rate 14 Exhaled Tidal Volume 450 Minute Ventilation 10.8 Peak Inspiratory Airway 18 Pressure Plateau Pressure 12.1 Respiratory Cycle Inspiratory: 1:3.2 Expiratory Ratio Inspiratory Phase Time 0.60 End-Tidal CO2 19 Static Lung Compliance 63.38 Dynamic Lung Compliance 34.62 Normal Static Lung Compliance 48.00 Patient Measurements Comment placed patient on 3L NC Coding Level of Care Code 77232 SUB INP/OBS CARE 3/50MIN Diagnoses Acute encephalopathy G93.40 Unintentional poisoning by alcohol, initial encounter T51.91XA Encounter type: initial encounter Injury intent: accidental or unintentional Thrombocytopenia D69.6 Acute alcoholic intoxication without complication F10.920 Complication of substance-induced condition: uncomplicated Alcohol use disorder, severe, dependence F10.20 (2) Alcohol overdose Encounter type: initial encounter Injury intent: accidental or unintentional Qualified Code(s): T51.91XA - Toxic effect of unspecified alcohol, accidental (unintentional), initial encounter (4) Acute alcohol intoxication Complication of substance-induced condition: uncomplicated Qualified Code(s): F10.920 - Alcohol use, unspecified with intoxication, uncomplicated
[2023-09-17] MEDS: FAMOTIDINE 40 MG TABLET PO SCH (11:30)
[2023-09-17 12:35] LABS: BUN Creatinine Ratio 24.4 (10-20); Calcium 7.8 mg/dl (8.6-10.3); Creatinine Clr Calc Pharmacy 92.4 ml/min; Est GFR (African American) 113.8 ml/min; Est GFR (Non-African American) 98.2 ml/min; Potassium 3.5 mmol/L (3.5-5.1)
--- NOTE | 2023-09-17 19:41 | Hospitalist Progress Note ---
"Date of Service September 17, 2023 Assessment & Plan (1) Alcohol overdose: (2) Acute alteration in mental status: (3) Hypomagnesemia: (4) Hypokalemia: (5) Acute encephalopathy: (6) Septic shock: (7) Aspiration pneumonitis: (8) ARDS (adult respiratory distress syndrome): (9) Thrombocytopenia: Plan alcohol overdose: - initially was probably aspiration pneumonitis and sepsis as well as hypotension/septic shockfortunately improved quite quicklynow extubated and off of pressors, weaning down oxygen quickly. Very minimal withdrawal on current dosing of phenobarbcontinue for now. Hypoxia/PNA/Hypotension | Sepsis - Most likely aspiration pneumonitis with sepsisICU has stopped all antibiotics, which seems to be reasonable given his rapid improvementfollow closely, obviously, with a low threshold to resume antibiotics if it seems like there truly is a pneumonia smoldering, but this does not appear to be the case Acute on Chronic Alcohol Use - with chemical evidence of cirrhosis given bilirubin and INR, as well as marrow suppression given pancytopeniacontinue thiamine/folate. Asked patient to consider if depression might be driving thishe agrees. Will need to try to build more of a support structure, as well as overall multimodal depression management. Offered encouragement and support. stable for transfer to medical, PT/OT eval and treat. Continue to build im pression and plan. Admission and Anticipated Discharge Date Admission Date: September 15, 2023 Subjective feeling surprisingly well overall. Very weak. Notes that on directed questioning he may be drinking to self medicate for depression. Has very little in the world, no real friends no close contacts and no close family. Is willing to try to make changes to improve/reclaim his life. Openly acknowledges there are several hurdles in his way. Review of Systems Review of Systems: All systems reviewed & are unremarkable except as noted in HPI & below Physical Exam Physical Exam: In general he is awake and alert very fatigued. No distress. HEENT normocephalic atraumatic mucous membranes moist. Breathing unlabored no accessory muscle use good effort. Skin shows no rashes no pallor or icterus. Neuro without focal deficits Results & Data Results & Data Vital Signs (Past 12 Hours) Vital Signs Temp Pulse Pulse Resp BP BP Pulse Ox 09/17/23 17:28 98.4 F 09/17/23 17:03 56 L 17 117/67 99 09/17/23 16:48 69 09/17/23 16:02 73 15 96 09/17/23 15:08 81 22 93 09/17/23 15:00 99/68 L 09/17/23 14:48 65 14 88 L 09/17/23 14:03 75 15 89 L 09/17/23 13:00 81 18 95 09/17/23 13:00 120/73 09/17/23 12:00 93 H 20 88 L 09/17/23 12:00 102/62 09/17/23 11:03 62 20 91 09/17/23 10:00 99.9 F H 75 18 89 L 09/17/23 10:00 120/74 09/17/23 09:12 09/17/23 09:00 100.0 F H 85 15 94 09/17/23 09:00 115/67 09/17/23 08:00 79 09/17/23 08:00 100.0 F H 83 19 112/68 96 O2 Del Method O2 Flow Rate 09/17/23 17:28 09/17/23 17:03 Nasal Cannula 1 09/17/23 16:48 09/17/23 16:02 09/17/23 15:08 09/17/23 15:00 09/17/23 14:48 09/17/23 14:03 09/17/23 13:00 09/17/23 13:00 09/17/23 12:00 09/17/23 12:00 09/17/23 11:03 09/17/23 10:00 09/17/23 10:00 09/17/23 09:12 Nasal Cannula 2 09/17/23 09:00 09/17/23 09:00 09/17/23 08:00 09/17/23 08:00 Nasal Cannula 2 PG Care Time/CCT Total # of Minutes Spent Total Time Spent with Patient: Total time spent is greater than 50% in coordination of care (as documented) at patient's floor/unit and/or counseling patient: Coding Level of Care Code 49200 SUB INP/OBS CARE 3/50MIN Diagnoses Unintentional poisoning by alcohol, initial encounter T51.91XA Encounter type: initial encounter Injury intent: accidental or unintentional Acute alteration in mental status R41.82 Hypomagnesemia E83.42 Hypokalemia E87.6 Acute encephalopathy G93.40 Septic shock A41.9; R65.21 Aspiration pneumonitis J69.0 ARDS (adult respiratory distress syndrome) J80 Thrombocytopenia D69.6 (1) Alcohol overdose Encounter type: initial encounter Injury intent: accidental or unintentional Qualified Code(s): T51.91XA - Toxic effect of unspecified alcohol, accidental (unintentional), initial encounter"
[2023-09-17] MEDS: THIAMINE HCL 100 MG TAB PO SCH (20:39)
[2023-09-18 06:24] LABS: Hematocrit (blood only) 27.7 % (42.0-52.0); Hemoglobin 9.7 g/dl (14.0-18.0); Immature Granulocytes # (auto) 0.02 K/uL (0.01-0.20); Immature Granulocytes % (auto) 0.4 %; Lymphocytes # (auto) 0.69 K/uL (1.20-3.40); Mean Corpuscular Hemoglobin 34.2 pg (25.0-34.0); Mean Corpuscular Volume 97.5 fL (80.0-100.0); Mean Platelet Volume 11.3 fL (9.4-12.4); Monocytes # (auto) 0.42 K/uL (0.11-0.59); Monocytes % (auto) 8.5 %; Neutrophils # (auto) 3.81 K/uL (1.40-6.50); Neutrophils % (auto) 77.1 %; Platelet Count 57 K/uL (130-400); RDW Standard Deviation 53.9 fL (36.4-46.3); Red Blood Count 2.84 M/uL (4.70-6.10); White Blood Count 4.94 K/ul (4.8-10.8)
[2023-09-18 06:42] LABS: Albumin Globulin Ratio 0.9 (0.9-2); Albumin Level 2.7 gm/dl (3.4-5.0); BUN Creatinine Ratio 26.7 (10-20); Bilirubin,Total 2.2 mg/dl (0.2-1.0); Calcium 7.5 mg/dl (8.6-10.3); Creatinine Clr Calc Pharmacy 99.3 ml/min; Est GFR (Non-African American) 101.8 ml/min; Globulin 2.9 gm/dl (2.5-4.0); Potassium 3.2 mmol/L (3.5-5.1); Total Protein 5.6 gm/dl (6.0-8.3)
[2023-09-18] MEDS: POTASSIUM CHLORIDE / WTR 10 MEQ/100 ML PLCT IV SCH (06:57)
--- NOTE | 2023-09-18 07:01 | Hospitalist Progress Note ---
"Date of Service September 18, 2023 Assessment & Plan (1) Alcohol overdose: (2) Acute alteration in mental status: (3) Hypomagnesemia: (4) Hypokalemia: (5) Acute encephalopathy: (6) Septic shock: (7) Aspiration pneumonitis: (8) ARDS (adult respiratory distress syndrome): (9) Thrombocytopenia: Gage Romero is a 57M with history of severe alcohol use disorder, cirrhosis, esophageal varices, and RENÉE admitted for alcohol intoxication and found to be hypoxic, obtunded and have a aspiration pneumonitis on CXR. Patient s/p ICU admission requiring intubation and pressors, stable for downgrade 09/15. Ongoing care w/ AWSS protocol ordered. Downgraded from ICU 09/15. Alcohol overdose - Patient presented with EtOH level > 600 - Patient required intubation and pressors, now on room air - Initiated on phenobarbital, continue inpatient Minimal withdrawal symptoms on examination Continue to monitor Hypoxia/PNA/Hypotension | Sepsis - Presented w/ imaging concerning for PNA vs aspiration pneumonitis Likely pneumonitis, clinical picture not c/w infectious origin Antibiotics discontinued, labs remain stable, hemodynamically stable - Sepsis resolved - Now on room air Acute on Chronic Alcohol Use - Chemical evidence of cirrhosis given bilirubin and INR, as well as marrow suppression given pancytopenia - Patient notes overuse often provoked by depression/life stressors, per patient - AO x 2, concern exists for Wernicke Encephalopathy Increased Thiamine dosing from 100 PO BID to 250 mg IV BID - Continue Phenobarbital for withdrawal symptoms - Patient will require more support structure upon discharge Continued encouragement and support - PT/OT ordered Diet: Carb Consistent Code: Full Dispo: Med/Surg, building Dispo plan Admission and Anticipated Discharge Date Admission Date: September 15, 2023 Supervising Physician Co-Signing Physician Notes I personally examined the patient and verified all chapman points of history and exam, discussed case, and agree with decision making with Dr Tillman sleeping, moderately easy to awaken, quite confused. HUB BORER at the bedside notes that he has been confused. Vitals noted, in general he is asleep, easily awoken very confused no physical distress, somewhat emotionally upset. HEENT normocephalic atraumatic mucous membranes moist. Breathing unlabored no accessory muscle use good effort. Skin without rashes pallor or icterus. Neuro without focal deficits. Alcohol abuse/intoxication, aspiration with pneumonitis andseptic shock- now improved from pneumonitis/septic shock/aspiration, alcohol intoxication is worn off, yesterday seemed far more lucidtoday's mental status seems to be deterioratingobviously concerned about alcohol withdrawal syndrome, given that he is not tachycardic tremulous or diaphoretic, I also will need to monitor closely for if he is having altered mental status from phenobarbital; and of course concerns on Warnicke/Korsakoffshe has been given high-dose thiamine 500 mg 3 times daily for 2 days, I had switched him to 100 mg twice daily p.o. yesterday, but given his mentationwe will continue with higher dosing IV and carry through with high-dose thiamine dosing at 250 mg daily on the heels of kennedy chen been on 500 3 times daily cirrhosisgave 5 mg of vitamin Kfollow for any change in INR. While he does appear to have fairly severe liver disease, fortunately his MELD is reasonably reassuring, and I really do wonder if with prolonged sobriety he could have significant improvements. DVT prophylaxispharmacologic contraindicated due to his thrombocytopenia, does have SCDs ordered Subjective Patient notes feeling well overall. Denies chest pain, dyspnea, fevers, or chills. Notes that life stressors are driving his drinking - most notably housing instability and lack of friends and family support. Patient concerned about timeline for leaving. Currently AO x 2, knows full name and reason for visit, uncertain of location and notes year is 1994. Review of Systems Review of Systems: as per HPI Physical Exam Physical Exam: Gen: NAD, alert, disheveled, AO x 2 HEENT: Supple, MMM Resp:Non-labored, no wheezing/rhonchi/rales, CTAB CV:RRR, normal S1/S2, no M/R/G Abd: Soft, non-distended, no TTP, normoactive bowels, no masses Extr: 2+ dp bilaterally, no edema, no tremors or clonus Skin: No rashes lesions or erythema Results & Data Results & Data Vital Signs (Past 12 Hours) Vital Signs Temp Pulse Pulse Resp BP BP Pulse Ox 09/18/23 03:21 36.7 C 90 18 95/58 L 95 09/18/23 01:30 09/18/23 00:00 66 09/17/23 22:54 36.7 C 77 20 120/68 96 09/17/23 21:00 82 20 110/79 99 09/17/23 20:00 37.2 C 58 L 19 110/69 95 09/17/23 19:15 09/17/23 19:15 37.2 C 86 20 108/66 98 O2 Del Method O2 Flow Rate 09/18/23 03:21 Room Air 09/18/23 01:30 Nasal Cannula 2 09/18/23 00:00 09/17/23 22:54 Room Air 09/17/23 21:00 09/17/23 20:00 09/17/23 19:15 Nasal Cannula 2 09/17/23 19:15 Nasal Cannula 2 Resident Activity Tracking Resident Involvement: Resident Care Provided Care Provided: Adult Hospital Medicine (1) Alcohol overdose Encounter type: initial encounter Injury intent: accidental or unintentional Qualified Code(s): T51.91XA - Toxic effect of unspecified alcohol, accidental (unintentional), initial encounter"
[2023-09-18] MEDS: MULTIVITAMIN TAB PO SCH (07:52)
[2023-09-18] MEDS: FOLIC ACID 1 MG TAB PO SCH (07:52)
[2023-09-18] MEDS: PHYTONADIONE 5 MG TAB PO ONE (08:32)
[2023-09-18 13:39] LABS: BUN Creatinine Ratio 23.3 (10-20); Calcium 7.7 mg/dl (8.6-10.3); Est GFR (African American) 119.3 ml/min; Potassium 3.5 mmol/L (3.5-5.1)
--- NOTE | 2023-09-18 17:43 | Billing Data ---
Date of Service September 18, 2023 Coding Level of Care Code 83726 SUB INP/OBS CARE MIN
[2023-09-18] MEDS ORDERED: THIAMINE HCL 100 MG TAB PO SCH (21:00)
[2023-09-18] MEDS: THIAMINE HCL 250 MG in SODIUM CHLORIDE 0.9% 50 ML IV SCH (21:13)
[2023-09-19] MEDS: DICLOFENAC SOD 1% GEL 100 GM TUBE EXT PRN (00:51)
--- NOTE | 2023-09-19 07:16 | Hospitalist Progress Note ---
"Date of Service September 19, 2023 Assessment & Plan (1) Alcohol overdose: (2) Acute alteration in mental status: (3) Hypomagnesemia: (4) Hypokalemia: (5) Acute encephalopathy: (6) Septic shock: (7) Aspiration pneumonitis: (8) ARDS (adult respiratory distress syndrome): (9) Thrombocytopenia: Gage Romero is a 57M with history of severe alcohol use disorder, cirrhosis, esophageal varices, and RENÉE admitted for alcohol intoxication and found to be hypoxic, obtunded and have a aspiration pneumonitis on CXR. Patient s/p ICU admission requiring intubation and pressors, stable for downgrade 09/15. Ongoing care w/ AWSS protocol ordered. Downgraded from ICU 09/15. Alcohol overdose - Patient presented with EtOH level > 600 - Patient required intubation and pressors, now on room air - Initiated on phenobarbital, continue inpatient taper as ordered Nol withdrawal symptoms on examination Continue to monitor Hypoxia/PNA/Hypotension | Sepsis - Presented w/ imaging concerning for PNA vs aspiration pneumonitis Likely pneumonitis, clinical picture not c/w infectious origin Antibiotics discontinued, labs remain stable, hemodynamically stable - Sepsis resolved - Now on room air Acute on Chronic Alcohol Use - Chemical evidence of cirrhosis given bilirubin and INR, as well as marrow suppression given pancytopenia - Patient notes overuse often provoked by depression/life stressors, per patient - Concern for Wernicke-Korsakoff given ongoing AMS (currently AO x 2) Phenobarbital tapering off Increased Thiamine dosing from 100 PO BID to 250 mg IV BID - Patient will require more support structure upon discharge Continued encouragement and support CM support required - PT/OT recommended ongoing therapy +/- rehab Diet: Carb Consistent Code: Full Dispo: Med/Surg, will require CM for Dispo Admission and Anticipated Discharge Date Admission Date: September 15, 2023 Supervising Physician Co-Signing Physician Notes I personally examined the patient and verified all chapman points of history and exam, discussed case, and agree with decision making with Dr Tillman sleeping when I see him. One-to-one sitter who is with him for about the last 4 hours prior to me seeing him notes that he is still quite confused. Vitals noted, in general he is asleep, easily awoken very confused no physical distress, somewhat emotionally upset. HEENT normocephalic atraumatic mucous membranes moist. Breathing unlabored no accessory muscle use good effort. Skin without rashes pallor or icterus. Neuro without focal deficits. Alcohol abuse/intoxication, aspiration with pneumonitis and septic shock- now improved from pneumonitis/septic shock/aspiration, alcohol intoxication is worn off, Altered mental status either from alcohol withdrawal, or from phenobarbital related sedation (starting to taper today); also on the differential would be some degree of Warnicke Korsakoffhe is on high-dose thiamine supplementation. Continue to follow closely. cirrhosisgave 5 mg of vitamin K Unfortunately no change in INR. While he does appear to have fairly severe liver disease, fortunately his MELD is reasonably reassuring, and I really do wonder if with prolonged sobriety he could have significant improvements. DVT prophylaxispharmacologic contraindicated due to his thrombocytopenia, does have SCDs ordered Subjective Patient sleeping on arrival but arousable to voice. 1:1 at bedside. No acute events overnight. Patient endorses good sleep and appetite. Denies discomfort. Remains AO x 2. Review of Systems Review of Systems: as per HPI Physical Exam Physical Exam: Gen: NAD, somnolent but arousable, disheveled, AO x 2 HEENT: Supple, MMM Resp:Non-labored, no wheezing/rhonchi/rales, CTAB CV:RRR, normal S1/S2, no M/R/G Abd: Soft, non-distended, no TTP, normoactive bowels, no masses Extr: 2+ dp bilaterally, no edema, no tremors or clonus Skin: No rashes lesions or erythema Results & Data Results & Data Vital Signs (Past 12 Hours) Vital Signs Temp Pulse Pulse Resp BP Pulse Ox O2 Del Method 09/18/23 23:47 37.2 C 67 20 117/73 91 Room Air 09/18/23 22:00 77 09/18/23 21:30 Room Air 09/18/23 19:51 37.1 C 69 20 121/67 94 Room Air Resident Activity Tracking Resident Involvement: Resident Care Provided Care Provided: Adult Hospital Medicine (1) Alcohol overdose Encounter type: initial encounter Injury intent: accidental or unintentional Qualified Code(s): T51.91XA - Toxic effect of unspecified alcohol, accidental (unintentional), initial encounter"
[2023-09-19 07:22] LABS: Basophils # (auto) 0.01 K/uL (0.00-0.20); Basophils % (auto) 0.1 %; Eosinophils # (auto) 0.03 K/uL (0.00-0.50); Eosinophils % (auto) 0.4 %; Hemoglobin 10.9 g/dl (14.0-18.0); Immature Granulocytes # (auto) 0.03 K/uL (0.01-0.20); Immature Granulocytes % (auto) 0.4 %; Lymphocytes # (auto) 0.92 K/uL (1.20-3.40); Lymphocytes % (auto) 11.9 %; Mean Corpuscular Hemoglobin 34.1 pg (25.0-34.0); Mean Corpuscular Hgb Conc 35.2 g/dL (32.0-36.0); Mean Corpuscular Volume 96.9 fL (80.0-100.0); Mean Platelet Volume 11.1 fL (9.4-12.4); Monocytes # (auto) 1.03 K/uL (0.11-0.59); Monocytes % (auto) 13.3 %; Neutrophils # (auto) 5.72 K/uL (1.40-6.50); Neutrophils % (auto) 73.9 %; Platelet Count 65 K/uL (130-400); RDW Coefficient of Variation 14.4 % (11.5-14.5); RDW Standard Deviation 50.8 fL (36.4-46.3); White Blood Count 7.74 K/ul (4.8-10.8)
[2023-09-19 07:44] LABS: Albumin Globulin Ratio 0.9 (0.9-2); Albumin Level 2.5 gm/dl (3.4-5.0); BUN Creatinine Ratio 22.4 (10-20); Bilirubin,Total 2.6 mg/dl (0.2-1.0); Calcium 7.8 mg/dl (8.6-10.3); Creatinine Clr Calc Pharmacy 109.4 ml/min; Est GFR (African American) 123.6 ml/min; Est GFR (Non-African American) 106.7 ml/min; Globulin 2.7 gm/dl (2.5-4.0); Potassium 3.1 mmol/L (3.5-5.1); Total Protein 5.2 gm/dl (6.0-8.3)
[2023-09-19 07:51] LABS: INR 1.4 (0.9-1.1); Prothrombin Time 15.2 Seconds (9.0-12.0)
[2023-09-19] MEDS: POTASSIUM CHLORIDE CRTAB 20 MEQ TABCR PO STA (08:30)
[2023-09-19] MEDS ORDERED: THIAMINE HCL 250 MG in SODIUM CHLORIDE 0.9% 50 ML IV SCH (09:00)
[2023-09-19] MEDS: PHENobarbitaL 30 MG TAB PO SCH (10:15)
--- NOTE | 2023-09-19 18:04 | Billing Data ---
Date of Service September 19, 2023 Coding Level of Care Code 51890 SUB INP/OBS CARE MIN
--- NOTE | 2023-09-19 18:04 | Billing Data ---
Date of Service September 19, 2023 Coding Level of Care Code 43496 SUB INP/OBS CARE MIN
[2023-09-19 20:47] LABS: Legionella DNA, Source BAL; Legionella Species DNA NOT DETECTED; Legionella pneumophila DNA NOT DETECTED
[2023-09-20 06:56] LABS: Hemoglobin 11.4 g/dl (14.0-18.0); Mean Corpuscular Hemoglobin 33.9 pg (25.0-34.0); Mean Corpuscular Hgb Conc 34.5 g/dL (32.0-36.0); Mean Corpuscular Volume 98.2 fL (80.0-100.0); Mean Platelet Volume 11.7 fL (9.4-12.4); Platelet Count 66 K/uL (130-400); RDW Coefficient of Variation 14.5 % (11.5-14.5); RDW Standard Deviation 52.2 fL (36.4-46.3); Red Blood Count 3.36 M/uL (4.70-6.10)
[2023-09-20 07:16] LABS: BUN Creatinine Ratio 20.3 (10-20); Calcium 8.1 mg/dl (8.6-10.3); Creatinine Clr Calc Pharmacy 103.8 ml/min; Est GFR (African American) 122.1 ml/min; Est GFR (Non-African American) 105.4 ml/min; Potassium 3.4 mmol/L (3.5-5.1)
[2023-09-20 07:19] LABS: INR 1.4 (0.9-1.1); Prothrombin Time 14.6 Seconds (9.0-12.0)
--- NOTE | 2023-09-20 07:24 | Hospitalist Progress Note ---
Date of Service September 20, 2023 Assessment & Plan (1) Alcohol overdose: (2) Acute alteration in mental status: (3) Hypomagnesemia: (4) Hypokalemia: (5) Acute encephalopathy: (6) Septic shock: (7) Aspiration pneumonitis: (8) ARDS (adult respiratory distress syndrome): (9) Thrombocytopenia: Gage Romero is a 57M with history of severe alcohol use disorder, cirrhosis, esophageal varices, and RENÉE admitted for alcohol intoxication and found to be hypoxic, obtunded and have a aspiration pneumonitis on CXR. Patient s/p ICU admission requiring intubation and pressors, stable for downgrade 09/15. Ongoing care w/ AWSS protocol ordered. Downgraded from ICU 09/15. Alcohol overdose - Patient presented with EtOH level > 600 - Patient required intubation and pressors, now on room air - Initiated on phenobarbital, continue inpatient taper as ordered No withdrawal symptoms on examination Continue to monitor Hypoxia/PNA/Hypotension | Sepsis - Presented w/ imaging concerning for PNA vs aspiration pneumonitis Likely pneumonitis, clinical picture not c/w infectious origin Antibiotics discontinued, labs remain stable, hemodynamically stable - Sepsis resolved - Now on room air Acute on Chronic Alcohol Use - Chemical evidence of cirrhosis given bilirubin and INR, as well as marrow suppression given pancytopenia - Patient notes overuse often provoked by depression/life stressors, per patient - Concern for Wernicke-Korsakoff given ongoing AMS (currently AO x 2) Phenobarbital tapering off Increased Thiamine dosing from 100 PO BID to 250 mg IV BID - Patient will require more support structure upon discharge Continued encouragement and support CM support required - PT/OT recommended ongoing therapy +/- rehab Diet: Carb Consistent Code: Full Dispo: Med/Surg, will require CM for Dispo Admission and Anticipated Discharge Date Admission Date: September 15, 2023 Supervising Physician Co-Signing Physician Notes I personally examined the patient and verified all chapman points of history and exam, discussed case, and agree with decision making with Dr Ac Awake and alert, disorientedhe seems to know he is in a medical facility because he says he is in "[facility]" and relates that the year is 2014whenever I oriented him to it being 2023 he promptly says he thought it was 2004. Vitals noted, awake and conversive although somewhat disoriented. Breathing unlabored no accessory muscle use good effort. Skin shows no rashes no pallor or icterus. Breathing unlabored no accessory muscle use good effort.. Alcohol abuse/intoxication, aspiration with pneumonitis and septic shock- now improved from pneumonitis/septic shock/aspiration, alcohol intoxication is worn off, Altered mental status either from alcohol withdrawal, or from phenobarbital related sedation (continued to taper today); also on the differential would be some degree of Wernicke Korsakoffhe is on high-dose thiamine supplementation. Continue to follow closely. is showing improvement cirrhosisgave 5 mg of vitamin K Unfortunately no change in INR. While he does appear to have fairly severe liver disease, fortunately his MELD is reasonably reassuring, and I really do wonder if with prolonged sobriety he could have significant improvements. DVT prophylaxispharmacologic contraindicated due to his thrombocytopenia, does have SCDs ordered given severity of illness will probably need physical rehab Subjective Patient seen at the bedside this morning alert and oriented to name and place but not to year (thinks it's 1993). No acute complaints from patient. No overnight events. Review of Systems Review of Systems: as per HPI Physical Exam Constitutional: WD/WN, vitals as above Eyes: PERRL, conjunctivae normal, anicteric sclerae Respiratory: normal respiratory effort, lungs clear to auscultation Cardiovascular: RRR, no murmur, no edema Psychiatric: Orientation: alert, oriented to person and oriented to place Results & Data Results & Data Vital Signs (Past 12 Hours) Vital Signs Temp Pulse Pulse Resp BP Pulse Ox O2 Del Method 09/20/23 05:05 37.1 C 78 17 113/69 93 Room Air 09/19/23 21:58 83 09/19/23 20:45 Room Air Resident Activity Tracking Resident Involvement: Resident Care Provided Care Provided: Adult Hospital Medicine (1) Alcohol overdose Encounter type: initial encounter Injury intent: accidental or unintentional Qualified Code(s): T51.91XA - Toxic effect of unspecified alcohol, accidental (unintentional), initial encounter
--- NOTE | 2023-09-20 17:27 | Billing Data ---
Date of Service September 20, 2023 Coding Level of Care Code 60351 SUB INP/OBS CARE MIN
[2023-09-20] MEDS: PHENobarbitaL 30 MG TAB PO SCH (21:24)
[2023-09-21] MEDS: POTASSIUM CHLORIDE CRTAB 20 MEQ TABCR PO SCH (08:28)
[2023-09-21] MEDS: THIAMINE HCL 250 MG in SODIUM CHLORIDE 0.9% 50 ML IV SCH (08:29)
[2023-09-21 08:31] LABS: Basophils # (auto) 0.02 K/uL (0.00-0.20); Basophils % (auto) 0.2 %; Eosinophils # (auto) 0.28 K/uL (0.00-0.50); Hematocrit (blood only) 32.9 % (42.0-52.0); Hemoglobin 11.6 g/dl (14.0-18.0); Immature Granulocytes # (auto) 0.13 K/uL (0.01-0.20); Immature Granulocytes % (auto) 1.4 %; Lymphocytes # (auto) 0.93 K/uL (1.20-3.40); Lymphocytes % (auto) 9.9 %; Mean Corpuscular Hemoglobin 33.7 pg (25.0-34.0); Mean Corpuscular Hgb Conc 35.3 g/dL (32.0-36.0); Mean Corpuscular Volume 95.6 fL (80.0-100.0); Mean Platelet Volume 11.7 fL (9.4-12.4); Monocytes # (auto) 1.98 K/uL (0.11-0.59); Monocytes % (auto) 21.1 %; Neutrophils # (auto) 6.05 K/uL (1.40-6.50); Neutrophils % (auto) 64.4 %; Platelet Count 102 K/uL (130-400); RDW Coefficient of Variation 14.6 % (11.5-14.5); RDW Standard Deviation 50.6 fL (36.4-46.3); Red Blood Count 3.44 M/uL (4.70-6.10); White Blood Count 9.39 K/ul (4.8-10.8)
[2023-09-21 08:35] LABS: BUN Creatinine Ratio 21.1 (10-20); Calcium 7.9 mg/dl (8.6-10.3); Est GFR (African American) 120.7 ml/min; Est GFR (Non-African American) 104.2 ml/min; Potassium 3.5 mmol/L (3.5-5.1)
--- NOTE | 2023-09-21 14:01 | Hospitalist Progress Note ---
"Date of Service September 21, 2023 Assessment & Plan (1) Alcohol overdose: (2) Acute alteration in mental status: (3) Hypomagnesemia: (4) Hypokalemia: (5) Acute encephalopathy: (6) Septic shock: (7) Aspiration pneumonitis: (8) ARDS (adult respiratory distress syndrome): (9) Thrombocytopenia: Gage Romero is a 57M with history of severe alcohol use disorder, cirrhosis, esophageal varices, and RENÉE admitted for alcohol intoxication and found to be hypoxic, obtunded and have a aspiration pneumonitis on CXR. Patient s/p ICU admission requiring intubation and pressors, stable for downgrade 09/15. Ongoing care w/ AWSS protocol ordered. Downgraded from ICU 09/15. Alcohol overdose - Patient presented with EtOH level > 600 - Patient required intubation and pressors, now on room air - Initiated on phenobarbital, continue inpatient taper as ordered - now 30mg BID, plan for two doses tomorrow and stop for Saturday No withdrawal symptoms on examination Continue to monitor Hypoxia/PNA/Hypotension | Sepsis - Presented w/ imaging concerning for PNA vs aspiration pneumonitis Likely pneumonitis, clinical picture not c/w infectious origin Antibiotics discontinued, labs remain stable, hemodynamically stable - Sepsis resolved - Now on room air Acute on Chronic Alcohol Use/Cirrhosis - Chemical evidence of cirrhosis given bilirubin and INR, as well as marrow suppression given pancytopenia - Patient notes overuse often provoked by depression/life stressors, per patient - Concern for Wernicke-Korsakoff given ongoing AMS (currently AO x 2) Phenobarbital tapering off Increased Thiamine dosing from 100 PO BID to 250 mg IV BID - Patient will require more support structure upon discharge Continued encouragement and support CM support required - PT/OT recommended ongoing therapy +/- rehab Diet: Carb Consistent Code: Full Dispo: Med/Surg, will require CM for Dispo Admission and Anticipated Discharge Date Admission Date: September 15, 2023 Supervising Physician Co-Signing Physician Notes Attending Physician Supervision Note: I independently interviewed and examined the patient and verified the chapman history and physical, reviewed labs and image studies and agree with findings and care plan noted above. Alcohol abuse/intoxication, aspiration with pneumonitis and septic shock- now improved from pneumonitis/septic shock/aspiration. Unclear if completely withdrawn from alcohol considering mentation. Delirium vs underlying dementia - Ox2. Aware of month but for year he said 1993. ? sec to alcohol withdrawal, or from phenobarbital related sedation in setting of underlying cirrhosis (continued to taper today); No sign of psychosis so Wernicke Korsakoff less likely but continue high-dose thiamine supplementation. cirrhosis with elevated INR. s/p dose of 5 mg of vitamin K with no change in INR. MELD of 14 - equates to 3mth survival of 100%. DVT prophylaxis SCDs ordered. platelet 102 today - could consider chemical proph in am. given severity of illness will probably need physical rehab Subjective Patient seen and evaluated at bedside this morning. No acute events overnight. alert to name and location. Unsure of year. Believes he is in the hospital purely for falls. Complaining of belching and requesting home GI meds, on review his only home GI med is famotidine. This is ordered and being administered daily Review of Systems Review of Systems: reviewed, per HPI Physical Exam Physical Exam: Constitutional: chronically ill-appearing, no acute distress, jaundiced HEENT: NCAT, no conjunctival injection CV: extremities well-perfused, no LE edema Resp: CTABL, no wheezes/rales/rhonchi appreciated, no increased work of breathing MSK: no gross deformities appreciated Skin: warm, dry, no rash appreciated, jaundiced appearance Neuro: alert, oriented, no focal neurologic deficit appreciated Results & Data Results & Data Vital Signs (Past 12 Hours) Vital Signs Temp Pulse Pulse Resp BP Pulse Ox O2 Del Method 09/21/23 12:21 37.3 C 77 18 99/64 L 90 Room Air 09/21/23 08:00 74 09/21/23 07:46 36.8 C 81 18 99/61 L 93 Room Air 09/21/23 03:09 37.6 C H 84 16 95/58 L 92 Room Air Resident Activity Tracking Resident Involvement: Resident Care Provided Care Provided: Adult Hospital Medicine (1) Alcohol overdose Encounter type: initial encounter Injury intent: accidental or unintentional Qualified Code(s): T51.91XA - Toxic effect of unspecified alcohol, accidental (unintentional), initial encounter"
[2023-09-21] MEDS: LORazepam 1 MG in SYRINGE 0.5 ML IV PRN (17:50)
[2023-09-21] MEDS: PHENobarbitaL 30 MG TAB PO SCH (20:56)
[2023-09-22 06:54] LABS: Basophils # (auto) 0.01 K/uL (0.00-0.20); Basophils % (auto) 0.2 %; Eosinophils # (auto) 0.39 K/uL (0.00-0.50); Eosinophils % (auto) 7.5 %; Hematocrit (blood only) 31.7 % (42.0-52.0); Immature Granulocytes # (auto) 0.04 K/uL (0.01-0.20); Immature Granulocytes % (auto) 0.8 %; Lymphocytes # (auto) 0.76 K/uL (1.20-3.40); Lymphocytes % (auto) 14.7 %; Mean Corpuscular Hemoglobin 34.2 pg (25.0-34.0); Mean Corpuscular Hgb Conc 34.7 g/dL (32.0-36.0); Mean Corpuscular Volume 98.4 fL (80.0-100.0); Mean Platelet Volume 10.8 fL (9.4-12.4); Monocytes # (auto) 0.96 K/uL (0.11-0.59); Monocytes % (auto) 18.6 %; Neutrophils # (auto) 3.01 K/uL (1.40-6.50); Neutrophils % (auto) 58.2 %; Platelet Count 108 K/uL (130-400); RDW Coefficient of Variation 14.6 % (11.5-14.5); RDW Standard Deviation 53.3 fL (36.4-46.3); Red Blood Count 3.22 M/uL (4.70-6.10); White Blood Count 5.17 K/ul (4.8-10.8)
[2023-09-22 07:10] LABS: Albumin Globulin Ratio 0.9 (0.9-2); Albumin Level 2.7 gm/dl (3.4-5.0); BUN Creatinine Ratio 20.9 (10-20); Bilirubin,Total 3.1 mg/dl (0.2-1.0); Calcium 7.6 mg/dl (8.6-10.3); Creatinine Clr Calc Pharmacy 112.4 ml/min; Est GFR (African American) 123.6 ml/min; Est GFR (Non-African American) 106.7 ml/min; Globulin 2.9 gm/dl (2.5-4.0); Potassium 3.5 mmol/L (3.5-5.1); Total Protein 5.6 gm/dl (6.0-8.3)
--- NOTE | 2023-09-22 15:28 | Hospitalist Progress Note ---
"Date of Service September 22, 2023 Assessment & Plan (1) Alcohol overdose: (2) Acute alteration in mental status: (3) Hypomagnesemia: (4) Hypokalemia: (5) Acute encephalopathy: (6) Septic shock: (7) Aspiration pneumonitis: (8) ARDS (adult respiratory distress syndrome): (9) Thrombocytopenia: Gage Romero is a 57M with history of severe alcohol use disorder, cirrhosis, esophageal varices, and RENÉE admitted for alcohol intoxication and found to be hypoxic, obtunded and have a aspiration pneumonitis on CXR. Patient s/p ICU admission requiring intubation and pressors, stable for downgrade 09/15. Ongoing care w/ AWSS protocol ordered. Downgraded from ICU 09/15. Alcohol overdose - Patient presented with EtOH level > 600 - Patient required intubation and pressors, now on room air - Initiated on phenobarbital, finish phenobarb taper. No withdrawal symptoms on examination Continue to monitor Delirium vs underlying dementia - Ox2. - Reviewed outpatient notes and seems like this mental status change is new. - Last seen by pcp in May - had AUD relapse then which likely has continued. - Suspect Wernicke considering the extent of alcohol use and hospital delirium as contributor. - continue thiamine and supportive care. - weaning phenobarb Acute on Chronic Severe Alcohol Use Ds - Patient notes overuse often provoked by depression/life stressors, per patient - Concern for Wernicke-Korsakoff given ongoing AMS (currently AO x 2) See above - Per last pcp notes from may - has done well on Naltrexone in past. - Will further discuss once mentation clear. Cirrhosis - MELD of 14 - equates to 3mth survival of 100%. - s/p dose of 5 mg of vitamin K with no change in INR. - follow Hypoxia/PNA/Hypotension | Sepsis - Presented w/ imaging concerning for PNA vs aspiration pneumonitis Likely pneumonitis, clinical picture not c/w infectious origin Antibiotics discontinued, labs remain stable, hemodynamically stable - Sepsis resolved - Now on room air Diet: Carb Consistent Code: Full Dispo: Med/Surg, will require CM for Dispo; PT/OT recommended ongoing therapy +/- rehab Admission and Anticipated Discharge Date Admission Date: September 15, 2023 Subjective confused this am. unable to get any pertinent history. Physical Exam Constitutional: confused and irritated - thinks he has missed meals and doesn't have a clock in the room to orient him. Respiratory: No distress Cardiovascular: regular rate. Psychiatric: awake, alert, disoriented x 1 - time Results & Data Results & Data Vital Signs (Past 12 Hours) Vital Signs Temp Pulse Pulse Resp BP Pulse Ox O2 Del Method 09/22/23 11:55 36.7 C 85 18 91/55 L 94 Room Air 09/22/23 08:00 Room Air 09/22/23 08:00 76 09/22/23 07:39 36.6 C 84 16 91/58 L 95 Room Air 09/22/23 03:15 36.5 C 77 18 92/56 L 95 Room Air (1) Alcohol overdose Encounter type: initial encounter Injury intent: accidental or unintentional Qualified Code(s): T51.91XA - Toxic effect of unspecified alcohol, accidental (unintentional), initial encounter"
--- NOTE | 2023-09-23 07:11 | Hospitalist Progress Note ---
"Date of Service September 23, 2023 Assessment & Plan (1) Alcohol overdose: (2) Acute alteration in mental status: (3) Hypomagnesemia: (4) Hypokalemia: (5) Acute encephalopathy: (6) Septic shock: (7) Aspiration pneumonitis: (8) ARDS (adult respiratory distress syndrome): (9) Thrombocytopenia: Gage Romero is a 57M with history of severe alcohol use disorder, cirrhosis, esophageal varices, and RENÉE admitted for alcohol intoxication and found to be hypoxic, obtunded and have a aspiration pneumonitis on CXR. Patient s/p ICU admission requiring intubation and pressors, downgraded 09/15. Ongoing care w/ AWSS protocol. Alcohol overdose - Patient presented with EtOH level > 600 - Patient required intubation and pressors, now on room air - Initiated on phenobarbital, tapered off today No withdrawal symptoms on examination Continue to monitor Deconditioning - PT/OT note pt may benefit from rehab - will have PT/OT reassess today and if recommend rehab still, pt should get rehab referrals as he is willing to go and notes worries about weakness as well Altered mental status - unclear etiology, wernickes encephalopathy vs hosp induced delirium vs other metabolic encephalopathy - thiamine was increased to 250 mg daily with no improvement so will do 100 mg daily - could consider outpatient MRI Hypoxia/PNA/Hypotension | Sepsis, improved - Presented w/ imaging concerning for PNA vs aspiration pneumonitis Likely pneumonitis, clinical picture not c/w infectious origin Antibiotics discontinued, labs remain stable, hemodynamically stable - Sepsis resolved - Now on room air Acute on Chronic Alcohol Use/Cirrhosis - Chemical evidence of cirrhosis given bilirubin and INR, as well as marrow suppression given pancytopenia - Patient notes overuse often provoked by depression/life stressors, per patient - Concern for Wernicke-Korsakoff given ongoing AMS (currently AO x 2) Phenobarbital tapering off Increased Thiamine dosing from 100 PO BID to 250 mg IV BID - Patient will require more support structure upon discharge Continued encouragement and support CM support required - at this time, pt does not want to pursue alcohol rehab services on discharge from the hospital Admission and Anticipated Discharge Date Admission Date: September 15, 2023 Supervising Physician Co-Signing Physician Notes Attending Physician Supervision Note: I independently interviewed and examined the patient and verified the chapman history and physical, reviewed labs and image studies and agree with findings and care plan noted above. Alcohol intoxication, aspiration with pneumonitis and septic shock- resolved. Altered mental status - Hospital delirium/wernicke/?metabolic -CT head on admission - neg -ammonia level normal -no improvement with high dose thiamine -continue supportive care. AUD severe - has been on naltrexone in past with remission. relapse in may 2023. -to discussion restarting naltrexone once mentation clears. Cirrhosis - MELD 14. Thrombocytopenia - improved to 120s. DVT prophylaxis SCDs ordered. given severity of illness will probably need physical rehab Subjective Nick is a 57M with history of severe alcohol use disorder, cirrhosis, esophageal varices, and RENÉE admitted for alcohol intoxication and found to be hypoxic, obtunded and have a aspiration pneumonitis on CXR. Patient s/p ICU admission requiring intubation and pressors, downgraded 09/15. Ongoing care w/ AWSS protocol. Today, pt states he feels frustrated. He states that he does not know what the plan is and that no one has shared what is going on with him. Explained to pt that he is here for ETOH withdrawal and plan for today is hopefully PT/OT and plan for rehab placement on discharge from the hospital. Pt agreeable to strengthening rehab but states he does not want to go to alcohol rehab since it was not helpful. He states he definitely feels very weak since he has been in bed constantly during this admission. He states he lives alone. Denies chest pain or SOB. Notes intermittent dry cough. Tolerating intake. No further questions or complaints at this time. Review of Systems Review of Systems: Per HPI. Physical Exam Physical Exam: General:Alert but oriented to self only, fatigued appearing Cardio: Regular rate and rhythm, no murmur, Resp:Lungs clear to auscultation b/l, no wheezes or rhonchi, GI: Soft and nontender, nondistended, bowel sounds active Skin: Warm, dry Results & Data Results & Data Vital Signs (Past 12 Hours) Vital Signs Temp Pulse Pulse Resp BP Pulse Ox O2 Del Method 09/23/23 02:57 36.6 C 67 18 100/65 96 Room Air 09/22/23 23:20 36.6 C 90 18 99/58 L 97 Room Air 09/22/23 22:54 71 09/22/23 19:44 36.6 C 72 18 107/59 L 93 Room Air Resident Activity Tracking Resident Involvement: Resident Care Provided Care Provided: Adult Hospital Medicine (1) Alcohol overdose Encounter type: initial encounter Injury intent: accidental or unintentional Qualified Code(s): T51.91XA - Toxic effect of unspecified alcohol, accidental (unintentional), initial encounter"
[2023-09-23 07:41] LABS: Albumin Level 2.8 gm/dl (3.4-5.0); BUN Creatinine Ratio 17.6 (10-20); Bilirubin,Total 2.5 mg/dl (0.2-1.0); Calcium 7.6 mg/dl (8.6-10.3); Creatinine Clr Calc Pharmacy 110.4 ml/min; Est GFR (African American) 122.9 ml/min; Globulin 2.9 gm/dl (2.5-4.0); Potassium 3.7 mmol/L (3.5-5.1); Total Protein 5.7 gm/dl (6.0-8.3)
[2023-09-23 08:01] LABS: Basophils # (auto) 0.03 K/uL (0.00-0.20); Basophils % (auto) 0.7 %; Eosinophils % (auto) 6.9 %; Hematocrit (blood only) 29.7 % (42.0-52.0); Hemoglobin 10.5 g/dl (14.0-18.0); Immature Granulocytes # (auto) 0.03 K/uL (0.01-0.20); Immature Granulocytes % (auto) 0.7 %; Lymphocytes # (auto) 0.65 K/uL (1.20-3.40); Lymphocytes % (auto) 14.9 %; Mean Corpuscular Hgb Conc 35.4 g/dL (32.0-36.0); Mean Corpuscular Volume 96.1 fL (80.0-100.0); Mean Platelet Volume 10.9 fL (9.4-12.4); Monocytes # (auto) 0.75 K/uL (0.11-0.59); Monocytes % (auto) 17.2 %; Neutrophils # (auto) 2.61 K/uL (1.40-6.50); Neutrophils % (auto) 59.6 %; Platelet Count 126 K/uL (130-400); RDW Coefficient of Variation 14.6 % (11.5-14.5); RDW Standard Deviation 51.2 fL (36.4-46.3); Red Blood Count 3.09 M/uL (4.70-6.10); White Blood Count 4.37 K/ul (4.8-10.8)
--- NOTE | 2023-09-24 07:24 | Hospitalist Progress Note ---
"Date of Service September 24, 2023 Assessment & Plan (1) Alcohol overdose: (2) Acute alteration in mental status: (3) Hypomagnesemia: (4) Hypokalemia: (5) Acute encephalopathy: (6) Septic shock: (7) Aspiration pneumonitis: (8) ARDS (adult respiratory distress syndrome): (9) Thrombocytopenia: Gage Romero is a 57M with history of severe alcohol use disorder, cirrhosis, esophageal varices, and RENÉE admitted for alcohol intoxication and found to be hypoxic, obtunded and have a aspiration pneumonitis on CXR. Patient s/p ICU admission requiring intubation and pressors, downgraded 09/15. Ongoing care w/ AWSS protocol. Alcohol overdose - Patient presented with EtOH level > 600 - Patient required intubation and pressors, now on room air - Initiated on phenobarbital, tapered off today No withdrawal symptoms on examination Continue to monitor Deconditioning - PT/OT note pt may benefit from rehab - will have PT/OT reassess today and if recommend rehab still, pt should get rehab referrals as he is willing to go and notes worries about weakness as well Altered mental status - unclear etiology, wernickes encephalopathy vs hosp induced delirium vs other metabolic encephalopathy - thiamine was increased to 250 mg daily with no improvement so will do 100 mg daily - could consider outpatient MRI Hypoxia/PNA/Hypotension | Sepsis, improved - Presented w/ imaging concerning for PNA vs aspiration pneumonitis Likely pneumonitis, clinical picture not c/w infectious origin Antibiotics discontinued, labs remain stable, hemodynamically stable - Sepsis resolved - Now on room air Acute on Chronic Alcohol Use/Cirrhosis - Chemical evidence of cirrhosis given bilirubin and INR, as well as marrow suppression given pancytopenia - Patient notes overuse often provoked by depression/life stressors, per patient - Concern for Wernicke-Korsakoff given ongoing AMS (currently AO x 2) Phenobarbital tapering off Increased Thiamine dosing from 100 PO BID to 250 mg IV BID - Patient will require more support structure upon discharge Continued encouragement and support CM support required - at this time, pt does not want to pursue alcohol rehab services on discharge from the hospital Admission and Anticipated Discharge Date Admission Date: September 15, 2023 Cesar Romero is a 57M with history of severe alcohol use disorder, cirrhosis, esophageal varices, and RENÉE admitted for alcohol intoxication and found to be hypoxic, obtunded and have a aspiration pneumonitis on CXR. Patient s/p ICU admission requiring intubation and pressors, downgraded 09/15. Ongoing care w/ AWSS protocol. Today, pt states he is very frustrated at his stay here and that he is largely confined to the bed. He states that he Review of Systems Review of Systems: Per HPI. Physical Exam Physical Exam: General:Alert but oriented to self only, fatigued appearing Cardio: Regular rate and rhythm, no murmur, Resp:Lungs clear to auscultation b/l, no wheezes or rhonchi, GI: Soft and nontender, nondistended, bowel sounds active Skin: Warm, dry Results & Data Results & Data Vital Signs (Past 12 Hours) Vital Signs Temp Pulse Pulse Resp BP BP Pulse Ox 09/24/23 04:13 78 13 96 09/24/23 02:06 36.3 C L 71 20 93/62 L 96 09/23/23 22:39 36.5 C 88 18 97/63 L 100 09/23/23 21:52 83 09/23/23 21:36 82 15 96 09/23/23 20:02 36.9 C 90 18 144/66 H 97 O2 Del Method 09/24/23 04:13 09/24/23 02:06 Room Air 09/23/23 22:39 Room Air 09/23/23 21:52 09/23/23 21:36 09/23/23 20:02 Room Air (1) Alcohol overdose Encounter type: initial encounter Injury intent: accidental or unintentional Qualified Code(s): T51.91XA - Toxic effect of unspecified alcohol, accidental (unintentional), initial encounter"
[2023-09-24 07:38] LABS: Albumin Globulin Ratio 0.9 (0.9-2); BUN Creatinine Ratio 20.9 (10-20); Basophils # (auto) 0.05 K/uL (0.00-0.20); Basophils % (auto) 0.9 %; Bilirubin,Total 2.1 mg/dl (0.2-1.0); Eosinophils # (auto) 0.29 K/uL (0.00-0.50); Eosinophils % (auto) 5.1 %; Est GFR (African American) 123.6 ml/min; Est GFR (Non-African American) 106.7 ml/min; Globulin 3.2 gm/dl (2.5-4.0); Hemoglobin 11.7 g/dl (14.0-18.0); Immature Granulocytes # (auto) 0.04 K/uL (0.01-0.20); Immature Granulocytes % (auto) 0.7 %; Lymphocytes % (auto) 19.4 %; Mean Corpuscular Hemoglobin 34.3 pg (25.0-34.0); Mean Corpuscular Hgb Conc 34.4 g/dL (32.0-36.0); Mean Corpuscular Volume 99.7 fL (80.0-100.0); Mean Platelet Volume 10.8 fL (9.4-12.4); Monocytes # (auto) 0.78 K/uL (0.11-0.59); Monocytes % (auto) 13.7 %; Neutrophils # (auto) 3.42 K/uL (1.40-6.50); Neutrophils % (auto) 60.2 %; Platelet Count 177 K/uL (130-400); Potassium 4.1 mmol/L (3.5-5.1); RDW Coefficient of Variation 14.7 % (11.5-14.5); RDW Standard Deviation 53.9 fL (36.4-46.3); Red Blood Count 3.41 M/uL (4.70-6.10); Total Protein 6.2 gm/dl (6.0-8.3); White Blood Count 5.68 K/ul (4.8-10.8)
[2023-09-24] MEDS: THIAMINE HCL 100 MG in SODIUM CHLORIDE 0.9% 50 ML IV SCH (08:01)
[2023-09-24] MEDS ORDERED: KETAMINE HCL INJ 50 MG/ML 10 ML VIAL IV ONE (12:39)
[2023-09-24] MEDS ORDERED: ROCURONIUM BROMIDE 10 MG/ML 5 ML VIAL IV ONE (12:39)
--- NOTE | 2023-09-24 13:06 | Discharge Summary ---
Date of Service September 24, 2023 Admission HPI Per Admitting Provider Patient was brought in by EMS after being [place] unconscious [place]. Patient does have a history of alcoholism. Unable to obtain full history from patient as he is obtunded in the ED. Majority of history obtained from EMS and nursing staff. Patient was found passed out downtown by bystanders. He was unconscious when arriving to the ED and no identified trauma was noted. Patient was unconscious on admission but snoring. Admission Exam Per Admitting Provider Constitutional: Snoring respirations with oxygen mask, laying face down HEENT: NCAT, no conjunctival injection CV: regular rhythm, no murmur appreciated, extremities well-perfused, no LE edema Resp: CTABL, no wheezes/rales/rhonchi appreciated, snoring respirations GI: soft, nondistended, nontender, BS normoactive MSK: no gross deformities appreciated Skin: warm, dry, no rash appreciated Principal Diagnosis Alcohol withdrawal, deconditioning Discharge Exam General:Alert and oriented x3 Cardio: Regular rate and rhythm, no murmur, Resp:Lungs clear to auscultation b/l, no wheezes or rhonchi, GI: Soft and nontender, nondistended, bowel sounds active Skin: Warm, dry Discharge Data Allergies Allergy/AdvReac Type Severity Reaction Status Date / Time No Known Allergies Allergy Verified 09/11/23 09:12 Consultations 09/15/23 03:41 ED Decision to Admit Stat 09/15/23 16:44 Consult Refinery Operator Helper Routine Ordered Studies 09/15/23 15:41 CT head/brain wo con Stat Hospital Course (1) Alcohol overdose: (2) Acute alteration in mental status: (3) Hypomagnesemia: (4) Hypokalemia: (5) Acute encephalopathy: (6) Septic shock: (7) Aspiration pneumonitis: (8) ARDS (adult respiratory distress syndrome): (9) Thrombocytopenia: Gage Romero is a 57M with history of severe alcohol use disorder, cirrhosis, esophageal varices, and RENÉE admitted for alcohol intoxication and found to be hypoxic, obtunded and have a aspiration pneumonitis on CXR. Patient s/p ICU admission requiring intubation and pressors, downgraded 09/15. Deconditioning - evaluated by PT yesterday; recommend rehab - pt notes he is unsheltered currently and has frequent falls and also feels he would benefit from rehab. Alcohol withdrawal, resolved - Patient presented with EtOH level > 600 - Patient required intubation and pressors initially, now on room air - Initiated on phenobarbital, tapered off yesterday Altered mental status, resolved - unclear etiology, wernickes encephalopathy vs hosp induced delirium vs other metabolic encephalopathy - ammonia normal. thiamine was increased to 250 mg daily with no improvement so decreased to 100 mg daily - could consider outpatient MRI - today, pt was alert and oriented x3, confused at times but aware of his current situation Hypoxia/PNA/Hypotension | Sepsis, resolved - aspiration pneumonitis - Antibiotics discontinued, labs remain stable, hemodynamically stable - Sepsis resolved, now on room air Acute on Chronic Alcohol Use - Patient notes overuse often provoked by depression/life stressors, per patient - pt does not want to pursue alcohol rehab services - has done well on naltrexone in past - should follow up with pcp about re- considering naltrexone. Cirrhosis/Thrombocytopenia - platelet count stable today. - should f/u with GI as outpatient Today, pt stated he needed to leave the hospital today since he has important documents being stored at a storage unit and they only gave him 45 days to collect his stuff before it would be auctioned off and he only had maybe 6 days at most remaining before he states they would get rid of or sell everything. He states that he needs the documents because he has court case coming up and may be facing up to 15 years of snf time. When discussed with him if anyone else can potato picker this paperwork he states he really only knows "a bunch of frat guys" who would not be willing and his close friend currently is living in [place]. He states he had a female friend that could have but she just moved to [facility] for a job. He states otherwise his old neighbor Don probably could help but he does not know Don's number to call him and does not know anyone who does. Discussed with him that the concern was he is on his own and unsheltered with no support and PT here believe he would benefit from inpatient rehab. I stressed that I am also worried about his complex social situation as well as his strength to take care of himself. Pt states that he is in agreement and thinks that ideally he would like to get stronger at rehab as well because he states he feels he has been getting progressively weaker even prior to this hospital stay, but states he absolutely needs to get these documents and try to get his life together. I advised him leaving today would be leaving against medical advise and he understands the risks of leaving such as risk of falls, injury, or . He is ultimately in agreement that the best situation would be to stay and try to go to inpatient rehab but with his current situation he needs to leave. He is agreeable to sign AMA paperwork. Pt did consider leaving to get the paperwork then coming back, but states there is just a lot going on so he is unsure of that plan. Advised pt that he is to call his PCP today or tomorrow for a hospital follow- up, and he is in agreement. Also provided a script for PT eval and treat so he can at least do outpatient PT for strengthening. Also spoke to Case management and they will still send inpatient rehab referral to [facility] and advised pt to keep an eye out for their call if he gets approved. Total Time Total Time Spent Total Time Spent (In Minutes): As per attending attestation Discharge Plan Discharge Items Patient Disposition: Against Medical Advice Reason For Visit: ACUTE ALCOHOL OVERDOSE, HYPOKALEMIA, HYPOMAG Activity: Per Instructions section Non-emergency contact: Primary Care Provider Follow-up/Referrals: Valdemar Santo, DO [Primary Care Provider] - Pending Studies at Discharge: No Stand-Alone Forms: My [facility] [employer], Smoking Cessation Skilled Items Patient informed of condition?: Yes Medications and DC Order Prescriptions: Continued Vivitrol 380 mg suspension,extended rel recon IM .Q28 days folic acid 1 mg tablet 1 mg PO QAM Qty: 90 3RF Rx Instructions: TAKE 1 TAB BY MOUTH EVERY MORNING fluticasone propionate [Allergy Relief (fluticasone)] 50 mcg/actuation spray,suspension 1 spray intranasal BID 90 Days Qty: 48 3RF Rx Instructions: administer into each nostril magnesium oxide 400 mg (241.3 mg magnesium) tablet 400 mg PO BID 90 Days Qty: 180 3RF thiamine HCl (vitamin B1) 100 mg tablet 100 mg PO QAM Qty: 90 1RF famotidine 40 mg tablet 40 mg PO QAM Qty: 90 3RF potassium chloride 20 mEq tablet extended release 20 meq PO QAM Qty: 90 3RF sildenafil 25 mg tablet 25 mg PO DAILY PRN (Reason: sexual activity) Qty: 30 0RF Patient Comments: has not used 01/04/23 Rx Instructions: administer 30 minutes to 4 hours before activity (DME) cane Device See Rx Instructions .Route Qty: 2 0RF Rx Instructions: quad cane ibuprofen 600 mg tablet 600 mg PO DAILY PRN (Reason: Pain) Vivitrol 380 mg suspension,extended rel recon 0 mg IM DIRECTED Discharge Orders: Left Against Medical Advice (Routine); Ordered 09/24/23 Ordered By: Frieda Nye Admission Data Admit Date/Time: 09/15/23 04:04 Attending Provider: Margie Espinoza Admit Provider: Bradley Pillai Primary Care Provider: Valdemar Santo Other Providers: [facility]; [place]; Emory Kaur; Darshan Stafford Supervising Physician Co-Signing Physician Notes Attending Physician Supervision Note: I independently interviewed and examined the patient and verified the chapman history and physical, reviewed labs and image studies and agree with findings and care plan noted above. Resident Activity Tracking Resident Involvement: Resident Care Provided Care Provided: Adult Hospital Medicine
== END 2023-09-24 12:40 | disposition left against medical advice (07) | DRG 871 ==
LOC: ED 00:24 → SUATTDRO 04:04 → EDINP 04:04 → 1E 16:48 → 2S 09-17 22:42

== ENCOUNTER 2023-10-07 16:39 | Inpatient (IN) ==
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
[2023-10-07] MEDS: SODIUM CHLORIDE 0.9% 500 ML IV SCH (17:29)
[2023-10-07 17:55] LABS: Basophils # (auto) 0.08 K/uL (0.00-0.20); Basophils % (auto) 2.2 %; Eosinophils # (auto) 0.33 K/uL (0.00-0.50); Hematocrit (blood only) 35.4 % (42.0-52.0); Hemoglobin 11.8 g/dl (14.0-18.0); Immature Granulocytes # (auto) 0.01 K/uL (0.01-0.20); Immature Granulocytes % (auto) 0.3 %; Lymphocytes # (auto) 1.05 K/uL (1.20-3.40); Lymphocytes % (auto) 28.5 %; Mean Corpuscular Hemoglobin 33.1 pg (25.0-34.0); Mean Corpuscular Hgb Conc 33.3 g/dL (32.0-36.0); Mean Corpuscular Volume 99.4 fL (80.0-100.0); Mean Platelet Volume 9.9 fL (9.4-12.4); Monocytes % (auto) 8.2 %; Neutrophils # (auto) 1.91 K/uL (1.40-6.50); Neutrophils % (auto) 51.8 %; Platelet Count 103 K/uL (130-400); RDW Coefficient of Variation 13.9 % (11.5-14.5); RDW Standard Deviation 51.8 fL (36.4-46.3); Red Blood Count 3.56 M/uL (4.70-6.10); White Blood Count 3.68 K/ul (4.8-10.8)
[2023-10-07 18:06] LABS: BUN Creatinine Ratio 8.8 (10-20); Calcium 8.7 mg/dl (8.6-10.3); Creatinine Clr Calc Pharmacy 68.6 ml/min; Est GFR (African American) 114.1 ml/min; Est GFR (Non-African American) 98.5 ml/min; Potassium 3.7 mmol/L (3.5-5.1)
[2023-10-07 18:14] LABS: Troponin I High Sensitivity 6.9 pg/ml (0-20)
[2023-10-07 18:16] LABS: Albumin Level 3.5 gm/dl (3.4-5.0); Bilirubin,Total 1.4 mg/dl (0.2-1.0); Globulin 3.6 gm/dl (2.5-4.0); Magnesium 0.9 mg/dl (1.7-2.4); Total Protein 7.1 gm/dl (6.0-8.3)
[2023-10-07 18:24] LABS: Thyroid Stimulating Hormone 1.401 uIu/ml (0.300-4.500)
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
--- NOTE | 2023-10-07 18:38 | CT Scan Report ---
HEAD CT NONCONTRAST CT DOSE: HISTORY: confusion TECHNIQUE: Multiaxial CT images of the head were performed without the use of intravenous contrast. A utomated exposure control was utilized for this study. A dose lowering technique was utilized adheri ng to the principles of ALARA. Comparison: Head CT 09/28/2023. Findings: The paranasal sinuses and mastoid air cells are clear. The calvarium and skull base are int act. The ventricles and sulci are within normal limits. There is no mass, hematoma, midline shift, or acute infarct. Impression: No acute intracranial abnormality. ACT 112: Negative or not required by law. Electronically signed by: Robin Herrera M.D. 10/07/2023 6:36 PM
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
[2023-10-07] MEDS: MULTI-VITAMIN INFUSION 10 ML, THIAMINE HCL 100 MG, FOLIC ACID 1 MG in SODIUM CHLORIDE 0... IV ONE (19:12)
[2023-10-07] MEDS: MAGNESIUM SULFATE / D5W 1 GM/100 ML BAG IV SCH ×2 (19:13→23:20)
[2023-10-07 19:27] LABS: Appearance Urine Clear (Clear); Bacteria Urine Automated None Seen (None Seen); Bilirubin Urine 1+ (Negative); Blood Urine Negative (Negative); Color Urine Dark Yellow; Glucose Urine UA Negative (Negative); Ketones Urine Trace (Negative); Leukocyte Esterase Urine Negative (Negative); Mucus Urine Present (None Prsent); Nitrite Urine Negative (Negative); Protein Urine 1+ (Negative); RBC Urine Automated 0-2 /hpf (0-2); Specific Gravity Urine 1.023 (1.000-1.030); Urobilinogen Urine Negative (Negative); WBC Urine Automated 0-5 /hpf (0-5); pH Urine 6.5 (4.5-7.5)
[2023-10-07 20:18] LABS: Amphetamines+Metham, Urine Neg (Neg); Barbiturates, Urine Pos (Neg); Benzodiazepine, Urine Neg (Neg); Cocaine, Urine Neg (Neg); Fentanyl, Urine Neg (Neg); MDMA (Ecstacy), Urine Neg (Neg); Marijuana, Urine Neg (Neg); Methadone, Urine Neg (Neg); Opiate, Urine Neg (Neg); Phencyclidine, Urine Neg (Neg)
[2023-10-07] MEDS: PHENobarbital sodium 130 MG/ML VIAL IM STA (21:08)
[2023-10-07] MEDS ORDERED: PHENobarbital sodium 65 MG/ML VIAL IV PRN (21:48)
[2023-10-07] MEDS: PHENobarbital PO Alcohol Withdrawal PO STA (22:32)
[2023-10-07] MEDS: THIAMINE HCL 100 MG in SYRINGE 9 ML IV SCH (23:19)
[2023-10-08] MEDS: PHENobarbital sodium 65 MG/ML VIAL IM SCH (00:35)
[2023-10-08 06:40] LABS: Basophils # (auto) 0.05 K/uL (0.00-0.20); Eosinophils # (auto) 0.18 K/uL (0.00-0.50); Hematocrit (blood only) 26.5 % (42.0-52.0); Hemoglobin 8.9 g/dl (14.0-18.0); Lymphocytes # (auto) 0.77 K/uL (1.20-3.40); Lymphocytes % (auto) 30.1 %; Mean Corpuscular Hemoglobin 33.6 pg (25.0-34.0); Mean Corpuscular Hgb Conc 33.6 g/dL (32.0-36.0); Mean Platelet Volume 10.2 fL (9.4-12.4); Monocytes # (auto) 0.23 K/uL (0.11-0.59); Neutrophils # (auto) 1.33 K/uL (1.40-6.50); Neutrophils % (auto) 51.9 %; Platelet Count 56 K/uL (130-400); RDW Coefficient of Variation 13.9 % (11.5-14.5); Red Blood Count 2.65 M/uL (4.70-6.10); White Blood Count 2.56 K/ul (4.8-10.8)
--- NOTE | 2023-10-08 07:00 | Hospitalist Progress Note ---
Date of Service October 08, 2023 Assessment & Plan (1) Cirrhosis: Plan: Previous diagnosis of alcoholic cirrhosis ALT is within normal limits, AST is stable compared to last admission, total bili and alk phos are slightly improved compared to last admission Does not appear to be in acute decompensation this time Avoid hepatotoxic agents Monitor daily CMP and PT/INR (2) Homeless: Plan: Patient reports that he is being evicted from his apartment at 9 AM on 10/07/2023 Patient is interested in inpatient rehab at this time, case management on board PT/OT consults in case weakness and cervical placement will be needed (3) Alcohol use disorder, severe, dependence: Plan: See alcohol intoxication plan (4) Hypomagnesemia: Plan: Magnesium at 2.0 Potassium at 3.0 Magnesium is likely low due to ongoing alcohol abuse Status post 1 g IV mag sulfate in the ED, will give an additional 4 bags and 1 g IV mag sulfate on admission as he is likely significantly depleted intracellularly Continue monitor telemetry and monitor a.m. electrolytes, replete as needed (5) Thrombocytopenia: Plan: Platelets of 56 today, his platelet count fluctuates per review of previous labs No signs of active bleeding at this time Monitor daily CBC (6) Abnormal CT scan, chest: Plan: CT of the chest without contrast noted no significant change in the upper lobe predominant patchy groundglass and irregular airspace opacities compared to last admission when he was admitted to the ICU due to septic shock and acute hypoxic respiratory failure from aspiration pneumonitis Patient is stable on room air and in no respiratory distress, WBC is within normal limits Will hold antibiotics at this time as he is clinically stable Incentive spirometry, continue home albuterol Continue to monitor on pulse oximetry (7) Obstructive sleep apnea: Plan: Patient has been without nausea or vomiting since arrival Will order at bedtime CPAP Admission and Anticipated Discharge Date Admission Date: October 07, 2023 Supervising Physician Co-Signing Physician Notes Attending attestation Pt seen and examined in concert with Dr. Tovar. In agreement with the documented findings as noted in the resident documentation with any exceptions or additions as noted here. Mild nausea with some reported emesis but comfortable appearing in room. Ongoing tremor of the bilateral hands worse on the right which is purportedly chronic per patient but not usually this noticable on the right. Similar to previous episodes of alcohol withdrawal. Considerable increased lifestress w/ recent eviction and inability to secure/move belongings though looking for help to coordinate through landlord/courts. On examination, S1/S2 nl RRR no MCG. CTAB. Abd NT/ND BS+ve Alcohol use disorder, severe, with h/o DT without seizure reported, intoxication on presentation - AWSS with phenobarbital protocol. Close monitoring of mental status. Trend CMP. IV hydration. Adjustment disorder in the setting of housing insecurity - patient denies SI/HI at time of examination but would like to d/w behavioral health Thrombocytopenia, acute on chronic - likely combination of dilutional and cirrhotic disease. Trend CBC daily Cirrhosis in the setting of alcohol abuse - trend CMP, INR and monitor closely. Avoid hepatotoxic agents. Else see resident documentation as noted. Subjective Nick is feeling stressed today as he reports being evicted and being worried ab out his stuff. He is nauseous. No headache or changes in vision. No hallucinations, no auditory or visual disturbances. Does have bilateral tremor, but he reports this is his baseline. He endorses that his eating has been good over the past 10 days. He is interested in pursuing inpatient rehab treatment for alcohol use. Review of Systems Review of Systems: see HPI Physical Exam Physical Exam: General: In no acute distress, stated age, chronically ill appearing but non- toxic HEENT: Normocephalic, atraumatic, no scleral icterus, pupils around round, symmetrical, and reactive to light, moist mucus membranes, trachea midline, no thyromegaly Chest/Pulm: No respiratory distress, symmetrical chest expansion, expiratory wheezing in bilateral upper lung tenorio Cardiac: RRR, no murmurs noted Abdomen: Negative for ascites and bruising, normoactive bowel sounds, soft, non-tender to palpation throughout Musculoskeletal: Symmetrical and without signs of acute trauma Extremities: no edema noted in the BL LE's Skin: Warm, dry Neuro: Alert and oriented to person, place, month, year, no focal defects, bilateral hand tremor, right worse than left Psych: No acute distress Results & Data Results & Data Vital Signs (Past 12 Hours) Vital Signs Temp Pulse Pulse Resp BP BP Pulse Ox 10/08/23 04:01 65 12 99 10/08/23 02:23 68 17 98/71 L 10/08/23 02:21 36.7 C 69 17 98/71 L 100 10/08/23 00:35 88 18 89/63 L 07/08/24 23:32 36.7 C 87 18 89/63 L 95 10/07/23 23:06 94 H 10/07/23 22:35 78 14 98 10/07/23 21:41 89 10/07/23 21:40 10/07/23 21:40 36.7 C 106 H 18 122/83 99 10/07/23 21:34 36.7 C 106 H 18 122/83 99 10/07/23 21:00 84 15 100 10/07/23 21:00 94/67 L 10/07/23 21:00 94/67 L 10/07/23 20:42 70 14 100 10/07/23 20:30 78 14 100 10/07/23 20:30 95/65 L 10/07/23 20:15 86 13 94 10/07/23 20:00 96/69 L 10/07/23 19:54 100/73 10/07/23 19:48 90 17 97 10/07/23 19:27 91 H 14 96 10/07/23 19:19 86 O2 Del Method O2 Flow Rate FiO2 10/08/23 04:01 2 10/08/23 02:23 10/08/23 02:21 CPAP 6 10/08/23 00:35 10/07/23 23:32 CPAP 10/07/23 23:06 10/07/23 22:35 21 10/07/23 21:41 10/07/23 21:40 Room Air 10/07/23 21:40 Nasal Cannula 2 10/07/23 21:34 Nasal Cannula 2 10/07/23 21:00 10/07/23 21:00 10/07/23 21:00 10/07/23 20:42 10/07/23 20:30 10/07/23 20:30 10/07/23 20:15 Nasal Cannula 2 10/07/23 20:00 10/07/23 19:54 10/07/23 19:48 10/07/23 19:27 10/07/23 19:19 Resident Activity Tracking Resident Involvement: Resident Care Provided Care Provided: [facility] Resident Supervision Co-Signing Physician Notes Pt seen and examined in concert with student doctor Sherry Brown MS4. In agreement with the documented findings as noted in the resident documentation with any exceptions or additions as noted here. Tremulous on exam. Does not appear to be responding to internal stimuli. No asterixis or jaundice noted. AUD, severe - phenobarb loaded, oral taper initiated, AWSS with symptom trigger ed phenobarb, compazine and zofran PRN. Encourage cessation. Cirrhosis - monitor MELD labs, low concern for SBP/ascities/decompensation at present Bone Marrow Suppression - likely in the setting of chronic alcohol use, continue to monitor Adjustment disorder - patient currently unhoused, acute on chronic stressor, behavioral health consult
[2023-10-08 07:08] LABS: INR 1.3 (0.9-1.1)
[2023-10-08 07:35] LABS: Albumin Level 2.7 gm/dl (3.4-5.0); BUN Creatinine Ratio 12.7 (10-20); Bilirubin,Total 1.1 mg/dl (0.2-1.0); Calcium 7.2 mg/dl (8.6-10.3); Creatinine Clr Calc Pharmacy 103.1 ml/min; Est GFR (African American) 133.1 ml/min; Est GFR (Non-African American) 114.9 ml/min; Globulin 2.7 gm/dl (2.5-4.0); Total Protein 5.4 gm/dl (6.0-8.3)
[2023-10-08] MEDS: POTASSIUM CHLORIDE CRTAB 20 MEQ TABCR PO STA (07:48)
[2023-10-08] MEDS: CYANOCOBALAMIN (B-12) 100 MCG TABLET PO SCH (07:49)
[2023-10-08] MEDS: FOLIC ACID 1 MG in SYRINGE 9.8 ML IV SCH (07:49)
[2023-10-08] MEDS ORDERED: PROCHLORPERAZINE 5 MG in SYRINGE 4 ML IV PRN (07:57)
[2023-10-08] MEDS: ONDANSETRON INJ 2 MG/ML 2 ML VIAL IV PRN (08:23)
--- NOTE | 2023-10-08 10:44 | Electrocardiogram Report ---
Test Reason : Blood Pressure : / mmHG Vent. Rate : 083 BPM Atrial Rate : 083 BPM P-R Int : 160 ms QRS Dur : 076 ms QT Int : 360 ms P-R-T Axes : 002 007 045 degrees QTc Int : 423 ms Normal sinus rhythm When compared with ECG of 19-MAY-2023 17:43, No significant change was found Confirmed by Tristen Olvera ([id number]) on 10/08/2023 10:44:06 AM Referred By: REFERRED SELF Confirmed By:Nawaf Olvera
[2023-10-08] MEDS: PHENobarbitaL 30 MG TAB PO SCH (13:33)
[2023-10-09 06:12] LABS: Basophils # (auto) 0.03 K/uL (0.00-0.20); Eosinophils # (auto) 0.17 K/uL (0.00-0.50); Eosinophils % (auto) 5.8 %; Hematocrit (blood only) 26.4 % (42.0-52.0); Immature Granulocytes # (auto) 0.02 K/uL (0.01-0.20); Immature Granulocytes % (auto) 0.7 %; Lymphocytes # (auto) 0.64 K/uL (1.20-3.40); Lymphocytes % (auto) 21.8 %; Mean Corpuscular Hemoglobin 33.8 pg (25.0-34.0); Mean Corpuscular Hgb Conc 34.1 g/dL (32.0-36.0); Mean Corpuscular Volume 99.2 fL (80.0-100.0); Mean Platelet Volume 10.3 fL (9.4-12.4); Monocytes # (auto) 0.27 K/uL (0.11-0.59); Monocytes % (auto) 9.2 %; Neutrophils % (auto) 61.5 %; Platelet Count 49 K/uL (130-400); RDW Coefficient of Variation 13.4 % (11.5-14.5); RDW Standard Deviation 48.7 fL (36.4-46.3); Red Blood Count 2.66 M/uL (4.70-6.10); White Blood Count 2.93 K/ul (4.8-10.8)
[2023-10-09 06:34] LABS: INR 1.4 (0.9-1.1); Prothrombin Time 14.9 Seconds (9.0-12.0)
[2023-10-09 06:42] LABS: Albumin Level 2.7 gm/dl (3.4-5.0); BUN Creatinine Ratio 13.3 (10-20); Bilirubin,Total 2.7 mg/dl (0.2-1.0); Calcium 7.4 mg/dl (8.6-10.3); Creatinine Clr Calc Pharmacy 94.5 ml/min; Est GFR (African American) 128.5 ml/min; Est GFR (Non-African American) 110.8 ml/min; Globulin 2.7 gm/dl (2.5-4.0); Phosphorus 1.9 mg/dl (2.5-4.9); Potassium 3.4 mmol/L (3.5-5.1); Total Protein 5.4 gm/dl (6.0-8.3)
[2023-10-09] MEDS ORDERED: POTASSIUM PHOS 3 MMOL/1 ML INFUSION IV STA (07:27)
[2023-10-09] MEDS: POTASSIUM PHOSPHATE 21 MMOL in SODIUM CHLORIDE 0.9% 500 ML IV ONE (08:11)
[2023-10-09] MEDS: MAGNESIUM SULFATE / D5W 1 GM/100 ML BAG IV SCH (08:11)
--- NOTE | 2023-10-09 08:11 | Hospitalist Progress Note ---
Date of Service October 09, 2023 Assessment & Plan (1) Alcohol withdrawal: Plan: Admit to patient the PCU on telemetry and pulse oximetry Reports he has been drinking 1 L of vodka every 3-4 days over the past few weeks Patient did well on phenobarb protocol during his admission last month, we will start him on phenobarbital protocol more at the time of admission based on actual body weight as this is less than his ideal body weight phenobarb as needed BONNIE is greater than 8 [facility] start p.o. phenobarbital taper, 60 mg PO q12 hours Thiamine, folate Compazine and pantoprazole for nausea Fall/aspiration precautions Bilateral SCDs for DVT prophylaxis Regular diet AM CBC, CMP, mag, PT/INR (2) Cirrhosis: Plan: Previous diagnosis of alcoholic cirrhosis ALT is within normal limits, AST is stable compared to last admission Does not appear to be in acute decompensation this time MELD-Na score: 14 Maddrey's: 16 Avoid hepatotoxic agents Monitor daily CMP and PT/INR (3) Homeless: Plan: Patient reports that he is being evicted from his apartment at 9 AM on 10/07/2023 Patient is interested in inpatient rehab at this time, case management on board PT/OT consults in case weakness and cervical placement will be needed (4) Alcohol use disorder, severe, dependence: Plan: See alcohol intoxication plan (5) Hypomagnesemia: Plan: Magnesium at 1.0 Potassium at 3.4 Magnesium is likely low due to ongoing alcohol abuse and vomiting Continue monitor telemetry and monitor a.m. electrolytes, repleting as necessary (6) Thrombocytopenia: Plan: Platelets of 49 today, his platelet count fluctuates per review of previous labs No signs of active bleeding at this time, cirrhosis present Monitor daily CBC (7) Abnormal CT scan, chest: Plan: CT of the chest without contrast noted no significant change in the upper lobe predominant patchy groundglass and irregular airspace opacities compared to last admission when he was admitted to the ICU due to septic shock and acute hypoxic respiratory failure from aspiration pneumonitis Patient is stable on room air and in no respiratory distress, WBC is within normal limits Will hold antibiotics at this time as he is clinically stable Incentive spirometry, continue home albuterol Continue to monitor on pulse oximetry (8) Obstructive sleep apnea: Plan: Continue bedtime CPAP Admission and Anticipated Discharge Date Admission Date: October 07, 2023 Supervising Physician Co-Signing Physician Notes Attending attestation Pt seen and examined in concert with Dr. Tovar. In agreement with the docume nted findings as noted in the resident documentation with any exceptions or additions as noted here. Ongoing mild nausea with minimal response with prior intervention but with overall decreased emesis and discomfort. Reports stable to mildly improved acute on chronic tremor. Considerable increased lifestress w/ recent eviction and inability to secure/move belongings though looking for help to coordinate through landlord/courts. On examination, S1/S2 nl RRR no MCG. CTAB. Abd NT/ND BS+ve Alcohol use disorder, severe, with h/o DT without seizure reported, intoxication on presentation - AWSS with phenobarbital protocol. Close monitoring of mental status. Trend CMP. IV hydration. Adjustment disorder in the setting of housing insecurity - behavioral health consult - patient denies SI/HI at time of examination Thrombocytopenia, acute on chronic - decreased, again likely dilutional but in the setting of cirrhosis will monitor closely. Cirrhosis in the setting of alcohol abuse - trend CMP, INR and monitor closely. Avoid hepatotoxic agents. Else see resident documentation as noted. Subjective Nick is still feeling nauseous today, he vomited a few times yesterday. No shortness of breath. No chest pain. No fever or chills. No tremor, no hallucinations or sensory disturbances. Review of Systems Review of Systems: see HPI Physical Exam Physical Exam: General: In no acute distress HEENT: Normocephalic, atraumatic, no scleral icterus, pupils around round, symmetrical, and reactive to light, moist mucus membranes, trachea midline Chest/Pulm: No respiratory distress, symmetrical chest expansion, expiratory wheezing in bilateral upper lung tenorio Cardiac: normal rate and rhythm, no murmurs noted Abdomen: Negative for ascites and bruising, normoactive bowel sounds, soft, non-tender to palpation throughout Musculoskeletal: Symmetrical and without signs of acute trauma Extremities: no edema noted in the BL LE's Skin: Warm, dry Neuro: Alert and oriented to person, place, month, year, no focal defects Psych: No acute distress Results & Data Results & Data Vital Signs (Past 12 Hours) Vital Signs Temp Pulse Pulse Resp BP Pulse Ox O2 Del Method 10/09/23 08:04 36.8 C 87 16 110/70 98 CPAP 10/09/23 03:44 36.7 C 72 18 118/75 100 CPAP 10/09/23 03:04 66 13 98 10/08/23 22:53 36.5 C 74 18 114/69 100 CPAP 10/08/23 22:06 70 16 99 10/08/23 21:59 69 O2 Flow Rate 10/09/23 08:04 10/09/23 03:44 10/09/23 03:04 4 10/08/23 22:53 10/08/23 22:06 2 10/08/23 21:59 Resident Supervision Co-Signing Physician Notes Resident attestation Pt seen and examined in concert with student doctor Sherry Brown MS4. In agreement with the documented findings with any exceptions or additions as noted here. Less tremulous on exam. Does not appear to be responding to internal stimuli. No asterixis or jaundice noted. AUD, severe - phenobarb loaded, oral taper initiated, AWSS with symptom triggered phenobarb, compazine and zofran PRN. Encourage cessation. Has been on vivitrol in the past which does help with cravings. Cirrhosis - MELD 14 today, Maddrey's 16, no indication for steroids. Continue to monitor MELD labs, low concern for SBP/ascites/decompensation at present Bone Marrow Suppression - likely in the setting of chronic alcohol use, continue to monitor, transfuse hemoglobin < 7, plts < 15 or active bleeding Adjustment disorder - patient currently unhoused, acute on chronic stressor, behavioral health consult, needs documentation supporting his absence from court - have pt sign records release and fax GERD - takes pantoprazole outpatient - has not been getting here - restart
--- NOTE | 2023-10-09 13:55 | Communication Note ---
Date of Service: October 09, 2023 To whom it may concern, As of today 10/09/2023, Nick Cantu is currently hospitalized at [facility] [place] - admitted 10/07/2023. He was also hospitalized here from 09/15/2023 - 09/24/2023. Case discussed with Dr. Contreras
[2023-10-09] MEDS: PANTOprazole 40 MG in SYRINGE 0 ML IV SCH (14:03)
[2023-10-09] MEDS: PHENobarbitaL 30 MG TAB PO SCH (14:04)
[2023-10-09 16:09] LABS: BUN Creatinine Ratio 13.4 (10-20); Calcium 7.8 mg/dl (8.6-10.3); Creatinine Clr Calc Pharmacy 69.2 ml/min; Est GFR (Non-African American) 97.5 ml/min; Potassium 3.7 mmol/L (3.5-5.1)
[2023-10-10 06:45] LABS: Basophils # (auto) 0.02 K/uL (0.00-0.20); Basophils % (auto) 0.6 %; Eosinophils # (auto) 0.25 K/uL (0.00-0.50); Eosinophils % (auto) 7.2 %; Hematocrit (blood only) 27.4 % (42.0-52.0); Hemoglobin 9.4 g/dl (14.0-18.0); Immature Granulocytes # (auto) 0.01 K/uL (0.01-0.20); Immature Granulocytes % (auto) 0.3 %; Lymphocytes # (auto) 0.73 K/uL (1.20-3.40); Lymphocytes % (auto) 21.1 %; Mean Corpuscular Hemoglobin 34.1 pg (25.0-34.0); Mean Corpuscular Hgb Conc 34.3 g/dL (32.0-36.0); Mean Corpuscular Volume 99.3 fL (80.0-100.0); Monocytes # (auto) 0.32 K/uL (0.11-0.59); Monocytes % (auto) 9.2 %; Neutrophils # (auto) 2.13 K/uL (1.40-6.50); Neutrophils % (auto) 61.6 %; Platelet Count 49 K/uL (130-400); RDW Coefficient of Variation 13.2 % (11.5-14.5); RDW Standard Deviation 47.1 fL (36.4-46.3); Red Blood Count 2.76 M/uL (4.70-6.10); White Blood Count 3.46 K/ul (4.8-10.8)
[2023-10-10 07:11] LABS: INR 1.5 (0.9-1.1); Prothrombin Time 15.4 Seconds (9.0-12.0)
[2023-10-10 07:17] LABS: Albumin Level 2.8 gm/dl (3.4-5.0); BUN Creatinine Ratio 17.7 (10-20); Bilirubin,Total 2.1 mg/dl (0.2-1.0); Calcium 7.7 mg/dl (8.6-10.3); Creatinine Clr Calc Pharmacy 110.6 ml/min; Est GFR (African American) 126.7 ml/min; Est GFR (Non-African American) 109.3 ml/min; Globulin 2.9 gm/dl (2.5-4.0); Magnesium 1.3 mg/dl (1.7-2.4); Phosphorus 2.3 mg/dl (2.5-4.9); Potassium 3.4 mmol/L (3.5-5.1); Total Protein 5.7 gm/dl (6.0-8.3)
[2023-10-10] MEDS ORDERED: POTASSIUM PHOS 3 MMOL/1 ML INFUSION IV STA (07:23)
[2023-10-10] MEDS: MAGNESIUM SULFATE / D5W 1 GM/100 ML BAG IV SCH (08:25)
[2023-10-10] MEDS: POTASSIUM PHOSPHATE 15 MMOL in SODIUM CHLORIDE 0.9% 250 ML IV ONE (08:25)
--- NOTE | 2023-10-10 10:01 | Hospitalist Progress Note ---
Date of Service October 10, 2023 Assessment & Plan (1) Alcohol withdrawal: Plan: Admit to patient the PCU on telemetry and pulse oximetry Reports he has been drinking 1 L of vodka every 3-4 days over the past few weeks Patient did well on phenobarb protocol during his admission last month, we will start him on phenobarbital protocol more at the time of admission based on actual body weight as this is less than his ideal body weight phenobarb as needed BONNIE is greater than 8 [facility] start p.o. phenobarbital taper, 30 mg PO q12 hours Thiamine, folate Compazine and pantoprazole for nausea Fall/aspiration precautions Bilateral SCDs for DVT prophylaxis Regular diet AM CBC, CMP, mag, PT/INR (2) Cirrhosis: Plan: Previous diagnosis of alcoholic cirrhosis ALT is within normal limits, AST is stable compared to last admission Does not appear to be in acute decompensation this time MELD-Na score: 14 Maddrey's: 17.7 Avoid hepatotoxic agents Monitor daily CMP and PT/INR (3) Homeless: Plan: Patient reports that he is being evicted from his apartment at 9 AM on 10/07/2023 Patient is interested in inpatient rehab at this time, case management on board PT/OT consults in case weakness and cervical placement will be needed (4) Alcohol use disorder, severe, dependence: Plan: See alcohol intoxication plan (5) Hypomagnesemia: Plan: Magnesium at 1.3, Potassium at 3.4 repleting as necessary Magnesium is likely low due to ongoing alcohol abuse and vomiting Continue monitor telemetry and monitor a.m. electrolytes, repleting as necessary (6) Thrombocytopenia: Plan: Platelets of 49 today, his platelet count fluctuates per review of previous labs No signs of active bleeding at this time, cirrhosis present Monitor daily CBC (7) Abnormal CT scan, chest: Plan: CT of the chest without contrast noted no significant change in the upper lobe predominant patchy groundglass and irregular airspace opacities compared to last admission when he was admitted to the ICU due to septic shock and acute hypoxic respiratory failure from aspiration pneumonitis Patient is stable on room air and in no respiratory distress, WBC is within normal limits Will hold antibiotics at this time as he is clinically stable Incentive spirometry, continue home albuterol Continue to monitor on pulse oximetry (8) Obstructive sleep apnea: Plan: Continue bedtime CPAP Admission and Anticipated Discharge Date Admission Date: October 07, 2023 Supervising Physician Co-Signing Physician Notes Attending attestation Pt seen and examined in concert with Dr. Tovar. In agreement with the documented findings as noted in the resident documentation with any exceptions or additions as noted here. Ongoing mild nausea with minimal response with prior intervention but with overall decreased emesis and discomfort. Reports stable to mildly improved acute on chronic tremor. Considerable increased lifestress w/ recent eviction and inability to secure/move belongings though looking for help to coordinate through landlord/courts. On examination, S1/S2 nl RRR no MCG. CTAB. Abd NT/ND BS+ve Alcohol use disorder, severe, with h/o DT without seizure reported, intoxication on presentation - AWSS with phenobarbital protocol. Close monitoring of mental status. Trend CMP. IV hydration. Adjustment disorder in the setting of housing insecurity - behavioral health consult - patient denies SI/HI at time of examination Thrombocytopenia, acute on chronic - decreased, again likely dilutional but in the setting of cirrhosis will monitor closely. Cirrhosis in the setting of alcohol abuse - trend CMP, INR and monitor closely. Avoid hepatotoxic agents. Else see resident documentation as noted. Subjective Nick is less nauseous today. No shortness of breath. No chest pain. No fever or chills. No tremor, no hallucinations or sensory disturbances. Mood is improved. He is relieved due to having a plan to move through some of his life stressors. Review of Systems Review of Systems: see HPI Physical Exam Physical Exam: General: In no acute distress HEENT: Normocephalic, atraumatic, no scleral icterus, pupils around round, symmetrical, and reactive to light, moist mucus membranes, trachea midline Chest/Pulm: No respiratory distress, symmetrical chest expansion Cardiac: normal rate and rhythm, no murmurs noted Abdomen: Negative for ascites and bruising, normoactive bowel sounds, soft, non-tender to palpation throughout Musculoskeletal: Symmetrical and without signs of acute trauma Extremities: no edema noted in the BL LE's Skin: Warm, dry Neuro: Alert and oriented to person, place, month, year, no focal defects Psych: No acute distress Results & Data Results & Data Vital Signs (Past 12 Hours) Vital Signs Temp Pulse Pulse Resp BP Pulse Ox O2 Del Method 10/10/23 09:00 77 10/10/23 07:59 37.1 C 76 20 108/70 95 Room Air 10/10/23 03:25 37.0 C 84 20 114/71 97 Room Air 10/09/23 23:13 36.7 C 69 18 116/73 97 CPAP 10/09/23 23:00 73 Resident Supervision Co-Signing Physician Notes Pt seen and examined in concert with student doctor Sherry Brown MS4. In agreement with the documented findings with any exceptions or additions as noted here. Less tremulous on exam. Does not appear to be responding to internal stimuli. No asterixis or jaundice noted. AUD, severe - phenobarb loaded, oral taper initiated, AWSS with symptom triggered phenobarb, compazine and zofran PRN. Encourage cessation. Has been on vivitrol in the past which does help with cravings. Cirrhosis - MELD 14 today, Maddrey's without indication for steroids. Continue to monitor MELD labs, low concern for SBP/ascites/decompensation at present Bone Marrow Suppression - likely in the setting of chronic alcohol use, continue to monitor, transfuse hemoglobin < 7, plts < 15 or active bleeding Adjustment disorder - patient currently unhoused, acute on chronic stressor, behavioral health consult, needs documentation supporting his absence from court - have pt sign records release and fax GERD - takes pantoprazole outpatient - has not been getting here - restart CM - needs placement for rehab Attending attestation Pt seen and examined in concert with Dr. Tovar, . Dr. Brown. In agreement with the documented findings as noted in the resident documentation with any exceptions or additions as noted here. Improved tremor of the right hand (acute) and chronic tremor of the left hand. Resolution of epigastric discomfort/bloating. On examination, S1/S2 nl RRR no MCG. CTAB. Abd NT/ND BS+ve AUD, severe - tapering phenobarb with good response. Pending rehab services with case management. Cirrhosis - improving MELD, trend labs as noted Else see resident documentation as noted. Resident Activity Tracking Resident Involvement: Resident Care Provided Care Provided: Adult Hospital Medicine
[2023-10-10 12:32] LABS: Amobarbital, Urine Conf NEGATIVE ng/mL (<100); Butalbital, Urine NEGATIVE ng/mL (<100); Pentobarbital, Urine Conf NEGATIVE ng/mL (<100); Phenobarbital, Urine >5000 ng/mL (<100); Secobarbital, Urine Conf NEGATIVE ng/mL (<100)
[2023-10-10] MEDS: THIAMINE HCL 100 MG TAB PO SCH (21:06)
[2023-10-10] MEDS: PANTOprazole 40 MG TAB PO SCH (21:26)
[2023-10-11] MEDS: PHENobarbitaL 30 MG TAB PO SCH (01:46)
[2023-10-11 07:05] LABS: Basophils # (auto) 0.03 K/uL (0.00-0.20); Basophils % (auto) 0.8 %; Eosinophils # (auto) 0.34 K/uL (0.00-0.50); Eosinophils % (auto) 8.7 %; Hematocrit (blood only) 27.9 % (42.0-52.0); Hemoglobin 9.7 g/dl (14.0-18.0); Immature Granulocytes # (auto) 0.01 K/uL (0.01-0.20); Immature Granulocytes % (auto) 0.3 %; Lymphocytes # (auto) 0.76 K/uL (1.20-3.40); Lymphocytes % (auto) 19.4 %; Mean Corpuscular Hgb Conc 34.8 g/dL (32.0-36.0); Mean Corpuscular Volume 97.9 fL (80.0-100.0); Mean Platelet Volume 11.5 fL (9.4-12.4); Monocytes # (auto) 0.39 K/uL (0.11-0.59); Monocytes % (auto) 9.9 %; Neutrophils # (auto) 2.39 K/uL (1.40-6.50); Neutrophils % (auto) 60.9 %; Platelet Count 54 K/uL (130-400); RDW Coefficient of Variation 13.2 % (11.5-14.5); RDW Standard Deviation 47.4 fL (36.4-46.3); Red Blood Count 2.85 M/uL (4.70-6.10); White Blood Count 3.92 K/ul (4.8-10.8)
[2023-10-11 07:31] LABS: INR 1.4 (0.9-1.1); Prothrombin Time 14.3 Seconds (9.0-12.0)
[2023-10-11 07:32] LABS: BUN Creatinine Ratio 19.1 (10-20); Bilirubin,Total 1.5 mg/dl (0.2-1.0); Creatinine Clr Calc Pharmacy 100.8 ml/min; Est GFR (Non-African American) 105.3 ml/min; Magnesium 1.2 mg/dl (1.7-2.4); Phosphorus 2.8 mg/dl (2.5-4.9); Potassium 3.6 mmol/L (3.5-5.1)
--- NOTE | 2023-10-11 08:13 | Hospitalist Progress Note ---
Date of Service October 11, 2023 Assessment & Plan (1) Alcohol withdrawal: Plan: Admit to patient the PCU on telemetry and pulse oximetry Reports he has been drinking 1 L of vodka every 3-4 days over the past few weeks Patient did well on phenobarb protocol during his admission last month, we will start him on phenobarbital protocol more at the time of admission based on actual body weight as this is less than his ideal body weight phenobarb as needed BONNIE is greater than 8 [facility] start p.o. phenobarbital taper, 30 mg PO q24 hours Thiamine, folate Compazine and pantoprazole for nausea Fall/aspiration precautions Bilateral SCDs for DVT prophylaxis Regular diet AM CBC, CMP, mag, PT/INR (2) Cirrhosis: Plan: Previous diagnosis of alcoholic cirrhosis ALT is within normal limits, AST is stable compared to last admission Does not appear to be in acute decompensation this time MELD-Na score: 13 Maddrey's: 12.1 Avoid hepatotoxic agents Monitor daily CMP and PT/INR (3) Homeless: Plan: Patient reports that he is being evicted from his apartment at 9 AM on 10/07/2023 Patient is interested in inpatient rehab at this time, case management on board PT/OT consults in case weakness and cervical placement will be needed (4) Alcohol use disorder, severe, dependence: Plan: See alcohol intoxication plan (5) Hypomagnesemia: Plan: Magnesium at 1.2, Potassium at 3.6. Repleting as necessary. Magnesium is likely low due to ongoing alcohol abuse and vomiting Continue monitor telemetry and monitor a.m. electrolytes, repleting as necessary (6) Thrombocytopenia: Plan: Platelets of 54 today, his platelet count fluctuates per review of previous labs No signs of active bleeding at this time, cirrhosis present Monitor daily CBC (7) Abnormal CT scan, chest: Plan: CT of the chest without contrast noted no significant change in the upper lobe predominant patchy groundglass and irregular airspace opacities compared to last admission when he was admitted to the ICU due to septic shock and acute hypoxic respiratory failure from aspiration pneumonitis Patient is stable on room air and in no respiratory distress, WBC is within normal limits Will hold antibiotics at this time as he is clinically stable Incentive spirometry, continue home albuterol Continue to monitor on pulse oximetry (8) Obstructive sleep apnea: Plan: Continue bedtime CPAP Admission and Anticipated Discharge Date Admission Date: October 07, 2023 Supervising Physician Co-Signing Physician Notes ATTESTATION I also saw the patient and confirmed chapman portions of the history and exam. I agree with the impression and plan in the medical student documentation, and as summarized below. Upon my morning exam, patient is upset with regards to his brother and his home contents, and notes some mild nausea which he says is not uncommon for him when he is upset. EXAM VS as noted CV RRR ( rate = 72 upon my auscultation); Lungs are clear with non labored respirations DATA Labs HgB = 9.7 Cr = 0.68 Mg = 1.2 plt - 54 IMPRESSION & PLAN Alcohol use disorder, severe, with h/o DT without seizure reported, intoxication on presentation Willing to enter [facility] rehabilitation Search ongoing Adjustment disorder in the setting of housing insecurity Counseled staff notes reviewed Thrombocytopenia adn Anemia, acute on chronic Element of dilution on top of chronic myelosuppression from ETOH Trend Cirrhosis in the setting of alcohol abuse trend CMP, INR and monitor closely Avoid hepatotoxic agents. Hypomagnesemia Replete IV and PO today Scheduled PO moving forward Subjective Nick is feeling well today from a medical standpoint. No tremors. No tactile or auditory disturbances. Improved nausea. No vomiting. Patient reports increased stress due to trying to call his brother who was moving his belongings out of his apartment. Is further stressed about legal cases. Review of Systems Review of Systems: see HPI Physical Exam Physical Exam: General: In no acute distress HEENT: Normocephalic, atraumatic, no scleral icterus, pupils around round, symmetrical, and reactive to light, moist mucus membranes, trachea midline Chest/Pulm: No respiratory distress, symmetrical chest expansion, clear to auscultation bilaterally Cardiac: normal rate and rhythm, no murmurs noted Abdomen: Negative for ascites and bruising, normoactive bowel sounds, soft, non-tender to palpation throughout Musculoskeletal: Symmetrical and without signs of acute trauma Extremities: no edema noted in the BL LE's Skin: Warm, dry Neuro: Alert and oriented to person, place, month, year, no focal defects Psych: No acute distress Results & Data Results & Data Vital Signs (Past 12 Hours) Vital Signs Temp Pulse Pulse Resp BP Pulse Ox O2 Del Method 10/11/23 07:40 37.1 C 78 19 102/68 94 Room Air 10/11/23 03:16 36.6 C 91 H 18 115/68 98 Room Air 10/10/23 23:29 36.9 C 71 18 108/71 96 Room Air 10/10/23 23:00 62 10/10/23 21:58 75 17 100 FiO2 10/11/23 07:40 10/11/23 03:16 10/10/23 23:29 10/10/23 23:00 10/10/23 21:58 2
[2023-10-11] MEDS: FOLIC ACID 1 MG TAB PO SCH (08:29)
[2023-10-11] MEDS: MAGNESIUM SULFATE / D5W 1 GM/100 ML BAG IV STA (08:33)
[2023-10-11] MEDS: MAGNESIUM OXIDE 400 MG TAB PO SCH (09:12)
[2023-10-12 06:18] LABS: Basophils # (auto) 0.04 K/uL (0.00-0.20); Basophils % (auto) 1.2 %; Eosinophils % (auto) 8.8 %; Hematocrit (blood only) 28.3 % (42.0-52.0); Hemoglobin 9.8 g/dl (14.0-18.0); Immature Granulocytes # (auto) 0.02 K/uL (0.01-0.20); Immature Granulocytes % (auto) 0.6 %; Lymphocytes # (auto) 0.78 K/uL (1.20-3.40); Lymphocytes % (auto) 22.9 %; Mean Corpuscular Hemoglobin 34.5 pg (25.0-34.0); Mean Corpuscular Hgb Conc 34.6 g/dL (32.0-36.0); Mean Corpuscular Volume 99.6 fL (80.0-100.0); Mean Platelet Volume 10.9 fL (9.4-12.4); Monocytes # (auto) 0.45 K/uL (0.11-0.59); Monocytes % (auto) 13.2 %; Neutrophils # (auto) 1.81 K/uL (1.40-6.50); Neutrophils % (auto) 53.3 %; Platelet Count 63 K/uL (130-400); RDW Coefficient of Variation 13.7 % (11.5-14.5); RDW Standard Deviation 49.9 fL (36.4-46.3); Red Blood Count 2.84 M/uL (4.70-6.10)
[2023-10-12 06:26] LABS: Albumin Level 3.1 gm/dl (3.4-5.0); BUN Creatinine Ratio 21.7 (10-20); Bilirubin,Total 1.4 mg/dl (0.2-1.0); Calcium 8.8 mg/dl (8.6-10.3); Est GFR (African American) 121.3 ml/min; Est GFR (Non-African American) 104.6 ml/min; Globulin 3.1 gm/dl (2.5-4.0); Magnesium 1.1 mg/dl (1.7-2.4); Phosphorus 4.3 mg/dl (2.5-4.9); Potassium 3.9 mmol/L (3.5-5.1); Total Protein 6.2 gm/dl (6.0-8.3)
[2023-10-12 06:29] LABS: INR 1.3 (0.9-1.1)
--- NOTE | 2023-10-12 10:00 | Hospitalist Progress Note ---
Date of Service October 12, 2023 Assessment & Plan (1) Alcohol withdrawal: Plan: He has been accepted to an inpatient facility with a bed available on Saturday Patient is aware. (2) Cirrhosis: Plan: Previous diagnosis of alcoholic cirrhosis LFTs have been relatively stable and does not appear to be in acute decompensation at this time Monitor CMP (3) Homeless: Plan: Patient reports that he is being evicted from his apartment at 9 AM on 10/07/2023 Patient is interested in inpatient rehab at this time, case management on board (4) Alcohol use disorder, severe, dependence: Plan: See above (5) Hypomagnesemia: Plan: Replete magnesium, both IV and PO Recheck magnesium in a.m. (6) Thrombocytopenia: Plan: Suspect he has myelosuppression secondary to EtOH abuse CBC, including hemoglobin and platelets, low but stable Daily CBC (7) Abnormal CT scan, chest: Plan: CT of the chest without contrast noted no significant change in the upper lobe predominant patchy groundglass and irregular airspace opacities compared to last admission when he was admitted to the ICU due to septic shock and acute hypoxic respiratory failure from aspiration pneumonitis Patient is stable on room air and in no respiratory distress, WBC is within normal limits Incentive spirometry, continue home albuterol Continue to monitor on pulse oximetry (8) Obstructive sleep apnea: Plan: Continue CPAP Admission and Anticipated Discharge Date Admission Date: October 07, 2023 Subjective He has no complaints this morning. Has been moved to the general medical floor. Review of Systems Constitutional: No fever or chills. Respiratory: No dyspnea. Cardiovascular: no chest pain, no chest pain with activity, no dyspnea at rest and no syncope Neurologic: no gait abnormality, no unsteadiness and no falls Psychiatric: + hopelessness; no change in appetite, n o irritability and no suicidal ideation Physical Exam Constitutional: WD/WN, vitals as above ENMT: external ear and nose normal, oropharynx normal Neck: trachea midline, no thyromegaly Respiratory: normal respiratory effort, lungs clear to auscultation Cardiovascular: RRR, no murmur, no edema Musculoskeletal: no cyanosis or clubbing, extremities motor strength 5/5 Skin: no rashes, warm and dry Psychiatric: A+Ox3, euthymic affect Results & Data Results & Data Vital Signs (Past 12 Hours) Vital Signs Pulse Pulse Resp BP Pulse Ox O2 Del Method O2 Flow Rate 10/12/23 08:06 87 18 118/73 98 Room Air 10/12/23 03:02 72 13 100 2 Laboratory Results 10/12/23 Range/Units 05:48 WBC 3.40 L (4.8-10.8) K/ul RBC 2.84 L (4.70-6.10) M/uL Hgb 9.8 L (14.0-18.0) g/dl Hct 28.3 L (42.0-52.0) % MCV 99.6 (80.0-100.0) fL MCH 34.5 H (25.0-34.0) pg MCHC 34.6 (32.0-36.0) g/dL RDW Std Deviation 49.9 H (36.4-46.3) fL RDW Coeff of Melissa 13.7 (11.5-14.5) % Plt Count 63 L (130-400) K/uL MPV 10.9 (9.4-12.4) fL Immature Gran % (Auto) 0.6 % Neut % (Auto) 53.3 % Lymph % (Auto) 22.9 % [place] % (Auto) 13.2 % Eos % (Auto) 8.8 % Baso % (Auto) 1.2 % Neut # (Auto) 1.81 (1.40-6.50) K/uL Lymph # (Auto) 0.78 L (1.20-3.40) K/uL [place] # (Auto) 0.45 (0.11-0.59) K/uL Eos # (Auto) 0.30 (0.00-0.50) K/uL Baso # (Auto) 0.04 (0.00-0.20) K/uL Immature Gran # (Auto) 0.02 (0.01-0.20) K/uL PT 14.0 H (9.0-12.0) Seconds INR 1.3 H (0.9-1.1) Sodium 138 (136-145) mmol/L Potassium 3.9 (3.5-5.1) mmol/L Chloride 106 (98-107) mmol/L Carbon Dioxide 26 (21-32) mmol/L Anion Gap 6 (3-11) BUN 15 (6-23) mg/dl Creatinine 0.69 (0.6-1.4) mg/dl Est Cr Clr Drug Dosing 100.0 ml/min Est GFR ( Amer) 121.3 ml/min Est GFR (Non-Af Amer) 104.6 ml/min BUN/Creatinine Ratio 21.7 H (10-20) Glucose 90 (70-99(Fasting)) mg/dl Calcium 8.8 (8.6-10.3) mg/dl Phosphorus 4.3 D (2.5-4.9) mg/dl Magnesium 1.1 L (1.7-2.4) mg/dl Total Bilirubin 1.4 H (0.2-1.0) mg/dl AST 25 (13-39) U/L ALT 15 (7-52) U/L Alkaline Phosphatase 99 (34-104) U/L Total Protein 6.2 (6.0-8.3) gm/dl Albumin 3.1 L (3.4-5.0) gm/dl Globulin 3.1 (2.5-4.0) gm/dl Albumin/Globulin Ratio 1.0 (0.9-2)
[2023-10-12] MEDS: MAGNESIUM SULFATE / D5W 1 GM/100 ML BAG IV ONE (11:47)
[2023-10-12] MEDS: MAGNESIUM OXIDE 400 MG TAB PO SCH (14:30)
[2023-10-13 06:21] LABS: Basophils # (auto) 0.05 K/uL (0.00-0.20); Basophils % (auto) 1.2 %; Eosinophils # (auto) 0.36 K/uL (0.00-0.50); Eosinophils % (auto) 8.8 %; Hematocrit (blood only) 31.1 % (42.0-52.0); Hemoglobin 10.4 g/dl (14.0-18.0); Immature Granulocytes # (auto) 0.01 K/uL (0.01-0.20); Immature Granulocytes % (auto) 0.2 %; Lymphocytes # (auto) 1.14 K/uL (1.20-3.40); Mean Corpuscular Hemoglobin 33.8 pg (25.0-34.0); Mean Corpuscular Hgb Conc 33.4 g/dL (32.0-36.0); Mean Platelet Volume 11.1 fL (9.4-12.4); Monocytes # (auto) 0.63 K/uL (0.11-0.59); Monocytes % (auto) 15.5 %; Neutrophils # (auto) 1.88 K/uL (1.40-6.50); Neutrophils % (auto) 46.3 %; Platelet Count 73 K/uL (130-400); RDW Coefficient of Variation 13.7 % (11.5-14.5); RDW Standard Deviation 51.3 fL (36.4-46.3); Red Blood Count 3.08 M/uL (4.70-6.10); White Blood Count 4.07 K/ul (4.8-10.8)
[2023-10-13 06:25] LABS: Albumin Level 3.2 gm/dl (3.4-5.0); BUN Creatinine Ratio 20.5 (10-20); Bilirubin,Total 1.4 mg/dl (0.2-1.0); Calcium 9.4 mg/dl (8.6-10.3); Creatinine Clr Calc Pharmacy 78.4 ml/min; Est GFR (African American) 109.7 ml/min; Est GFR (Non-African American) 94.7 ml/min; Globulin 3.2 gm/dl (2.5-4.0); Magnesium 1.2 mg/dl (1.7-2.4); Total Protein 6.4 gm/dl (6.0-8.3)
[2023-10-13 06:57] LABS: INR 1.3 (0.9-1.1); Prothrombin Time 13.5 Seconds (9.0-12.0)
--- NOTE | 2023-10-13 10:40 | Hospitalist Progress Note ---
Date of Service October 13, 2023 Assessment & Plan (1) Alcohol withdrawal: Plan: Reports he has been drinking 1 L of vodka every 3-4 days over the past few weeks Patient did well on phenobarb protocol during his admission last month; BONNIE is greater than 8; start p.o. phenobarbital taper, 30 mg PO q12 hours Thiamine, folate Compazine and pantoprazole for nausea Fall/aspiration precautions Bilateral SCDs for DVT prophylaxis Regular diet AM CBC, CMP, mag, PT/INR (2) Cirrhosis: Plan: Previous diagnosis of alcoholic cirrhosis ALT is within normal limits, AST is stable compared to last admission Does not appear to be in acute decompensation this time MELD-Na score: 14 Maddrey's: 17.7 Avoid hepatotoxic agents Monitor daily CMP and PT/INR (3) Homeless: Plan: Patient reports that he is being evicted from his apartment at 9 AM on 10/07/2023 Patient is interested in inpatient rehab at this time, case management on board PT/OT consults in case weakness and cervical placement will be needed (4) Alcohol use disorder, severe, dependence: Plan: See alcohol intoxication plan (5) Hypomagnesemia: Plan: Magnesium is likely low due to ongoing alcohol abuse and vomiting Mg at 1.2 today, K+ at 4 Continue monitor telemetry and monitor a.m. electrolytes, repleting as necessary (6) Thrombocytopenia: Plan: PLT count < 100 since admission; 73 today; fluctuates, per review of previous labs No signs of active bleeding at this time, cirrhosis present Monitor daily CBC (7) Abnormal CT scan, chest: Plan: CT of the chest without contrast noted no significant change in the upper lobe predominant patchy groundglass and irregular airspace opacities compared to last admission when he was admitted to the ICU due to septic shock and acute hypoxic respiratory failure from aspiration pneumonitis Patient is stable on room air and in no respiratory distress, WBC is within normal limits Will hold antibiotics at this time as he is clinically stable Incentive spirometry, continue home albuterol Continue to monitor on pulse oximetry (8) Obstructive sleep apnea: Plan: Continue bedtime CPAP Admission and Anticipated Discharge Date Admission Date: October 07, 2023 Supervising Physician Co-Signing Physician Notes ATTESTATION I also saw the patient and confirmed chapman portions of the history and exam. I agree with the impression and plan in the medical student documentation, and as summarized below. He has no complaints today. He will need to olive picker his CPAP at the homeless [facility]term on his way to the rehabilitation center. EXAM 107/68, 86, 18, 36.9, 97% Cardiovascular regular rate and rhythm Lungs clear throughout, non labored respirations DATA Labs HgB = 10.4 BMP is unremarkable Mg = 1.2 plt -73 IMPRESSION & PLAN Alcohol use disorder, severe, with h/o DT without seizure reported, intoxication on presentation Willing to enter D&A rehabilitation Bed available at [facility] tomorrow Thrombocytopenia and Anemia, acute on chronic Stable to slight improvement Cirrhosis in the setting of alcohol abuse Avoid hepatotoxic agents. Hypomagnesemia Replete IV and PO today Continue scheduled PO moving forward Subjective Pt had no complaints this morning. He reiterated desire to contact brother/retrieve his belongings. Denies fevers, chills, chest pain, SOB, n/v, lightheadedness, or tremor. Pt exxpressed understanding of treatment and discharge plans. Review of Systems 2 Review of Systems: Per HPI Physical Exam 2 Physical Exam: General: NAD, AOx3 HEENT: NCAT, EOMI, PERRL CV: RRR, no m/r/g Pulm: CTAB GI: soft, NT/ND, +BS Neuro: slight tremor w movement of R arm Skin: no rashes or bruising, warm and dry Results & Data Results & Data Vital Signs (Past 12 Hours) Vital Signs Temp Pulse Resp BP BP Pulse Ox O2 Del Method 10/13/23 10:37 CPAP 10/13/23 07:36 36.9 C 86 18 107/68 97 Room Air 10/12/23 20:31 37 C 78 18 112/73 98 Room Air 10/12/23 19:25 Room Air, CPAP 10/12/23 15:40 36.9 C 85 16 98/60 L 98 Room Air Laboratory Results 10/13/23 05:33 10/13/23 05:33 M.2 Resident Activity Tracking Resident Involvement: Resident Care Provided Care Provided: Adult Hospital Medicine
[2023-10-13] MEDS: MAGNESIUM SULFATE / D5W 1 GM/100 ML BAG IV SCH (12:02)
[2023-10-14 07:51] LABS: Eosinophils % (auto) 9.8 %; Hematocrit (blood only) 34.9 % (42.0-52.0); Hemoglobin 11.5 g/dl (14.0-18.0); Immature Granulocytes # (auto) 0.02 K/uL (0.01-0.20); Immature Granulocytes % (auto) 0.4 %; Lymphocytes # (auto) 1.14 K/uL (1.20-3.40); Lymphocytes % (auto) 22.4 %; Mean Corpuscular Hemoglobin 33.4 pg (25.0-34.0); Mean Corpuscular Volume 101.5 fL (80.0-100.0); Mean Platelet Volume 10.5 fL (9.4-12.4); Monocytes # (auto) 0.72 K/uL (0.11-0.59); Monocytes % (auto) 14.2 %; Neutrophils % (auto) 51.2 %; Platelet Count 97 K/uL (130-400); RDW Coefficient of Variation 13.7 % (11.5-14.5); RDW Standard Deviation 51.2 fL (36.4-46.3); Red Blood Count 3.44 M/uL (4.70-6.10); White Blood Count 5.08 K/ul (4.8-10.8)
[2023-10-14 08:05] LABS: Albumin Level 3.6 gm/dl (3.4-5.0); BUN Creatinine Ratio 21.3 (10-20); Bilirubin,Total 1.6 mg/dl (0.2-1.0); Calcium 9.5 mg/dl (8.6-10.3); Creatinine Clr Calc Pharmacy 73.4 ml/min; Est GFR (African American) 103.2 ml/min; Globulin 3.7 gm/dl (2.5-4.0); Magnesium 1.5 mg/dl (1.7-2.4); Potassium 3.9 mmol/L (3.5-5.1); Total Protein 7.3 gm/dl (6.0-8.3)
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
[2023-10-14 08:11] LABS: INR 1.2 (0.9-1.1); Prothrombin Time 12.9 Seconds (9.0-12.0)
[2023-10-14] MEDS: MAGNESIUM SULFATE / D5W 1 GM/100 ML BAG IV SCH (08:43)
--- NOTE | 2023-10-14 17:38 | Billing Data ---
Date of Service October 14, 2023 Coding Level of Care Code 34592 IN/OBS DISCH 30 MIN/LESS
== END 2023-10-14 14:54 | disposition alcohol treatment (31) | DRG 897 ==
LOC: ED 16:39 → 2E 19:39 → SUATTDRO 19:39 → 2E 20:59 → 3E 10-11 20:30

== ENCOUNTER 2024-01-12 00:03 | Inpatient (IN) ==
--- NOTE | 2024-01-12 00:15 | Emergency Department Note ---
History of Present Illness General Chief complaint: Abdominal Pain Stated complaint: STOMACH "TIGHTNESS" History of Present Illness This 58-year-old male with history of alcoholism and prostate cancer presents ER complaining of chest pain, abdominal pain, dyspnea and right thigh pain today. No history of DVT or PE. He does have cirrhosis from his alcoholism. He has not been taking his magnesium as he is out of it. Patient is from out of the cold. Patient has fever, chills, cough, congestion, flulike illness. No tobacco use. Patient denies drug use. Home Medications Medication Instructions Recorded Confirmed Type leuprolide 7.5 mg (1 month) 7.5 mg subcut ONCE Prostate Cancer 10/07/23 01/07/24 Rx subcutaneous syringe ([employer]) #1 ea fluticasone propionate 50 2 spray intranasal DAILY 01/06/24 01/07/24 History mcg/actuation nasal spray,suspension (Flonase Allergy Relief) Potassium PO DAILY 01/07/24 01/07/24 History buspirone 10 mg tablet 10 mg PO BID #60 tabs 01/07/24 01/07/24 Rx escitalopram oxalate 10 mg tablet 10 mg PO DAILY #30 tabs 01/07/24 01/07/24 Rx famotidine 40 mg tablet 40 mg PO QAM #90 tabs 01/07/24 01/07/24 Rx folic acid 1 mg tablet 1 mg PO QAM #90 tabs 01/07/24 01/07/24 Rx magnesium oxide 400 mg (241.3 mg 400 mg PO TID #90 tabs 01/07/24 01/07/24 Rx magnesium) tablet potassium chloride 20 mEq 20 meq PO QAM #30 tabs 01/07/24 01/07/24 Rx tablet,extended release thiamine HCl (vitamin B1) 100 mg 100 mg PO QAM #90 tabs 01/07/24 01/07/24 Rx tablet Allergies Allergy/AdvReac Type Severity Reaction Status Date / Time No Known Allergies Allergy Verified 01/07/24 13:25 Past Med/Surg History Problem List (Updated 01/12/24 @ 03:31 by Margarita Danielle PA-C) Chest pain (Acute) Abdominal pain (Acute) Hypomagnesemia (Acute) Alcohol withdrawal (Acute) Anemia (Acute) Hypomagnesemia (Acute) Abnormal CT scan, chest Homeless Pneumonia (Acute) Prostate cancer (Chronic 03/28/24) B12 deficiency Alcohol use disorder, severe, dependence Cirrhosis Esophageal varices Elevated PSA, less than 10 ng/ml (07/11/20) Urology referral placed. Obstructive sleep apnea Tubular adenoma Urinary urgency Vitamin D deficiency (07/11/20) Medical History Acute alcohol intoxication Acute encephalopathy Septic shock Aspiration pneumonitis ARDS (adult respiratory distress syndrome) Hypokalemia Acute alteration in mental status Hypomagnesemia Alcohol overdose Thrombocytopenia (07/06/20) Gastritis Elevated ferritin (07/11/20) Cirrhosis History of COVID-19 Back problem Hx of esophageal reflux History of skin cancer Anxiety and depression Varicose veins of both lower extremities Sleep apnea Asthma Hepatic steatosis (07/15/20) Not immune to hepatitis B virus Hepatitis A vaccination not up to date Surgical History History of tonsillectomy History of colonoscopy Hx of wisdom tooth extraction Family History Mother Breast cancer Father Diabetes Colorectal cancer Stroke Brother Prostate cancer Heart disease Colorectal cancer Other Unknown family medical history Denies family history of Ovarian cancer Coronary heart disease Myocardial infarction Congenital kidney disease Lung cancer Cystic kidney disease Social History (Updated 01/07/24 @ 13:32 by Mirna Jones LPN) Smoking Status: Unknown if ever smoked Second Hand Exposure: Yes; Do You Dip or Chew Tobacco: No; Hx Alcohol Use: No Hx Substance Use: No Preferred Language: [place] Zeal[place] Communication Ability: Effective Visual Impairment: Limited Hearing Ability: Normal Recovery Rn Required: No Beliefs That Will Affect Care: None marital status: Current Living Situation: Alone current occupational status: retired How many Children do You have: 2 Feels Safe at Home: Declines to Answer Safety Concerns Comment: pt is currently homeless Childhood Exposure to Second-Hand Smoke: Yes Diet: regular caffeine: Yes Dental Care, Regularly: Yes Seatbelt Use: other Sunscreen Use: No Assistive Devices: Cane, CPAP, Crutches and Glasses Review of Systems A total of 10 systems reviewed and were otherwise negative Physical Exam Vital Signs Vital Signs - 24 hr 01/12/24 00:11 01/12/24 00:20 01/12/24 00:38 Temperature 36.7 C Temperature Source Oral Pulse Rate 86 86 Pulse Rate [Apical] 86 Respiratory Rate 17 19 Respiratory Effort / Characteristics Non-Labored Spontaneous Non-Labored Spontaneous Respiratory Depth Normal Normal Respiratory Pattern Regular Regular Blood Pressure 114/73 Blood Pressure [Left Arm] 109/80 Blood Pressure Mean 86 Blood Pressure Mean [Left Arm] 89 Pulse Oximetry 95 95 Oxygen Delivery Method Room Air Room Air Sepsis Recent Fever Within 48 Hours No Sepsis New/Unexplained Change in Mental Status No Sepsis Action Taken by Nursing No Action Required 01/12/24 00:39 01/12/24 02:00 Temperature Temperature Source Pulse Rate 89 Pulse Rate [Apical] 84 Respiratory Rate 20 13 Respiratory Effort / Characteristics Non-Labored Spontaneous Respiratory Depth Normal Respiratory Pattern Regular Blood Pressure Blood Pressure [Left Arm] 100/62 Blood Pressure Mean Blood Pressure Mean [Left Arm] 74 Pulse Oximetry 96 95 Oxygen Delivery Method Room Air Room Air Sepsis Recent Fever Within 48 Hours Sepsis New/Unexplained Change in Mental Status Sepsis Action Taken by Nursing VITALS: Vitals are noted on the nurse's note and reviewed by myself. Vital signs stable. GENERAL: White male, in no acute distress, nondiaphoretic, well-developed well- nourished. SKIN: Capillary reflex less than 2 seconds. HEENT: Normocephalic. PERRLA. EOMI. Nares patent. Mucous membranes moist. Neck is supple without nuchal rigidity. HEART: Regular rate and rhythm LUNGS: Clear to auscultation bilaterally without wheezes, rales or rhonchi. No retractions or accessory muscle use. ABDOMEN: Positive bowel sounds x 4. Normal tympanic percussion. Soft, tender mid abdomen, without masses or organomegaly. Scruggs sign negative. No guarding or rebound tenderness. no CVA tenderness MUSCULOSKELETAL: No gross musculoskeletal defects. Right thigh tenderness, negative calf tenderness bilaterally NEURO: Patient was alert and oriented to person place and time. No focal neurological deficits. Course Administered Medications Discontinued Medications Magnesium Sulfate/Dextrose (Magnesium Sulfate / D5w) 1 gm in 100 mls @ 100 mls/hr IV Q1H JORGE L Stop: 01/12/24 03:03 Last Admin: 01/12/24 02:39 Dose: 100 mls/hr Documented By: Infusion: 01/12/24 02:33 Dose: Infused Documented By: manager icu: 01/12/24 01:33 Dose: 100 mls/hr Documented By: KANA Ioversol (Optiray 320 125ml) 119 ml IV ONCE ONE Stop: 01/12/24 01:01 Last Admin: 01/12/24 01:00 Dose: 119 ml Documented By: SARA Potassium Chloride (Potassium Chloride Crtab 20 Meq Tabcr) 40 meq PO NOW STA Stop: 01/12/24 01:05 Last Admin: 01/12/24 01:31 Dose: 40 meq Documented By: KANA Critical Care Time Critical Care Time: Yes Total Critical Care Time: 35 I have personally spent 35 minutes of critical care time in the direct management of this patient. This includes bedside care, interpretation of diagnostic studies, and testing, discussion with consultants, patient, and family members, and other required patient management activities. This 35 minutes is in excess of all separately billable procedures. Medical Decision Making Medical Records Attestation: I reviewed the patient's medical records. Home Medications Current Medication List: was personally reviewed by me Laboratory Data Attestation: I reviewed the patient's lab results. 01/12/24 00:28 01/12/24 00:28 Lab Results 01/12/24 01/12/24 01/12/24 Range/Units 00:28 00:28 00:35 WBC 5.20 (4.8-10.8) K/ul RBC 3.47 L (4.70-6.10) M/uL Hgb 10.9 L (14.0-18.0) g/dl POC Hgb 10.9 L (14.0-18.0) g/dl Hct 32.4 L (42.0-52.0) % POC Hct 32 L (42-52) % MCV 93.4 (80.0-100.0) fL MCH 31.4 (25.0-34.0) pg MCHC 33.6 (32.0-36.0) g/dL RDW Std Deviation 46.5 H (36.4-46.3) fL RDW Coeff of Melissa 13.5 (11.5-14.5) % Plt Count 113 L (130-400) K/uL MPV 10.1 (9.4-12.4) fL Immature Gran % (Auto) 0.0 % Neut % (Auto) 55.2 % Lymph % (Auto) 27.3 % [place] % (Auto) 9.8 % Eos % (Auto) 6.2 % Baso % (Auto) 1.5 % Neut # (Auto) 2.87 (1.40-6.50) K/uL Lymph # (Auto) 1.42 (1.20-3.40) K/uL Schoolcraft # (Auto) 0.51 (0.11-0.59) K/uL Eos # (Auto) 0.32 (0.00-0.50) K/uL Baso # (Auto) 0.08 (0.00-0.20) K/uL Immature Gran # (Auto) 0.00 L (0.01-0.20) K/uL PT 13.2 H (9.0-12.0) Seconds INR 1.2 H (0.9-1.1) APTT 26 (21-31) Seconds PTT Ratio 1.0 POC Sodium 140 (135-144) mmol/L Sodium 138 (136-145) mmol/L POC Potassium 3.5 (3.3-5.0) mmol/L Potassium 3.4 L (3.5-5.1) mmol/L POC Chloride 103 (101-112) mmol/L Chloride 105 (98-107) mmol/L Carbon Dioxide 25 (21-32) mmol/L POC Total CO2 23 L (24-31) mmol/L Anion Gap 8 (3-11) POC Anion Gap 19.0 (16-25) mmol/L POC BUN 12 (7-18) mg/dl BUN 12 (6-23) mg/dl Creatinine 1.06 (0.6-1.4) mg/dl POC Creatinine 1.1 (0.6-1.3) mg/dl Est Cr Clr Drug Dosing 66.9 ml/min eGFR 81.35 BUN/Creatinine Ratio 11.3 (10-20) Glucose 95 (70-99(Fasting)) mg/dl POC Glucose (other) 95 (70-99) mg/dl Calcium 9.1 (8.6-10.3) mg/dl POC Ioniz Calcium Greg 1.19 (1.12-1.32) mmol/l Magnesium 1.1 L (1.7-2.4) mg/dl Total Bilirubin 1.2 H (0.2-1.0) mg/dl AST 35 (13-39) U/L ALT 20 (7-52) U/L Alkaline Phosphatase 72 (34-104) U/L Total Creatine Kinase 127 (30-223) U/L Troponin I High Sens 8.3 Cancelled (0-20) pg/ml Total Protein 6.5 (6.0-8.3) gm/dl Albumin 3.6 (3.4-5.0) gm/dl Globulin 2.9 (2.5-4.0) gm/dl Albumin/Globulin Ratio 1.2 (0.9-2) TSH 1.588 (0.300-4.500) uIu/ml Urine Color Yellow Urine Appearance Clear (Clear) Urine pH 7.0 (4.5-7.5) Ur Specific Boaz 1.013 (1.000-1.030) Urine Protein Negative (Negative) Urine Glucose (UA) Negative (Negative) Urine Ketones Negative (Negative) Urine Blood Negative (Negative) Urine Nitrite Negative (Negative) Urine Bilirubin Negative (Negative) Urine Urobilinogen Negative (Negative) Ur Leukocyte Esterase Negative (Negative) Ethyl Alcohol mg/dL < 10.0 (<10.0) mg/dl Imaging Data Attestation: I personally reviewed and interpreted this imaging study as follows: Radiologist's Impression: Abdomen/Pelvis CT 01/12/24 00:08 Exam(s): CT ABDOMEN + PELVIS With Contrast IV Amt: 119 cc's optiray 320 EXAM: CT Abdomen and Pelvis With Intravenous Contrast CLINICAL HISTORY: Abdominal Pain. Patient has a history of prostate cancer TECHNIQUE: Axial computed tomography images of the abdomen and pelvis with intravenous contrast. CTDI is 20.3 mGy and DLP is 1233.51 mGy-cm. Automated exposure control was utilized for the study. A dose lowering technique was utilized adhering to the principles of ALARA. CONTRAST: Patient received 119 cc's optiray 320 of IV contrast COMPARISON: CT abdomen and pelvis 01/21/2023 FINDINGS: Lung bases: Unremarkable. No mass. No consolidation. ABDOMEN: Liver: Unremarkable. No mass. Gallbladder and bile ducts: Cholelithiasis. There is inflammatory stranding surrounding gallbladder. No ductal dilation. Pancreas: Unremarkable. No mass. No ductal dilation. Spleen: Nonspecific splenomegaly. The spleen measures 14.8 cm. Adrenals: Unremarkable. No mass. Kidneys and ureters: Unremarkable. No solid mass. No hydronephrosis. Stomach and bowel: Diverticulosis. No obstruction. No mucosal thickening. PELVIS: Appendix: No findings to suggest acute appendicitis. Bladder: Thickening of the bladder wall is concerning for cystitis. Reproductive: Unremarkable as visualized. ABDOMEN and PELVIS: Intraperitoneal space: Unremarkable. No free air. No significant fluid collection. Bones/joints: There are degenerative changes of the spine. No acute fracture. No dislocation. Soft tissues: Small bilateral fat-containing inguinal hernias. Vasculature: Mild atherosclerosis. No abdominal aortic aneurysm. Lymph nodes: Unremarkable. No enlarged lymph nodes. IMPRESSION: 1. Cholelithiasis. There is inflammatory stranding surrounding gallbladder. This could represent acute cholecystitis consider further evaluation with gallbladder ultrasound. 2. Thickening of the bladder wall is concerning for cystitis. 3. Nonspecific splenomegaly. 4. Diverticulosis. Electronically signed by: Florence Escalera MD 01/12/24 02:37 AM Chest CTA 01/12/24 00:08 Exam(s): CTA CHEST IV Amt: 119 cc's optiray 320 EXAM: CT Angiography Chest With Intravenous Contrast CLINICAL HISTORY: Pulmonary embolus. TECHNIQUE: Axial computed tomographic angiography images of the chest with intravenous contrast. MIPS images were created and reviewed. CTDI is 20. 3 mGy and DLP is 1233.51 mGy-cm. Automated exposure control was utilized for the study. A dose lowering technique was utilized adhering to the principles of ALARA. MIP reconstructed images were created and reviewed. COMPARISON: CT chest 10/07/2023 FINDINGS: Pulmonary arteries: Unremarkable. No pulmonary embolus. Aorta: Minimal atherosclerosis. No thoracic aortic aneurysm. Lungs: Unremarkable. No mass. No consolidation. Pleural space: Unremarkable. No significant effusion. No pneumothorax. Heart: Unremarkable. No cardiomegaly. No significant pericardial effusion. No evidence of RV dysfunction. Bones/joints: There are degenerative changes of the spine. No acute fracture. Soft tissues: Unremarkable. Lymph nodes: Unremarkable. No enlarged lymph nodes. Gallbladder and bile ducts: Incidentally noted cholelithiasis. IMPRESSION: 1. No pulmonary embolus. 2. Incidentally noted cholelithiasis. Electronically signed by: Florence Escalera MD 01/12/24 02:35 AM MDM Narrative Prior records/ancillary studies reviewed and summarized above. Nursing notes reviewed. Additional history obtained from EMS. The patient's history was concerning for chest pain, dyspnea, abdominal pain and right thigh pain and a prostate cancer patient with a history of cirrhosis and alcoholism. Differential diagnosis: Etiologies such as progression of prostate cancer, PE, DVT, metabolic, infection, hypo/hyperglycemia, electrolyte abnormalities, cardiac sources, intracerebral event, toxicologic, neurologic, as well as others were entertained. Physical examination: As above. ER treatment provided: IV Lock An order was placed for continuous cardiac monitoring. The monitor shows a rate of 60-100 with a sinus rhythm per my interpretation. Magnesium x 4 bags, potassium p.o. On reassessment the patient felt better. Diagnostics interpretation by me: ECG: Ordered for chest pain EKG: Normal sinus, normal intervals, no acute ST-T wave changes. Impression normal sinus rhythm independently interpreted by myself The labs Independently Interpreted by myself revealed low magnesium and potassium this was replaced Mild anemia, negative troponin Imaging studies: Chest x-ray with no acute consolidation, pneumothorax or free air per my independent interpretation CTs reviewed and read by radiology as above HEART SCORE: Hx: high/mod/low suspicion: 0 ECG: ST depression/nonspecific changes/normal: 0 Age: Greater than 65/45-64/less than 45: 1 Risk factors: (Hypertension, hyperlipidemia, diabetes, coronary disease, tobacco use, cocaine use): 1 Troponin: Greater than 2 times normal limits/1-2 times normal limits/normal: 0 Total: 2 Consultation: A consultation was placed with the hospitalist. The case was discussed and diagnostics were reviewed. The patient was evaluated in the ER for further treatment. Exam and history seem consistent with low magnesium and potassium. This was replaced. Magnesium was quite low. Scans are negative. Heart score is low. Nonischemic EKG. Medicine was consulted and the case is discussed. He will be admitted to the medical service. QTc was not prolonged. Scans are negative. Patient is agreeable treatment plan of admission. By the evaluation outlined above emergent etiologies such as infection, cardiac sources, intracerebral event, toxologic, neurologic, abnormalities blood glucose, metabolic, as well as others were deemed relatively unlikely. The pt informed about the findings as listed above. All questions were answered and pleased with the treatment. The chart was completed utilizing Pivot3 voice recognition software. Grammatical errors, random word insertions, pronoun errors, and incomplete sentences are an occassional consequence of this system due to software limitations, ambient noise, and hardware issues. Any formal questions or concerns about the content, text, or information contained within the body of this dictation should be directly addressed to the physician assistant press operator for clarification. Impression & Plan Hypomagnesemia, Abdominal pain, Chest pain Discharge Plan Visit Data Chief Complaint: Abdominal Pain Stated Complaint: STOMACH "TIGHTNESS" ED Provider: Valeria Miller ED Midlevel Provider: Margarita Danielle Discharge Problem: Hypomagnesemia, Abdominal pain, Chest pain Patient Disposition: Admitted As Inpatient Condition: Good Forms Stand Alone Forms: [facility] [employer] Prescriptions Prescriptions: No Action Eligard 7.5 mg (1 month) syringe 7.5 mg subcut ONCE Qty: 1 0RF Rx Instructions: ICD: C61 Patient scheduled 10/16/23 Potassium PO DAILY famotidine 40 mg tablet 40 mg PO QAM Qty: 90 0RF folic acid 1 mg tablet 1 mg PO QAM Qty: 90 0RF Rx Instructions: TAKE 1 TAB BY MOUTH EVERY MORNING thiamine HCl (vitamin B1) 100 mg tablet 100 mg PO QAM Qty: 90 0RF escitalopram oxalate 10 mg tablet 10 mg PO DAILY Qty: 30 0RF buspirone 10 mg tablet 10 mg PO BID Qty: 60 0RF magnesium oxide 400 mg (241.3 mg magnesium) tablet 400 mg PO TID Qty: 90 0RF potassium chloride 20 mEq tablet extended release 20 meq PO QAM Qty: 30 0RF fluticasone propionate [Flonase Allergy Relief] 50 mcg/actuation spray,suspension 2 spray intranasal DAILY Rx Instructions: administer into each nostril Referrals Referrals: Valdemar Santo DO [Primary Care Provider] -
[2024-01-12 00:41] LABS: Appearance Urine Clear (Clear); Bilirubin Urine Negative (Negative); Blood Urine Negative (Negative); Color Urine Yellow; Glucose Urine UA Negative (Negative); Ketones Urine Negative (Negative); Leukocyte Esterase Urine Negative (Negative); Nitrite Urine Negative (Negative); Protein Urine Negative (Negative); Specific Gravity Urine 1.013 (1.000-1.030); Urobilinogen Urine Negative (Negative)
[2024-01-12 00:48] LABS: Basophils # (auto) 0.08 K/uL (0.00-0.20); Basophils % (auto) 1.5 %; Eosinophils # (auto) 0.32 K/uL (0.00-0.50); Eosinophils % (auto) 6.2 %; Hematocrit (blood only) 32.4 % (42.0-52.0); Hemoglobin 10.9 g/dl (14.0-18.0); Lymphocytes # (auto) 1.42 K/uL (1.20-3.40); Lymphocytes % (auto) 27.3 %; Mean Corpuscular Hemoglobin 31.4 pg (25.0-34.0); Mean Corpuscular Hgb Conc 33.6 g/dL (32.0-36.0); Mean Corpuscular Volume 93.4 fL (80.0-100.0); Mean Platelet Volume 10.1 fL (9.4-12.4); Monocytes # (auto) 0.51 K/uL (0.11-0.59); Monocytes % (auto) 9.8 %; Neutrophils # (auto) 2.87 K/uL (1.40-6.50); Neutrophils % (auto) 55.2 %; Platelet Count 113 K/uL (130-400); RDW Coefficient of Variation 13.5 % (11.5-14.5); RDW Standard Deviation 46.5 fL (36.4-46.3); Red Blood Count 3.47 M/uL (4.70-6.10)
[2024-01-12 00:48] LABS: iSTAT Creatinine 1.1 mg/dl (0.6-1.3); iSTAT Hemoglobin 10.9 g/dl (14.0-18.0); iSTAT Ionized Calcium 1.19 mmol/l (1.12-1.32); iSTAT Potassium 3.5 mmol/L (3.3-5.0)
[2024-01-12] MEDS: OPTIRAY 320 125ml IV ONE (01:00)
[2024-01-12 01:02] LABS: Albumin Globulin Ratio 1.2 (0.9-2); Albumin Level 3.6 gm/dl (3.4-5.0); BUN Creatinine Ratio 11.3 (10-20); Bilirubin,Total 1.2 mg/dl (0.2-1.0); Calcium 9.1 mg/dl (8.6-10.3); Creatinine Clr Calc Pharmacy 66.9 ml/min; Globulin 2.9 gm/dl (2.5-4.0); Magnesium 1.1 mg/dl (1.7-2.4); Potassium 3.4 mmol/L (3.5-5.1); Total Protein 6.5 gm/dl (6.0-8.3)
[2024-01-12 01:09] LABS: Troponin I High Sensitivity 8.3 pg/ml (0-20)
[2024-01-12 01:12] LABS: INR 1.2 (0.9-1.1); Partial Thromboplastin Time 26 Seconds (21-31); Prothrombin Time 13.2 Seconds (9.0-12.0)
[2024-01-12 01:18] LABS: Thyroid Stimulating Hormone 1.588 uIu/ml (0.300-4.500)
[2024-01-12] MEDS: POTASSIUM CHLORIDE CRTAB 20 MEQ TABCR PO STA (01:31)
[2024-01-12] MEDS: MAGNESIUM SULFATE / D5W 1 GM/100 ML BAG IV SCH ×2 (01:33→04:02)
--- NOTE | 2024-01-12 02:36 | CT Scan Report ---
Exam(s): CTA CHEST IV Amt: 119 cc's optiray 320 EXAM: CT Angiography Chest With Intravenous Contrast CLINICAL HISTORY: Pulmonary embolus. TECHNIQUE: Axial computed tomographic angiography images of the chest with intravenous contrast. MIPS images were created and reviewed. CTDI is 20. 3 mGy and DLP is 1233.51 mGy-cm. Automated exposure control was utilized for the study. A dose lowering technique was utilized adhering to the principles of ALARA. MIP reconstructed images were created and reviewed. COMPARISON: CT chest 10/07/2023 FINDINGS: Pulmonary arteries: Unremarkable. No pulmonary embolus. Aorta: Minimal atherosclerosis. No thoracic aortic aneurysm. Lungs: Unremarkable. No mass. No consolidation. Pleural space: Unremarkable. No significant effusion. No pneumothorax. Heart: Unremarkable. No cardiomegaly. No significant pericardial effusion. No evidence of RV dysfunction. Bones/joints: There are degenerative changes of the spine. No acute fracture. Soft tissues: Unremarkable. Lymph nodes: Unremarkable. No enlarged lymph nodes. Gallbladder and bile ducts: Incidentally noted cholelithiasis. IMPRESSION: 1. No pulmonary embolus. 2. Incidentally noted cholelithiasis. Electronically signed by: Florence Escalera MD 01/12/24 02:35 AM
--- NOTE | 2024-01-12 02:38 | CT Scan Report ---
Exam(s): CT ABDOMEN + PELVIS With Contrast IV Amt: 119 cc's optiray 320 EXAM: CT Abdomen and Pelvis With Intravenous Contrast CLINICAL HISTORY: Abdominal Pain. Patient has a history of prostate cancer TECHNIQUE: Axial computed tomography images of the abdomen and pelvis with intravenous contrast. CTDI is 20.3 mGy and DLP is 1233.51 mGy-cm. Automated exposure control was utilized for the study. A dose lowering technique was utilized adhering to the principles of ALARA. CONTRAST: Patient received 119 cc's optiray 320 of IV contrast COMPARISON: CT abdomen and pelvis 01/21/2023 FINDINGS: Lung bases: Unremarkable. No mass. No consolidation. ABDOMEN: Liver: Unremarkable. No mass. Gallbladder and bile ducts: Cholelithiasis. There is inflammatory stranding surrounding gallbladder. No ductal dilation. Pancreas: Unremarkable. No mass. No ductal dilation. Spleen: Nonspecific splenomegaly. The spleen measures 14.8 cm. Adrenals: Unremarkable. No mass. Kidneys and ureters: Unremarkable. No solid mass. No hydronephrosis. Stomach and bowel: Diverticulosis. No obstruction. No mucosal thickening. PELVIS: Appendix: No findings to suggest acute appendicitis. Bladder: Thickening of the bladder wall is concerning for cystitis. Reproductive: Unremarkable as visualized. ABDOMEN and PELVIS: Intraperitoneal space: Unremarkable. No free air. No significant fluid collection. Bones/joints: There are degenerative changes of the spine. No acute fracture. No dislocation. Soft tissues: Small bilateral fat-containing inguinal hernias. Vasculature: Mild atherosclerosis. No abdominal aortic aneurysm. Lymph nodes: Unremarkable. No enlarged lymph nodes. IMPRESSION: 1. Cholelithiasis. There is inflammatory stranding surrounding gallbladder. This could represent acute cholecystitis consider further evaluation with gallbladder ultrasound. 2. Thickening of the bladder wall is concerning for cystitis. 3. Nonspecific splenomegaly. 4. Diverticulosis. Electronically signed by: Florence Escalera MD 01/12/24 02:37 AM
--- NOTE | 2024-01-12 04:00 | History & Physical Report ---
Date of Service January 12, 2024 Assessment & Plan (1) Polymyalgia: (2) Chest pain: (3) Abdominal pain: (4) Prostate cancer: (5) Hypomagnesemia: (6) Cirrhosis: (7) Esophageal varices: (8) Thrombocytopenia: (9) Anxiety and depression: Plan Multiple myalgias and arthralgias/chest pain/abdominal pain- Symptoms all began shortly after receiving his first injection of leuprolide earlier this week Acetaminophen 650 mg by mouth every 6 hours as needed for mild pain or fever Tramadol 50 mg by mouth every 4 hours as needed for moderate to severe pain Unable to use NSAIDs due to thrombocytopenia Chest pain- Initial troponin is normal at 8.3 The patient will be admitted to telemetry for serial cardiac enzymes, serialEKGs, cardiac rhythm monitoring Will recheck troponin with follow-up BMP and magnesium levels later on in the morning Unlikely cardiac cause, more likely associated with above prostate cancer treatment Electrolytes disturbances/hypomagnesemia/hypokalemia- Magnesium 1.1 and potassium 3.4 on admission Patient received 4 g of magnesium sulfate IV and Klor-Con 40 mill equivalents p.o. ordered by the ED Repeat laboratories at about 11 AM this morning He has not been taking his magnesium oxide or potassium chloride Anxiety and depression- Resume buspirone, and escitalopram History of alcohol abuse- Patient reports not having any alcohol intake since his last admission here Alcohol level is less than 10 Thiamine 100 mg p.o. every morning Folic acid 1 mg p.o. every morning No need for AWSS protocol Disposition- Patient living in a homeless senior living, after being evicted from his previous living quarters, and reports that he needs to be back at the senior living by the evening of 01/12, or, he will lose his place there Have discussed the case with case management, to coordinate with neonatal social worker History of Present Illness Chief Complaint: The patient presents to the emergency department with complaint of left chest wall pain, right shoulder pain, right thigh pain and shortness of breath over the past few days. Upon questioning, he reports that he has been on most of his medications over the past 4 weeks, due to being kicked out of his house, but he did start leuprolide injections for prostate cancer a few days ago. Primary Care Provider: Valdemar Santo DO The patient is a 58-year-old male with a past medical history including alcohol abuse, alcohol withdrawal, anxiety, GERD, homelessness, prostate cancer, B12 deficiency, cirrhosis, esophageal varices, RENÉE, tubular adenoma, urinary urgency, hypomagnesemia, thrombocytopenia, and vitamin D deficiency. He presents to the emergency department with multiple musculoskeletal complaints as above, and has been without all his medications for at least 4 weeks. Allergies Allergy/AdvReac Type Severity Reaction Status Date / Time No Known Allergies Allergy Verified 01/07/24 13:25 Home Medications Medication Instructions Recorded Confirmed Type leuprolide 7.5 mg (1 month) 7.5 mg subcut ONCE Prostate Cancer 10/07/23 01/07/24 Rx subcutaneous syringe (Eligard) #1 ea fluticasone propionate 50 2 spray intranasal DAILY 01/06/24 01/07/24 History mcg/actuation nasal spray,suspension (Flonase Allergy Relief) Potassium PO DAILY 01/07/24 01/07/24 History buspirone 10 mg tablet 10 mg PO BID #60 tabs 01/07/24 01/07/24 Rx escitalopram oxalate 10 mg tablet 10 mg PO DAILY #30 tabs 01/07/24 01/07/24 Rx famotidine 40 mg tablet 40 mg PO QAM #90 tabs 01/07/24 01/07/24 Rx folic acid 1 mg tablet 1 mg PO QAM #90 tabs 01/07/24 01/07/24 Rx magnesium oxide 400 mg (241.3 mg 400 mg PO TID #90 tabs 01/07/24 01/07/24 Rx magnesium) tablet potassium chloride 20 mEq 20 meq PO QAM #30 tabs 01/07/24 01/07/24 Rx tablet,extended release thiamine HCl (vitamin B1) 100 mg 100 mg PO QAM #90 tabs 01/07/24 01/07/24 Rx tablet Past Med/Surg History Problem List (Updated 01/12/24 @ 04:15 by Emory Kaur MD) Anxiety and depression Thrombocytopenia (07/06/20) Cirrhosis vs. Folate deficiency vs. EtOH marrow suppression Polymyalgia Chest pain (Acute) Abdominal pain (Acute) Hypomagnesemia (Acute) Alcohol withdrawal (Acute) Anemia (Acute) Hypomagnesemia (Acute) Abnormal CT scan, chest Homeless Pneumonia (Acute) Prostate cancer (Chronic 06/27/23) B12 deficiency Alcohol use disorder, severe, dependence Cirrhosis Esophageal varices Elevated PSA, less than 10 ng/ml (07/11/20) Urology referral placed. Obstructive sleep apnea Tubular adenoma Urinary urgency Vitamin D deficiency (07/11/20) Medical History Acute alcohol intoxication Acute encephalopathy Septic shock Aspiration pneumonitis ARDS (adult respiratory distress syndrome) Hypokalemia Acute alteration in mental status Hypomagnesemia Alcohol overdose Thrombocytopenia (07/06/20) Gastritis Elevated ferritin (07/11/20) Cirrhosis History of COVID-19 Back problem Hx of esophageal reflux History of skin cancer Anxiety and depression Varicose veins of both lower extremities Sleep apnea Asthma Hepatic steatosis (07/15/20) Not immune to hepatitis B virus Hepatitis A vaccination not up to date Surgical History History of tonsillectomy History of colonoscopy Hx of wisdom tooth extraction Family History Mother Breast cancer Father Diabetes Colorectal cancer Stroke Brother Prostate cancer Heart disease Colorectal cancer Other Unknown family medical history Denies family history of Ovarian cancer Coronary heart disease Myocardial infarction Congenital kidney disease Lung cancer Cystic kidney disease Social History (Updated 01/07/24 @ 13:32 by Mirna Jones LPN) Smoking Status: Unknown if ever smoked Second Hand Exposure: Yes; Do You Dip or Chew Tobacco: No; Hx Alcohol Use: No Hx Substance Use: No Preferred Language: Danish Communication Ability: Effective Visual Impairment: Limited Hearing Ability: Normal Dairy Nutrition Consultant Required: No Beliefs That Will Affect Care: None marital status: Current Living Situation: Alone current occupational status: retired How many Children do You have: 2 Feels Safe at Home: Declines to Answer Safety Concerns Comment: pt is currently homeless Childhood Exposure to Second-Hand Smoke: Yes Diet: regular caffeine: Yes Dental Care, Regularly: Yes Seatbelt Use: other Sunscreen Use: No Assistive Devices: Cane, CPAP, Crutches and Glasses Review of Systems Review of Systems: The patient denies palpitations, cough, lower extremity swelling, sore throat, fevers, chills, sweats, nausea, vomiting, diarrhea , constipation, blood in urine or stool, dysuria, urinary frequency or urgency, lightheadedness, dizziness, headache, memory loss, loss of consciousness, rash, abnormal bruising or bleeding, imbalance, focal weakness, numbness or tingling in arms or legs, back or neck pain, or night sweats. The review of systems is otherwise negative other than for that already noted above, and at least 10 systems have been reviewed. Physical Exam Physical Exam: The patient is awake, alert and oriented 3, well developed and well nourished, normocephalic and atraumatic, lying in bed and in no acute distress. HEENT--PERRL, EOMI, mucous membranes and oropharynx normal Neck--supple.No JVD. No bruits. Thyroid normal, trachea midline, no adenopathy. Heart--normal S1 and S2.No murmurs, rubs or gallops. Lungs--clear bilaterally, no respiratory distress, no accessory muscle use. Abdomen--normal bowel sounds and soft. Nontender. Nondistended, no hernias or masses,no organomegaly. Extremities--no cyanosis or clubbing. No edema. There are good distal pulses b/l. Dermatologic--normal skin turgor, normal color, no abnormal lymph nodes, no rash. Neurologic--cranial nerves II through XII grossly intact. Rheumatologic--normal range of motion. Psychiatric--normal affect. Results & Data Results & Data Vital Signs (Past 12 Hours) Vital Signs Temp Pulse Pulse Resp BP BP Pulse Ox 01/12/24 02:00 84 13 100/62 95 01/12/24 00:39 89 20 96 01/12/24 00:38 86 19 109/80 95 01/12/24 00:20 86 01/12/24 00:11 36.7 C 86 17 114/73 95 O2 Del Method 01/12/24 02:00 Room Air 01/12/24 00:39 Room Air 01/12/24 00:38 Room Air 01/12/24 00:20 01/12/24 00:11 Room Air Laboratory Results Laboratory Results WBC 5.20 K/ul (4.8-10.8) 01/12/24 00:28 RBC 3.47 M/uL (4.70-6.10) L 01/12/24 00:28 Hgb 10.9 g/dl (14.0-18.0) L 01/12/24 00:28 POC Hgb 10.9 g/dl (14.0-18.0) L 01/12/24 00:35 Hct 32.4 % (42.0-52.0) L 01/12/24 00: POC Hct 32 % (42-52) L 01/12/24: MCV 93.4 fL (80.0-100.0) 01/12/24: MCH 31.4 pg (25.0-34.0) 01/12/24: MCHC 33.6 g/dL (32.0-36.0) 01/12/24: RDW Std Deviation 46.5 fL (36.4-46.3) H 01/12/24: RDW Coeff of Melissa 13.5 % (11.5-14.5) 01/12/24: Plt Count 113 K/uL (130-400) L 01/12/24: MPV 10.1 fL (9.4-12.4) 01/12/24: Immature Gran % (Auto) 0.0 % 01/12/24: Neut % (Auto) 55.2 % 01/12/24: Lymph % (Auto) 27.3 % 01/12/24: [place] % (Auto) 9.8 % 01/12/24: Eos % (Auto) 6.2 % 01/12/24: Baso % (Auto) 1.5 % 01/12/24: Neut # (Auto) 2.87 K/uL (1.40-6.50) 01/12/24: Lymph # (Auto) 1.42 K/uL (1.20-3.40) 01/12/24: [place] # (Auto) 0.51 K/uL (0.11-0.59) 01/12/24: Eos # (Auto) 0.32 K/uL (0.00-0.50) 01/12/24 00: Baso # (Auto) 0.08 K/uL (0.00-0.20) 01/12/24: Immature Gran # (Auto) 0.00 K/uL (0.01-0.20) L 01/12/24: PT 13.2 Seconds (9.0-12.0) H 01/12/24: INR 1.2 (0.9-1.1) H 01/12/24: APTT 26 Seconds (21-31) 01/12/24: PTT Ratio 1.0 01/12/24: POC Sodium 140 mmol/L (135-144) 01/12/24:35 Sodium 138 mmol/L (136-145) 01/12/24: POC Potassium 3.5 mmol/L (3.3-5.0) 01/12/24:35 Potassium 3.4 mmol/L (3.5-5.1) L 01/12/24: POC Chloride 103 mmol/L (101-112) 01/12/24:35 Chloride 105 mmol/L (98-107) 01/12/24: Carbon Dioxide 25 mmol/L (21-32) 01/12/24: POC Total CO2 23 mmol/L (24-31) L 01/12/24:35 Anion Gap 8 (3-11) 01/12/24: POC Anion Gap 19.0 mmol/L (16-25) 01/12/24:35 POC BUN 12 mg/dl (7-18) 01/12/24:35 BUN 12 mg/dl (6-23) 01/12/24: Creatinine 1.06 mg/dl (0.6-1.4) 01/12/24: POC Creatinine 1.1 mg/dl (0.6-1.3) 01/12/24 00:35 Est Cr Clr Drug Dosing 66.9 ml/min 01/12/24: eGFR 81.35 01/12/24: BUN/Creatinine Ratio 11.3 (10-20) 01/12/24:28 Glucose 95 mg/dl (70-99(Fasting)) 01/12/24: POC Glucose (other) 95 mg/dl (70-99) 01/12/24:35 Calcium 9.1 mg/dl (8.6-10.3) 01/12/24: POC Ioniz Calcium Greg 1.19 mmol/l (1.12-1.32) 01/12/24: Magnesium 1.1 mg/dl (1.7-2.4) L 01/12/24: Total Bilirubin 1.2 mg/dl (0.2-1.0) H 01/12/24: AST 35 U/L (13-39) 01/12/24: ALT 20 U/L (7-52) 01/12/24: Alkaline Phosphatase 72 U/L (34-104) 01/12/24: Total Creatine Kinase 127 U/L (30-223) 01/12/24: Troponin I High Sens 8.3 pg/ml (0-20) 01/12/24 Troponin I High Sens Cancelled 01/12/24: Total Protein 6.5 gm/dl (6.0-8.3) 01/12/24: Albumin 3.6 gm/dl (3.4-5.0) 01/12/24: Globulin 2.9 gm/dl (2.5-4.0) 01/12/24 Albumin/Globulin Ratio 1.2 (0.9-2) 01/12/24: TSH 1.588 uIu/ml (0.300-4.500) 01/12/24: Urine Color Yellow 01/12/24: Urine Appearance Clear (Clear) 01/12/24: Urine pH 7.0 (4.5-7.5) 01/12/24: Ur Specific Boyce 1.013 (1.000-1.030) 01/12/24: Urine Protein Negative (Negative) 01/12/24 Urine Glucose (UA) Negative (Negative) 01/12/24 Urine Ketones Negative (Negative) 01/12/24 Urine Blood Negative (Negative) 01/12/24: Urine Nitrite Negative (Negative) 01/12/24: Urine Bilirubin Negative (Negative) 01/12/24: Urine Urobilinogen Negative (Negative) 01/12/24: Ur Leukocyte Esterase Negative (Negative) 01/12/24: Ethyl Alcohol mg/dL < 10.0 mg/dl (<10.0) 01/12/24 00:28 Impressions Abdomen/Pelvis CT 01/12/24 00:08 Exam(s): CT ABDOMEN + PELVIS With Contrast IV Amt: 119 cc's optiray 320 EXAM: CT Abdomen and Pelvis With Intravenous Contrast CLINICAL HISTORY: Abdominal Pain. Patient has a history of prostate cancer TECHNIQUE: Axial computed tomography images of the abdomen and pelvis with intravenous contrast. CTDI is 20.3 mGy and DLP is 1233.51 mGy-cm. Automated exposure control was utilized for the study. A dose lowering technique was utilized adhering to the principles of ALARA. CONTRAST: Patient received 119 cc's optiray 320 of IV contrast COMPARISON: CT abdomen and pelvis 01/21/2023 FINDINGS: Lung bases: Unremarkable. No mass. No consolidation. ABDOMEN: Liver: Unremarkable. No mass. Gallbladder and bile ducts: Cholelithiasis. There is inflammatory stranding surrounding gallbladder. No ductal dilation. Pancreas: Unremarkable. No mass. No ductal dilation. Spleen: Nonspecific splenomegaly. The spleen measures 14.8 cm. Adrenals: Unremarkable. No mass. Kidneys and ureters: Unremarkable. No solid mass. No hydronephrosis. Stomach and bowel: Diverticulosis. No obstruction. No mucosal thickening. PELVIS: Appendix: No findings to suggest acute appendicitis. Bladder: Thickening of the bladder wall is concerning for cystitis. Reproductive: Unremarkable as visualized. ABDOMEN and PELVIS: Intraperitoneal space: Unremarkable. No free air. No significant fluid collection. Bones/joints: There are degenerative changes of the spine. No acute fracture. No dislocation. Soft tissues: Small bilateral fat-containing inguinal hernias. Vasculature: Mild atherosclerosis. No abdominal aortic aneurysm. Lymph nodes: Unremarkable. No enlarged lymph nodes. IMPRESSION: 1. Cholelithiasis. There is inflammatory stranding surrounding gallbladder. This could represent acute cholecystitis consider further evaluation with gallbladder ultrasound. 2. Thickening of the bladder wall is concerning for cystitis. 3. Nonspecific splenomegaly. 4. Diverticulosis. Electronically signed by: Florence Escalera MD 01/12/24 02:37 AM Chest CTA 01/12/24 00:08 Exam(s): CTA CHEST IV Amt: 119 cc's optiray 320 EXAM: CT Angiography Chest With Intravenous Contrast CLINICAL HISTORY: Pulmonary embolus. TECHNIQUE: Axial computed tomographic angiography images of the chest with intravenous contrast. MIPS images were created and reviewed. CTDI is 20. 3 mGy and DLP is 1233.51 mGy-cm. Automated exposure control was utilized for the study. A dose lowering technique was utilized adhering to the principles of ALARA. MIP reconstructed images were created and reviewed. COMPARISON: CT chest 10/07/2023 FINDINGS: Pulmonary arteries: Unremarkable. No pulmonary embolus. Aorta: Minimal atherosclerosis. No thoracic aortic aneurysm. Lungs: Unremarkable. No mass. No consolidation. Pleural space: Unremarkable. No significant effusion. No pneumothorax. Heart: Unremarkable. No cardiomegaly. No significant pericardial effusion. No evidence of RV dysfunction. Bones/joints: There are degenerative changes of the spine. No acute fracture. Soft tissues: Unremarkable. Lymph nodes: Unremarkable. No enlarged lymph nodes. Gallbladder and bile ducts: Incidentally noted cholelithiasis. IMPRESSION: 1. No pulmonary embolus. 2. Incidentally noted cholelithiasis. Electronically signed by: Florence Escalera MD 01/12/24 02:35 AM Code Status & VTE Plan Code Status Full code VTE Prophylaxis Plan VTE Prophylaxis will be ordered: Yes PG Care Time/CCT Total # of Minutes Spent Total Time Spent with Patient: Total time spent is greater than 50% in coordination of care (as documented) at patient's floor/unit and/or counseling patient: Coding Level of Care Code 44721 INT INP/OBS CARE 3/75MIN Diagnoses Polymyalgia M35.3 Chest pain R07.9 Abdominal pain R10.9 Prostate cancer C61 Hypomagnesemia E83.42 Cirrhosis K74.60 Esophageal varices I85.00 Thrombocytopenia D69.6 Anxiety and depression F41.9; F32.9
[2024-01-12] MEDS ORDERED: ACETAMINOPHEN 325 MG TAB PO PRN (05:20)
[2024-01-12] MEDS ORDERED: traMADol HCL 50 MG TABLET PO PRN (05:20)
[2024-01-12] MEDS: FOLIC ACID 1 MG TAB PO SCH (07:51)
[2024-01-12] MEDS: busPIRone 5 MG TAB PO SCH (07:51)
[2024-01-12] MEDS: ESCITALOPRAM OXALATE 10 MG TAB PO SCH (07:52)
[2024-01-12] MEDS: THIAMINE HCL 100 MG TAB PO SCH (07:52)
[2024-01-12] MEDS: FAMOTIDINE 40 MG TABLET PO SCH (07:52)
[2024-01-12] MEDS: MAGNESIUM OXIDE 400 MG TAB PO SCH (07:52)
--- NOTE | 2024-01-12 08:28 | XRay Report ---
XR chest 1V portable HISTORY: 58 years-old Male weakness acute weakness COMPARISON: CTA chest of same day TECHNIQUE: AP view of the chest FINDINGS: Heart size is normal. Lungs are clear. No pneumothorax or pleural effusion. No acute fracture. Likely chronic superior elevation of the distal right clavicle. IMPRESSION: No acute process. ACT 112: Negative or not required by law. The above report was generated using voice recognition software. It may contain grammatical, syntax o r spelling errors. Electronically signed by: Zachery Dsouza M.D. 01/12/2024 8:27 AM
[2024-01-12] MEDS: POTASSIUM CHLORIDE CRTAB 20 MEQ TABCR PO SCH (08:47)
[2024-01-12 11:48] LABS: BUN Creatinine Ratio 9.4 (10-20); Calcium 8.7 mg/dl (8.6-10.3); Creatinine Clr Calc Pharmacy 80.3 ml/min; Magnesium 1.8 mg/dl (1.7-2.4); Potassium 3.7 mmol/L (3.5-5.1)
[2024-01-12 11:55] LABS: Troponin I High Sensitivity 6.5 pg/ml (0-20)
--- NOTE | 2024-01-12 12:32 | Electrocardiogram Report ---
Test Reason : Blood Pressure : */* mmHG Vent. Rate : 82 BPM Atrial Rate : 82 BPM P-R Int : 132 ms QRS Dur : 76 ms QT Int : 370 ms P-R-T Axes : 43 5 46 degrees QTcB Int : 432 ms Normal sinus rhythm Normal ECG When compared with ECG of 07-Oct-2023 17:07, No significant change was found Confirmed by Levy Benton ([id number]) on 01/12/2024 12:32:02 PM Referred By: REFERRED SELF Confirmed By: Levy Benton
--- NOTE | 2024-01-12 15:43 | Communication Note ---
Date of Service: January 12, 2024 Please refer to the H&P dictated earlier this morning for details of presentation on admission. The patient was seen and examined at 10:25 AM. He presented with multiple musculoskeletal complaints. He was noted to have electrolyte imbalances including hypomagnesemia and hypokalemia. He was admitted and was treated with electrolytes and analgesics. He states that he is feeling better. His electrolytes are improving. Troponins are negative. I plan to discharge him tomorrow
[2024-01-12] MEDS: FLUTICASONE PROPIONATE NA SPR 16 GM BTL SCH (21:02)
[2024-01-13 04:08] VITALS: RESP 20
[2024-01-13 07:47] VITALS: BP 99/50; TEMP 98.6; O2SAT 99
--- NOTE | 2024-01-13 10:57 | Discharge Summary ---
Date of Service January 13, 2024 Admission HPI Per Admitting Provider The patient is a 58-year-old male with a past medical history including alcohol abuse, alcohol withdrawal, anxiety, GERD, homelessness, prostate cancer, B12 deficiency, cirrhosis, esophageal varices, RENÉE, tubular adenoma, urinary urgency, hypomagnesemia, thrombocytopenia, and vitamin D deficiency. He presents to the emergency department with multiple musculoskeletal complaints as above, and has been without all his medications for at least 4 weeks. Admission Exam Per Admitting Provider The patient is awake, alert and oriented 3, well developed and well nourished, normocephalic and atraumatic, lying in bed and in no acute distress. HEENT--PERRL, EOMI, mucous membranes and oropharynx normal Neck--supple.No JVD. No bruits. Thyroid normal, trachea midline, no adenopathy. Heart--normal S1 and S2.No murmurs, rubs or gallops. Lungs--clear bilaterally, no respiratory distress, no accessory muscle use. Abdomen--normal bowel sounds and soft. Nontender. Nondistended, no hernias or masses,no organomegaly. Extremities--no cyanosis or clubbing. No edema. There are good distal pulses b/l. Dermatologic--normal skin turgor, normal color, no abnormal lymph nodes, no rash. Neurologic--cranial nerves II through XII grossly intact. Rheumatologic--normal range of motion. Psychiatric--normal affect. Principal Diagnosis Multiple myalgias and arthralgias related to starting Leuprolide Electrolyte imbalances including hypomagnesemia and hypokalemia Discharge Exam General: Awake, conversant Heart: S1, S2/regular rate and rhythm, no murmur rubs or gallops Lungs: Clear to auscultation bilaterally. Normal effort Abdomen: Soft/nontender/nondistended. No hepatosplenomegaly Extremities: No clubbing/cyanosis. No edema Behavior: Appropriate, cooperative Discharge Data Allergies Allergy/AdvReac Type Severity Reaction Status Date / Time No Known Allergies Allergy Verified 01/07/24 13:25 Consultations 01/12/24 03:12 ED Decision to Admit Stat Ordered Studies 01/12/24 00:08 CT Abd and Pelvis [CT abd pelvis IV con only] Stat CT angio chest PE protocol Stat Hospital Course (1) Polymyalgia: (2) Chest pain: (3) Abdominal pain: (4) Prostate cancer: (5) Hypomagnesemia: (6) Cirrhosis: (7) Esophageal varices: (8) Thrombocytopenia: (9) Anxiety and depression: Plan Multiple myalgias and arthralgias/chest pain/abdominal pain- Symptoms all began shortly after receiving his first injection of leuprolide earlier this week Acetaminophen 650 mg by mouth every 6 hours as needed for mild pain or fever Tramadol 50 mg by mouth every 4 hours as needed for moderate to severe pain Unable to use NSAIDs due to thrombocytopenia Aches and pains have subsided significantly Chest pain- Initial troponin is normal at 8.3 Repeat troponin was negative as well Unlikely cardiac cause, more likely associated with above prostate cancer treatment Electrolytes disturbances/hypomagnesemia/hypokalemia- Magnesium 1.1 and potassium 3.4 on admission Electrolytes have been replaced He has not been taking his magnesium oxide or potassium chloride Patient has been encouraged to take his home medications. Some of his home medications have been refilled Anxiety and depression- Resume buspirone, and escitalopram History of alcohol abuse- Patient reports not having any alcohol intake since his last admission here Alcohol level is less than 10 Thiamine 100 mg p.o. every morning Folic acid 1 mg p.o. every morning No need for AWSS protocol Discharge to home today Total Time Total Time Spent Total Time Spent (In Minutes): 35 Discharge Plan Discharge Items Patient Disposition: Home - Self-Care Reason For Visit: HYPOMAG,HYPOKALEMIA,PROSTATE CA NOW ON ELIGARD Discharge Diagnosis: Multiple myalgias and arthralgias related to starting Leuprolide Electrolyte imbalances including hypomagnesemia and hypokalemia Activity: Resume your previous activity Non-emergency contact: Primary Care Provider Call non-emergency contact if: you have any medication questions and your symptoms worsen Follow-up/Referrals: Valdemar Santo DO [Primary Care Provider] - 01/17/24 11:30 am Diet: Heart Healthy Addtl Attending Provider Instructions: Advised to follow-up with PCP in 1 week Advised to take medications regularly Pending Studies at Discharge: No Stand-Alone Forms: [facility] Medications and DC Order Prescriptions: Continued Eligard 7.5 mg (1 month) syringe 7.5 mg subcut ONCE Qty: 1 0RF Rx Instructions: ICD: C61 Patient scheduled 10/16/23 Potassium PO DAILY famotidine 40 mg tablet 40 mg PO QAM Qty: 90 0RF folic acid 1 mg tablet 1 mg PO QAM Qty: 90 0RF Rx Instructions: TAKE 1 TAB BY MOUTH EVERY MORNING thiamine HCl (vitamin B1) 100 mg tablet 100 mg PO QAM Qty: 90 0RF escitalopram oxalate 10 mg tablet 10 mg PO DAILY Qty: 30 0RF buspirone 10 mg tablet 10 mg PO BID Qty: 60 0RF potassium chloride 20 mEq tablet extended release 20 meq PO QAM Qty: 30 0RF fluticasone propionate [Flonase Allergy Relief] 50 mcg/actuation spray,suspension 2 spray intranasal DAILY Rx Instructions: administer into each nostril magnesium oxide 400 mg (241.3 mg magnesium) tablet 400 mg PO TID Qty: 90 0RF Discharge Orders: Discharge Order (Routine); Ordered 01/13/24 Ordered By: Cachorro Amos Admission Data Admit Date/Time: 01/12/24 03:59 Attending Provider: Cachorro Amos Admit Provider: Emory Kaur Primary Care Provider: Valdemar Santo Other Providers: Emory Kaur Other Interventions: Discharge Summary Assessment (RN) Last Done: 01/13/24 11:05
[2024-01-13 11:07] VITALS: PULSE 65
== END 2024-01-13 13:44 | disposition home or self-care (01) | DRG 313 ==
LOC: ED 00:03 → 2N 03:59 → SUATTDRO 03:59 → 2N 05:03

== ENCOUNTER 2024-06-12 04:13 | Inpatient (IN) ==
--- NOTE | 2024-06-12 04:22 | Emergency Department Note ---
History of Present Illness General Chief complaint: Abdominal Pain Stated complaint: Abdominal Pain Time Seen by Provider: 06/12/24 04:17 History of Present Illness Maximum Pain Intensity: 7 This 58-year-old male with history of alcoholism presents ER complaining of right upper quadrant pain. Patient states he had Thanksgiving dinner for his dinner tonight. Patient states he was told by his family doctor to come in when he has pain. Patient denies chest pain, dyspnea, fevers, vomiting, diarrhea. No alcohol use today. Home Medications Medication Instructions Recorded Confirmed Type fluticasone propionate 50 2 spray intranasal DAILY 01/06/24 06/12/24 History mcg/actuation nasal spray,suspension (Flonase Allergy Relief) naltrexone microspheres 380 mg 380 mg IM ONCE 01/15/24 06/12/24 History intramuscular suspension,extended release (Vivitrol) phenazopyridine 200 mg tablet 200 mg PO TID PRN pain #90 tabs 02/04/24 06/12/24 Rx (Pyridium) buspirone 10 mg tablet 15 mg PO BID 03/16/24 06/12/24 History albuterol sulfate 90 mcg/actuation 2 puff inhalation QID PRN 04/23/24 06/12/24 Rx aerosol inhaler shortness of breath or wheezing #6.7 grams celecoxib 200 mg capsule 200 mg PO UD 04/28/24 06/12/24 History lamotrigine 25 mg tablet 50 mg PO HS 04/28/24 06/12/24 History leuprolide 7.5 mg (1 month) 7.5 mg subcut ONCE Prostate Cancer 05/27/24 06/12/24 Rx [facility] #1 ea emtricitabine 200 mg-tenofovir 1 tab PO HS 06/12/24 06/12/24 History disoproxil fumarate 300 mg tablet escitalopram oxalate 10 mg tablet 10 mg PO HS 06/12/24 06/12/24 History famotidine 40 mg tablet 40 mg PO HS 06/12/24 06/12/24 History folic acid 1 mg tablet 1 mg PO HS 06/12/24 06/12/24 History magnesium oxide 400 mg (241.3 mg 400 mg PO BID 06/12/24 06/12/24 History magnesium) tablet potassium chloride 20 mEq 20 meq PO HS 06/12/24 06/12/24 History tablet,extended release tamsulosin 0.4 mg capsule 0.4 mg PO HS Frequency 06/12/24 06/12/24 History thiamine HCl (vitamin B1) 100 mg 100 mg PO HS 06/12/24 06/12/24 History tablet Allergies Allergy/AdvReac Type Severity Reaction Status Date / Time No Known Allergies Allergy Verified 04/28/24 07:53 Past Med/Surg History Problem List Abdominal pain, acute (Acute) Biliary colic (Acute) Cholelithiasis Alcohol use disorder Pancytopenia Thrombocytopenia (07/06/20) Cirrhosis vs. Folate deficiency vs. EtOH marrow suppression Cirrhosis Esophageal varices Prostate cancer (Chronic 06/27/23) Gait abnormality Anxiety and depression Polymyalgia Abnormal CT scan, chest B12 deficiency Obstructive sleep apnea Urinary urgency Vitamin D deficiency (07/11/20) Medical History Tubular adenoma Bilateral tinnitus Sensorineural hearing loss (SNHL) of both ears Alcohol use disorder, severe, dependence Acute alcohol intoxication Acute encephalopathy Septic shock Aspiration pneumonitis ARDS (adult respiratory distress syndrome) Acute alteration in mental status Hypomagnesemia Alcohol overdose Gastritis Elevated ferritin (07/11/20) HH genetic testing ordered. Cirrhosis Back problem "MESSED UP DISCS IN MY BACK" Hx of esophageal reflux History of skin cancer ON CHEEK--removed in office Varicose veins of both lower extremities Sleep apnea CPAP Asthma "MILD" NO INHALER Hepatic steatosis (07/15/20) On US 07/15/2020 Not immune to hepatitis B virus He's waiting to find a ride to get scheduled. Looking into local pharmacies. Hepatitis A vaccination not up to date He's waiting to find a ride to get scheduled. Looking into local pharmacies. Surgical History History of tonsillectomy History of colonoscopy 08/2020 repeat 3 yrs Hx of wisdom tooth extraction Family History Mother Breast cancer Father Diabetes Colorectal cancer Stroke Brother Prostate cancer Heart disease Colorectal cancer Other Unknown family medical history Denies family history of Ovarian cancer Coronary heart disease Myocardial infarction Congenital kidney disease Lung cancer Cystic kidney disease Social History Smoking Status: Never smoker Second Hand Exposure: No; Do You Dip or Chew Tobacco: No; Hx Alcohol Use: Yes Alcohol type: hard liquor Alcohol Intake Frequency: 4 or More x per/Week Hx Substance Use: No Preferred Language: Welsh Communication Ability: Effective Visual Impairment: Limited Hearing Ability: Normal Machine Operator Required: No Beliefs That Will Affect Care: None marital status: Current Living Situation: Alone Current Living Situation Comment: alone at home current occupational status: retired How many Children do You have: 2 Feels Safe at Home: Yes Safety Concerns: Feels Safe At This Time Safety Concerns Comment: pt is currently homeless Childhood Exposure to Second-Hand Smoke: Yes Diet: regular caffeine: Yes Dental Care, Regularly: Yes Seatbelt Use: other Sunscreen Use: No Assistive Devices: Crutches and Glasses Review of Systems A total of 10 systems reviewed and were otherwise negative Physical Exam Vital Signs Vital Signs - 24 hr 06/12/24 04:14 06/12/24 04:14 06/12/24 04:23 Temperature 37.1 C Temperature Source Oral Pulse Rate 87 Pulse Rate [Apical] Pulse Rhythm [Apical] Pulse Strength [Apical] Respiratory Rate 19 Respiratory Effort / Characteristics Non-Labored Respiratory Depth Normal Normal Respiratory Pattern Blood Pressure 111/69 Blood Pressure [Right Arm] Blood Pressure Mean 83 Blood Pressure Mean [Right Arm] Pulse Oximetry 94 93 Oxygen Delivery Method Room Air Room Air Oxygen Flow Rate Sepsis Recent Fever Within 48 Hours No Sepsis New/Unexplained Change in Mental Status No Sepsis Action Taken by Nursing No Action Required 06/12/24 04:26 06/12/24 05:56 06/12/24 06:36 Temperature Temperature Source Pulse Rate 85 Pulse Rate [Apical] 65 60 Pulse Rhythm [Apical] Regular Pulse Strength [Apical] Respiratory Rate 18 18 Respiratory Effort / Characteristics Respiratory Depth Normal Respiratory Pattern Blood Pressure Blood Pressure [Right Arm] 96/65 L 111/75 Blood Pressure Mean Blood Pressure Mean [Right Arm] 75 87 Pulse Oximetry 92 92 Oxygen Delivery Method Room Air Room Air Oxygen Flow Rate Sepsis Recent Fever Within 48 Hours Sepsis New/Unexplained Change in Mental Status Sepsis Action Taken by Nursing 06/12/24 07:00 06/12/24 07:03 06/12/24 08:00 Temperature Temperature Source Pulse Rate Pulse Rate [Apical] 53 L 62 Pulse Rhythm [Apical] Regular Regular Pulse Strength [Apical] Normal Respiratory Rate 16 18 Respiratory Effort / Characteristics Non-Labored Spontaneous Non-Labored Spontaneous Respiratory Depth Normal Normal Respiratory Pattern Regular Regular Blood Pressure Blood Pressure [Right Arm] 105/65 107/75 Blood Pressure Mean Blood Pressure Mean [Right Arm] 78 85 Pulse Oximetry 87 L 95 99 Oxygen Delivery Method Room Air Nasal Cannula Nasal Cannula Oxygen Flow Rate 2 2 Sepsis Recent Fever Within 48 Hours Sepsis New/Unexplained Change in Mental Status Sepsis Action Taken by Nursing 06/12/24 08:23 Temperature Temperature Source Pulse Rate 62 Pulse Rate [Apical] Pulse Rhythm [Apical] Pulse Strength [Apical] Respiratory Rate Respiratory Effort / Characteristics Respiratory Depth Respiratory Pattern Blood Pressure Blood Pressure [Right Arm] Blood Pressure Mean Blood Pressure Mean [Right Arm] Pulse Oximetry Oxygen Delivery Method Oxygen Flow Rate Sepsis Recent Fever Within 48 Hours Sepsis New/Unexplained Change in Mental Status Sepsis Action Taken by Nursing VITALS: Vitals are noted on the nurse's note and reviewed by myself. Vital signs stable. GENERAL: Pleasant gentleman, in no acute distress, nondiaphoretic, well- developed well-nourished. SKIN: Capillary reflex less than 2 seconds. HEENT: Normocephalic. PERRLA. EOMI. Nares patent. Mucous membranes moist. Neck is supple without nuchal rigidity. HEART: Regular rate and rhythm LUNGS: Clear to auscultation bilaterally without wheezes, rales or rhonchi. No retractions or accessory muscle use. ABDOMEN: Positive bowel sounds x 4. Normal tympanic percussion. Soft, tender right upper quadrant, without masses or organomegaly. No guarding or rebound tenderness. no CVA tenderness MUSCULOSKELETAL: No gross musculoskeletal defects. NEURO: Patient was alert and oriented to person place and time. No focal neurological deficits. Course Administered Medications Buspirone HCl (Buspirone 15 Mg Tab) 15 mg PO BID [facility] Stop: 07/12/24 12:51 Last Admin: 06/12/24 20:06 Dose: 15 mg Documented By: Admin: 06/12/24 14:17 Dose: 15 mg Documented By: MARIA C Emtricitabine/Tenofovir (Emtricitabine/Tenofovir Tab) 1 tab PO [facility]; Protocol Stop: 07/12/24 20:59 Last Admin: 06/12/24 20:06 Dose: 1 tab Documented By: DEMETRIO Escitalopram Oxalate (Escitalopram Oxalate 10 Mg Tab) 10 mg PO [facility] Stop: 07/12/24 20:59 Last Admin: 06/12/24 20:06 Dose: 10 mg Documented By: ANS Famotidine (Famotidine 40 Mg Tablet) 40 mg PO HS [facility] Stop: 07/12/24 20:59 Last Admin: 06/12/24 20:05 Dose: 40 mg Documented By: ANS Fluticasone Propionate (Fluticasone Propionate Na Spr 16 Gm Btl) 2 sprays NA DAILY JORGE L Stop: 07/12/24 12:59 Last Admin: 06/12/24 14:17 Dose: 2 sprays Documented By: RRMunira Lamotrigine (Lamotrigine 25 Mg Tab) 50 mg PO [facility]; Protocol Stop: 07/12/24 20:59 Last Admin: 06/12/24 20:05 Dose: 50 mg Documented By: DEMETRIO Magnesium Oxide (Magnesium Oxide 400 Mg Tab) 400 mg PO BID [facility] Stop: 07/12/24 12:59 Last Admin: 06/12/24 20:05 Dose: 400 mg Documented By: Admin: 06/12/24 14:17 Dose: 400 mg Documented By: RRD Morphine Sulfate (Morphine Sulfate 4 Mg/Ml 1 Ml Carp\\Vial) 4 mg IV Q4H PRN PRN Reason: Severe Pain (7,8,9,10) on NRS Stop: 06/26/24 08:05 Last Admin: 06/12/24 20:02 Dose: 4 mg Documented By: Admin: 06/12/24 14:26 Dose: 4 mg Documented By: RRD Potassium Chloride (Potassium Chloride Crtab 20 Meq Tabcr) 20 meq PO [facility] Stop: 07/12/24 20:59 Last Admin: 06/12/24 20:02 Dose: 20 meq Documented By: DEMETRIO Tamsulosin HCl (Tamsulosin Hcl 0.4 Mg Cap) 0.4 mg PO QDD JORGE L Stop: 07/12/24 16:29 Last Admin: 06/12/24 16:54 Dose: 0.4 mg Documented By: RRD Discontinued Medications Famotidine (Pepcid 20mg Iv Push) 20 mg in 5 mls @ 2.5 mls/min IV NOW STA Stop: 06/12/24 04:18 Last Admin: 06/12/24 04:28 Dose: 2.5 mls/min Documented By: HARPREET Ioversol (Optiray 320 100ml) 93 ml IV ONCE ONE Stop: 06/12/24 09:12 Last Admin: 06/12/24 09:11 Dose: 93 ml Documented By: SARA Ondansetron HCl (Ondansetron Inj 2 Mg/Ml 2 Ml Vial) 4 mg IV NOW STA Stop: 06/12/24 04:18 Last Admin: 06/12/24 04:28 Dose: 4 mg Documented By: HARPREET Medical Decision Making Medical Records Attestation: I reviewed the patient's medical records. Home Medications Current Medication List: was personally reviewed by me Laboratory Data Attestation: I reviewed the patient's lab results. 06/12/24 04:25 06/12/24 04:25 Lab Results 06/12/24 06/12/24 06/12/24 Range/Units 04:24 04:25 08:42 WBC 3.96 L (4.8-10.8) K/ul RBC 3.25 L (4.70-6.10) M/uL Hgb 10.9 L (14.0-18.0) g/dl Hct 31.2 L (42.0-52.0) % MCV 96.0 (80.0-100.0) fL MCH 33.5 (25.0-34.0) pg MCHC 34.9 (32.0-36.0) g/dL RDW Std Deviation 50.1 H (36.4-46.3) fL RDW Coeff of Melissa 14.2 (11.5-14.5) % Plt Count 91 L (130-400) K/uL MPV 9.9 (9.4-12.4) fL Immature Gran % (Auto) 0.0 % Neut % (Auto) 52.6 % Lymph % (Auto) 29.3 % [place] % (Auto) 8.3 % Eos % (Auto) 8.8 % Baso % (Auto) 1.0 % Neut # (Auto) 2.08 (1.40-6.50) K/uL Lymph # (Auto) 1.16 L (1.20-3.40) K/uL [place] # (Auto) 0.33 (0.11-0.59) K/uL Eos # (Auto) 0.35 (0.00-0.50) K/uL Baso # (Auto) 0.04 (0.00-0.20) K/uL Immature Gran # (Auto) 0.00 L (0.01-0.20) K/uL PT 12.2 H (9.0-12.0) Seconds INR 1.1 (0.9-1.1) Sodium 142 (136-145) mmol/L Potassium 3.8 (3.5-5.1) mmol/L Chloride 110 H (98-107) mmol/L Carbon Dioxide 25 (21-32) mmol/L Anion Gap 7 (3-11) BUN 17 (6-23) mg/dl Creatinine 1.09 (0.6-1.4) mg/dl Est Cr Clr Drug Dosing 66.7 ml/min eGFR 78.67 BUN/Creatinine Ratio 15.6 (10-20) Glucose 140 H (70-99(Fasting)) mg/dl Calcium 8.9 (8.6-10.3) mg/dl Magnesium 1.4 L (1.7-2.4) mg/dl Total Bilirubin 0.6 (0.2-1.0) mg/dl Direct Bilirubin 0.1 (0-0.2) mg/dl AST 25 (13-39) U/L ALT 13 (7-52) U/L Alkaline Phosphatase 101 (34-104) U/L Troponin I High Sens < 2.3 (0-20) pg/ml Total Protein 6.3 (6.0-8.3) gm/dl Albumin 3.6 (3.4-5.0) gm/dl Globulin 2.7 (2.5-4.0) gm/dl Albumin/Globulin Ratio 1.3 (0.9-2) Lipase 39 (11-82) U/L Prostate Specific Ag 0.008 (0-4) ng/ml Free PSA 0.01 (0-2.0) ng/ml % Free PSA 125.0 % Urine Color Yellow Urine Appearance Clear (Clear) Urine pH 6.0 (4.5-7.5) Ur Specific [place] 1.022 (1.000-1.030) Urine Protein Negative (Negative) Urine Glucose (UA) Negative (Negative) Urine Ketones Negative (Negative) Urine Blood Negative (Negative) Urine Nitrite Negative (Negative) Urine Bilirubin Negative (Negative) Urine Urobilinogen Negative (Negative) Ur Leukocyte Esterase Negative (Negative) Ethyl Alcohol mg/dL < 10.0 (<10.0) mg/dl Imaging Data Attestation: I personally reviewed and interpreted this imaging study as follows: Radiologist's Impression: Gallbladder Ultrasound 06/12/24 04:17 EXAM: US gallbladder CLINICAL HISTORY: ruq pain. PRIOR 05/11/2024 TECHNIQUE: Static ultrasound images with Grayscale and Doppler of the right upper quadrant were submitted for review. COMPARISON: [facility], 05/11/2024 07:11:44 ORTHOPEDIC NURSE PRACTITIONER FINDINGS: The liver is normal in size with heterogeneous echogenicity and nodular outline . No focal masses or intrahepatic biliary dilatation. Mild perihepatic fluid seen. The common bile duct within normal limits. The gallbladder shows few echogenic calculi within lumen. Diffuse echogenic wall thickening is seen. The pancreas is within normal limits. The aorta is normal in caliber. The right kidney is normal in size and echogenicity without evidence of hydronephrosis, nephrolithiasis or focal mass lesions. IMPRESSION: 1. Chronic liver parenchymal disease. 2. Mild perihepatic fluid 3. Cholelithiasis. 4. Reactive gall bladder wall thickening. 5. No interval change. Electronically signed by Bi Li 06-12-2024 06:25 AM MDM Narrative Prior records/ancillary studies reviewed. Triage Nursing notes reviewed. Additional history obtained from EMS. The patient's history was concerning for abdominal pain. Differential diagnosis: Etiologies such as appendicitis, diverticulitis, PUD, biliary pathology, UTI, pancreatitis, obstruction, mesenteric ischemia, aortic pathology, infections, inflammatory bowel disease, renal colic, as well as others were entertained. Physical examination findings: As above. ER treatment provided: An order was placed for continuous cardiac monitoring. The monitor shows a rate of 60-100 with a sinus rhythm per my Independent interpretation. Zofran and Pepcid were ordered, magnesium was replaced On reassessment the patient felt better. Diagnostics interpreted by me: ECG: Ordered for upper abdominal pain EKG: Normal sinus, no acute ST-T wave changes, rate 82. Impression normal sinus rhythm rate of 82 independently interpreted by myself The labs Independently Interpreted by myself revealed pancytopenia, negative alcohol Low magnesium, normal LFTs, negative troponin Imaging studies: Imaging was reviewed and read by radiology HEART SCORE: Hx: high/mod/low suspicion: 0 ECG: ST depression/nonspecific changes/normal: 0 Age: Greater than 65/45-64/less than 45: 1 Risk factors: (Hypertension, hyperlipidemia, diabetes, coronary disease, tobacco use, cocaine use): 1 Troponin: Greater than 2 times normal limits/1-2 times normal limits/normal: 0 Total: 2 Consultation: A consultation was placed with surgery. The case was discussed and diagnostics were reviewed. They recommend medical admission and consult to surgery. Medicine is consulted and case is discussed. Patient will be evaluated by medicine for possible admission. Exam and history seem consistent with abdominal pain with concerns of biliary colic. Surgery and medicine were consulted. Surgery recommends medical admission. Patient is still having pain. He he is requesting admission. He has known gallbladder disease. He has a history of alcoholism. Alcohol is negative today. No white count. Normal LFTs. He will be admitted to the medical service. By the evaluation outlined above emergent etiologies such as appendicitis, diverticulitis, PUD, UTI, pancreatitis, obstruction, mesenteric ischemia, aortic pathology, inflammatory bowel disease, renal colic, as well as others were deemed relatively unlikely. The pt informed about the findings as listed above. All questions were answered and pleased with the treatment. The chart was completed utilizing [employer] Speech voice recognition software. Grammatical errors, random word insertions, pronoun errors, and incomplete sentences are an occassional consequence of this system due to software limitations, ambient noise, and hardware issues. Any formal questions or concerns about the content, text, or information contained within the body of this dictation should be directly addressed to the physician addictions counselor assistant for clarification. Impression & Plan Biliary colic, Abdominal pain, acute Discharge Plan Visit Data Chief Complaint: Abdominal Pain Stated Complaint: Abdominal Pain ED Provider: Alvaro Landers ED Midlevel Provider: Margarita Danielle Discharge Problem: Biliary colic, Abdominal pain, acute Patient Disposition: Being Evaluated by Hospitalist Condition: Good Discharge Instructions Interventions: ED Discharge Assessment Last Done: 06/12/24 12:46
[2024-06-12] MEDS: ONDANSETRON INJ 2 MG/ML 2 ML VIAL IV STA (04:28)
[2024-06-12] MEDS: FAMOTIDINE 20MG IV PUSH 20 MG/5 ML SYR IV STA (04:28)
[2024-06-12 04:56] LABS: Basophils # (auto) 0.04 K/uL (0.00-0.20); Eosinophils # (auto) 0.35 K/uL (0.00-0.50); Eosinophils % (auto) 8.8 %; Hematocrit (blood only) 31.2 % (42.0-52.0); Hemoglobin 10.9 g/dl (14.0-18.0); Lymphocytes # (auto) 1.16 K/uL (1.20-3.40); Lymphocytes % (auto) 29.3 %; Mean Corpuscular Hemoglobin 33.5 pg (25.0-34.0); Mean Corpuscular Hgb Conc 34.9 g/dL (32.0-36.0); Mean Platelet Volume 9.9 fL (9.4-12.4); Monocytes # (auto) 0.33 K/uL (0.11-0.59); Monocytes % (auto) 8.3 %; Neutrophils # (auto) 2.08 K/uL (1.40-6.50); Neutrophils % (auto) 52.6 %; Platelet Count 91 K/uL (130-400); RDW Coefficient of Variation 14.2 % (11.5-14.5); RDW Standard Deviation 50.1 fL (36.4-46.3); Red Blood Count 3.25 M/uL (4.70-6.10); White Blood Count 3.96 K/ul (4.8-10.8)
[2024-06-12 05:01] LABS: Alanine Aminotransferase 13 U/L (7-52); Albumin Globulin Ratio 1.3 (0.9-2); Albumin Level 3.6 gm/dl (3.4-5.0); Alkaline Phosphatase 101 U/L (34-104); Anion Gap 7 (3-11); Aspartate Aminotransferase 25 U/L (13-39); BUN Creatinine Ratio 15.6 (10-20); Bilirubin Direct 0.1 mg/dl (0-0.2); Bilirubin,Total 0.6 mg/dl (0.2-1.0); Blood Urea Nitrogen 17 mg/dl (6-23); Calcium 8.9 mg/dl (8.6-10.3); Carbon Dioxide 25 mmol/L (21-32); Chloride 110 mmol/L (98-107); Creatinine Clr Calc Pharmacy 66.7 ml/min; Globulin 2.7 gm/dl (2.5-4.0); Glucose 140 mg/dl (70-99(Fasting)); Lipase 39 U/L (11-82); Magnesium 1.4 mg/dl (1.7-2.4); Potassium 3.8 mmol/L (3.5-5.1); Sodium 142 mmol/L (136-145); Total Protein 6.3 gm/dl (6.0-8.3)
[2024-06-12 05:06] LABS: Troponin I High Sensitivity < 2.3 pg/ml (0-20)
[2024-06-12 05:09] LABS: Prostate SpecificAg Diagnostic 0.008 ng/ml (0-4)
[2024-06-12 05:12] LABS: INR 1.1 (0.9-1.1); Prothrombin Time 12.2 Seconds (9.0-12.0)
--- NOTE | 2024-06-12 06:25 | Ultrasound Report ---
EXAM: US gallbladder CLINICAL HISTORY: ruq pain. PRIOR 05/11/2024 TECHNIQUE: Static ultrasound images with Grayscale and Doppler of the right upper quadrant were submitted for review. COMPARISON: [facility], 05/11/2024 07:11:44 EXECUTIVE ASST FINDINGS: The liver is normal in size with heterogeneous echogenicity and nodular outline . No focal masses or intrahepatic biliary dilatation. Mild perihepatic fluid seen. The common bile duct within normal limits. The gallbladder shows few echogenic calculi within lumen. Diffuse echogenic wall thickening is seen. The pancreas is within normal limits. The aorta is normal in caliber. The right kidney is normal in size and echogenicity without evidence of hydronephrosis, nephrolithiasis or focal mass lesions. IMPRESSION: 1. Chronic liver parenchymal disease. 2. Mild perihepatic fluid 3. Cholelithiasis. 4. Reactive gall bladder wall thickening. 5. No interval change. Electronically signed by Bi Li 06-12-2024 06:25 AM
--- NOTE | 2024-06-12 07:36 | History & Physical Report ---
Date of Service June 12, 2024 Assessment & Plan (1) Abdominal pain, acute: Plan: Biliary Colic - Surgery consulted in ER. Recommended medical admit w/ surgical consultation -Patient has right upper quadrant pain and ramone colored stools this past week consistent with biliary disease however on exam is most focally tender in the right lower quadrant. Reports history of diverticulosis/itis does not remember if he felt this pain on the left or right side -Hyperbilirubinemia/transaminitis is not present Given prominent right lower quadrant pain on exam CTA/P with contrast was ordered. No acute findings on this Imaging and case reviewed by general surgery. Chronic findings. Clinically progressing. Progress to clears. Defer HIDA/MRCP unless recurrent/worsening symptoms. Appreciate recommendations Cirrhosis, history of varices -Reports he follows with [facility] for GI but is transitioning to [facility] Valerie Sheets -MELD score has been less than 10. Is followed as a potential liver candidate but has not yet met criteria and in addition if listed would need social sciences chair evaluation Patient denies history of bleeding but per Alina chart reviews did have a past esophageal variceal bleed. Was recommended to consider potential Coreg 6.25 mg p.o. daily but this does not appear to be of started. If MELD were to rise over 15 was recommend to follow-up with [facility] transplant center He does not show any evidence of hepatic decompensation on admission LFTs are normal, bilirubin is normal INR 1.1 Albumin 3.6, sodium 140 Daily labs EGD 2020 with grade 1 esophageal varices. Per patient he is pending/due for outpatient surveillance EGD/colonoscopy Past history of prostate cancer s/p radiation therapy - continued on leuprolide. Was scheduled for last injection Saturday (1 week from today). No known mets. Patient reports is doing well PSAs have been near undetectable Pancytopenia - Bone marrow biopsy pending - No ETOH use in the last 8 months - No bleeding, no bloody/black BMs Patient has regular HIV testing which has been negative and is compliant with PrEP which is continued Anxiety/depression Continue current medications. Lamotrigine has recently been changed 100 mg at bedtime to a dose of 50 mg at bedtime in the last week due to some sedation. Patient feels improved following this change Alcohol abuse in remission Noted RENÉE CPAP at bedtime DVT prophylaxis: Lovenox, no surgical intervention anticipated at this time Disposition: MSO CODE STATUS: Full code Diet: Progressed to clears (2) Alcohol use disorder: (3) Pancytopenia: (4) Thrombocytopenia: (5) Esophageal varices: (6) Anxiety and depression: (7) Obstructive sleep apnea: History of Present Illness Primary Care Provider: Valdemar Santo DO Nick is a 58-year-old male with a history of cirrhosis/varices/alcohol abuse, cholelithiasis possibly related gallstones recommended for serial monitoring, anxiety/depression, alcohol use disorder in remission who presents to the emergency department overnight for right upper quadrant abdominal pain following a "Thanksgiving dinner "meal. On ER evaluation and had a tender right upper quadrant on examination. Reports he has a history of gallbladder stones and collapsed gallbladder. Is on surveillance, but told he needs to seek medical attention for any recurrent pain. 1 day of RUQ quadrant pain. Had a 'thanksgiving dinner type meal with gravy turkey and [place]. That was ~5pm, pain started ~3am. BMs have been hagan in color. Diarrhea intermittent with some color, his last BM overnight was hagan and solid overnight. First time he has ever had hagan stools At time of bedside assessment pain has moved slightly lower, lamotrigine is 50mg not 100mg Mg BID 400mg not TID Reports he felt a little warm last night but denies fevers. No chills or sweats. No cough. No respiratory symptoms He denies any history of heart disease, CHF, heart attacks. Denies history of lung disease. Denies history of kidney disease. No history of blood clot/VTE/PE Denies medication allergies Denies tobacco use. Alcohol abuse in remission for the last 8 months Full code Allergies Allergy/AdvReac Type Severity Reaction Status Date / Time No Known Allergies Allergy Verified 04/28/24 07:53 Home Medications Medication Instructions Recorded Confirmed Type fluticasone propionate 50 2 spray intranasal DAILY 01/06/24 06/12/24 History mcg/actuation nasal spray,suspension (Flonase Allergy Relief) naltrexone microspheres 380 mg 380 mg IM ONCE 01/15/24 06/12/24 History intramuscular suspension,extended release (Vivitrol) phenazopyridine 200 mg tablet 200 mg PO TID PRN pain #90 tabs 02/04/24 06/12/24 Rx (Pyridium) buspirone 10 mg tablet 15 mg PO BID 03/16/24 06/12/24 History albuterol sulfate 90 mcg/actuation 2 puff inhalation QID PRN 04/23/24 06/12/24 Rx aerosol inhaler shortness of breath or wheezing #6.7 grams celecoxib 200 mg capsule 200 mg PO UD 04/28/24 06/12/24 History lamotrigine 25 mg tablet 50 mg PO HS 04/28/24 06/12/24 History leuprolide 7.5 mg (1 month) 7.5 mg subcut ONCE Prostate Cancer 05/27/24 06/12/24 Rx subcutaneous syringe (Soshowise) #1 ea emtricitabine 200 mg-tenofovir 1 tab PO HS 06/12/24 06/12/24 History disoproxil fumarate 300 mg tablet escitalopram oxalate 10 mg tablet 10 mg PO HS 06/12/24 06/12/24 History famotidine 40 mg tablet 40 mg PO HS 06/12/24 06/12/24 History folic acid 1 mg tablet 1 mg PO HS 06/12/24 06/12/24 History magnesium oxide 400 mg (241.3 mg 400 mg PO BID 06/12/24 06/12/24 History magnesium) tablet potassium chloride 20 mEq 20 meq PO HS 06/12/24 06/12/24 History tablet,extended release tamsulosin 0.4 mg capsule 0.4 mg PO HS Frequency 06/12/24 06/12/24 History thiamine HCl (vitamin B1) 100 mg 100 mg PO HS 06/12/24 06/12/24 History tablet Past Med/Surg History Problem List Abdominal pain, acute (Acute) Biliary colic (Acute) Cholelithiasis Alcohol use disorder Pancytopenia Thrombocytopenia (07/06/20) Cirrhosis vs. Folate deficiency vs. EtOH marrow suppression Cirrhosis Esophageal varices Prostate cancer (Chronic 06/27/23) Gait abnormality Anxiety and depression Polymyalgia Abnormal CT scan, chest B12 deficiency Obstructive sleep apnea Urinary urgency Vitamin D deficiency (07/11/20) Medical History Tubular adenoma Bilateral tinnitus Sensorineural hearing loss (SNHL) of both ears Alcohol use disorder, severe, dependence Acute alcohol intoxication Acute encephalopathy Septic shock Aspiration pneumonitis ARDS (adult respiratory distress syndrome) Acute alteration in mental status Hypomagnesemia Alcohol overdose Gastritis Elevated ferritin (07/11/20) HH genetic testing ordered. Cirrhosis Back problem "MESSED UP DISCS IN MY BACK" Hx of esophageal reflux History of skin cancer ON CHEEK--removed in office Varicose veins of both lower extremities Sleep apnea CPAP Asthma "MILD" NO INHALER Hepatic steatosis (07/15/20) On US 07/15/2020 Not immune to hepatitis B virus He's waiting to find a ride to get scheduled. Looking into local pharmacies. Hepatitis A vaccination not up to date He's waiting to find a ride to get scheduled. Looking into local pharmacies. Surgical History History of tonsillectomy History of colonoscopy 08/2020 repeat 3 yrs Hx of wisdom tooth extraction Family History Mother Breast cancer Father Diabetes Colorectal cancer Stroke Brother Prostate cancer Heart disease Colorectal cancer Other Unknown family medical history Denies family history of Ovarian cancer Coronary heart disease Myocardial infarction Congenital kidney disease Lung cancer Cystic kidney disease Social History Smoking Status: Never smoker Second Hand Exposure: No; Do You Dip or Chew Tobacco: No; Hx Alcohol Use: Yes Alcohol type: hard liquor Alcohol Intake Frequency: 4 or More x per/Week Hx Substance Use: No Preferred Language: Monegasque Communication Ability: Effective Visual Impairment: Limited Hearing Ability: Normal Support Dba Required: No Beliefs That Will Affect Care: None marital status: Current Living Situation: Alone Current Living Situation Comment: alone at home current occupational status: retired How many Children do You have: 2 Feels Safe at Home: Yes Safety Concerns: Feels Safe At This Time Safety Concerns Comment: pt is currently homeless Childhood Exposure to Second-Hand Smoke: Yes Diet: regular caffeine: Yes Dental Care, Regularly: Yes Seatbelt Use: other Sunscreen Use: No Assistive Devices: Crutches and Glasses Physical Exam Physical Exam: General: A&Ox3. NAD. Cooperative. HEENT: Atraumatic, normocephalic. Vision/hearing grossly intact Pulm: Diminished but on deep breaths CTAB A&P. -wheezes, -rales, -rhonchi. Symmetrical chest rise. No increased work of breathing. No respiratory distress. Cardiac: RRR, -mrg. Radial pulses intact and symmetrical. Abdominal: TTP mostly in the RLQ, some mild RUQ tenderness on deep palpation. No rebound/guarding. Ext: warm, dry Results & Data Results & Data Vital Signs (Past 12 Hours) Vital Signs Temp Pulse Pulse Resp BP BP Pulse Ox 06/12/24 07:03 95 06/12/24 07:00 53 L 16 105/65 87 L 06/12/24 06:36 60 18 111/75 92 06/12/24 05:56 65 18 96/65 L 92 06/12/24 04:26 85 06/12/24 04:23 93 06/12/24 04:14 37.1 C 87 19 111/69 94 O2 Del Method O2 Flow Rate 06/12/24 07:03 Nasal Cannula 2 06/12/24 07:00 Room Air 06/12/24 06:36 Room Air 06/12/24 05:56 Room Air 06/12/24 04:26 06/12/24 04:23 Room Air 06/12/24 04:14 Room Air PG Care Time/CCT Total # of Minutes Spent Total Time Spent with Patient: Total time spent is greater than 50% in coordination of care (as documented) at patient's floor/unit and/or counseling patient: Coding Level of Care Code 85557 INT INP/OBS CARE 3/75MIN Diagnoses Abdominal pain, acute R10.9 Alcohol use disorder F10.90 Pancytopenia D61.818 Thrombocytopenia D69.6 Esophageal varices I85.00 Anxiety and depression F41.9; F32.9 Obstructive sleep apnea G47.33
[2024-06-12] MEDS ORDERED: ACETAMINOPHEN 325 MG TAB PO PRN (08:06)
[2024-06-12 09:00] LABS: Appearance Urine Clear (Clear); Bilirubin Urine Negative (Negative); Blood Urine Negative (Negative); Color Urine Yellow; Glucose Urine UA Negative (Negative); Ketones Urine Negative (Negative); Leukocyte Esterase Urine Negative (Negative); Nitrite Urine Negative (Negative); Protein Urine Negative (Negative); Specific Gravity Urine 1.022 (1.000-1.030); Urobilinogen Urine Negative (Negative)
[2024-06-12] MEDS: OPTIRAY 320 100ml IV ONE (09:11)
--- NOTE | 2024-06-12 09:36 | CT Scan Report ---
CT OF THE ABDOMEN AND PELVIS WITH CONTRAST CLINICAL HISTORY: Right lower quadrant abdominal pain. COMPARISON STUDY: CT of the abdomen and pelvis January 12, 2024.] Right upper quadrant ultrasound pe rformed earlier today. TECHNIQUE: Following IV administration of 93 mL of Optiray, axial images of the abdomen and pelvis we re obtained from the lung bases to the proximal femurs. Images were reviewed in the axial, sagittal, and coronal planes. IV contrast was administered without complication. Automated exposure control wa s utilized for the study. A dose lowering technique was utilized adhering to the principles of ALARA . CT DOSE: 974.28 mGy.cm FINDINGS: A small hiatal hernia is present. No pneumatosis, free air or portal venous gas is present. There is trace perihepatic ascites. The liver is cirrhotic. No hepatic lesions are identified on por james venous phase exam. The main, left and right portal veins are patent. Note is made of gallstones w ithin the gallbladder. The gallbladder is not distended. Gallbladder wall thickening with adjacent st randing is similar to prior CT. Splenomegaly is again noted. There are small abdominal varices. The a drenal glands and pancreas are unremarkable. There is no biliary or pancreatic ductal dilatation. The appendix is normal. The caliber and wall thickness of small and large bowel are normal. There is no lymphadenopathy. Major vasculature is patent. Bladder wall thickening is similar to prior exam and li orlin chronic. Trace pelvic ascites. There is a 4 mm calculus. There are no ureteral calculi. IMPRESSION: 1. No acute process within the abdomen or pelvis. 2. Normal appendix. No bowel obstruction. No bowel wall thickening. 3. Cirrhotic liver. Splenomegaly, trace ascites and small collaterals indicative of portal hypertensi on. 4. Cholelithiasis. No change in gallbladder wall thickening with adjacent stranding. The findings are chronic. No evidence for acute cholecystitis. ACT 112: Negative or not required by law. Electronically signed by: Charlie Jarquin M.D. 06/12/2024 9:35 AM
--- OUTSIDE RECORDS SUMMARY | 2024-06-12 11:11 | External Medical Summary | Summary of Care ---
Author Name Unknown Organization [facility] Address [address] [place] [address] Phone [phone] Care Team Providers Care Acoustical Tile Patternmaker Name Role Phone Hansa Valdemar Rahman DO Primary Care Provider [phone] Encounter Details Date Type Department Care Team (Late st Contact Info) Description 06/11/2024 Orders Only PATIENT PORTAL DO NOT DELETE THIS DEPT USED BY MICHAEL HAN [id number] Allergies No known active allergiesdocumented as of this encounter (statuses as of 06/11/2024) Medications Folic Acid 1 MG Oral Tablet 1 Active Multivitamin Adult Oral Tablet Take by mouth daily. Active busPIRone HCl 10 MG Oral Tablet (Buspar) Take 1 Tablet by mouth in the morning and 1 Tablet before bedtime. 4 Active Escitalopram Oxalate 10 MG Oral Tablet (Lexapro) Take 1 Tablet by mouth in the morning. 4 Active Famotidine 40 MG Oral Tablet (Pepcid) Take 1 Tablet by mouth in the morning and 1 Tablet before bedtime. 4 Active Fluticasone Propionate 50 MCG/ACT Nasal Suspension (Flonase) Administer 2 Sprays into nostril in the morning. 4 Active Magnesium Oxide -Mg Supplement 400 (240 Mg) MG Oral Tablet (Mag-Ox) Take 1 Tablet by mouth in the morning. 4 Active Vivitrol 380 MG Intramuscular Suspension Reconstituted Inject 380 mg into a large muscle once. 4 Active Potassium Chloride ER 20 MEQ Oral Tablet Extended Release Take 1 Tablet by mouth in the morning. Active Eligard 7.5 MG Subcutaneous Kit (Leuprolide Acetate (1 Month)) Inject 7.5 mg under the skin once. Active Thiamine HCl 100 MG Oral Tablet (vitamin B-1) Take 1 Tablet by mouth in the morning. Active Tamsulosin HCl 0.4 MG Oral Capsule (Flomax) Take 1 Capsule by mouth in the morning. Active Emtricitab-Rilpiv ir-Tenofov DF 200-25-300 MG Oral Tablet (Complera) Take 1 Tablet by mouth in the morning. Active lamoTRIgine 100 MG Oral Tablet (LaMICtal) Take 1 Tablet by mouth every evening. Active Celecoxib 200 MG Oral Capsule (CeleBREX) Take 1 Capsule by mouth in the morning and 1 Capsule before bedtime. Active documented as of this encounter (statuses as of 06/11/2024) Active Problems Problem Noted Date Diagnosed Date Food insecurity 02/10/2024 Overview: Per [facility] Protocol documented as of this encounter (statuses as of 06/11/2024) Immunizations Name Administration Dates Next Due Seasonal Influenza, Quadrivalent, No Preserve, I M 12/25/2023 documented as of this encounter Social History Tobacco Use Types Packs/Day Years Used Date Smoking Tobacco: Never Passive Smoke Exposure: Past Smokeless Tobacco: Never Alcohol Use Standard Drinks/Week Comments Not Currently 0 (1 standard drink = 0.6 oz pur e alcohol) last drink October 03 PHQ-2 Answer Date Recorded PHQ Adult Total Score 1 06/09/2024 Hunger Vital Sign Answer Date Recorded Within the past 12 months, y ou worried that your food would run out before you got the money to buy more. Sometimes true Within the past 12 months, t he food you bought just didn't last and you didn't have money to get more. Sometimes true Childcare Answer Date Recorded Do you feel overwhelmed with taking care of a child, family member or friend? No 01/14/2024 Does your family need help f inding childcare? (Household - for ages 0-17 years) Not on file 01/14/2024 Clothing Answer Date Recorded Have you been unable to get clothing when it was really needed? No 01/14/2024 Is your family able to get c lothes or diapers when needed? (Household - for ages 0-17 years) Not on file 01/14/2024 Personal Safety Answer Date Recorded Do you feel unsafe or have concerns for your saf ety? Yes 01/14/2024 Do you have concerns for you r family's safety? (Household - for ages 0-17 years) Not on file 01/14/2024 Utilities Answer Date Recorded Do you have trouble paying y our heating, water, or electric bill? No 01/14/2024 Is your family able to pay t he heat, water, or electric bill? (Household - for ages 0-17 years) Not on file 01/14/2024 Does your family have access to good internet? (Household - for ages 0-17 years) Not on file 01/14/2024 Employment Status Answer Date Recorded Are you unemployed or without regular income? Ye s 01/14/2024 Does the household have a re gular source of income? (Household - for ages 0-17 years) Not on file 01/14/2024 Social Connections Answer Date Recorded How often do you feel lonely or isolated from those around you? Sometimes 01/14/2024 Financial Resource Strain Answer Date R ecorded Do you have any trouble payi ng for your medications, or do you think you might in the future? Yes 01/14/2024 Does your family have troubl e paying for medicine? (Household - for ages 0-17 years) Not on file 01/14/2024 Transportation Needs Answer Date Record ed Do you have trouble getting a ride to medical visits or work? (Adult - for ages 18 years and over) Not on file 01/14/2024 Does your family have a hard time getting a ride to doctors visits? (Household - for ages 0-17 years) Not on file 01/14/2024 Has lack of transportation k ept you from medical appointments, meetings, work, or from getting things needed for daily living? Check all that apply. No 01/14/2024 Do you (or your family) have trouble finding or paying for a ride (transportation)? (Household - for ages 0-17 years) Not on file 01/14/2024 Housing Stability Answer Date Recorded Do you currently live in a s helter or have no steady place to sleep at night? Yes 01/14/2024 Do you think you are at risk of becoming homeless? (Adult - for ages 18 years and over) Not on file 01/14/2024 Does your family worry about paying for your home or becoming homeless? (Household - for ages 0-17 years) Not on file 1 Are you homeless or worried that you might be in the future? Yes 01/14/2024 Are you (or your family) telma eless or worried that you might be in the future? (Household - for ages 0-17 years) Not on file Food Insecurity Answer Date Recorded Do you need food for this week? Yes 01/14/2024 Are you able to get enough f ood for your family? (Household - for ages 0-17 years) Not on file 01/14/2024 Does your family need food t his week? (Household - for ages 0-17 years) Not on file 01/14/2024 Do you always have enough fo od for your family? (Household - for ages 0-17 years) Not on file 01/14/2024 Food Insecurity Answer Date Recorded Within the past 12 months, y ou worried that your food would run out before you got the money to buy more. Sometimes true Within the past 12 months, t he food you bought just didn't last and you didn't have money to get more. Sometimes true Do you need food for this week? Yes 01/14/2024 Sex and Gender Information Value Date Recorded Sex Assigned at Not on file Legal Sex Male 1:29 PM EDT Gender Identity Not on file Sexual Orientation Not on file documented as of this encounter Plan of Treatment Upcoming Encounters Date Type Department Care Team (Late st Contact Info) Description 06/16/2024 10:40 AM EDT Office Visit Hepatology, [facility] [address] [id number] Jess Lara DO [address] [address] Health Maintenance Due Date Last Done Comments Lipid Panel 1965 HIV Screening 1980 DTap/Tdap Vaccines (1 - Tdap) 1984 Cologuard 2010 Colonoscopy 2010 Colorectal Cancer Screening 2010 Fecal Occult Blood Test 2010 Sigmoidoscopy 2010 Hepatitis B Vaccine (4 of 4 - Hep B Twinrix 4-dose series) 08/08/2021 01/12/2021, 12/12/2020, 08/08/2020 Pneumococcal Vaccine: 50+ Years (2 of 2 - PCV) 08/26/2021 08/26/2020, 07/21/2020 COVID-19 Vaccine (5 - season) 2023 03/10/2022, 01/17/2021, 06/08/2020, Additional history exists Depression Screening 06/09/2025 06/09/2024 Zoster Vaccines Completed 07/11/2020, 03/31/2020 Influenza Vaccine (FLU shot) Completed , 11/03/2022, 11/09/2021, Additional history exists HPV (Gardasil) Vaccine Aged Out No lo nger eligible based on patient's age to complete this topic MENINGOCOCCAL (MENACTRA/MENVEO) Aged Out No longer eligible based on patient's age to complete this topic Meningitis B Vaccine (Bexsero/Trumemba) Aged Out No longer eligible based on patient's age to complete this topic documented as of this encounter Medical Devices Not on filedocumented as of this encounter Care Teams Acoustical Tile Patternmaker Relationship Specialty Start Date End Date Valdemar Santo DO [address] [place] [address] PCP - General Family Medicine 09/13/20 documented as of this encounter
--- OUTSIDE RECORDS SUMMARY | 2024-06-12 11:11 | External Medical Summary | Summary of Care ---
Author Name Unknown Organization [facility] Address [address] [place] [address] Phone [phone] Care Team Providers Care Contractor Buyer Name Role Phone Valdemar Santo DO Primary Care Provider [phone] Encounter Details Date Type Department Care Team (Late st Contact Info) Description 06/09/2024 Telephone Hepatology, [facility] [address] [facility] [place] [place] [id number] Jess Lara DO [address] [facility] [place] [address] Allergies No known active allergiesdocumented as of this encounter (statuses as of 06/09/2024) Medications Folic Acid 1 MG Oral Tablet [...] by mouth in the morning. 4 Active Eligard 7.5 MG Subcutaneous Kit (Leuprolide [...] as of this encounter (statuses as of 06/09/2024) Active Problems Problem Noted Date Diagnosed Date Food insecurity 02/10/2024 Overview: Per [facility] Protocol documented as of this encounter (statuses as of 06/09/2024) Immunizations Name Administration Dates Next Due Seasonal [...] Answer Date Recorded PHQ Adult Total Score 2 04/14/2024 Hunger Vital Sign Answer Date Recorded Within [...] on file documented as of this encounter Miscellaneous Notes * Telephone Encounter - Jess Lara DO - 06/09/2024 9:47 AM EDT Orders prior to appointment. documented in this encounter Plan of Treatment Upcoming Encounters Date Type Department Care Team (Late st Contact Info) Description 06/16/2024 10:40 AM EDT Office Visit Hepatology, [facility] [address] [place] [address] Jane Jess SilvestreDO [address] [place] [address] Scheduled Orders Name Type Priority Associated Diagnoses Orde r Schedule HEPATIC FUNCTION PANEL Lab Routine Alcoholic cirrhosis of liver without ascites (HCC) Expected: 06/09/2024, Expires: 06/09/2025 PT INR Lab Routine Alcoholic cirrhosis of liver without ascites (HCC) Expected: 06/09/2024, Expires: 06/09/2025 ALPHA-FETOPROTEIN TUMOR MARKER Lab Routine Alcoholic cirrhosis of liver without ascites (HCC) Expected: 06/09/2024, Expires: 06/09/2025 BASIC METABOLIC PANEL Lab Routine Alcoholic cirrhosis of liver without ascites (HCC) Expected: 06/09/2024, Expires: 06/09/2025 CBC WITH WBC DIFFERENTIAL Lab Routine Alcoholic cirrhosis of liver without ascites (HCC) Expected: 06/09/2024, Expires: 06/09/2025 Health Maintenance Due Date Last Done Comments [...] 01/17/2021, 06/08/2020, Additional history exists Depression Screening 04/14/2025 04/14/2024 Zoster Vaccines Completed 07/11/2020, 03/31/2020 Influenza Vaccine [...] Not on filedocumented as of this encounter Visit Diagnoses Diagnosis Alcoholic cirrhosis of liver without ascites (HCC)- Primary Alcoholic cirrhosis of liver documented in this encounter Care Teams Contractor Buyer Relationship Specialty Start Date End Date Valdemar Santo DO [address] [place] [address] PCP - General Family Medicine 09/13/20 documented as of this encounter
--- OUTSIDE RECORDS SUMMARY | 2024-06-12 11:11 | External Medical Summary | Summary of Care ---
Author Name Unknown Organization [facility] Address [address] [place] [address] Phone [phone] Care Team Providers Care Senior Director Marketing Name Role Phone Ronaldavelino Valdemar Josiah QUINTERO Primary Care Provider [phone] [phone] Reason for Visit * Reason Onset Date Comments Advice 06/09/2024 Encounter Details Date Type Department Care Team (Late st Contact Info) Description 06/09/2024 Telephone Gastroenterology, [facility] [address] [facility] [place] [address] Jess Lara DO [address] [facility] [address] Advice Allergies No known active allergiesdocumented as of [...] encounter Miscellaneous Notes * Telephone Encounter - Ximena Parr LPN - 06/09/2024 8:56 AM EDT Nick called in to see if he needed any labs before his 06/16/[address] Lara. If labs are ordered, they will need faxed to [facility]. Please send MyG message to inform Nick of what the decision is. documented in this encounter Plan of Treatment Upcoming Encounters Date Type Department Care Team (Late st Contact Info) Description 06/16/2024 10:40 AM EDT Office Visit Hepatology, [facility] [address] [place] [address] Jess Lara, [address] [place] [address] Health Maintenance Due Date Last Done Comments [...] - PCV) 08/26/2021 08/26/2020, 07/21/2020 COVID-19 Vaccine ( - season) 2023 03/10/2022, 01/17/2021, 06/08/2020, Additional [...] filedocumented as of this encounter Care Teams Senior Director Marketing Relationship Specialty Start Date End Date Valdemar Santo DO [address] [place] [address] PCP - General Family Medicine 09/13/20 documented as of this encounter
--- OUTSIDE RECORDS SUMMARY | 2024-06-12 11:11 | External Medical Summary | Summary of Care ---
Author Name Unknown Organization [facility] Address [address] [place] [address] Phone [phone] Care Team Providers Care Pararescue Manager Name Role Phone Valdemar Santo Primary Care Provider [phone] [phone] Encounter Details Date Type Department Care Team (Latest Contact Info) Description 06/09/2024 11:00 AM EDT Telemedicine Care Coordination and Integration [address] [place] [address] Nick De, BS [address] [place] [address] Alcohol dependence (HCC)* Allergies No known active allergiesdocumented as of this encounter (statuses as of 06/10/2024) Medications Folic Acid 1 MG Oral Tablet [...] as of this encounter (statuses as of 06/10/2024) Active Problems Problem Noted Date Diagnosed Date Food insecurity 02/10/2024 Overview: Per [facility] Protocol documented as of this encounter (statuses as of 06/10/2024) Immunizations Name Administration Dates Next Due Seasonal [...] on file documented as of this encounter Progress Notes * Nick De BS - 06/09/2024 11:50 AM EDT Behavioral Health Documentation: Patient location: HOME. I was not in a hospital or clinic location. After connecting through televideo, patient was verified with two unique identifiers. Patient (or authorized legal liability claims representative) was then informed that this was a Telemedicine visit and being conducted confidentially over secure lines. Methods to assure confidentiality were taken. Patient acknowledged consent and understanding of privacy and security of the Telemedicine visit. The patient agreed to participate. S: AC met with Pt through a telehealth visit. PT's identity was verified by name and . AC and PTcompleted a follow up assessment and care plan review. Pt did state that the last few days he has been showing increase with confusion. Pt stated that he reached out to [employer] andthey call him back and left VM. PT stated that after this visit he was calling them back. AC and PT discussed that his [facility] is now set for July 01 due to his schedule. AC and PT discussed that he continues to go to AA almost daily and meet with his sponsor 3-5 times a week. PT stated that he got a job at [employer] and will be starting his training on 06/15/24. AC inquiredif PT was in need of any other support referrals/services, PT decline at this time. O: Telemedicine. Alert and oriented. A: PT was engaged and talkative. PT gave good eye contact and open. PT denies any SI/HI at this time. Behavioral Health Assessment: No data recorded BH Substance Use: No data recorded PHQ9: PHQ Adult Total Score: 1 RADHA: RADHA-7 Total Score: 5 Glynn: Level of Risk: No Risk Identified (06/09/2024 11:44 AM) Red Flags: What are the three red flags discussed with the patient/caregiver that would require outreach to the shoe caser or provider? Red flag 1: racing thoughts Red flag 2: physical illness Red flag 3: feeling of being overwhelmed Is the patient able to teach back the three red flags?: Yes Care Plan Goal Progress: GS - Patient/caregiver will verbalize strategies to decrease anxiety. (Progressing) Start: 01/03/24 Expected End: 07/14/24 Goal Note Continues counseling for GEOVANNY and mental health. Attends almost daily AA meetings. Has MAT through [facility] Plan: follow up in 3 weeks documented in this encounter Plan of Treatment Upcoming Encounters Date Type Department Care Team (Late st Contact Info) Description 06/16/2024 10:40 AM EDT Office Visit Hepatology, [facility] [address] [place] [address] Jess Lara DO [address] [place] [address] Health Maintenance Due Date Last Done Comments [...] as of this encounter Visit Diagnoses Diagnosis Alcohol dependence (HCC)- Primary Other and unspecified alcohol dependence, unspecified drinking behavior documented in this encounter Care Teams Pararescue Manager Relationship Specialty Start Date End Date Valdemar Santo DO [address], [place] [address] PCP - General Family Medicine 09/13/20 documented as of this encounter
--- OUTSIDE RECORDS SUMMARY | 2024-06-12 11:11 | External Medical Summary | Summary of Care ---
Author Name Unknown Organization [facility] Address [address] [place] [address] Phone [phone] Care Team Providers Care Custodial Engineer Name Role Phone Ronaldavelino Valdemar Josiah QUINTERO Primary Care Provider [phone] Reason for Visit * Reason Onset Date Comments Advice 06/09/2024 Encounter Details Date Type Department Care Team (Late st Contact Info) Description 06/09/2024 Telephone Gastroenterology, [facility] [address] [facility] [place] [address] Jess Lara DO [address] [facility] [address] Advice Allergies No known active allergiesdocumented as [...] are ordered, they will need faxed to [facility]. Please send MyG message to inform Nick of what the decision is. documented in this encounter Plan of Treatment Upcoming Encounters Date Type Department Care Team (Late st Contact Info) Description 06/16/2024 10:40 AM EDT Office Visit Hepatology, [facility] [address] [place] [address] Jess Lara, [address] [place] [address] Health Maintenance Due Date Last Done Comments [...] filedocumented as of this encounter Care Teams Custodial Engineer Relationship Specialty Start Date End Date Valdemar Santo DO [address] [facility] [address] [place] [address] PCP - General Family Medicine 09/13/20 documented as of this encounter
--- OUTSIDE RECORDS SUMMARY | 2024-06-12 11:11 | External Medical Summary | Summary of Care ---
Author Name Unknown Organization [facility] Address [address] [place] [address] Phone [phone] Care Team Providers Care Wax Machine Operator Name Role Phone Valdemar Santo Primary Care Provider [phone] Encounter Details Date Type Department Care Team (Latest Contact Info) Description 06/09/2024 11:00 AM EDT Telemedicine Care Coordination and Integration [address] [place] [address] Nick De, BS [address] [place] [address] Alcohol dependence (HCC)* Allergies No [...] 06/09/2024 11:50 AM EDT Behavioral Health Documentation: S: AC met with Pt through a telehealth visit. PT's identity was verified by name and . AC and PTcompleted a follow up assessment and care plan review. Pt did state that the last few days he has been showing increase with confusion. Pt stated that he reached out to [employer] andthey call him back and left VM. [...] stated that he got a job at [employer] and will be starting his training on [...] Score: 1 RADHA: RADHA-7 Total Score: 5 Hockley: Level of Risk: No Risk Identified (06/09/2024 11:44 AM) Red Flags: What are the three red flags discussed with the patient/caregiver that would require outreach to the nurse outreach case manager or provider? Red flag 1: racing thoughts [...] almost daily AA meetings. Has MAT through [facility] Plan: follow up in 3 weeks documented in this encounter Plan of Treatment Upcoming Encounters Date Type Department Care Team (Late st Contact Info) Description 06/16/2024 10:40 AM EDT Office Visit Hepatology, [facility] [address] [place] [address] Jess Lara DO [address] [place] [address] Health Maintenance Due Date Last Done Comments [...] behavior documented in this encounter Care Teams Wax Machine Operator Relationship Specialty Start Date End Date Valdemar Santo DO [address], [place] [address] PCP - General Family Medicine 09/13/20 documented as of this encounter
--- OUTSIDE RECORDS SUMMARY | 2024-06-12 11:12 | External Medical Summary | Summary of Care ---
Author Name Unknown Organization [facility] Address [address] [place] [address] Phone [phone] Care Team Providers Care Capsule Filler Name Role Phone Ronaldavelino Valdemar Josiah QUINTERO Primary Care Provider [phone] Reason for Visit * Reason Onset Date Comments Advice 06/09/2024 Encounter Details Date Type Department Care Team (Late st Contact Info) Description 06/09/2024 Telephone Gastroenterology, [facility] [address] [facility] [place] [address] Jess Lara DO [address] [facility] [address] Advice Allergies No known active allergiesdocumented as [...] are ordered, they will need faxed to [facility]. Please send MyG message to inform Nick of what the decision is. documented in this encounter Plan of Treatment Upcoming Encounters Date Type Department Care Team (Late st Contact Info) Description 06/09/2024 11:00 AM EDT Telemedicine Care Coordination and Integration [address] [facility] [place] [address] Nick De BS [address] [place] [address] 06/16/2024 10:40 AM EDT Office Visit Hepatology, [facility] [address] [place] [address] Jess Lara DO [address] [place] [address] Health Maintenance Due Date Last Done Comments [...] filedocumented as of this encounter Care Teams Capsule Filler Relationship Specialty Start Date End Date Valdemar Santo DO [address] [place] [address] PCP - General Family Medicine 09/13/20 documented as of this encounter
--- NOTE | 2024-06-12 11:59 | Surgery Consultation ---
Date of Consultation June 12, 2024 Assessment & Plan (1) Cholelithiasis: This is a 58y M with a PMH of prostate cancer, pancytopenia, history of etoh abuse, cirrhosis, anxiety/depression, who presents to the [facility] ED on 06/12/24 with complaints of right sided abdominal pain that started around 3am this morning. He endorses + nausea but no vomiting. He presented to the ER this AM for further workup. He underwent a RUQ US showed chronic liver parenchymal disease, mild perihepatic fluid, + gallstones, with reactive gallbladder wall thickening. This appears similar to reads dating back to 2022 and 2023. In further workup he did undergo a CT a/p thereafter that showed no acute process abnormalities. + cirrhosis along with gallstones. It shows no change in gallbladder wall thickening with adjacent stranding which findings are chronic without evidence for acute cholecystitis. The patient reports passing flatus but no BM in the last 12 hrs. He does state he's had some ramone/hagan colored stools recently in the last week. In the ER patient's vitals are stable, he is afebrile with HRs 50-60s and stable pressures. Labs reveal a WBC 3.9, Hbg 10.9, Tb 0.6, ASt 25, ALT 13, Alkp 101, lipase 39. On exam abdomen is soft, non distended, with tenderness to palpation in the RUQ and RLQ regions. Imaging consistent with gallstones, with gallbladder wall thickening likely reactive 2/2 to patient's cirrhotic liver disease. It does not reveal any acute inflammation or concern for acute caridad. Medicine is bringing the patient in for more workup and management. At this time I think we can hold off on HIDA or MRCP unless clinical picture worsens and symptoms more strongly suggestive of gallbladder etiology. Could consider initiating liquids and seeing how he fairs. We will follow along for now.Patient seen/examined with Dr. Bishop. (2) Abdominal pain, acute: Supervising Physician Co-Signing Physician Notes As per Tomasa Pardo physician printer floor covering assistant The patient is resting very comfortably does have some discomfort in her right upper quadrant and also right lower quadrant and some voluntary guarding in the left lower quadrant CT scan and past history was reviewed At this point I doubt the etiology is gallbladder I suspect is most related to his cirrhosis and reactive changes along the gallbladder as stated by CAT scan At this point we will continue to follow but no surgery or further workup at this time is indicated unless the situation clinically deteriorates This was discussed with the patient History of Present Illness Attending Physician: Nick Patrick MD History of Present Illness This is a 58y M with a PMH of prostate cancer, pancytopenia, history of etoh abuse, cirrhosis, anxiety/depression, who presents to the [facility] ED on 06/12/24 with complaints of right sided abdominal pain. Patient states the pain started very early this AM which is mostly right sided. He points to his RUQ and RLQ in regards to where his pain is bothering him. Last evening he did have a turkey and potatoes meal for dinner. He endorses + nausea but no vomiting. He presented to the ER this AM for further workup. He underwent a RUQ US showed chronic liver parenchymal disease, mild perihepatic fluid, + gallstones, with reactive gallbladder wall thickening. This appears similar to reads dating back to 2022 and 2023. In further workup he did undergo a CT a/p thereafter that showed no acute process abnormalities. + cirrhosis along with gallstones. It shows no change in gallbladder wall thickening with adjacent stranding which findings are chronic without evidence for acute cholecystitis. The patient reports passing flatus but no BM in the last 12 hrs. He does state he's had some ramone/hagan colored stools recently in the last week. Allergies Allergy/AdvReac Type Severity Reaction Status Date / Time No Known Allergies Allergy Verified 04/28/24 07:53 Home Medications Medication Instructions Recorded Confirmed Type fluticasone propionate 50 2 spray intranasal DAILY 01/06/24 06/12/24 History mcg/actuation nasal spray,suspension (Flonase Allergy Relief) naltrexone microspheres 380 mg 380 mg IM ONCE 01/15/24 06/12/24 History intramuscular suspension,extended release (Vivitrol) phenazopyridine 200 mg tablet 200 mg PO TID PRN pain #90 tabs 02/04/24 06/12/24 Rx (Pyridium) buspirone 10 mg tablet 15 mg PO BID 03/16/24 06/12/24 History albuterol sulfate 90 mcg/actuation 2 puff inhalation QID PRN 04/23/24 06/12/24 Rx aerosol inhaler shortness of breath or wheezing #6.7 grams celecoxib 200 mg capsule 200 mg PO UD 04/28/24 06/12/24 History lamotrigine 25 mg tablet 50 mg PO HS 04/28/24 06/12/24 History leuprolide 7.5 mg (1 month) 7.5 mg subcut ONCE Prostate Cancer 05/27/24 06/12/24 Rx subcutaneous syringe (Eligard) #1 ea emtricitabine 200 mg-tenofovir 1 tab PO HS 06/12/24 06/12/24 History disoproxil fumarate 300 mg tablet escitalopram oxalate 10 mg tablet 10 mg PO HS 06/12/24 06/12/24 History famotidine 40 mg tablet 40 mg PO HS 06/12/24 06/12/24 History folic acid 1 mg tablet 1 mg PO HS 06/12/24 06/12/24 History magnesium oxide 400 mg (241.3 mg 400 mg PO BID 06/12/24 06/12/24 History magnesium) tablet potassium chloride 20 mEq 20 meq PO HS 06/12/24 06/12/24 History tablet,extended release tamsulosin 0.4 mg capsule 0.4 mg PO HS Frequency 06/12/24 06/12/24 History thiamine HCl (vitamin B1) 100 mg 100 mg PO HS 06/12/24 06/12/24 History tablet Patient History Medical History Tubular adenoma Bilateral tinnitus Sensorineural hearing loss (SNHL) of both ears Alcohol use disorder, severe, dependence Acute alcohol intoxication Acute encephalopathy Septic shock Aspiration pneumonitis ARDS (adult respiratory distress syndrome) Acute alteration in mental status Hypomagnesemia Alcohol overdose Gastritis Elevated ferritin (07/11/20) HH genetic testing ordered. Cirrhosis Back problem "MESSED UP DISCS IN MY BACK" Hx of esophageal reflux History of skin cancer ON CHEEK--removed in office Varicose veins of both lower extremities Sleep apnea CPAP Asthma "MILD" NO INHALER Hepatic steatosis (07/15/20) On US 07/15/2020 Not immune to hepatitis B virus He's waiting to find a ride to get scheduled. Looking into local pharmacies. Hepatitis A vaccination not up to date He's waiting to find a ride to get scheduled. Looking into local pharmacies. Surgical History History of tonsillectomy History of colonoscopy 08/2020 repeat 3 yrs Hx of wisdom tooth extraction Family History Mother Breast cancer Father Diabetes Colorectal cancer Stroke Brother Prostate cancer Heart disease Colorectal cancer Other Unknown family medical history Denies family history of Ovarian cancer Coronary heart disease Myocardial infarction Congenital kidney disease Lung cancer Cystic kidney disease Social History Smoking Status: Never smoker Second Hand Exposure: No; Do You Dip or Chew Tobacco: No; Hx Alcohol Use: Yes Alcohol type: hard liquor Alcohol Intake Frequency: 4 or More x per/Week Hx Substance Use: No Preferred Language: Belarusian Communication Ability: Effective Visual Impairment: Limited Hearing Ability: Normal Senior Supplier Quality Engineer Required: No Beliefs That Will Affect Care: None marital status: Current Living Situation: Alone Current Living Situation Comment: alone at home current occupational status: retired How many Children do You have: 2 Feels Safe at Home: Yes Safety Concerns: Feels Safe At This Time Safety Concerns Comment: pt is currently homeless Childhood Exposure to Second-Hand Smoke: Yes Diet: regular caffeine: Yes Dental Care, Regularly: Yes Seatbelt Use: other Sunscreen Use: No Assistive Devices: Crutches and Glasses Review of Systems Constitutional: no fever and no chills Respiratory: no dyspnea Cardiovascular: no chest pain Gastrointestinal: + abdominal pain (r sided) and + nausea; no vomiting Physical Exam Physical Exam: awake, alert, no distress Constitutional: cooperative; no acute distress Respiratory: normal respiratory effort Cardiovascular: Heart rate 50-60s Gastrointestinal (Abdomen): Inspection/Auscultation: abdomen not distended Percussion/Palpation: + abdomen tender (ttp in RUQ and RLQ regions) and abdomen soft Results & Data Vital Signs (Past 12 Hours) Vital Signs Temp Pulse Pulse Resp BP BP Pulse Ox 06/12/24 11:00 54 L 14 125/79 98 06/12/24 08:23 62 06/12/24 08:00 62 18 107/75 99 06/12/24 07:03 95 06/12/24 07:00 53 L 16 105/65 87 L 06/12/24 06:36 60 18 111/75 92 06/12/24 05:56 65 18 96/65 L 92 06/12/24 04:26 85 06/12/24 04:23 93 06/12/24 04:14 98.8 F 87 19 111/69 94 O2 Del Method O2 Flow Rate 06/12/24 11:00 Nasal Cannula 2 06/12/24 08:23 06/12/24 08:00 Nasal Cannula 2 06/12/24 07:03 Nasal Cannula 2 06/12/24 07:00 Room Air 06/12/24 06:36 Room Air 06/12/24 05:56 Room Air 06/12/24 04:26 06/12/24 04:23 Room Air 06/12/24 04:14 Room Air Diagnostic Findings EXAM: US gallbladder CLINICAL HISTORY: ruq pain. PRIOR 05/11/2024 TECHNIQUE: Static ultrasound images with Grayscale and Doppler of the right upper quadrant were submitted for review. COMPARISON: USG, 05/11/2024 07:11:44 BAIT PACKER FINDINGS: The liver is normal in size with heterogeneous echogenicity and nodular outline . No focal masses or intrahepatic biliary dilatation. Mild perihepatic fluid seen. The common bile duct within normal limits. The gallbladder shows few echogenic calculi within lumen. Diffuse echogenic wall thickening is seen. The pancreas is within normal limits. The aorta is normal in caliber. The right kidney is normal in size and echogenicity without evidence of hydronephrosis, nephrolithiasis or focal mass lesions. IMPRESSION: 1. Chronic liver parenchymal disease. 2. Mild perihepatic fluid 3. Cholelithiasis. 4. Reactive gall bladder wall thickening. 5. No interval change. Electronically signed by Bi Li 06-12-2024 06:[address] OF THE ABDOMEN AND PELVIS WITH CONTRAST CLINICAL HISTORY: Right lower quadrant abdominal pain. COMPARISON STUDY: CT of the abdomen and pelvis January 12, 2024.] Right upper quadrant ultrasound performed earlier today. TECHNIQUE: Following IV administration of 93 mL of Optiray, axial images of the abdomen and pelvis were obtained from the lung bases to the proximal femurs. Images were reviewed in the axial, sagittal, and coronal planes. IV contrast was administered without complication. Automated exposure control was utilized for the study. A dose lowering technique was utilized adhering to the principles of ALARA. CT DOSE: 974.28 mGy.cm FINDINGS: A small hiatal hernia is present. No pneumatosis, free air or portal venous gas is present. There is trace perihepatic ascites. The liver is cirrhotic. No hepatic lesions are identified on portal venous phase exam. The main, left and right portal veins are patent. Note is made of gallstones within the gallbladder. The gallbladder is not distended. Gallbladder wall thickening with adjacent stranding is similar to prior CT. Splenomegaly is again noted. There are small abdominal varices. The adrenal glands and pancreas are unremarkable. There is no biliary or pancreatic ductal dilatation. The appendix is normal. The caliber and wall thickness of small and large bowel are normal. There is no lymphadenopathy. Major vasculature is patent. Bladder wall thickening is similar to prior exam and likely chronic. Trace pelvic ascites. There is a 4 mm calculus. There are no ureteral calculi. IMPRESSION: 1. No acute process within the abdomen or pelvis. 2. Normal appendix. No bowel obstruction. No bowel wall thickening. 3. Cirrhotic liver. Splenomegaly, trace ascites and small collaterals indicative of portal hypertension. 4. Cholelithiasis. No change in gallbladder wall thickening with adjacent stranding. The findings are chronic. No evidence for acute cholecystitis. ACT 112: Negative or not required by law. Electronically signed by: Charlie Jarquin M.D. 06/12/2024 9:35 AM PG Care Time/CCT Total # of Minutes Spent Total Time Spent with Patient: Total time spent is greater than 50% in coordination of care (as documented) at patient's floor/unit and/or counseling patient: Coding Level of Care Code 73261 IN/OBS CONSULT LVL 3,45M Diagnoses Cholelithiasis K80.20 Abdominal pain, acute R10.9
[2024-06-12] MEDS: FLUTICASONE PROPIONATE NA SPR 16 GM BTL SCH (14:17)
[2024-06-12] MEDS: busPIRone 15 MG TAB PO SCH (14:17)
[2024-06-12] MEDS: MAGNESIUM OXIDE 400 MG TAB PO SCH (14:17)
[2024-06-12] MEDS: MoRPHine SULFATE 4 MG/ML 1 ML CARP\\VIAL IV PRN (14:26)
[2024-06-12] MEDS: TAMSULOSIN HCL 0.4 MG CAP PO SCH (16:54)
--- NOTE | 2024-06-12 17:57 | XRay Report ---
EXAM: Radiographs of the Chest 2 Views INDICATION: Hypoxia TECHNIQUE: Frontal and lateral views of the chest. COMPARISON: 02/11/2024 FINDINGS: Lungs and pleural spaces: Stable mild lingular scarring. No consolidation or pulmonary edema. No pleural effusion or pneumothorax. Heart: Normal shape and configuration. Mediastinum: Normal contour. Bones/joints: No fracture, erosion or dislocation. IMPRESSION: No acute cardiopulmonary disease. ACT 112: N/A Electronically signed by Dea Lanza 06-12-2024 5:56 PM
--- NOTE | 2024-06-12 19:20 | Electrocardiogram Report ---
Test Reason : Blood Pressure : */* mmHG Vent. Rate : 82 BPM Atrial Rate : 82 BPM P-R Int : 138 ms QRS Dur : 74 ms QT Int : 398 ms P-R-T Axes : 7 0 -17 degrees QTcB Int : 464 ms Normal sinus rhythm Minimal voltage criteria for LVH, may be normal variant ( R in aVL ) Cannot rule out Anterior infarct , age undetermined T wave abnormality, consider inferior ischemia Abnormal ECG When compared with ECG of 11-Feb-2024 06:06, ST no longer elevated in Inferior leads ST no longer elevated in Lateral leads T wave inversion now evident in Inferior leads Nonspecific T wave abnormality now evident in Anterolateral leads QT has lengthened Confirmed by Britton Chavarria ([id number]) on 06/12/2024 7:20:03 PM Referred By: REFERRED SELF Confirmed By: Britton Chavarria
[2024-06-12] MEDS: POTASSIUM CHLORIDE CRTAB 20 MEQ TABCR PO SCH (20:02)
[2024-06-12] MEDS: FAMOTIDINE 40 MG TABLET PO SCH (20:05)
[2024-06-12] MEDS: lamoTRIgine 25 MG TAB PO SCH (20:05)
[2024-06-12] MEDS: EMTRICITABINE/TENOFOVIR TAB PO SCH (20:06)
[2024-06-12] MEDS: ESCITALOPRAM OXALATE 10 MG TAB PO SCH (20:06)
[2024-06-13 06:21] LABS: Basophils # (auto) 0.04 K/uL (0.00-0.20); Basophils % (auto) 1.7 %; Eosinophils # (auto) 0.15 K/uL (0.00-0.50); Eosinophils % (auto) 6.3 %; Hematocrit (blood only) 30.3 % (42.0-52.0); Hemoglobin 10.3 g/dl (14.0-18.0); Lymphocytes # (auto) 0.78 K/uL (1.20-3.40); Lymphocytes % (auto) 32.8 %; Mean Corpuscular Hemoglobin 32.4 pg (25.0-34.0); Mean Corpuscular Volume 95.3 fL (80.0-100.0); Mean Platelet Volume 9.9 fL (9.4-12.4); Monocytes # (auto) 0.25 K/uL (0.11-0.59); Monocytes % (auto) 10.5 %; Neutrophils # (auto) 1.16 K/uL (1.40-6.50); Neutrophils % (auto) 48.7 %; Platelet Count 78 K/uL (130-400); RDW Coefficient of Variation 14.1 % (11.5-14.5); RDW Standard Deviation 49.1 fL (36.4-46.3); Red Blood Count 3.18 M/uL (4.70-6.10); White Blood Count 2.38 K/ul (4.8-10.8)
[2024-06-13 06:41] LABS: Albumin Globulin Ratio 1.4 (0.9-2); Albumin Level 3.4 gm/dl (3.4-5.0); BUN Creatinine Ratio 13.5 (10-20); Calcium 9.2 mg/dl (8.6-10.3); Creatinine Clr Calc Pharmacy 69.9 ml/min; Globulin 2.4 gm/dl (2.5-4.0); Total Protein 5.8 gm/dl (6.0-8.3)
[2024-06-13 07:11] LABS: INR 1.2 (0.9-1.1); Prothrombin Time 12.6 Seconds (9.0-12.0)
[2024-06-13] MEDS: ONDANSETRON INJ 2 MG/ML 2 ML VIAL IV PRN (07:48)
--- NOTE | 2024-06-13 10:16 | Hospitalist Progress Note ---
Date of Service June 13, 2024 Assessment & Plan (1) Abdominal pain, acute: Plan: Biliary Colic - Surgery consulted in ER. Recommended medical admit w/ surgical consultation -Patient has right upper quadrant pain and ramone colored stools this past week consistent with biliary disease however on exam is most focally tender in the right lower quadrant. Reports history of diverticulosis/itis does not remember if he felt this pain on the left or right side -Hyperbilirubinemia/transaminitis is not present Given prominent right lower quadrant pain on exam CTA/P with contrast was ordered. No acute findings on this Imaging and case reviewed by general surgery. Chronic findings. NO indication for acute surgical intervention at this time. Clinically progressing. Progressed to clears. Defer HIDA/MRCP unless recurrent/worsening symptoms. Appreciate recommendations Advance diet as tolerated. Currently still having pain with clears, defers advancement to full liquids at this time. Continue pain control.?Viral vs colic Cirrhosis, history of varices -Reports he follows with [facility] for [facility] but is transitioning to [facility] -MELD score has been less than 10. Is followed as a potential liver candidate but has not yet met criteria and in addition if listed would need social worker assistant evaluation Patient denies history of bleeding but per Alina chart reviews did have a past esophageal variceal bleed. Was recommended to consider potential Coreg 6.25 mg p.o. daily but this does not appear to be of started. If MELD were to rise over 15 was recommend to follow-up with [facility] [place] [facility] He does not show any evidence of hepatic decompensation on admission LFTs are normal, bilirubin is normal INR 1.1 Albumin 3.6, sodium 140 Daily labs EGD 2020 with grade 1 esophageal varices. No evidence of active bleeding Past history of prostate cancer s/p radiation therapy -On leuprolide was scheduled for last injection Saturday (1 week from today). No known mets. Patient reports is doing well PSAs have been near undetectable Pancytopenia - Bone marrow biopsy pending - No ETOH use in the last 8 months - No bleeding, no bloody/black BMs Patient has regular HIV testing which has been negative and is compliant with PrEP which is continued Bone marrow biopsy 03/30/2024 reviewed. Was obtained for persistent pancytopenia despite cessation of alcohol. Aspirate smear with no evidence of dysplasia of the granulocytic or erythroid lineages. No evidence of primary marrow disorder ANC count is greater than 1000 Monitor daily ? Lamotrigine induced pancytopenia. Patient had begun tapering this down to 50 mg previous week. Will further dose reduced to 25 mg. Monitor for signs of withdrawal. If any seizure activity treat with lorazepam 2 mg IV every 5 minutes up to 3 doses and loaded with Keppra. Continue follow-up with heme-onc Anxiety/depression Tapering lamotrigine as noted Continue current medications. Alcohol abuse in remission Noted RENÉE CPAP at bedtime DVT prophylaxis: Lovenox, no surgical intervention anticipated at this time Disposition: MSO CODE STATUS: Full code Diet: Progressed to clears (2) Alcohol use disorder: (3) Pancytopenia: (4) Thrombocytopenia: (5) Esophageal varices: (6) Anxiety and depression: (7) Obstructive sleep apnea: Admission and Anticipated Discharge Date Admission Date: June 12, 2024 Subjective Seen the bedside this morning. He is concerned about his white blood cell count. He still having some right lower quadrant pain which is worsened with clears. Does not yet feel ready to advance diet to full liquids. Is passing some gas No bowel movement yet today No fevers chills or sweats Physical Exam Physical Exam: General: A&Ox3. NAD. Cooperative. HEENT: Atraumatic, normocephalic. Vision/hearing grossly intact Pulm: Symmetrical chest rise. No increased work of breathing. No respiratory distress. Abdominal: Continues to be tender to palpation in the right lower quadrant without rebound/guarding. Slight right upper quadrant pain. Abdomen is not rigid Ext: warm, dry Results & Data Results & Data Vital Signs (Past 12 Hours) Vital Signs Temp Pulse Pulse Resp BP Pulse Ox O2 Del Method 06/13/24 07:21 36.7 C 58 L 18 100/62 94 Nasal Cannula 06/13/24 03:42 13 95 06/12/24 23:09 61 13 93 O2 Flow Rate 06/13/24 07:21 1 06/13/24 03:42 1 06/12/24 23:09 1 PG Care Time/CCT Total # of Minutes Spent Total Time Spent with Patient: Total time spent is greater than 50% in coordination of care (as documented) at patient's floor/unit and/or counseling patient: Coding Level of Care Code 84721 SUB INP/OBS CARE 3/50MIN Diagnoses Abdominal pain, acute R10.9 Alcohol use disorder F10.90 Pancytopenia D61.818 Thrombocytopenia D69.6 Esophageal varices I85.00 Anxiety and depression F41.9; F32.9 Obstructive sleep apnea G47.33
--- NOTE | 2024-06-13 13:16 | Surgery Progress Note ---
Date of Service June 13, 2024 Assessment & Plan (1) Abdominal pain, acute: Plan: pt w/ history of cirrhosis and gallstones here w/ right sided abdominal pain, both RUQ/RLQ labs show wbc 2.3, LFTs wnl pain improved from admission likely imaging findings of gallbladder 2/2 cirrhosis and surrounding reactive changes no plans for surgical intervention at this time, no acute gallbladder process he may have diet as tolerates we will sign off but please call if any questions/concerns pt seen/examined with dr. rowe Admission and Anticipated Discharge Date Admission Date: June 12, 2024 Subjective pt reports some pain remains present, but better than when he presented. on clears. Physical Exam Physical Exam: awake/alert, no distress Results & Data Vital Signs (Past 12 Hours) Vital Signs Temp Pulse Resp BP Pulse Ox O2 Del Method O2 Flow Rate 06/13/24 07:21 98.1 F 58 L 18 100/62 94 Nasal Cannula 1 06/13/24 03:42 13 95 1 PG Care Time/CCT Total # of Minutes Spent Total Time Spent with Patient: Total time spent is greater than 50% in coordination of care (as documented) at patient's floor/unit and/or counseling patient: Coding Level of Care Code 18329 SUB INP/OBS CARE 04/25MIN Diagnoses Abdominal pain, acute R10.9
[2024-06-13] MEDS: MoRPHine SULFATE 2 MG/ML CARP IV PRN (17:42)
[2024-06-13] MEDS: ALBUTEROL HFA 8 GM INHALER INH PRN (19:39)
[2024-06-13] MEDS: lamoTRIgine 25 MG TAB PO SCH (20:57)
[2024-06-14 06:54] LABS: Basophils # (auto) 0.04 K/uL (0.00-0.20); Basophils % (auto) 1.4 %; Eosinophils # (auto) 0.17 K/uL (0.00-0.50); Eosinophils % (auto) 5.7 %; Hematocrit (blood only) 30.8 % (42.0-52.0); Hemoglobin 10.4 g/dl (14.0-18.0); Immature Granulocytes # (auto) 0.01 K/uL (0.01-0.20); Immature Granulocytes % (auto) 0.3 %; Lymphocytes # (auto) 0.67 K/uL (1.20-3.40); Lymphocytes % (auto) 22.6 %; Mean Corpuscular Hemoglobin 32.5 pg (25.0-34.0); Mean Corpuscular Hgb Conc 33.8 g/dL (32.0-36.0); Mean Corpuscular Volume 96.3 fL (80.0-100.0); Monocytes # (auto) 0.33 K/uL (0.11-0.59); Monocytes % (auto) 11.1 %; Neutrophils # (auto) 1.74 K/uL (1.40-6.50); Neutrophils % (auto) 58.9 %; Platelet Count 73 K/uL (130-400); RDW Coefficient of Variation 13.7 % (11.5-14.5); RDW Standard Deviation 48.7 fL (36.4-46.3); White Blood Count 2.96 K/ul (4.8-10.8)
[2024-06-14 07:18] LABS: BUN Creatinine Ratio 10.6 (10-20); Calcium 9.3 mg/dl (8.6-10.3); Creatinine Clr Calc Pharmacy 69.9 ml/min; Potassium 3.9 mmol/L (3.5-5.1)
--- NOTE | 2024-06-14 07:19 | Hospitalist Progress Note ---
Date of Service June 14, 2024 Assessment & Plan (1) Abdominal pain, acute: Plan: #Cholelithiasis without cholecystitis #Biliary colic Clinically improving. Advancing diet as tolerated. Imaging with chronic findings, nothing acute. Surgery consulted, appreciate recs - no indication for acute surgical intervention, signed off. Advance diet as tolerated Defer HIDA/MRCP unless recurrent/worsening symptoms. #Cirrhosis, history of varices Is followed as a potential liver candidate but has not yet met criteria. If listed would need director social welfare evaluation. Chart review notable for history of variceal bleed - not on beta blockade. BP is on the softer side which may make beta barbara initiation more difficult. No signs of decompensation at present - normal LFTs, bili, sodium, and no signs of active bleeding. MELD - 9 on admit Daily labs #Past history of prostate cancer s/p radiation therapy On leuprolide - scheduled for last injection SaturdayJune 19. No known mets. PSA nearly undetectable. #Pancytopenia Reviewed heme/onc note. Reportedly complete alcohol cessation in 09/2023. Persistent pancytopenia lead to bone marrow biopsy. No evidence of primary bone marrow disorder. Patient on PrEP and he gets regular HIV/STI testing. Possible agranulocytosis from antipsychotic use as patient is on Lamictal. Working on titrating this down as patient was having some confusion/sedation. Currently down to 25 mg without signs of withdrawal. Continue to monitor. monitor for signs of withdrawal if seizing - ativan 2 mg IV Q5M up to 3 doses, Keppra load continue follow-up with heme-onc Anxiety/depression Tapering lamotrigine as noted Continue current medications. Alcohol abuse in remission Noted RENÉE CPAP at bedtime DVT prophylaxis: Lovenox Disposition: MSO CODE STATUS: Full code Diet: FLD (2) Alcohol use disorder: (3) Pancytopenia: (4) Thrombocytopenia: (5) Esophageal varices: (6) Anxiety and depression: (7) Obstructive sleep apnea: Admission and Anticipated Discharge Date Admission Date: June 12, 2024 Supervising Physician Co-Signing Physician Notes I personally examined the patient and verified all chapman points of history and exam, discussed case, and agree with decision making with Dr Tovar doing better belly feeling better eating better has a job starting this week! sober x 8 months! vitals noted nad heent nc at mmm breathing unlabored no accessory muscles good effort skin no rashes but is somewhat dry itchy in places abdominal pain - improving, advancing diet, anticipate home tomorrow otherwise as above Subjective Patient seen at bedside this AM. Feels about 30% improved. Reports continued RUQ and RLQ pain. Wonders if this is related to his hiatal hernia. No fevers or chills. Patient additionally expresses concern that there is an underlying cancer causing his pancytopenia. Patient has been seen by heme/onc and completed pancytopenia work up including BM Bx which has been WNL. Did have a slightly elevated Tumor Marker - AFP which has been downtrending. Most recent draw is pending. Did have an episode of symptomatic hypotension shortly after this interview - lightheaded/nauseous BP 86/49. Given 500 mL NSS bolus with instructions to recheck BP 30 minutes after the bolus completes. Review of Systems 2 Constitutional: See HPI Physical Exam 2 Physical Exam: Gen: appears older than stated age, NAD HEENT: AT NC MMM Resp: CTAB no wheezing no increased work of breathing CV: RRR no m/r/g clinically well perfused Abd: soft, non-tender, +BS, negative Scruggs's sign, mildly distended MSK: no obvious deformities Skin: no rashes or bruising Neuro: alert and oriented Psych: appropriate mood and affect Results & Data Results & Data Vital Signs (Past 12 Hours) Vital Signs Temp Pulse Pulse Resp BP Pulse Ox O2 Del Method 06/14/24 07:11 36.7 C 64 16 100/59 L 95 Room Air 06/14/24 04:18 62 21 95 06/13/24 23:16 65 11 L 96 06/13/24 23:16 63 18 95 Nasal Cannula 06/13/24 20:50 36.7 C 83 16 94/57 L 92 Nasal Cannula 06/13/24 19:51 Nasal Cannula 06/13/24 19:38 68 16 94 Nasal Cannula O2 Flow Rate 06/14/24 07:11 06/14/24 04:18 1 06/13/24 23:16 1 06/13/24 23:16 1 06/13/24 20:50 1 06/13/24 19:51 1 06/13/24 19:38 1 Laboratory Results 06/14/24 05:54 06/14/24 05:54 Diagnostic Findings Gallbladder Ultrasound 06/12/24 04:17 FINDINGS: The liver is normal in size with heterogeneous echogenicity and nodular outline. No focal masses or intrahepatic biliary dilatation. Mild perihepatic fluid seen. The common bile duct within normal limits. The gallbladder shows few echogenic calculi within lumen. Diffuse echogenic wall thickening is seen. The pancreas is within normal limits. The aorta is normal in caliber. The right kidney is normal in size and echogenicity without evidence of hydronephrosis, nephrolithiasis or focal mass lesions. IMPRESSION: 1. Chronic liver parenchymal disease. 2. Mild perihepatic fluid 3. Cholelithiasis. 4. Reactive gall bladder wall thickening. 5. No interval change. Abdomen/Pelvis CT 06/12/24 08:45 FINDINGS: A small hiatal hernia is present. No pneumatosis, free air or portal venous gas is present. There is trace perihepatic ascites. The liver is cirrhotic. No hepatic lesions are identified on portal venous phase exam. The main, left and right portal veins are patent. Note is made of gallstones within the gallbladder. The gallbladder is not distended. Gallbladder wall thickening with adjacent stranding is similar to prior CT. Splenomegaly is again noted. There are small abdominal varices. The adrenal glands and pancreas are unremarkable. There is no biliary or pancreatic ductal dilatation. The appendix is normal. The caliber and wall thickness of small and large bowel are normal. There is no lymphadenopathy. Major vasculature is patent. Bladder wall thickening is similar to prior exam and likely chronic. Trace pelvic ascites. There is a 4 mm calculus. There are no ureteral calculi. IMPRESSION: 1. No acute process within the abdomen or pelvis. 2. Normal appendix. No bowel obstruction. No bowel wall thickening. 3. Cirrhotic liver. Splenomegaly, trace ascites and small collaterals indicative of portal hypertension. 4. Cholelithiasis. No change in gallbladder wall thickening with adjacent stranding. The findings are chronic. No evidence for acute cholecystitis. Chest X-Ray 06/12/24 17:30 FINDINGS: Lungs and pleural spaces: Stable mild lingular scarring. No consolidation or pulmonary edema. No pleural effusion or pneumothorax. Heart: Normal shape and configuration. Mediastinum: Normal contour. Bones/joints: No fracture, erosion or dislocation. IMPRESSION: No acute cardiopulmonary disease. Resident Activity Tracking Resident Involvement: Resident Care Provided Care Provided: [facility]
[2024-06-14] MEDS: SODIUM CHLORIDE 0.9% 500 ML IV ONE (09:32)
[2024-06-14] MEDS ORDERED: TRIAMCINOLONE ACET 0.1% CR 80 GM TUBE EXT PRN (18:29)
--- NOTE | 2024-06-14 18:32 | Billing Data ---
Date of Service June 14, 2024 Coding Level of Care Code 70395 SUB INP/OBS CARE
[2024-06-14 19:54] VITALS: TEMP 98.2
[2024-06-14] MEDS: THIAMINE HCL 100 MG TAB PO SCH (20:12)
[2024-06-14] MEDS: FOLIC ACID 1 MG TAB PO SCH (20:12)
[2024-06-15 07:33] LABS: Basophils # (auto) 0.03 K/uL (0.00-0.20); Eosinophils # (auto) 0.22 K/uL (0.00-0.50); Eosinophils % (auto) 7.7 %; Hematocrit (blood only) 31.4 % (42.0-52.0); Hemoglobin 10.6 g/dl (14.0-18.0); Lymphocytes % (auto) 24.5 %; Mean Corpuscular Hemoglobin 32.7 pg (25.0-34.0); Mean Corpuscular Hgb Conc 33.8 g/dL (32.0-36.0); Mean Corpuscular Volume 96.9 fL (80.0-100.0); Mean Platelet Volume 10.2 fL (9.4-12.4); Monocytes # (auto) 0.33 K/uL (0.11-0.59); Monocytes % (auto) 11.5 %; Neutrophils # (auto) 1.58 K/uL (1.40-6.50); Neutrophils % (auto) 55.3 %; Platelet Count 73 K/uL (130-400); RDW Coefficient of Variation 13.9 % (11.5-14.5); RDW Standard Deviation 49.8 fL (36.4-46.3); Red Blood Count 3.24 M/uL (4.70-6.10); White Blood Count 2.86 K/ul (4.8-10.8)
[2024-06-15 07:40] VITALS: PULSE 52; RESP 18; O2SAT 94
[2024-06-15 08:33] LABS: BUN Creatinine Ratio 8.7 (10-20); Calcium 9.6 mg/dl (8.6-10.3); Creatinine Clr Calc Pharmacy 69.9 ml/min; Potassium 4.3 mmol/L (3.5-5.1)
--- NOTE | 2024-06-15 09:52 | Discharge Summary ---
Date of Service June 15, 2024 Admission HPI Per Admitting Provider Nick is a 58-year-old male with a history of cirrhosis/varices/alcohol abuse, cholelithiasis possibly related gallstones recommended for serial monitoring, anxiety/depression, alcohol use disorder in remission who presents to the emergency department overnight for right upper quadrant abdominal pain following a "Thanksgiving dinner "meal. On ER evaluation and had a tender right upper quadrant on examination. Reports he has a history of gallbladder stones and collapsed gallbladder. Is on surveillance, but told he needs to seek medical attention for any recurrent pain. 1 day of RUQ quadrant pain. Had a 'thanksgiving dinner type meal with gravy turkey and potatos' at the [employer]. That was ~5pm, pain started ~3am. BMs have been hagan in color. Diarrhea intermittent with some color, his last BM overnight was hagan and solid overnight. First time he has ever had hagan stools At time of bedside assessment pain has moved slightly lower, lamotrigine is 50mg not 100mg Mg BID 400mg not TID Reports he felt a little warm last night but denies fevers. No chills or sweats. No cough. No respiratory symptoms He denies any history of heart disease, CHF, heart attacks. Denies history of lung disease. Denies history of kidney disease. No history of blood clot/VTE/PE Denies medication allergies Denies tobacco use. Alcohol abuse in remission for the last 8 months Full code Admission Exam Per Admitting Provider General: A&Ox3. NAD. Cooperative. HEENT: Atraumatic, normocephalic. Vision/hearing grossly intact Pulm: Diminished but on deep breaths CTAB A&P. -wheezes, -rales, -rhonchi. Symmetrical chest rise. No increased work of breathing. No respiratory distress. Cardiac: RRR, -mrg. Radial pulses intact and symmetrical. Abdominal: TTP mostly in the RLQ, some mild RUQ tenderness on deep palpation. No rebound/guarding. Ext: warm, dry Principal Diagnosis Pancytopenia due to medication adverse effects Discharge Exam General: AAOx3, afebrile, conversant Heart: S1, S2/regular rate and rhythm, no murmur rubs or gallops Lungs: Clear to auscultation bilaterally. Normal effort Abdomen: Soft/nontender/nondistended. No hepatosplenomegaly Extremities: No swelling or calf tenderness bilaterally Behavior: Appropriate, cooperative Discharge Data Allergies Allergy/AdvReac Type Severity Reaction Status Date / Time No Known Allergies Allergy Verified 04/28/24 07:53 Consultations 06/12/24 06:31 ED Decision to Admit Stat 06/12/24 08:58 Consult General Surgery Routine Ordered Studies 06/12/24 04:17 US gallbladder Stat 06/12/24 08:45 CT Abd and Pelvis [CT abd pelvis IV con only] Stat Hospital Course (1) Abdominal pain, acute: (2) Alcohol use disorder: (3) Pancytopenia: (4) Thrombocytopenia: (5) Esophageal varices: (6) Anxiety and depression: (7) Obstructive sleep apnea: Plan #Cholelithiasis without cholecystitis #Biliary colic Symptoms improved and now tolerating diet well. Imaging with chronic findings, nothing acute. Surgery consulted and state no indication for acute surgical intervention, signed off. HIDA/MRCP deferred given improvement and stability. Encourage f/u with PCP. #Cirrhosis, history of varices Is followed as a potential liver candidate but has not yet met criteria. If listed would need social and political studies professor evaluation. Chart review notable for history of variceal bleed - not on beta blockade. BP is on the softer side which may make beta barbara initiation more difficult. No signs of decompensation at present - normal LFTs, bili, sodium, and no signs of active bleeding. MELD - 9 on admit. Encourage outpatient follow up with PCP and GI. #Past history of prostate cancer s/p radiation therapy On leuprolide - scheduled for last injection SaturdayJune 19. No known mets. PSA nearly undetectable. #Pancytopenia Reviewed heme/onc note. Reportedly complete alcohol cessation in 09/2023. Persistent pancytopenia lead to bone marrow biopsy. No evidence of primary bone marrow disorder. Patient on PrEP and he gets regular HIV/STI testing. Possible agranulocytosis from antipsychotic use as patient is on Lamictal. Working on titrating this down as patient was having some confusion/sedation. Currently down to 25 mg without signs of withdrawal or seizure activity. Will discharge today with Lamictal 25 mg and advised to follow up with psychiatrist and PCP to discuss medication dosing or alternates. Continue follow up with heme/onc as well. #Anxiety/depression Tapering lamotrigine as noted. Continue current medications. #Alcohol abuse in remission Noted. No alcohol consumption since summer. #RENÉE CPAP at bedtime Will discharge back home today. Total Time Total Time Spent Total Time Spent (In Minutes): Hernesto Alaniz DO, attending physician, spent 25 minutes myself seeing the patient, reviewing the chart, and documenting today. Discharge Plan Discharge Items Patient Disposition: Home - Self-Care Reason For Visit: Abdominal Pain Discharge Diagnosis: Pancytopenia secondary to medication side effects Condition on Discharge: Good Activity: Per Instructions section Non-emergency contact: Primary Care Provider, Examination Scorer and Psychiatrist Call non-emergency contact if: your symptoms worsen and your temperature is above 101.5 Follow-up/Referrals: Valdemar Santo DO [Primary Care Provider] - 06/23/24 9:30 am Diet: Low Fat Addtl Attending Provider Instructions: You were admitted to the hospital after being found to have very low blood cell counts. Given that you have had a bone marrow biopsy done in the past (due to similar concern of low blood counts) and was overall unremarkable, it was suspected that the more likely cause of your lower blood counts is the use of your Lamictal medication since this is a possible side effect. For this reason, we have decreased your dose of Lamictal to 25 mg daily at night all while monitoring you to ensure this does not lead to your having a seizure. Fortunately, you tolerated to decreased dose well and have not had a seizure since you were admitted. For this reason, we will be discharging you today. We advise that you continue taking the lower dose of Lamictal 25 mg before bed until you are seen by your primary care provider or your psychiatrist (who prescribed this medication). During our discussion, you had mentioned you had an appointment scheduled with both your PCP and your psychiatrist within the next 1-2 weeks, however, if you come to realize this is not the case, we do advise y ou to call to schedule one so they can discuss your medication changes and see how you've been with the changed doses. A discharge summary will be sent to your primary care physician to ensure rosa nuity of care. Please bring this discharge summary with you to your next office appointment so that your provider can review it at that time. Medications: Your medication list has been reviewed and reconciled upon discharge to ensure accuracy and continuity of care. An updated list of all your medications is included with your hospital discharge paperwork. Please review this list closely, and make note of any changes. CONTACT YOUR PRIMARY CARE PROVIDER if you experience any of the following: Worsening of symptoms Fever, chills, or fatigue Difficulty following your treatment plan, or difficulty taking medications CALL 911 OR GO TO THE EMERGENCY DEPARTMENT if you experience any of the following: Sudden, severe abdominal pain or nausea/vomiting Severe chest pain, or chest pain that radiates (moves) to your jaw or arm Sudden, severe shortness of breath or difficulty breathing Thank you for allowing us to participate in your care. Pending Studies at Discharge: No Stand-Alone Forms: My [facility], Smoking Cessation Medications and DC Order Prescriptions: New lamotrigine [Lamictal] 25 mg Tablet 25 mg PO HS Qty: 30 0RF Continued Eligard 7.5 mg (1 month) syringe 7.5 mg subcut ONCE Qty: 1 0RF Rx Instructions: ICD: C61 Patient scheduled 06/19/24 phenazopyridine [Pyridium] 200 mg tablet 200 mg PO TID PRN (Reason: pain) Qty: 90 2RF albuterol sulfate 90 mcg/actuation HFA aerosol inhaler 2 puff inhalation QID PRN (Reason: shortness of breath or wheezing) Qty: 6.7 1RF fluticasone propionate [Flonase Allergy Relief] 50 mcg/actuation spray,suspension 2 spray intranasal DAILY Rx Instructions: administer into each nostril Vivitrol 380 mg suspension,extended rel recon 380 mg IM ONCE Rx Instructions: filled 05/18 28 day supply celecoxib 200 mg capsule 200 mg PO UD Rx Instructions: 200 mg po BID per fill history 05/03/24 90 day supply buspirone 10 mg tablet 15 mg PO BID famotidine 40 mg tablet 40 mg PO HS thiamine HCl (vitamin B1) 100 mg tablet 100 mg PO HS magnesium oxide 400 mg (241.3 mg magnesium) tablet 400 mg PO BID tamsulosin 0.4 mg capsule 0.4 mg PO HS Rx Instructions: Take 1 pill after supper. folic acid 1 mg tablet 1 mg PO HS Rx Instructions: TAKE 1 TAB BY MOUTH EVERY MORNING escitalopram oxalate 10 mg tablet 10 mg PO HS emtricitabine-tenofovir (TDF) 200-300 mg tablet 1 tab PO HS potassium chloride 20 mEq tablet extended release 20 meq PO HS Discontinued lamotrigine 25 mg tablet 50 mg PO HS Discharge Orders: Discharge Order (Routine); Ordered 06/15/24 Ordered By: Tyra Stevens Admission Data Admit Date/Time: 06/12/24 08:58 Attending Provider: Hernesto Helm Admit Provider: Nick Patrick Primary Care Provider: Valdemar Santo Other Providers: Emory Kaur; Jorge Bishop; [facility] Other Interventions: Discharge Summary Assessment (RN) Last Done: 06/15/24 13:28 Supervising Physician Co-Signing Physician Notes ATTESTATION I also saw the patient and confirmed chapman portions of the history and exam. I agree with the impression and plan in the resident documentation, and as summarized below. Patient without complaints this morning. He is anticipating discharge home. He is tolerating diet without abdominal pain, nausea, or vomiting. EXAM Blood pressure 100/62, heart rate 52, pulse 18, temperature 36.8, pulse oximetry 94% on room air pleasant and alert. No distress. Heart regular respirations nonlabored abdomen soft and nontender DATA Labs hemoglobin 10.6, white blood cell count 2.86 BMP unremarkable IMPRESSION & PLAN abdominal pain, acute, resolved cholelithiasis without cholecystitis cirrhosis with history of varices feeling better, tolerating p.o. diet without difficulty counseled on low-fat diet he has appropriate outpatient follow-up Additional diagnoses and plans per resident documentation Resident Activity Tracking Resident Involvement: Resident Care Provided Care Provided: Adult Hospital Medicine
[2024-06-15 13:30] VITALS: BP 100/62
== END 2024-06-15 14:04 | disposition home health service (06) | DRG 445 ==
LOC: ED 04:13 → SUATTDRO 08:58 → EDINP 08:58 → 3W 12:46

== ENCOUNTER 2024-10-26 16:05 | Inpatient (IN) ==
[2024-10-26 18:13] LABS: Hematocrit (blood only) 31.9 % (42.0-52.0); Hemoglobin 10.8 g/dl (14.0-18.0); Mean Corpuscular Hemoglobin 32.3 pg (25.0-34.0); Mean Corpuscular Volume 95.5 fL (80.0-100.0); Platelet Count 76 K/uL (130-400); RDW Standard Deviation 48.4 fL (36.4-46.3); Red Blood Count 3.34 M/uL (4.70-6.10); White Blood Count 2.76 K/ul (4.8-10.8)
[2024-10-26 18:32] LABS: Alanine Aminotransferase 12.0 U/L (7-52); Albumin Globulin Ratio 1.5 (0.9-2); Alkaline Phosphatase 87.0 U/L (34-104); Anion Gap 6.0 (3-11); Bilirubin,Total 0.6 mg/dl (0.2-1.0); Blood Urea Nitrogen 19.0 mg/dl (6-23); Calcium 8.6 mg/dl (8.6-10.3); Carbon Dioxide 25.0 mmol/L (21-32); Chloride 109.0 mmol/L (98-107); Creatinine Clr Calc Pharmacy 60.8 ml/min; Globulin 2.4 gm/dl (2.5-4.0); Glucose 98.0 mg/dl (70-99(Fasting)); Potassium 4.3 mmol/L (3.5-5.1); Sodium 140.0 mmol/L (136-145); Total Protein 6.0 gm/dl (6.0-8.3)
--- NOTE | 2024-10-26 19:03 | Emergency Department Note ---
Impression & Plan Lower gastrointestinal bleeding, Cirrhosis ED Provider Note NAME: RUBEN PENN AGE: 59 SEX: M : 1965 ARRIVES VIA: Walk-In INFORMANT: Patient ED PROVIDER(S): Miki Bladn MD CHIEF COMPLAINT: PLAN: Disposition: MEDICAL DECISION MAKING: Summary Triage Nursing notes reviewed and agree them. Prior/external medical records reviewed Vital Signs: reviewed Differential diagnosis: ER treatment provided: See below. Diagnostics interpreted by me: ECG: None Cardiac Monitoring: An order for continuous cardiac monitoring was placed and demonstrated Laboratory studies: See below Imaging studies: See below Consultation(s): None HPI: Per MDM. ROS: See above HPI for pertinent positives & negatives. A total of 10 systems reviewed and were otherwise negative. VITALS:See Below PHYSICAL EXAMINATION: ED COURSE: Times/Reassessments: Procedures: None PDMP: Reviewed and no issues Critical Care: None Miki Bland MD Past Med/Surg History Problem List (Updated 10/27/24 @ 01:28 by Miki Bland MD) Lower gastrointestinal bleeding (Acute) Lumbar degenerative disc disease Lumbar radicular pain Lumbar spondylosis Sacroiliitis Leg length discrepancy Alcohol use disorder in remission Anxiety and depression Gait abnormality Polymyalgia Abnormal CT scan, chest Prostate cancer (Chronic 06/27/23) Urinary urgency Cirrhosis (Acute) Vitamin D deficiency (07/11/20) Medical History (Updated 10/27/24 @ 01:28 by Miki Bland MD) B12 deficiency Positive anti-CCP test History of urinary urgency Prostate cancer dx 05/2023, xrt tx and injections; "cured as of 05/2024" Biliary colic hx, f/u PCP Cholelithiasis hx, f/u PCP Alcohol use disorder hx, sober 9 months as of 07/09/24 Pancytopenia hx Esophageal varices hx Thrombocytopenia (07/06/20) hx; Cirrhosis vs. Folate deficiency vs. EtOH marrow suppression Tubular adenoma hx, 2 removed Bilateral tinnitus Sensorineural hearing loss (SNHL) of both ears Septic shock hx, 08/2023, hospitalized [facility] Aspiration pneumonitis hx, 08/2023, hospitalized [facility] ARDS (adult respiratory distress syndrome) 08/2023, hospitalized [facility] from aspiration pneumonitis Hypomagnesemia hx, resolved per pt. Gastritis hx Elevated ferritin (07/11/20) HH genetic testing ordered. Cirrhosis Back problem "MESSED UP DISCS IN MY BACK" Hx of esophageal reflux History of skin cancer ON CHEEK--removed in office Varicose veins of both lower extremities Sleep apnea CPAP Asthma "MILD" NO INHALER Hepatic steatosis (07/15/20) On US 07/15/2020 Surgical History Hx of tooth extraction all upper teeth removed History of tonsillectomy History of colonoscopy 08/2020 repeat 3 yrs Hx of wisdom tooth extraction Family History Mother Breast cancer Father Diabetes Colorectal cancer Stroke Brother Prostate cancer Heart disease Colorectal cancer Other Unknown family medical history Denies family history of Ovarian cancer Coronary heart disease Myocardial infarction Congenital kidney disease Lung cancer Cystic kidney disease Social History Smoking Status: Never smoker Second Hand Exposure: No; Do You Dip or Chew Tobacco: No; Hx Alcohol Use: Yes Alcohol type: hard liquor Alcohol Intake Frequency: 4 or More x per/Week Hx Substance Use: No Preferred Language: Luxembourgish Communication Ability: Effective Visual Impairment: Limited Hearing Ability: Normal Bakery Clerk Required: No Beliefs That Will Affect Care: Orthodoxy marital status: Current Living Situation: Alone Current Living Situation Comment: alone at home current occupational status: retired How many Children do You have: 2 Feels Safe at Home: Yes Safety Concerns Comment: pt is currently homeless Childhood Exposure to Second-Hand Smoke: Yes Diet: regular caffeine: Yes Dental Care, Regularly: Yes Seatbelt Use: other Sunscreen Use: No Assistive Devices: Cane and Crutches Allergies Allergies Allergy/AdvReac Type Severity Reaction Status Date / Time No Known Allergies Allergy Verified 10/26/24 23:54 Home Meds Home Medications Medication Instructions Recorded Confirmed fluticasone propionate 50 2 spray intranasal DAILY 01/06/24 10/26/24 mcg/actuation nasal spray,suspension (Flonase Allergy Relief) naltrexone microspheres 380 mg 380 mg IM Q28D 01/15/24 10/27/24 intramuscular suspension,extended release (Vivitrol) buspirone 10 mg tablet 15 mg PO BID 03/16/24 10/26/24 celecoxib 200 mg capsule 200 mg PO BID 04/28/24 10/26/24 escitalopram oxalate 10 mg tablet 10 mg PO HS 06/12/24 10/26/24 famotidine 40 mg tablet 40 mg PO HS 06/12/24 10/26/24 folic acid 1 mg tablet 1 mg PO HS 06/12/24 10/27/24 magnesium oxide 400 mg (241.3 mg 400 mg PO BID 06/12/24 10/27/24 magnesium) tablet potassium chloride 20 mEq 20 meq PO HS 06/12/24 10/27/24 tablet,extended release tamsulosin 0.4 mg capsule 0.4 mg PO HS Frequency 06/12/24 10/27/24 lamotrigine 25 mg tablet (Lamictal) 100 mg PO HS 06/19/24 10/27/24 diclofenac sodium 1 % topical gel 2 g topical QID PRN Pain 07/09/24 10/26/24 (Voltaren Arthritis Pain) ergocalciferol (vitamin D2) 50 mcg 50 mcg PO .twice weekly 07/13/24 10/26/24 (2,000 unit) capsule emtricitabine 200 mg-tenofovir 1 tab PO DAILY 09/23/24 10/26/24 disoproxil fumarate 300 mg tablet Previous Rx's Medication Instructions Recorded albuterol sulfate 90 mcg/actuation 2 puff inhalation QID PRN 04/23/24 aerosol inhaler shortness of breath or wheezing #6.7 grams cholecalciferol (vitamin D3) 125 125 mcg PO Q4D #90 caps 07/17/24 mcg (5,000 unit) capsule cane #1 ea 08/06/24 heating pads #1 ea 08/06/24 peg 3350-electrolytes 236 240 ml PO Q10M #4,000 mL 08/17/24 gram-22.74 gram-6.74 gram-5.86 gram solution (Golytely) thiamine HCl (vitamin B1) 100 mg 100 mg PO HS #90 tabs 10/26/24 tablet Results & Data (ED) Vital Signs Vital Signs - 24 hr 10/26/24 16:06 10/26/24 19:14 10/26/24 19:21 Temperature 36.6 C Temperature Source Temporal Artery Scan Pulse Rate 82 56 L 54 L Pulse Rate [Right Brachial] Pulse Rate from SpO2 Sensor 53 L Pulse Rhythm [Right Brachial] Pulse Strength [Right Brachial] Respiratory Rate 18 19 Respiratory Effort / Characteristics Respiratory Depth Respiratory Pattern Blood Pressure 107/66 97/76 L Blood Pressure [Right Arm] Blood Pressure Mean 79 83 Blood Pressure Mean [Right Arm] Blood Pressure Position [Right Arm] Pulse Oximetry 94 93 Oxygen Delivery Method Sepsis Recent Fever Within 48 Hours No Sepsis New/Unexplained Change in Mental Status N/A Sepsis Action Taken by Nursing No Action Required 10/26/24 20:18 10/26/24 20:30 10/26/24 20:43 Temperature Temperature Source Pulse Rate 54 L 52 L Pulse Rate [Right Brachial] Pulse Rate from SpO2 Sensor 53 L 52 L Pulse Rhythm [Right Brachial] Pulse Strength [Right Brachial] Respiratory Rate 23 21 Respiratory Effort / Characteristics Respiratory Depth Respiratory Pattern Blood Pressure 98/66 L 98/63 L Blood Pressure [Right Arm] Blood Pressure Mean 76 71 Blood Pressure Mean [Right Arm] Blood Pressure Position [Right Arm] Pulse Oximetry 94 94 90 Oxygen Delivery Method Room Air Sepsis Recent Fever Within 48 Hours Sepsis New/Unexplained Change in Mental Status Sepsis Action Taken by Nursing 10/26/24 22:00 10/26/24 23:06 10/26/24 23:11 Temperature Temperature Source Pulse Rate 50 L 50 L Pulse Rate [Right Brachial] 51 L Pulse Rate from SpO2 Sensor 49 L Pulse Rhythm [Right Brachial] Regular Pulse Strength [Right Brachial] Normal Respiratory Rate 18 22 Respiratory Effort / Characteristics Non-Labored Respiratory Depth Normal Respiratory Pattern Regular Blood Pressure Blood Pressure [Right Arm] 96/67 L Blood Pressure Mean Blood Pressure Mean [Right Arm] 76 Blood Pressure Position [Right Arm] Lying Pulse Oximetry 93 93 Oxygen Delivery Method Room Air Room Air Sepsis Recent Fever Within 48 Hours Sepsis New/Unexplained Change in Mental Status Sepsis Action Taken by Nursing 10/26/24 23:12 10/27/24 00:00 10/27/24 00:30 Temperature Temperature Source Pulse Rate 49 L 83 49 L Pulse Rate [Right Brachial] Pulse Rate from SpO2 Sensor 50 L 64 51 L Pulse Rhythm [Right Brachial] Pulse Strength [Right Brachial] Respiratory Rate 17 20 20 Respiratory Effort / Characteristics Respiratory Depth Respiratory Pattern Blood Pressure 98/70 L 107/73 102/69 Blood Pressure [Right Arm] Blood Pressure Mean 79 84 80 Blood Pressure Mean [Right Arm] Blood Pressure Position [Right Arm] Pulse Oximetry 91 91 92 Oxygen Delivery Method Room Air Room Air Room Air Sepsis Recent Fever Within 48 Hours Sepsis New/Unexplained Change in Mental Status Sepsis Action Taken by Nursing Laboratory Data 10/26/24 17:56 10/26/24 17:56 Lab Results 10/26/24 10/26/24 Range/Units 17:56 19:13 WBC 2.76 L (4.8-10.8) K/ul RBC 3.34 L (4.70-6.10) M/uL Hgb 10.8 L (14.0-18.0) g/dl Hct 31.9 L (42.0-52.0) % MCV 95.5 (80.0-100.0) fL MCH 32.3 (25.0-34.0) pg MCHC 33.9 (32.0-36.0) g/dL RDW Std Deviation 48.4 H (36.4-46.3) fL RDW Coeff of Melissa 13.8 (11.5-14.5) % Plt Count 76 L (130-400) K/uL MPV 9.9 (9.4-12.4) fL PT 12.4 H (9.0-12.0) Seconds INR 1.2 H (0.9-1.1) APTT 28 (21-31) Seconds PTT Ratio 1.0 Sodium 140 (136-145) mmol/L Potassium 4.3 (3.5-5.1) mmol/L Chloride 109 H (98-107) mmol/L Carbon Dioxide 25 (21-32) mmol/L Anion Gap 6 (3-11) BUN 19 (6-23) mg/dl Creatinine 1.18 (0.6-1.4) mg/dl Est Cr Clr Drug Dosing 60.8 ml/min eGFR 71.08 BUN/Creatinine Ratio 16.1 (10-20) Glucose 98 (70-99(Fasting)) mg/dl Calcium 8.6 (8.6-10.3) mg/dl Total Bilirubin 0.6 (0.2-1.0) mg/dl AST 22 (13-39) U/L ALT 12 (7-52) U/L Alkaline Phosphatase 87 (34-104) U/L Troponin I High Sens 4.1 (0-20) pg/ml Total Protein 6.0 (6.0-8.3) gm/dl Albumin 3.6 (3.4-5.0) gm/dl Globulin 2.4 L (2.5-4.0) gm/dl Albumin/Globulin Ratio 1.5 (0.9-2) Administered Medications Discontinued Medications Dicyclomine HCl (Dicyclomine Hcl 10 Mg/Ml 2 Ml Amp/Vial) 20 mg IM NOW ONE Stop: 10/26/24 19:41 Last Admin: 10/26/24 20:09 Dose: 20 mg Documented By: ABBEY Sodium Chloride (Nss) 500 mls @ 999 mls/hr IV .Q31M ONE Stop: 10/26/24 19:32 Last Infusion: 10/26/24 20:27 Dose: Infused Documented By: Admin: 10/26/24 19:41 Dose: 999 mls/hr Documented By: NANI Famotidine (Pepcid 20mg Iv Push) 20 mg in 5 mls @ 2.5 mls/min IV NOW STA Stop: 10/26/24 19:41 Last Admin: 10/26/24 20:09 Dose: 2.5 mls/min Documented By: ABBEY Ioversol (Optiray 320 100ml) 93 ml IV ONCE ONE Stop: 10/26/24 19:46 Last Admin: 10/26/24 19:45 Dose: 93 ml Documented By: LISET Ondansetron HCl (Ondansetron Inj 2 Mg/Ml 2 Ml Vial) 4 mg IV NOW STA Stop: 10/26/24 19:41 Last Admin: 10/26/24 20:09 Dose: 4 mg Documented By: ABBEY Imaging Data Radiologist's Impression: Abdomen/Pelvis CT 10/26/24 19:02 EXAM: CT abd pelvis IV con only CLINICAL HISTORY: Blood per rectum, abdominal pain TECHNIQUE: Contrast-enhanced CT of the abdomen and pelvis was performed, with the following protocol: axial images with, and reconstructed coronal and sagittal images. Intravenous contrast was administered. One of the following dose reduction techniques was utilized for this exam: Automated exposure control, adjustment of the mA and/or kV according to patient size, and use of iterative reconstruction. CTDI: 21.23 mGy, DLP: 1025.93 mGy-cm COMPARISON: Prior dated 08/09/2024 17:27:00 [employer]. FINDINGS: Abdomen: Liver: Normal in size and density. No significant change in the nodular hepatic contour, for which cirrhosis is still considered. No focal lesions, cysts, masses, or abnormal enhancement were identified. Hepatic vasculature and biliary ducts are unremarkable. Gallbladder and Biliary System: Physiologically-distended gallbladder with multiple calcified gallstones measuring up to 1.2 cm, and cystic duct stone measuring 0.6 cm, not significantly changed. Surrounding mild subserosal edema is likewise unchanged, more adjacent to the gallbladder fundus. is normal in size and shape. No wall thickening, pericholecystic fluid, or gallstones were identified. The common bile duct is normal in caliber without dilation. Pancreas: Pancreatic head, body, and tail are visualized and appear normal in size and density. No pancreatic masses or calcifications were noted. Normal parenchymal enhancement. The pancreatic duct is not dilated. Spleen: Remains enlarged, measuring 12.5 x 6.8 x 12.0 cm (maximum axial x thickness x craniocaudal) with a splenic index of 1020 (normal ?480). No splenic lesions or masses were identified. Normal parenchymal enhancement. Appendix: The appendix is normal in size without periappendiceal fat stranding and without an appendicolith. No evidence of appendiceal abscess or perforation. Kidneys and Adrenal Glands: Both kidneys are normal in size, shape, and position. Cortical thickness is within normal limits. No renal calculi or hydronephrosis. No significant change in the mild bilateral perinephric fat stranding, non-specific. Adrenal glands are unremarkable with no evidence of masses or hyperplasia. Pelvis: Urinary Bladder: Partially distended urinary bladder with diffuse wall thickening measuring up to 8 mm. This is not significantly changed from prior CT. No intraluminal lesions identified. Prostate: Normal in size and contour. No focal lesions or masses identified. Seminal Vesicles: Normal in size and appearance. No abnormalities noted. Rectum, Sigmoid Colon, and Bowels: There is a faint contrast blush in the mid rectum, approximately 9 cm from the anal verge. This is associated with a prominent adjacent branch of the superior rectal vein. Mucosal outpouchings are identified along the entire colonic length and along the distal ileum. No adjacent pericolonic fat stranding. The rest of the bowels are normal in caliber with no evidence of obstruction, mass, or wall thickening. Peritoneal and Retroperitoneal Structures: No free fluid or abnormal fluid collections were identified within the abdomen or pelvis. There is subtle central mesenteric fat stranding with prominent mesenteric lymph nodes measuring up to 7 mm in the short-axis dimension. Bones and Soft Tissues: Pelvic bones and soft tissues are unremarkable. No fractures or abnormal masses were identified. No significant change in the mild retrolisthesis at L2/L3 and L3/L4, as well as the multilevel degenerative disc disease of the thoracolumbar spine with vacuum phenomenon at L4-L5. L2-L3, L4-L4 and L4-L5 disc herniations with spinal canal and neural foraminal stenosis. Additional Findings: No significant change in the pulmonary pleuroparenchymal bands or fibrotic changes in the visualized medial segment of the right middle lobe, inferior lingula, and anteromedial and posterior basal segments of the left lower lobe. IMPRESSION: 1. Faint contrast blush in the mid rectum, approximately 9 cm from the anal verge, associated with a prominent adjacent branch of the superior rectal vein, suggest rectal telangiectasia; proctoscopy is recommended. 2. Colonic and ileal diverticulosis with no evidence of acute diverticulitis. 3. Cholecystolithiases and cystic duct lithiasis with no significant change in the surrounding mild subserosal edema, suggestive of chronic calculous cholecystitis. 4. Subtle central mesenteric fat stranding with prominent mesenteric lymph nodes (up to 7 mm in the short-axis dimension), representing reactive mesenteric adenitis. 5. Partially-distended urinary bladder with diffuse wall thickening (up to 8 mm) not significantly changed from prior, consider chronic cystitis. 6. No significant change in the cirrhotic liver morphology with evidence of portal hypertension. Degree of splenomegaly is unchanged (splenic index of 1020). 7. No significant change in the mild bilateral perinephric fat stranding, non-specific. 8. The rest of the multiple other chronic findings, as detailed, not significantly changed from prior. Electronically signed by Ozzie Jackman 10-26-2024 10:36 PM Discharge Plan Visit Data Chief Complaint: Rectal Bleed Stated Complaint: INTERNAL/RECTAL BLEEDING, ABD BHAVANA, REF BY DR ROCHA Provider: Miki Bland Discharge Problem: Lower gastrointestinal bleeding, Cirrhosis Patient Disposition: Admitted As Inpatient Condition: Fair Forms Stand Alone Forms: [employer] Prescriptions Prescriptions: No Action lamotrigine [Lamictal] 25 mg tablet 100 mg PO HS albuterol sulfate 90 mcg/actuation HFA aerosol inhaler 2 puff inhalation QID PRN (Reason: shortness of breath or wheezing) Qty: 6.7 1RF cholecalciferol (vitamin D3) 125 mcg (5,000 unit) capsule 125 mcg PO Q4D Qty: 90 3RF (DME) cane Device See Rx Instructions .Route Qty: 1 0RF Rx Instructions: single pointed cane with a curved handle DME COdde e0100 (DME) heating pads Pad See Rx Instructions .Route Qty: 1 0RF Rx Instructions: w moisture DME code e0215 peg 3350-electrolytes [Golytely] 236-22.74-6.74 -5.86 gram recon soln 240 ml PO Q10M Qty: 4000 0RF Rx Instructions: Take per split dose instructions in preparation for colonoscopy fluticasone propionate [Flonase Allergy Relief] 50 mcg/actuation spray,suspension 2 spray intranasal DAILY Rx Instructions: administer into each nostril Vivitrol 380 mg suspension,extended rel recon 380 mg IM Q28D thiamine HCl (vitamin B1) 100 mg tablet 100 mg PO HS Qty: 90 3RF celecoxib 200 mg capsule 200 mg PO BID buspirone 10 mg tablet 15 mg PO BID diclofenac sodium [Voltaren Arthritis Pain] 1 % gel 2 g topical QID PRN (Reason: Pain) ergocalciferol (vitamin D2) 50 mcg (2,000 unit) capsule 50 mcg PO .twice weekly Rx Instructions: Take 1 tablet Saturday and . famotidine 40 mg tablet 40 mg PO HS magnesium oxide 400 mg (241.3 mg magnesium) tablet 400 mg PO BID tamsulosin 0.4 mg capsule 0.4 mg PO HS Rx Instructions: Take 1 pill after supper. folic acid 1 mg tablet 1 mg PO HS Rx Instructions: TAKE 1 TAB BY MOUTH EVERY MORNING escitalopram oxalate 10 mg tablet 10 mg PO HS potassium chloride 20 mEq tablet extended release 20 meq PO HS emtricitabine-tenofovir (TDF) 200-300 mg tablet 1 tab PO DAILY Referrals Referrals: Valdemar Santo DO [Primary Care Provider] -
[2024-10-26] MEDS: SODIUM CHLORIDE 0.9% 500 ML IV ONE (19:41)
[2024-10-26] MEDS: OPTIRAY 320 100ml IV ONE (19:45)
[2024-10-26 20:00] LABS: INR 1.2 (0.9-1.1); Partial Thromboplastin Time 28 Seconds (21-31); Prothrombin Time 12.4 Seconds (9.0-12.0)
[2024-10-26] MEDS: DICYCLOMINE HCL 10 MG/ML 2 ML AMP/VIAL IM ONE (20:09)
[2024-10-26] MEDS: ONDANSETRON INJ 2 MG/ML 2 ML VIAL IV STA (20:09)
[2024-10-26] MEDS: FAMOTIDINE 20MG IV PUSH 20 MG/5 ML SYR IV STA (20:09)
--- NOTE | 2024-10-26 22:37 | CT Scan Report ---
EXAM: CT abd pelvis IV con only CLINICAL HISTORY: Blood per rectum, abdominal pain TECHNIQUE: Contrast-enhanced CT of the abdomen and pelvis was performed, with the following protocol: axial images with, and reconstructed coronal and sagittal images. Intravenous contrast was administered. One of the following dose reduction techniques was utilized for this exam: Automated exposure control, adjustment of the mA and/or kV according to patient size, and use of iterative reconstruction. CTDI: 21.23 mGy, DLP: 1025.93 mGy-cm COMPARISON: Prior dated 08/09/2024 17:27:00 HE[facility] CARE LIAISON. FINDINGS: Abdomen: Liver: Normal in size and density. No significant change in the nodular hepatic contour, for which cirrhosis is still considered. No focal lesions, cysts, masses, or abnormal enhancement were identified. Hepatic vasculature and biliary ducts are unremarkable. Gallbladder and Biliary System: Physiologically-distended gallbladder with multiple calcified gallstones measuring up to 1.2 cm, and cystic duct stone measuring 0.6 cm, not significantly changed. Surrounding mild subserosal edema is likewise unchanged, more adjacent to the gallbladder fundus. is normal in size and shape. No wall thickening, pericholecystic fluid, or gallstones were identified. The common bile duct is normal in caliber without dilation. Pancreas: Pancreatic head, body, and tail are visualized and appear normal in size and density. No pancreatic masses or calcifications were noted. Normal parenchymal enhancement. The pancreatic duct is not dilated. Spleen: Remains enlarged, measuring 12.5 x 6.8 x 12.0 cm (maximum axial x thickness x craniocaudal) with a splenic index of 1020 (normal ?480). No splenic lesions or masses were identified. Normal parenchymal enhancement. Appendix: The appendix is normal in size without periappendiceal fat stranding and without an appendicolith. No evidence of appendiceal abscess or perforation. Kidneys and Adrenal Glands: Both kidneys are normal in size, shape, and position. Cortical thickness is within normal limits. No renal calculi or hydronephrosis. No significant change in the mild bilateral perinephric fat stranding, non-specific. Adrenal glands are unremarkable with no evidence of masses or hyperplasia. Pelvis: Urinary Bladder: Partially distended urinary bladder with diffuse wall thickening measuring up to 8 mm. This is not significantly changed from prior CT. No intraluminal lesions identified. Prostate: Normal in size and contour. No focal lesions or masses identified. Seminal Vesicles: Normal in size and appearance. No abnormalities noted. Rectum, Sigmoid Colon, and Bowels: There is a faint contrast blush in the mid rectum, approximately 9 cm from the anal verge. This is associated with a prominent adjacent branch of the superior rectal vein. Mucosal outpouchings are identified along the entire colonic length and along the distal ileum. No adjacent pericolonic fat stranding. The rest of the bowels are normal in caliber with no evidence of obstruction, mass, or wall thickening. Peritoneal and Retroperitoneal Structures: No free fluid or abnormal fluid collections were identified within the abdomen or pelvis. There is subtle central mesenteric fat stranding with prominent mesenteric lymph nodes measuring up to 7 mm in the short-axis dimension. Bones and Soft Tissues: Pelvic bones and soft tissues are unremarkable. No fractures or abnormal masses were identified. No significant change in the mild retrolisthesis at L2/L3 and L3/L4, as well as the multilevel degenerative disc disease of the thoracolumbar spine with vacuum phenomenon at L4-L5. L2-L3, L4-L4 and L4-L5 disc herniations with spinal canal and neural foraminal stenosis. Additional Findings: No significant change in the pulmonary pleuroparenchymal bands or fibrotic changes in the visualized medial segment of the right middle lobe, inferior lingula, and anteromedial and posterior basal segments of the left lower lobe. IMPRESSION: 1. Faint contrast blush in the mid rectum, approximately 9 cm from the anal verge, associated with a prominent adjacent branch of the superior rectal vein, suggest rectal telangiectasia; proctoscopy is recommended. 2. Colonic and ileal diverticulosis with no evidence of acute diverticulitis. 3. Cholecystolithiases and cystic duct lithiasis with no significant change in the surrounding mild subserosal edema, suggestive of chronic calculous cholecystitis. 4. Subtle central mesenteric fat stranding with prominent mesenteric lymph nodes (up to 7 mm in the short-axis dimension), representing reactive mesenteric adenitis. 5. Partially-distended urinary bladder with diffuse wall thickening (up to 8 mm) not significantly changed from prior, consider chronic cystitis. 6. No significant change in the cirrhotic liver morphology with evidence of portal hypertension. Degree of splenomegaly is unchanged (splenic index of 1020). 7. No significant change in the mild bilateral perinephric fat stranding, non-specific. 8. The rest of the multiple other chronic findings, as detailed, not significantly changed from prior. Electronically signed by Ozzie Jackman 10-26-2024 10:36 PM
--- NOTE | 2024-10-27 01:19 | History & Physical Report ---
Date of Service October 27, 2024 Assessment & Plan (1) Rectal bleeding: (2) Abdominal pain: (3) Anxiety and depression: (4) Alcohol use disorder in remission: (5) Cirrhosis: (6) Pancytopenia: (7) Esophageal varices: (8) Cholelithiasis: Plan 59-year-old male with a past medical history that includes alcohol abuse in remission, cirrhosis, varices, cholelithiasis, prostate cancer, anxiety/depression who presents with rectal bleeding and RLQ abdominal pain: #Rectal bleeding: - Despite hemoglobin drop (12.5 -> 10.8) between lab draws, still within baseline range - repeat CBC in AM - Patient endorses mild sx that correlate with blood loss anemia but this does not appear to be affecting hemodynamics - soft BP is chronic in this patient, no tachycardia noted. - CT A/P w/contrast demonstrated: faint contrast blush in the mid rectum, approximately 9 cm from the anal verge, associated with a prominent adjacent branch of the superior rectal vein, suggest rectal telangiectasia - finding consistent with h/o radiation therapy to prostate - GI consulted, assistance appreciated - NPO pending GI evaluation, start IV protonix BID and maintenance fluids - LR@80ml/h x2L #Abdominal pain: CT without obvious findings that would explain focal RLQ pain - ?related to recent increase in loose stools- gastroenteritis or similar process would also correlate with reactive mesenteric lymphadenitis Stool studies ordered in ED, pending #Cirrhosis // #Pancytopenia: Patient follows with outpatient hepatology - appears fairly stable since becoming sober 1 year ago - due for EGD and HCC screening Heme/onc records reviewed - patient had BM biopsy done previously that was negative for myelodysplastic syndrome Pancytopenia most likely d/t combination of decreased liver synthetic function coupled with hypersplenism secondary to portal hypertension #Anxiety/Depression: Continue Lexapro, Lamictal, BuSpar #AUD in remission: Patient is on Vivitrol injections Q28 days Continue daily folate/thiamine supplementation #LUTS: Continue tamsulosin Dispo: Admit Obs - PCU VTE ppx: deferred d/t active rectal bleed and thrombocytopenia FEN/GI: NPO, LR@80ml/h Full Code History of Present Illness Primary Care Provider: Valdemar Santo, 59-year-old male with a past medical history that includes alcohol abuse in remission, cirrhosis, varices, cholelithiasis, prostate cancer, anxiety/depression who presents with rectal bleeding and RLQ abdominal pain. BRBPR for past 2 weeks with all bowel movements, sometimes when passing gas, and sometimes spontaneously leaks. Reports occasional maroonish stool but denies overt melena. No pain associated with rectal bleeding but patient has had RLQ dull, intermittent abdominal pain for past 4-5 days, different that his typical RUQ biliar colic-like pain. New RLQ pain not correlated with eating, seems to occur fairly randomly but has been more constant today. Last scopes in 2020, patient states that he is scheduled for repeat scope in November. Denies unintentional weight loss. Unknown family history so patient not sure if any relatives have a h/o CRC. Since rectal bleeding started, reports some weakness, postural dizziness, mildly increased shortness of breath. Denies chest pain, pa lpitations, syncope. Denies fevers, chills, nausea, vomiting. No recent dietary or med changes. ED course: Hgb on presentation 12.5 (baseline 10-12), repeat 8 hours later 10.8 Plt count 76 Labs o/w unremarkable for the most part, MELD score 9 CT A/P w/contrast demonstrated: - Faint contrast blush in the mid rectum, approximately 9 cm from the anal verge, associated with a prominent adjacent branch of the superior rectal vein, suggest rectal telangiectasia - Reactive mesenteric lymphadenitis Allergies Allergy/AdvReac Type Severity Reaction Status Date / Time No Known Allergies Allergy Verified 10/26/24 23:54 Home Medications Medication Instructions Recorded Confirmed Type fluticasone propionate 50 2 spray intranasal DAILY 01/06/24 10/26/24 History mcg/actuation nasal spray,suspension (Flonase Allergy Relief) naltrexone microspheres 380 mg 380 mg IM Q28D 01/15/24 10/27/24 History intramuscular suspension,extended release (Vivitrol) buspirone 10 mg tablet 15 mg PO BID 03/16/24 10/26/24 History albuterol sulfate 90 mcg/actuation 2 puff inhalation QID PRN 04/23/24 10/26/24 Rx aerosol inhaler shortness of breath or wheezing #6.7 grams celecoxib 200 mg capsule 200 mg PO BID 04/28/24 10/26/24 History escitalopram oxalate 10 mg tablet 10 mg PO HS 06/12/24 10/26/24 History famotidine 40 mg tablet 40 mg PO HS 06/12/24 10/26/24 History folic acid 1 mg tablet 1 mg PO HS 06/12/24 10/27/24 History magnesium oxide 400 mg (241.3 mg 400 mg PO BID 06/12/24 10/27/24 History magnesium) tablet potassium chloride 20 mEq 20 meq PO HS 06/12/24 10/27/24 History tablet,extended release tamsulosin 0.4 mg capsule 0.4 mg PO HS Frequency 06/12/24 10/27/24 History lamotrigine 25 mg tablet (Lamictal) 100 mg PO HS 06/19/24 10/27/24 History diclofenac sodium 1 % topical gel 2 g topical QID PRN Pain 07/09/24 10/26/24 History (Voltaren Arthritis Pain) ergocalciferol (vitamin D2) 50 mcg 50 mcg PO .twice weekly 07/13/24 10/26/24 History (2,000 unit) capsule cholecalciferol (vitamin D3) 125 125 mcg PO Q4D #90 caps 07/17/24 10/26/24 Rx mcg (5,000 unit) capsule cane #1 ea 08/06/24 10/26/24 Rx heating pads #1 ea 08/06/24 10/26/24 Rx peg 3350-electrolytes 236 240 ml PO Q10M #4,000 mL 08/17/24 10/27/24 Rx gram-22.74 gram-6.74 gram-5.86 gram solution (Golytely) emtricitabine 200 mg-tenofovir 1 tab PO DAILY 09/23/24 10/26/24 History disoproxil fumarate 300 mg tablet thiamine HCl (vitamin B1) 100 mg 100 mg PO HS #90 tabs 10/26/24 10/27/24 Rx tablet Past Med/Surg History Problem List (Updated 10/27/24 @ 02:06 by Pastor Middleton DO) Rectal bleeding Lower gastrointestinal bleeding (Acute) Lumbar degenerative disc disease Lumbar radicular pain Lumbar spondylosis Sacroiliitis Leg length discrepancy Alcohol use disorder in remission Anxiety and depression Gait abnormality Polymyalgia Abnormal CT scan, chest Prostate cancer (Chronic 06/27/23) Urinary urgency Cirrhosis (Acute) Vitamin D deficiency (07/11/20) Medical History (Updated 10/27/24 @ 02:06 by Pastor Middleton DO) B12 deficiency Positive anti-CCP test History of urinary urgency Prostate cancer dx 05/2023, xrt tx and injections; "cured as of 05/2024" Biliary colic hx, f/u PCP Cholelithiasis hx, f/u PCP Alcohol use disorder hx, sober 9 months as of 07/09/24 Pancytopenia hx Esophageal varices hx Thrombocytopenia (07/06/20) hx; Cirrhosis vs. Folate deficiency vs. EtOH marrow suppression Tubular adenoma hx, 2 removed Bilateral tinnitus Sensorineural hearing loss (SNHL) of both ears Septic shock hx, 08/2023, hospitalized [facility] Aspiration pneumonitis hx, 08/2023, hospitalized [facility] ARDS (adult respiratory distress syndrome) 08/2023, hospitalized [facility] from aspiration pneumonitis Hypomagnesemia hx, resolved per pt. Gastritis hx Elevated ferritin (07/11/20) HH genetic testing ordered. Cirrhosis Back problem "MESSED UP DISCS IN MY BACK" Hx of esophageal reflux History of skin cancer ON CHEEK--removed in office Varicose veins of both lower extremities Sleep apnea CPAP Asthma "MILD" NO INHALER Hepatic steatosis (07/15/20) On US 07/15/2020 Surgical History Hx of tooth extraction all upper teeth removed History of tonsillectomy History of colonoscopy 08/2020 repeat 3 yrs Hx of wisdom tooth extraction Family History Mother Breast cancer Father Diabetes Colorectal cancer Stroke Brother Prostate cancer Heart disease Colorectal cancer Other Unknown family medical history Denies family history of Ovarian cancer Coronary heart disease Myocardial infarction Congenital kidney disease Lung cancer Cystic kidney disease Social History Smoking Status: Never smoker Second Hand Exposure: No; Do You Dip or Chew Tobacco: No; Hx Alcohol Use: Yes Alcohol type: hard liquor Alcohol Intake Frequency: 4 or More x per/Week Hx Substance Use: No Preferred Language: Pashto Communication Ability: Effective Visual Impairment: Limited Hearing Ability: Normal Firewood Cutter Required: No Beliefs That Will Affect Care: None marital status: Current Living Situation: Alone Current Living Situation Comment: alone at home current occupational status: retired How many Children do You have: 2 Feels Safe at Home: Yes Safety Concerns: Feels Safe At This Time Safety Concerns Comment: pt is currently homeless Childhood Exposure to Second-Hand Smoke: Yes Diet: regular caffeine: Yes Dental Care, Regularly: Yes Seatbelt Use: other Sunscreen Use: No Assistive Devices: Glasses Review of Systems Review of Systems: as per HPI Physical Exam Physical Exam: Constitutional: no acute distress HEENT: NCAT, no conjunctival injection CV: +bradycardia, regular rhythm, extremities well-perfused, no LE edema Resp: lungs CTAB, no increased work of breathing GI: soft, nondistended. RLQ focally TTP, no rebound, guarding, or rigidity. Normal bowel sounds MSK: no gross deformities Skin: warm, dry, no rash appreciated Neuro: alert, oriented, no focal neurologic deficit appreciated Results & Data Results & Data Vital Signs (Past 12 Hours) Vital Signs Temp Pulse Pulse Resp BP BP Pulse Ox 10/27/24 00:30 49 L 20 102/69 92 10/27/24 00:00 83 20 107/73 91 10/26/24 23:12 49 L 17 98/70 L 91 10/26/24 23:11 50 L 10/26/24 23:06 50 L 22 93 10/26/24 22:00 51 L 18 96/67 L 93 10/26/24 20:43 90 10/26/24 20:30 52 L 21 98/63 L 94 10/26/24 20:18 54 L 23 98/66 L 94 10/26/24 19:21 54 L 19 97/76 L 93 10/26/24 19:14 56 L 10/26/24 16:06 36.6 C 82 18 107/66 94 O2 Del Method 10/27/24 00:30 Room Air 10/27/24 00:00 Room Air 10/26/24 23:12 Room Air 10/26/24 23:11 10/26/24 23:06 Room Air 10/26/24 22:00 Room Air 10/26/24 20:43 Room Air 10/26/24 20:30 10/26/24 20:18 10/26/24 19:21 10/26/24 19:14 10/26/24 16:06 Supervising Physician Co-Signing Physician Notes Attending addendum: I have physically seen this patient, have supervised the medical residents ac tivities, and agree with the H&P unless as otherwise noted. Assessment and Plan: The patient is a 59-year-old male with past medical history including lumbar degenerative disc disease, sacroiliitis, alcohol use disorder in remission, anxiety and depression, gait abnormality, polymyalgia, prostate cancer, cirrhosis, and vitamin D deficiency. He presents to the emergency department with 2 weeks of persistent rectal bleeding. He has had bleeding episodes in the past, but 2 weeks is significantly longer than usual. Rectal bleeding- Hemoglobin on admission was 10.8, with base 12.5 CT scan of abdomen and pelvis with contrast shows a faint contrast blush in the mid rectum, approximately 9 cm from the anal verge, associated with a prominent adjacent branch of the superior rectal vein, suggesting rectal telangiectasia-a finding consistent with history of radiation therapy to prostate N.p.o. except essential medications IV Protonix as noted NSS + KCl 20 mEq at 80 mL/h x 1 L Consult gastroenterology Patient reports that his next colonoscopy was scheduled to be a few months ago, but was rescheduled, and is now due in a few months. Cirrhosis- Follows with outpatient hepatology for routine endoscopy and HCC screening Pancytopenia- Consistent with history of hypersplenism secondary to portal hypertension and bone marrow suppression Anxiety/depression-continue Lexapro, Lamictal and BuSpar Alcohol abuse history in remission- Change folate and thiamine to IV while n.p.o. Resident Activity Tracking Resident Involvement: Resident Care Provided Care Provided: Adult [facility]
--- NOTE | 2024-10-27 01:39 | Emergency Department Note ---
Impression & Plan Lower gastrointestinal bleeding, Cirrhosis, Thrombocytopenia ED Provider Note NAME: RUBEN PENN AGE: 59 SEX: M : 1965 ARRIVES VIA: Walk-In INFORMANT: Patient ED PROVIDER(S): Miki Bland MD CHIEF COMPLAINT: 2 weeks of red blood per rectum. PLAN: Disposition: Admit MEDICAL DECISION MAKING: The patient is a pleasant 59-year-old gentleman with a past medical history of alcohol abuse in remission, cirrhosis, varices, cholelithiasis, anxiety/depression who presents to the emergency department via walk-in for evaluation of 2 weeks of red blood per rectum. He reports having episodes of stool mixed with blood and mucus. He is not on anticoagulation. He denies any fevers, chills, cough or congestion. Reports some nausea but denies vomiting. He denies chest pain, shortness of breath, dizziness. He denies recent antibiotics. Of note, the patient did arrive to emergency department during time of high volume, acuity and prolonged emergency department waiting times. Critical pathways initiated from triage. On evaluation patient is no acute distress, afebrile with stable vital signs. He appears clinically dry. Exhibits generalized abdominal discomfort without discrete tenderness. EKG without overt acute ischemia. CXR negative for acute cardiopulmonary process per my personal preliminary review/interpretation. WBC 2.7K, similar to prior. H/H 10.8/31.9, decreased from recent however similar to prior range of values in setting of history of pancytopenia in setting of cirrhosis. Platelets 76K, also similar to prior range of values. INR 1.2. Chemistry without metabolic acidosis. LFTs are unremarkable. High- sensitivity troponin 4.1, within normal limits. CT of the abdomen pelvis was performed and demonstrates faint blush in the mid rectum approximately 9 cm from the anal verge with associated prominent adjacent branches of the superior rectal vein. Suggest rectal telangiectasia. Additional note is made of patient's chronic cholelithiasis and cystic duct stone which is not significantly changed. Mild surrounding subserosal edema is also unchanged. Patient reports he has been aware of his gallbladder findings in the past and surgery has been attempted to be avoided. He denies any acute change in upper abdominal symptoms but feels over the past several months he has had some more frequent discomfort. Otherwise, CT describes known cirrhosis which is unchanged. Patient does agree with plan for admission for further management. Case was discussed with Dr. Kaur, [facility] hospitalist, who will evaluate the patient for admission. Case also was reviewed with Dr. Urias, GI on-call, who is available for inpatient team consultation. Further management per admitting team. Triage Nursing notes reviewed and agree them. Prior/external medical records reviewed Vital Signs: reviewed Differential diagnosis: Diverticulosis, AVM, coagulopathy, colitis, inflammatory bowel disease, malignancy, Urvashi-Solano tear, esophagitis, peptic ulcer disease, variceal bleed, gastritis, epistaxis, fissure, hemorrhoids, as well as other pathologies. ER treatment provided: See below. Diagnostics interpreted by me: ECG: Normal sinus rhythm, 62 bpm, no ectopy, no overt ST elevation or depression, QTc 412, QRS 74. Cardiac Monitoring: An order for continuous cardiac monitoring was placed and demonstrated normal sinus rhythm, 62 bpm, no ectopy. Laboratory studies: See below Imaging studies: See below Consultation(s): Dr. Kaur [facility] [place] Dr. Urias, GI on-call HPI: Per MDM. ROS: See above HPI for pertinent positives & negatives. A total of 10 systems reviewed and were otherwise negative. VITALS:See Below PHYSICAL EXAMINATION: GENERAL: Awake, alert, in no distress HENT: Normocephalic, atraumatic. Oropharynx with dry mucous membranes and otherwise unremarkable. EYES: Normal conjunctiva. Sclera non-icteric. NECK: Supple. No nuchal rigidity. FROM. No JVD. RESPIRATORY: Clear to auscultation. CARDIAC: Regular rate, normal rhythm. Extremities warm and well perfused. Pulses equal. ABDOMEN: Soft, non-distended. Generalized abdominal discomfort without discrete tenderness to palpation. No rebound or guarding. No masses. MUSCULOSKELETAL: Chest examination reveals no tenderness. The back is symmetrical on inspection without obvious abnormality. There is no CVA tenderness to palpation. No joint edema. LOWER EXTREMITIES: Calves are equal size bilaterally and non-tender. No edema. No discoloration. NEURO: Normal sensorium. No sensory or motor deficits noted. SKIN: No rash or jaundice noted. Past Med/Surg History Problem List (Updated 10/27/24 @ 06:57 by Miki Bland MD) Thrombocytopenia (Acute) Rectal bleeding Lower gastrointestinal bleeding (Acute) Lumbar degenerative disc disease Lumbar radicular pain Lumbar spondylosis Sacroiliitis Leg length discrepancy Alcohol use disorder in remission Anxiety and depression Gait abnormality Polymyalgia Abnormal CT scan, chest Prostate cancer (Chronic 06/27/23) Urinary urgency Cirrhosis (Acute) Vitamin D deficiency (07/11/20) Medical History (Updated 10/27/24 @ 06:57 by Miki Bland MD) B12 deficiency Positive anti-CCP test History of urinary urgency Prostate cancer dx 05/2023, xrt tx and injections; "cured as of 05/2024" Biliary colic hx, f/u PCP Cholelithiasis hx, f/u PCP Alcohol use disorder hx, sober 9 months as of 07/09/24 Pancytopenia hx Esophageal varices hx Thrombocytopenia (07/06/20) hx; Cirrhosis vs. Folate deficiency vs. EtOH marrow suppression Tubular adenoma hx, 2 removed Bilateral tinnitus Sensorineural hearing loss (SNHL) of both ears Septic shock hx, 08/2023, hospitalized [facility] Aspiration pneumonitis hx, 08/2023, hospitalized [facility] ARDS (adult respiratory distress syndrome) 08/2023, hospitalized [facility] from aspiration pneumonitis Hypomagnesemia hx, resolved per pt. Gastritis hx Elevated ferritin (07/11/20) HH genetic testing ordered. Cirrhosis Back problem "MESSED UP DISCS IN MY BACK" Hx of esophageal reflux History of skin cancer ON CHEEK--removed in office Varicose veins of both lower extremities Sleep apnea CPAP Asthma "MILD" NO INHALER Hepatic steatosis (07/15/20) On US 07/15/2020 Surgical History Hx of tooth extraction all upper teeth removed History of tonsillectomy History of colonoscopy 08/2020 repeat 3 yrs Hx of wisdom tooth extraction Family History Mother Breast cancer Father Diabetes Colorectal cancer Stroke Brother Prostate cancer Heart disease Colorectal cancer Other Unknown family medical history Denies family history of Ovarian cancer Coronary heart disease Myocardial infarction Congenital kidney disease Lung cancer Cystic kidney disease Social History Smoking Status: Never smoker Second Hand Exposure: No; Do You Dip or Chew Tobacco: No; Hx Alcohol Use: Yes Alcohol type: hard liquor Alcohol Intake Frequency: 4 or More x per/Week Hx Substance Use: No Preferred Language: Eritrean Communication Ability: Effective Visual Impairment: Limited Hearing Ability: Normal 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 Beliefs That Will Affect Care: None marital status: Current Living Situation: Alone Current Living Situation Comment: alone at home current occupational status: retired How many Children do You have: 2 Feels Safe at Home: Yes Safety Concerns: Feels Safe At This Time Safety Concerns Comment: pt is currently homeless Childhood Exposure to Second-Hand Smoke: Yes Diet: regular caffeine: Yes Dental Care, Regularly: Yes Seatbelt Use: other Sunscreen Use: No Assistive Devices: Glasses Allergies Allergies Allergy/AdvReac Type Severity Reaction Status Date / Time No Known Allergies Allergy Verified 10/26/24 23:54 Home Meds Home Medications Medication Instructions Recorded Confirmed fluticasone propionate 50 2 spray intranasal DAILY 01/06/24 10/26/24 mcg/actuation nasal spray,suspension (Flonase Allergy Relief) naltrexone microspheres 380 mg 380 mg IM Q28D 01/15/24 10/27/24 intramuscular suspension,extended release (Vivitrol) buspirone 10 mg tablet 15 mg PO BID 03/16/24 10/26/24 celecoxib 200 mg capsule 200 mg PO BID 04/28/24 10/26/24 escitalopram oxalate 10 mg tablet 10 mg PO HS 06/12/24 10/26/24 famotidine 40 mg tablet 40 mg PO HS 06/12/24 10/26/24 folic acid 1 mg tablet 1 mg PO HS 06/12/24 10/27/24 magnesium oxide 400 mg (241.3 mg 400 mg PO BID 06/12/24 10/27/24 magnesium) tablet potassium chloride 20 mEq 20 meq PO HS 06/12/24 10/27/24 tablet,extended release tamsulosin 0.4 mg capsule 0.4 mg PO HS Frequency 06/12/24 10/27/24 lamotrigine 25 mg tablet (Lamictal) 100 mg PO HS 06/19/24 10/27/24 diclofenac sodium 1 % topical gel 2 g topical QID PRN Pain 07/09/24 10/26/24 (Voltaren Arthritis Pain) ergocalciferol (vitamin D2) 50 mcg 50 mcg PO .twice weekly 07/13/24 10/26/24 (2,000 unit) capsule emtricitabine 200 mg-tenofovir 1 tab PO DAILY 09/23/24 10/26/24 disoproxil fumarate 300 mg tablet Previous Rx's Medication Instructions Recorded albuterol sulfate 90 mcg/actuation 2 puff inhalation QID PRN 04/23/24 aerosol inhaler shortness of breath or wheezing #6.7 grams cholecalciferol (vitamin D3) 125 125 mcg PO Q4D #90 caps 07/17/24 mcg (5,000 unit) capsule cane #1 ea 08/06/24 heating pads #1 ea 08/06/24 peg 3350-electrolytes 236 240 ml PO Q10M #4,000 mL 08/17/24 gram-22.74 gram-6.74 gram-5.86 gram solution (Golytely) thiamine HCl (vitamin B1) 100 mg 100 mg PO HS #90 tabs 10/26/24 tablet Results & Data (ED) Vital Signs Vital Signs - 24 hr 10/26/24 16:06 10/26/24 19:14 10/26/24 19:21 Temperature 36.6 C Temperature Source Temporal Artery Scan Pulse Rate 82 56 L 54 L Pulse Rate [Right Brachial] Pulse Rate from SpO2 Sensor 53 L Pulse Rhythm [Right Brachial] Pulse Strength [Right Brachial] Respiratory Rate 18 19 Respiratory Effort / Characteristics Respiratory Depth Respiratory Pattern Blood Pressure 107/66 97/76 L Blood Pressure [Right Arm] Blood Pressure Mean 79 83 Blood Pressure Mean [Right Arm] Blood Pressure Position [Right Arm] Pulse Oximetry 94 93 Oxygen Delivery Method Sepsis Recent Fever Within 48 Hours No Sepsis New/Unexplained Change in Mental Status N/A Sepsis Action Taken by Nursing No Action Required 10/26/24 20:18 10/26/24 20:30 10/26/24 20:43 Temperature Temperature Source Pulse Rate 54 L 52 L Pulse Rate [Right Brachial] Pulse Rate from SpO2 Sensor 53 L 52 L Pulse Rhythm [Right Brachial] Pulse Strength [Right Brachial] Respiratory Rate 23 21 Respiratory Effort / Characteristics Respiratory Depth Respiratory Pattern Blood Pressure 98/66 L 98/63 L Blood Pressure [Right Arm] Blood Pressure Mean 76 71 Blood Pressure Mean [Right Arm] Blood Pressure Position [Right Arm] Pulse Oximetry 94 94 90 Oxygen Delivery Method Room Air Sepsis Recent Fever Within 48 Hours Sepsis New/Unexplained Change in Mental Status Sepsis Action Taken by Nursing 10/26/24 22:00 10/26/24 23:06 10/26/24 23:11 Temperature Temperature Source Pulse Rate 50 L 50 L Pulse Rate [Right Brachial] 51 L Pulse Rate from SpO2 Sensor 49 L Pulse Rhythm [Right Brachial] Regular Pulse Strength [Right Brachial] Normal Respiratory Rate 18 22 Respiratory Effort / Characteristics Non-Labored Respiratory Depth Normal Respiratory Pattern Regular Blood Pressure Blood Pressure [Right Arm] 96/67 L Blood Pressure Mean Blood Pressure Mean [Right Arm] 76 Blood Pressure Position [Right Arm] Lying Pulse Oximetry 93 93 Oxygen Delivery Method Room Air Room Air Sepsis Recent Fever Within 48 Hours Sepsis New/Unexplained Change in Mental Status Sepsis Action Taken by Nursing 10/26/24 23:12 10/27/24 00:00 10/27/24 00:30 Temperature Temperature Source Pulse Rate 49 L 83 49 L Pulse Rate [Right Brachial] Pulse Rate from SpO2 Sensor 50 L 64 51 L Pulse Rhythm [Right Brachial] Pulse Strength [Right Brachial] Respiratory Rate 17 20 20 Respiratory Effort / Characteristics Respiratory Depth Respiratory Pattern Blood Pressure 98/70 L 107/73 102/69 Blood Pressure [Right Arm] Blood Pressure Mean 79 84 80 Blood Pressure Mean [Right Arm] Blood Pressure Position [Right Arm] Pulse Oximetry 91 91 92 Oxygen Delivery Method Room Air Room Air Room Air Sepsis Recent Fever Within 48 Hours Sepsis New/Unexplained Change in Mental Status Sepsis Action Taken by Nursing Laboratory Data Attestation: I reviewed the patient's lab results. 10/27/24 04:27 10/27/24 04:27 Lab Results 10/26/24 10/26/24 10/27/24 Range/Units 17:56 19:13 00:38 WBC 2.76 L (4.8-10.8) K/ul RBC 3.34 L (4.70-6.10) M/uL Hgb 10.8 L (14.0-18.0) g/dl Hct 31.9 L (42.0-52.0) % MCV 95.5 (80.0-100.0) fL MCH 32.3 (25.0-34.0) pg MCHC 33.9 (32.0-36.0) g/dL RDW Std Deviation 48.4 H (36.4-46.3) fL RDW Coeff of Melissa 13.8 (11.5-14.5) % Plt Count 76 L (130-400) K/uL MPV 9.9 (9.4-12.4) fL PT 12.4 H (9.0-12.0) Seconds INR 1.2 H (0.9-1.1) APTT 28 (21-31) Seconds PTT Ratio 1.0 Sodium 140 (136-145) mmol/L Potassium 4.3 (3.5-5.1) mmol/L Chloride 109 H (98-107) mmol/L Carbon Dioxide 25 (21-32) mmol/L Anion Gap 6 (3-11) BUN 19 (6-23) mg/dl Creatinine 1.18 (0.6-1.4) mg/dl Est Cr Clr Drug Dosing 60.8 ml/min eGFR 71.08 BUN/Creatinine Ratio 16.1 (10-20) Glucose 98 (70-99(Fasting)) mg/dl Calcium 8.6 (8.6-10.3) mg/dl Total Bilirubin 0.6 (0.2-1.0) mg/dl AST 22 (13-39) U/L ALT 12 (7-52) U/L Alkaline Phosphatase 87 (34-104) U/L Troponin I High Sens 4.1 (0-20) pg/ml Total Protein 6.0 (6.0-8.3) gm/dl Albumin 3.6 (3.4-5.0) gm/dl Globulin 2.4 L (2.5-4.0) gm/dl Albumin/Globulin Ratio 1.5 (0.9-2) Blood Type A Negative Antibody Screen NEGATIVE Administered Medications Lactated Ringer's (Lr) 1,000 mls @ 80 mls/hr IV .[id number] JORGE L Stop: 10/28/24 03:12 Last Admin: 10/27/24 03:20 Dose: 80 mls/hr Documented By: FLORIN Pantoprazole Sodium (Protonix) 40 mg in 10 mls @ 5 mls/min IV BID JORGE L Stop: 11/26/24 02:12 Last Admin: 10/27/24 03:18 Dose: 5 mls/min Documented By: FLORIN Discontinued Medications Dicyclomine HCl (Dicyclomine Hcl 10 Mg/Ml 2 Ml Amp/Vial) 20 mg IM NOW ONE Stop: 10/26/24 19:41 Last Admin: 10/26/24 20:09 Dose: 20 mg Documented By: ABBEY Sodium Chloride (Nss) 500 mls @ 999 mls/hr IV .Q31M ONE Stop: 10/26/24 19:32 Last Infusion: 10/26/24 20:27 Dose: Infused Documented By: Admin: 10/26/24 19:41 Dose: 999 mls/hr Documented By: NANI Famotidine (Pepcid 20mg Iv Push) 20 mg in 5 mls @ 2.5 mls/min IV NOW STA Stop: 10/26/24 19:41 Last Admin: 10/26/24 20:09 Dose: 2.5 mls/min Documented By: ABBEY Ioversol (Optiray 320 100ml) 93 ml IV ONCE ONE Stop: 10/26/24 19:46 Last Admin: 10/26/24 19:45 Dose: 93 ml Documented By: LISET Ondansetron HCl (Ondansetron Inj 2 Mg/Ml 2 Ml Vial) 4 mg IV NOW STA Stop: 10/26/24 19:41 Last Admin: 10/26/24 20:09 Dose: 4 mg Documented By: ABBEY Imaging Data Radiologist's Impression: Abdomen/Pelvis CT 10/26/24 19:02 EXAM: CT abd pelvis IV con only CLINICAL HISTORY: Blood per rectum, abdominal pain TECHNIQUE: Contrast-enhanced CT of the abdomen and pelvis was performed, with the following protocol: axial images with, and reconstructed coronal and sagittal images. Intravenous contrast was administered. One of the following dose reduction techniques was utilized for this exam: Automated exposure control, adjustment of the mA and/or kV according to patient size, and use of iterative reconstruction. 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 FINDINGS: Abdomen: Liver: Normal in size and density. No significant change in the nodular hepatic contour, for which cirrhosis is still considered. No focal lesions, cysts, masses, or abnormal enhancement were identified. Hepatic vasculature and biliary ducts are unremarkable. Gallbladder and Biliary System: Physiologically-distended gallbladder with multiple calcified gallstones measuring up to 1.2 cm, and cystic duct stone measuring 0.6 cm, not significantly changed. Surrounding mild subserosal edema is likewise unchanged, more adjacent to the gallbladder fundus. is normal in size and shape. No wall thickening, pericholecystic fluid, or gallstones were identified. The common bile duct is normal in caliber without dilation. Pancreas: Pancreatic head, body, and tail are visualized and appear normal in size and density. No pancreatic masses or calcifications were noted. Normal parenchymal enhancement. The pancreatic duct is not dilated. Spleen: Remains enlarged, measuring 12.5 x 6.8 x 12.0 cm (maximum axial x thickness x craniocaudal) with a splenic index of 1020 (normal ?480). No splenic lesions or masses were identified. Normal parenchymal enhancement. Appendix: The appendix is normal in size without periappendiceal fat stranding and without an appendicolith. No evidence of appendiceal abscess or perforation. Kidneys and Adrenal Glands: Both kidneys are normal in size, shape, and position. Cortical thickness is within normal limits. No renal calculi or hydronephrosis. No significant change in the mild bilateral perinephric fat stranding, non-specific. Adrenal glands are unremarkable with no evidence of masses or hyperplasia. Pelvis: Urinary Bladder: Partially distended urinary bladder with diffuse wall thickening measuring up to 8 mm. This is not significantly changed from prior CT. No intraluminal lesions identified. Prostate: Normal in size and contour. No focal lesions or masses identified. Seminal Vesicles: Normal in size and appearance. No abnormalities noted. Rectum, Sigmoid Colon, and Bowels: There is a faint contrast blush in the mid rectum, approximately 9 cm from the anal verge. This is associated with a prominent adjacent branch of the superior rectal vein. Mucosal outpouchings are identified along the entire colonic length and along the distal ileum. No adjacent pericolonic fat stranding. The rest of the bowels are normal in caliber with no evidence of obstruction, mass, or wall thickening. Peritoneal and Retroperitoneal Structures: No free fluid or abnormal fluid collections were identified within the abdomen or pelvis. There is subtle central mesenteric fat stranding with prominent mesenteric lymph nodes measuring up to 7 mm in the short-axis dimension. Bones and Soft Tissues: Pelvic bones and soft tissues are unremarkable. No fractures or abnormal masses were identified. No significant change in the mild retrolisthesis at L2/L3 and L3/L4, as well as the multilevel degenerative disc disease of the thoracolumbar spine with vacuum phenomenon at L4-L5. L2-L3, L4-L4 and L4-L5 disc herniations with spinal canal and neural foraminal stenosis. Additional Findings: No significant change in the pulmonary pleuroparenchymal bands or fibrotic changes in the visualized medial segment of the right middle lobe, inferior lingula, and anteromedial and posterior basal segments of the left lower lobe. IMPRESSION: 1. Faint contrast blush in the mid rectum, approximately 9 cm from the anal verge, associated with a prominent adjacent branch of the superior rectal vein, suggest rectal telangiectasia; proctoscopy is recommended. 2. Colonic and ileal diverticulosis with no evidence of acute diverticulitis. 3. Cholecystolithiases and cystic duct lithiasis with no significant change in the surrounding mild subserosal edema, suggestive of chronic calculous cholecystitis. 4. Subtle central mesenteric fat stranding with prominent mesenteric lymph nodes (up to 7 mm in the short-axis dimension), representing reactive mesenteric adenitis. 5. Partially-distended urinary bladder with diffuse wall thickening (up to 8 mm) not significantly changed from prior, consider chronic cystitis. 6. No significant change in the cirrhotic liver morphology with evidence of portal hypertension. Degree of splenomegaly is unchanged (splenic index of 1020). 7. No significant change in the mild bilateral perinephric fat stranding, non-specific. 8. The rest of the multiple other chronic findings, as detailed, not significantly changed from prior. Electronically signed by Ozzie Jackman 10-26-2024 10:36 PM Discharge Plan Visit Data Chief Complaint: Rectal Bleed Stated Complaint: INTERNAL/RECTAL BLEEDING, ABD BHAVANA, REF BY ED Provider: Miki Bland Discharge Problem: Lower gastrointestinal bleeding, Cirrhosis, Thrombocytopenia Patient Disposition: Admitted As Inpatient Condition: Fair Discharge Instructions Interventions: ED Discharge Assessment Last Done: 10/27/24 02:13 Discharge Problem: Cirrhosis Qualifiers: Hepatic cirrhosis type: unspecified hepatic cirrhosis Ascites presence: u nspecified Qualified Code(s): K74.60 - Unspecified cirrhosis of liver
[2024-10-27] MEDS ORDERED: MELATONIN 3 MG TAB PO PRN (02:13)
[2024-10-27] MEDS ORDERED: ONDANSETRON INJ 2 MG/ML 2 ML VIAL IV PRN (02:13)
--- NOTE | 2024-10-27 03:01 | Billing Data ---
Date of Service October 27, 2024 Coding Level of Care Code 07969 INT INP/OBS CARE
[2024-10-27] MEDS: PANTOprazole 40 MG/10 ML SYR IV SCH (03:18)
[2024-10-27] MEDS: LACTATED RINGER'S 1,000 ML IV SCH (03:20)
[2024-10-27 04:51] LABS: Hematocrit (blood only) 29.4 % (42.0-52.0); Hemoglobin 10.2 g/dl (14.0-18.0); Immature Granulocytes # (auto) 0.01 K/uL (0.01-0.20); Immature Granulocytes % (auto) 0.4 %; Mean Corpuscular Hemoglobin 32.8 pg (25.0-34.0); Mean Corpuscular Volume 94.5 fL (80.0-100.0); Platelet Count 68 K/uL (130-400); RDW Standard Deviation 45.9 fL (36.4-46.3); Red Blood Count 3.11 M/uL (4.70-6.10); White Blood Count 2.47 K/ul (4.8-10.8)
[2024-10-27 05:08] LABS: Alanine Aminotransferase 11.0 U/L (7-52); Albumin Globulin Ratio 1.5 (0.9-2); Alkaline Phosphatase 75.0 U/L (34-104); Anion Gap 6.0 (3-11); Bilirubin,Total 0.8 mg/dl (0.2-1.0); Blood Urea Nitrogen 18.0 mg/dl (6-23); Calcium 8.3 mg/dl (8.6-10.3); Carbon Dioxide 24.0 mmol/L (21-32); Chloride 110.0 mmol/L (98-107); Creatinine Clr Calc Pharmacy 71.1 ml/min; Globulin 2.2 gm/dl (2.5-4.0); Glucose 83.0 mg/dl (70-99(Fasting)); Potassium 3.6 mmol/L (3.5-5.1); Sodium 140.0 mmol/L (136-145); Total Protein 5.4 gm/dl (6.0-8.3)
--- NOTE | 2024-10-27 07:27 | Gastrointestinal Consultation ---
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 Less likely hemorrhoids or rectal varices. Hemodynamically stable clinically bleeding has resolved. Will plan for colonoscopy in a.m. with possible treatment of radiation proctitis. (2) Alcohol use disorder in remission: (3) Cirrhosis: Secondary to alcohol presently abstinent. No significant decompensation. Had 1+ varices 4 years ago on endoscopy will do endoscopy tomorrow to assess status of varices as well. History of Present Illness Reason for Consultation: Hematochezia Attending Physician: Yvonne Schmidt MD History of Present Illness Patient presents with several episodes of bright red blood per rectum over the last several days. Bleeding intermittent and not of large volume. Patient has history of cirrhosis due to alcoholism which is in remission. Prior endoscopy revealed 1+ varices in 2020. Had a colonoscopy at that time which showed polyps that were removed. Recently diagnosed with prostate cancer status post radiation treatment which was completed in March. Some mild associated right lower quadrant discomfort associated with the bleeding which is improving. CT scan of the abdomen showed possible bleeding site in the rectum. Presently h emodynamically stable with no further bleeding since last night. Allergies Allergy/AdvReac Type Severity Reaction Status Date / Time No Known Allergies Allergy Verified 10/26/24 23:54 Home Medications Medication Instructions Recorded Confirmed Type fluticasone propionate 50 2 spray intranasal DAILY 01/06/24 10/26/24 History mcg/actuation nasal spray,suspension (Flonase Allergy Relief) naltrexone microspheres 380 mg 380 mg IM Q28D 01/15/24 10/27/24 History intramuscular suspension,extended release (Vivitrol) buspirone 10 mg tablet 15 mg PO BID 03/16/24 10/26/24 History albuterol sulfate 90 mcg/actuation 2 puff inhalation QID PRN 04/23/24 10/26/24 Rx aerosol inhaler shortness of breath or wheezing #6.7 grams celecoxib 200 mg capsule 200 mg PO BID 04/28/24 10/26/24 History escitalopram oxalate 10 mg tablet 10 mg PO HS 06/12/24 10/26/24 History famotidine 40 mg tablet 40 mg PO HS 06/12/24 10/26/24 History folic acid 1 mg tablet 1 mg PO HS 06/12/24 10/27/24 History magnesium oxide 400 mg (241.3 mg 400 mg PO BID 06/12/24 10/27/24 History magnesium) tablet potassium chloride 20 mEq 20 meq PO HS 06/12/24 10/27/24 History tablet,extended release tamsulosin 0.4 mg capsule 0.4 mg PO HS Frequency 06/12/24 10/27/24 History lamotrigine 25 mg tablet (Lamictal) 100 mg PO HS 06/19/24 10/27/24 History diclofenac sodium 1 % topical gel 2 g topical QID PRN Pain 07/09/24 10/26/24 History (Voltaren Arthritis Pain) ergocalciferol (vitamin D2) 50 mcg 50 mcg PO .twice weekly 07/13/24 10/26/24 History (2,000 unit) capsule cholecalciferol (vitamin D3) 125 125 mcg PO Q4D #90 caps 07/17/24 10/26/24 Rx mcg (5,000 unit) capsule cane #1 ea 08/06/24 10/26/24 Rx heating pads #1 ea 08/06/24 10/26/24 Rx peg 3350-electrolytes 236 240 ml PO Q10M #4,000 mL 08/17/24 10/27/24 Rx gram-22.74 gram-6.74 gram-5.86 gram solution (Golytely) emtricitabine 200 mg-tenofovir 1 tab PO DAILY 09/23/24 10/26/24 History disoproxil fumarate 300 mg tablet thiamine HCl (vitamin B1) 100 mg 100 mg PO HS #90 tabs 10/26/24 10/27/24 Rx tablet Patient History Medical History (Updated 10/27/24 @ 07:33 by Adalberto Urias MD) B12 deficiency Positive anti-CCP test History of urinary urgency Prostate cancer dx 05/2023, xrt tx and injections; "cured as of 05/2024" Biliary colic hx, f/u PCP Cholelithiasis hx, f/u PCP Alcohol use disorder hx, sober 9 months as of 07/09/24 Pancytopenia hx Esophageal varices hx Thrombocytopenia (07/06/20) hx; Cirrhosis vs. Folate deficiency vs. EtOH marrow suppression Tubular adenoma hx, 2 removed Bilateral tinnitus Sensorineural hearing loss (SNHL) of both ears Septic shock hx, 08/2023, hospitalized [facility] Aspiration pneumonitis hx, 08/2023, hospitalized [facility] ARDS (adult respiratory distress syndrome) 08/2023, hospitalized [facility] from aspiration pneumonitis Hypomagnesemia hx, resolved per pt. Gastritis hx Elevated ferritin (07/11/20) HH genetic testing ordered. Cirrhosis Back problem "MESSED UP DISCS IN MY BACK" Hx of esophageal reflux History of skin cancer ON CHEEK--removed in office Varicose veins of both lower extremities Sleep apnea CPAP Asthma "MILD" NO INHALER Hepatic steatosis (07/15/20) On US 07/15/2020 Surgical History Hx of tooth extraction all upper teeth removed History of tonsillectomy History of colonoscopy 08/2020 repeat 3 yrs Hx of wisdom tooth extraction Family History Mother Breast cancer Father Diabetes Colorectal cancer Stroke Brother Prostate cancer Heart disease Colorectal cancer Other Unknown family medical history Denies family history of Ovarian cancer Coronary heart disease Myocardial infarction Congenital kidney disease Lung cancer Cystic kidney disease Social History Smoking Status: Never smoker Second Hand Exposure: No; Do You Dip or Chew Tobacco: No; Hx Alcohol Use: Yes Alcohol type: hard liquor Alcohol Intake Frequency: 4 or More x per/Week Hx Substance Use: No Preferred Language: Mosotho Communication Ability: Effective Visual Impairment: Limited Hearing Ability: Normal Operations Planner Required: No Beliefs That Will Affect Care: None marital status: Current Living Situation: Alone Current Living Situation Comment: alone at home current occupational status: retired How many Children do You have: 2 Feels Safe at Home: Yes Safety Concerns: Feels Safe At This Time Safety Concerns Comment: pt is currently homeless Childhood Exposure to Second-Hand Smoke: Yes Diet: regular caffeine: Yes Dental Care, Regularly: Yes Seatbelt Use: other Sunscreen Use: No Assistive Devices: Glasses Review of Systems Review of Systems: No fever No chills No SOB No CP GI as per HPI Physical Exam Physical Exam: Eyes; anicteric HENT No masses Chest clear to A Cor S1, S2 physiologic Abd: softer nontender no masses Ext no edema Results & Data Vital Signs (Past 12 Hours) Vital Signs Temp Pulse Pulse Pulse Resp BP BP 10/27/24 07:24 56 L 10/27/24 05:45 62 18 103/68 10/27/24 03:28 57 L 14 10/27/24 03:06 55 L 22 10/27/24 02:03 48 L 24 94/57 L 10/27/24 02:00 10/27/24 01:39 10/27/24 01:39 36.6 C 10/27/24 01:39 48 L 20 93/70 L 10/27/24 00:30 49 L 20 102/69 10/27/24 00:00 83 20 107/73 10/26/24 23:12 49 L 17 98/70 L 10/26/24 23:11 50 L 10/26/24 23:06 50 L 22 10/26/24 22:00 51 L 18 96/67 L 10/26/24 20:43 10/26/24 20:30 52 L 21 98/63 L 10/26/24 20:18 54 L 23 98/66 L Pulse Ox Pulse Ox O2 Del Method O2 Del Method FiO2 10/27/24 07:24 10/27/24 05:45 95 Room Air, CPAP 10/27/24 03:28 94 21 10/27/24 03:06 95 Room Air 10/27/24 02:03 93 Room Air 10/27/24 02:00 94 Room Air 10/27/24 01:39 Room Air 10/27/24 01:39 10/27/24 01:39 94 Room Air 10/27/24 00:30 92 Room Air 10/27/24 00:00 91 Room Air 10/26/24 23:12 91 Room Air 10/26/24 23:11 10/26/24 23:06 93 Room Air 10/26/24 22:00 93 Room Air 10/26/24 20:43 90 Room Air 10/26/24 20:30 94 10/26/24 20:18 94 Laboratory Results Laboratory Results - last 48 hr 10/26/24 10/26/24 10/27/24 17:56 19:13 00:38 WBC 2.76 L RBC 3.34 L Hgb 10.8 L Hct 31.9 L MCV 95.5 MCH 32.3 MCHC 33.9 RDW Std Deviation 48.4 H RDW Coeff of Melissa 13.8 Plt Count 76 L MPV 9.9 Immature Gran % (Auto) Neut % (Auto) Lymph % (Auto) [place] % (Auto) Eos % (Auto) Baso % (Auto) Neut # (Auto) Lymph # (Auto) [place] # (Auto) Eos # (Auto) Baso # (Auto) Immature Gran # (Auto) PT 12.4 H INR 1.2 H APTT 28 PTT Ratio 1.0 Sodium 140 Potassium 4.3 Chloride 109 H Carbon Dioxide 25 Anion Gap 6 BUN 19 Creatinine 1.18 Est Cr Clr Drug Dosing 60.8 eGFR 71.08 BUN/Creatinine Ratio 16.1 Glucose 98 Calcium 8.6 Total Bilirubin 0.6 AST 22 ALT 12 Alkaline Phosphatase 87 Troponin I High Sens 4.1 Total Protein 6.0 Albumin 3.6 Globulin 2.4 L Albumin/Globulin Ratio 1.5 Blood Type A Negative Antibody Screen NEGATIVE 10/27/24 04:27 WBC 2.47 L RBC 3.11 L Hgb 10.2 L Hct 29.4 L MCV 94.5 MCH 32.8 MCHC 34.7 RDW Std Deviation 45.9 RDW Coeff of Melissa 13.2 Plt Count 68 L MPV 10.2 Immature Gran % (Auto) 0.4 Neut % (Auto) 53.4 Lymph % (Auto) 30.8 [place] % (Auto) 8.5 Eos % (Auto) 5.7 Baso % (Auto) 1.2 Neut # (Auto) 1.32 L Lymph # (Auto) 0.76 L [place] # (Auto) 0.21 Eos # (Auto) 0.14 Baso # (Auto) 0.03 Immature Gran # (Auto) 0.01 PT INR APTT PTT Ratio Sodium 140 Potassium 3.6 Chloride 110 H Carbon Dioxide 24 Anion Gap 6 BUN 18 Creatinine 1.01 Est Cr Clr Drug Dosing 71.1 eGFR 85.67 BUN/Creatinine Ratio 17.8 Glucose 83 Calcium 8.3 L Total Bilirubin 0.8 AST 23 ALT 11 Alkaline Phosphatase 75 Troponin I High Sens Total Protein 5.4 L Albumin 3.2 L Globulin 2.2 L Albumin/Globulin Ratio 1.5 Blood Type Antibody Screen Diagnostic Findings Abdomen/Pelvis CT 10/26/24 19:02 EXAM: CT abd pelvis IV con only CLINICAL HISTORY: Blood per rectum, abdominal pain TECHNIQUE: Contrast-enhanced CT of the abdomen and pelvis was performed, with the following protocol: axial images with, and reconstructed coronal and sagittal images. Intravenous contrast was administered. One of the following dose reduction techniques was utilized for this exam: Automated exposure control, adjustment of the mA and/or kV according to patient size, and use of iterative reconstruction. 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 FINDINGS: Abdomen: Liver: Normal in size and density. No significant change in the nodular hepatic contour, for which cirrhosis is still considered. No focal lesions, cysts, masses, or abnormal enhancement were identified. Hepatic vasculature and biliary ducts are unremarkable. Gallbladder and Biliary System: Physiologically-distended gallbladder with multiple calcified gallstones measuring up to 1.2 cm, and cystic duct stone measuring 0.6 cm, not significantly changed. Surrounding mild subserosal edema is likewise unchanged, more adjacent to the gallbladder fundus. is normal in size and shape. No wall thickening, pericholecystic fluid, or gallstones were identified. The common bile duct is normal in caliber without dilation. Pancreas: Pancreatic head, body, and tail are visualized and appear normal in size and density. No pancreatic masses or calcifications were noted. Normal parenchymal enhancement. The pancreatic duct is not dilated. Spleen: Remains enlarged, measuring 12.5 x 6.8 x 12.0 cm (maximum axial x thickness x craniocaudal) with a splenic index of 1020 (normal ?480). No splenic lesions or masses were identified. Normal parenchymal enhancement. Appendix: The appendix is normal in size without periappendiceal fat stranding and without an appendicolith. No evidence of appendiceal abscess or perforation. Kidneys and Adrenal Glands: Both kidneys are normal in size, shape, and position. Cortical thickness is within normal limits. No renal calculi or hydronephrosis. No significant change in the mild bilateral perinephric fat stranding, non-specific. Adrenal glands are unremarkable with no evidence of masses or hyperplasia. Pelvis: Urinary Bladder: Partially distended urinary bladder with diffuse wall thickening measuring up to 8 mm. This is not significantly changed from prior CT. No intraluminal lesions identified. Prostate: Normal in size and contour. No focal lesions or masses identified. Seminal Vesicles: Normal in size and appearance. No abnormalities noted. Rectum, Sigmoid Colon, and Bowels: There is a faint contrast blush in the mid rectum, approximately 9 cm from the anal verge. This is associated with a prominent adjacent branch of the superior rectal vein. Mucosal outpouchings are identified along the entire colonic length and along the distal ileum. No adjacent pericolonic fat stranding. The rest of the bowels are normal in caliber with no evidence of obstruction, mass, or wall thickening. Peritoneal and Retroperitoneal Structures: No free fluid or abnormal fluid collections were identified within the abdomen or pelvis. There is subtle central mesenteric fat stranding with prominent mesenteric lymph nodes measuring up to 7 mm in the short-axis dimension. Bones and Soft Tissues: Pelvic bones and soft tissues are unremarkable. No fractures or abnormal masses were identified. No significant change in the mild retrolisthesis at L2/L3 and L3/L4, as well as the multilevel degenerative disc disease of the thoracolumbar spine with vacuum phenomenon at L4-L5. L2-L3, L4-L4 and L4-L5 disc herniations with spinal canal and neural foraminal stenosis. Additional Findings: No significant change in the pulmonary pleuroparenchymal bands or fibrotic changes in the visualized medial segment of the right middle lobe, inferior lingula, and anteromedial and posterior basal segments of the left lower lobe. IMPRESSION: 1. Faint contrast blush in the mid rectum, approximately 9 cm from the anal verge, associated with a prominent adjacent branch of the superior rectal vein, suggest rectal telangiectasia; proctoscopy is recommended. 2. Colonic and ileal diverticulosis with no evidence of acute diverticulitis. 3. Cholecystolithiases and cystic duct lithiasis with no significant change in the surrounding mild subserosal edema, suggestive of chronic calculous cholecystitis. 4. Subtle central mesenteric fat stranding with prominent mesenteric lymph nodes (up to 7 mm in the short-axis dimension), representing reactive mesenteric adenitis. 5. Partially-distended urinary bladder with diffuse wall thickening (up to 8 mm) not significantly changed from prior, consider chronic cystitis. 6. No significant change in the cirrhotic liver morphology with evidence of portal hypertension. Degree of splenomegaly is unchanged (splenic index of 1020). 7. No significant change in the mild bilateral perinephric fat stranding, non-specific. 8. The rest of the multiple other chronic findings, as detailed, not significantly changed from prior. Electronically signed by Ozzie Jackman 10-26-2024 10:36 PM PG Care Time/CCT Total # of Minutes Spent Total Time Spent with Patient: Total time spent is greater than 50% in coordination of care (as documented) at patient's floor/unit and/or counseling patient: Coding Level of Care Code 02122 INT INP/OBS CARE MIN Diagnoses Rectal bleeding K62.5 Alcohol use disorder in remission F10.91 Cirrhosis K74.60
[2024-10-27] MEDS: FOLIC ACID 1 MG in SYRINGE 9.8 ML IV SCH (08:58)
[2024-10-27] MEDS: THIAMINE HCL 100 MG in SYRINGE 9 ML IV SCH (08:58)
[2024-10-27] MEDS: busPIRone 15 MG TAB PO SCH (08:58)
[2024-10-27 11:08] LABS: Cdiff Toxin B Gene (2yr or >) Negative Cdiff Gene (Neg)
[2024-10-27 11:40] LABS: Adenovirus F 40/41 PCR Not Detected (NotDetected); Campylobacter PCR Not Detected (NotDetected); Enteroaggregative E.coli(EAEC) Not Detected (NotDetected); Shiga-like Toxin E.coli (STEC) Not Detected (NotDetected); Vibrio species PCR Not Detected (NotDetected)
[2024-10-27] MEDS ORDERED: LAVAGE SOLUTION 4000ML PO SCH (17:30)
[2024-10-27] MEDS: LAVAGE SOLUTION 4000ML PO SCH (19:20)
[2024-10-27] MEDS: POTASSIUM CHLORIDE CRTAB 20 MEQ TABCR PO SCH (20:23)
[2024-10-27] MEDS: FAMOTIDINE 20MG IV PUSH 20 MG/5 ML SYR IV SCH (20:24)
[2024-10-27] MEDS: TAMSULOSIN HCL 0.4 MG CAP PO SCH (20:24)
[2024-10-27] MEDS: ESCITALOPRAM OXALATE 10 MG TAB PO SCH (20:25)
[2024-10-27] MEDS: lamoTRIgine 100 MG TAB PO SCH (20:25)
[2024-10-27] MEDS ORDERED: FAMOTIDINE 40 MG TABLET PO SCH (21:00)
[2024-10-27] MEDS ORDERED: FOLIC ACID 1 MG TAB PO SCH (21:00)
[2024-10-27] MEDS ORDERED: THIAMINE HCL 100 MG TAB PO SCH (21:00)
[2024-10-27] MEDS: ALBUTEROL HFA 8 GM INHALER INH PRN (21:49)
--- NOTE | 2024-10-27 22:33 | Electrocardiogram Report ---
Test Reason : Blood Pressure : */* mmHG Vent. Rate : 62 BPM Atrial Rate : 62 BPM P-R Int : 146 ms QRS Dur : 74 ms QT Int : 406 ms P-R-T Axes : 8 6 25 degrees QTcB Int : 412 ms Normal sinus rhythm Normal ECG When compared with ECG of 09-Aug-2024 17:54, No significant change was found Confirmed by Britton Chavarria ([id number]) on 10/27/2024 10:32:40 PM Referred By: REFERRED SELF Confirmed By: Britton Chavarria
[2024-10-28 07:04] LABS: Hematocrit (blood only) 30.7 % (42.0-52.0); Hemoglobin 10.3 g/dl (14.0-18.0); Immature Granulocytes # (auto) 0.00 K/uL (0.01-0.20); Immature Granulocytes % (auto) 0.0 %; Mean Corpuscular Hemoglobin 32.1 pg (25.0-34.0); Mean Corpuscular Volume 95.6 fL (80.0-100.0); Platelet Count 65 K/uL (130-400); RDW Standard Deviation 47.5 fL (36.4-46.3); Red Blood Count 3.21 M/uL (4.70-6.10); White Blood Count 2.11 K/ul (4.8-10.8)
[2024-10-28 07:54] LABS: Alanine Aminotransferase 11.0 U/L (7-52); Albumin Globulin Ratio 1.5 (0.9-2); Alkaline Phosphatase 75.0 U/L (34-104); Anion Gap 3.0 (3-11); Bilirubin,Total 0.8 mg/dl (0.2-1.0); Blood Urea Nitrogen 10.0 mg/dl (6-23); Calcium 8.5 mg/dl (8.6-10.3); Carbon Dioxide 29.0 mmol/L (21-32); Chloride 109.0 mmol/L (98-107); Creatinine Clr Calc Pharmacy 74.8 ml/min; Globulin 2.2 gm/dl (2.5-4.0); Glucose 81.0 mg/dl (70-99(Fasting)); Potassium 4.1 mmol/L (3.5-5.1); Sodium 141.0 mmol/L (136-145); Total Protein 5.4 gm/dl (6.0-8.3)
--- NOTE | 2024-10-28 10:06 | Gastroenterology Progress Note ---
Date of Service October 28, 2024 Assessment & Plan (1) Cirrhosis: Plan: 59 year old male with history of prostate CA s/p radiation therapy, ETOH use disorder, ETOH cirrhosis, anxiety/depression and others below admitted w/ rectal bleeding. Hemodynamically stable, HGB stable w/o BUN elevation, suspect bleeding related to lower GI etiology such as radiation proctitis NPO for EGD/Colonoscopy today Trend HGB Monitor and document GI output Transfuse PRN per primary team We appreciate assistance in the management of any serological abnormality and corrections to include: hemoglobin >7, INR <2, platelets >50,000, potassium levels >3.5 but <5.3, and sodium levels within 5 points of the reference range prior to endoscopic evaluation. Admission and Anticipated Discharge Date Admission Date: October 27, 2024 Supervising Physician Co-Signing Physician Notes I saw and examined this patient with our nurse practitioner and agree with her assessment and plan. Hemodynamically stable okay to proceed with endoscopy and colonoscopy today Subjective Pt was seen and evaluated, chart reviewed. Tolerated prep. Offers no concerns this AM. No fever, chills, CP, SOB. Review of Systems Review of Systems: All other findings negative except as noted in HPI. Physical Exam Constitutional: WD/WN, vitals as above Respiratory: normal respiratory effort Cardiovascular: Rate/Rhythm: regular rate Gastrointestinal (Abdomen): normal bowel sounds, soft, nontender, no hepatosplenomegaly Skin: no rashes, warm and dry Results & Data Results & Data Vital Signs (Past 12 Hours) Vital Signs Temp Pulse Pulse Resp BP BP Pulse Ox 10/28/24 07:49 98.6 F 56 L 18 111/62 97 10/28/24 03:42 96.4 F L 63 20 93/62 L 93 10/28/24 03:22 61 12 95 10/28/24 01:00 60 10/28/24 01:00 64 10/27/24 22:39 96.6 F L 60 18 103/65 95 O2 Del Method 10/28/24 07:49 Room Air 10/28/24 03:42 CPAP 10/28/24 03:22 10/28/24 01:00 10/28/24 01:00 10/27/24 22:39 Room Air Laboratory Results 10/28/24 10/27/24 10/27/24 Range/Units 06:17 10:12 10:05 WBC 2.11 L (4.8-10.8) K/ul RBC 3.21 L (4.70-6.10) M/uL Hgb 10.3 L (14.0-18.0) g/dl Hct 30.7 L (42.0-52.0) % MCV 95.6 (80.0-100.0) fL MCH 32.1 (25.0-34.0) pg MCHC 33.6 (32.0-36.0) g/dL RDW Std Deviation 47.5 H (36.4-46.3) fL RDW Coeff of Melissa 13.4 (11.5-14.5) % Plt Count 65 L (130-400) K/uL MPV 10.5 (9.4-12.4) fL Immature Gran % (Auto) 0.0 % Neut % (Auto) 52.7 % Lymph % (Auto) 32.2 % [place] % (Auto) 9.5 % Eos % (Auto) 4.7 % Baso % (Auto) 0.9 % Neut # (Auto) 1.11 L (1.40-6.50) K/uL Lymph # (Auto) 0.68 L (1.20-3.40) K/uL [place] # (Auto) 0.20 (0.11-0.59) K/uL Eos # (Auto) 0.10 (0.00-0.50) K/uL Baso # (Auto) 0.02 (0.00-0.20) K/uL Immature Gran # (Auto) 0.00 L (0.01-0.20) K/uL Sodium 141 (136-145) mmol/L Potassium 4.1 (3.5-5.1) mmol/L Chloride 109 H (98-107) mmol/L Carbon Dioxide 29 (21-32) mmol/L Anion Gap 3 (3-11) BUN 10 (6-23) mg/dl Creatinine 0.96 (0.6-1.4) mg/dl Est Cr Clr Drug Dosing 74.8 ml/min eGFR 91.05 BUN/Creatinine Ratio 10.4 (10-20) Glucose 81 (70-99(Fasting)) mg/dl Calcium 8.5 L (8.6-10.3) mg/dl Total Bilirubin 0.8 (0.2-1.0) mg/dl AST 24 (13-39) U/L ALT 11 (7-52) U/L Alkaline Phosphatase 75 (34-104) U/L Total Protein 5.4 L (6.0-8.3) gm/dl Albumin 3.2 L (3.4-5.0) gm/dl Globulin 2.2 L (2.5-4.0) gm/dl Albumin/Globulin Ratio 1.5 (0.9-2) POC Stool Occult Blood Pending Stl C. cayetanensis PCR Not Detected (NotDetected) Stool Rotavirus A PCR Not Detected (NotDetected) Stl Adenov F 40/41 PCR Not Detected (NotDetected) Stool Astrovirus (PCR) Not Detected (NotDetected) Stool Campylobacter PCR Not Detected (NotDetected) Stl C. diff Tox B Gene Negative Cdiff Gene (Neg) Stl C. diff [id number] NEGATIVE Stool Cryptosporidium PCR Not Detected (NotDetected) Stl E.coli Shiga Tox PCR Not Detected (NotDetected) Stl Enterotoxigenic E PCR Not Detected (NotDetected) Stool EPEC (PCR) Not Detected (NotDetected) Stool EAEC (PCR) Not Detected (NotDetected) Stl E. histolytica PCR Not Detected (NotDetected) Stool Giardia Lamblia PCR Not Detected (NotDetected) Stool Salmonella PCR Not Detected (NotDetected) Stool Sapovirus (PCR) Not Detected (NotDetected) Stl P. shigelloides PCR Not Detected (NotDetected) Stl Shigella/EIEC PCR Not Detected (NotDetected) St Y.enterocolitica PCR Not Detected (NotDetected) Stool Vibrio (PCR) Not Detected (NotDetected) Stl Vibrio cholerae PCR Not Detected (NotDetected) Stl Norovirus GI/GII PCR Not Detected (NotDetected) PG Care Time/CCT Total # of Minutes Spent Total Time Spent with Patient: Total time spent is greater than 50% in coordination of care (as documented) at patient's floor/unit and/or counseling patient: Coding Level of Care Code None Diagnoses Cirrhosis K74.60
--- NOTE | 2024-10-28 10:33 | Hospitalist Progress Note ---
Date of Service October 28, 2024 Assessment & Plan (1) Rectal bleeding: (2) Abdominal pain: (3) Anxiety and depression: (4) Alcohol use disorder in remission: (5) Cirrhosis: (6) Pancytopenia: (7) Esophageal varices: (8) Cholelithiasis: Plan 59-year-old male with a past medical history that includes alcohol abuse in remission, cirrhosis, varices, cholelithiasis, prostate cancer, anxiety/depression who presents with rectal bleeding and RLQ abdominal pain: #Rectal bleeding: - No bleeding overnight -Hb stable -Plan is OR for colonoscopy - Continue Protonix -Appreciate GI #Abdominal pain: CT without obvious findings that would explain focal RLQ pain - ?related to recent increase in loose stools- gastroenteritis or similar process would also correlate with reactive mesenteric lymphadenitis Stool studies ordered in ED, pending #Cirrhosis // #Pancytopenia: Patient follows with outpatient hepatology - appears fairly stable since becoming sober 1 year ago - due for EGD and HCC screening Heme/onc records reviewed - patient had BM biopsy done previously that was negative for myelodysplastic syndrome Pancytopenia most likely d/t combination of decreased liver synthetic function coupled with hypersplenism secondary to portal hypertension #Anxiety/Depression: Continue Lexapro, Lamictal, BuSpar #AUD in remission: Patient is on Vivitrol injections Q28 days Continue daily folate/thiamine supplementation #LUTS: Continue tamsulosin Dispo: Admit Obs - PCU VTE ppx: deferred d/t active rectal bleed and thrombocytopenia FEN/GI: NPO, LR@80ml/h Full Code Admission and Anticipated Discharge Date Admission Date: October 27, 2024 Subjective patient seen and examined, awaiting OR for colonscopy Review of Systems Review of Systems: All systems reviewed are negative, apart from the ones contained in the history. Physical Exam Physical Exam: The patient is awake, alert and oriented 3, well developed and well nourished, normocephalic and atraumatic, lying in bed and in no acute distress. HEENT--PERRL, EOMI, mucous membranes and oropharynx mildly dry Neck--supple. No JVD. No bruits. Thyroid normal, trachea midline, no adenopathy. Heart--normal S1 and S2. No murmurs, rubs or gallops. Lungs--clear bilaterally, no respiratory distress, no accessory muscle use. Abdomen--normal bowel sounds and soft. Extremities--no cyanosis or clubbing. No edema. Dermatologic--normal skin turgor, normal color, no abnormal lymph nodes, no rash. Neurologic--cranial nerves II through XII grossly intact. Rheumatologic--normal range of motion. Psychiatric--normal affect. Results & Data Results & Data Vital Signs (Past 12 Hours) Vital Signs Temp Pulse Pulse Resp BP BP Pulse Ox 10/28/24 07:49 98.6 F 56 L 18 111/62 97 10/28/24 03:42 96.4 F L 63 20 93/62 L 93 10/28/24 03:22 61 12 95 10/28/24 01:00 60 10/28/24 01:00 64 10/27/24 22:39 96.6 F L 60 18 103/65 95 O2 Del Method 10/28/24 07:49 Room Air 10/28/24 03:42 CPAP 10/28/24 03:22 10/28/24 01:00 10/28/24 01:00 10/27/24 22:39 Room Air PG Care Time/CCT Total # of Minutes Spent Total Time Spent with Patient: Total time spent is greater than 50% in coordination of care (as documented) at patient's floor/unit and/or counseling patient: Coding Level of Care Code 48339 SUB INP/OBS CARE 2/35MIN Diagnoses Rectal bleeding K62.5 Abdominal pain R10.9 Anxiety and depression F41.9; F32.9 Alcohol use disorder in remission F10.91 Cirrhosis K74.60 Ascites presence: unspecified Hepatic cirrhosis type: unspecified hepatic cirrhosis Pancytopenia D61.818 Esophageal varices I85.00 Cholelithiasis K80.20 Time Spent (min) 35 (5) Cirrhosis Ascites presence: unspecified Hepatic cirrhosis type: unspecified hepatic cirrhosis Qualified Code(s): K74.60 - Unspecified cirrhosis of liver
--- NOTE | 2024-10-28 12:03 | Anesthesiology Consultation ---
Date of Service October 28, 2024 Assessment & Plan Chart Review Chart Review: Acceptable Risk for Surgery and Patient NOT seen in Pre Admission Testing Consults Requested none ASA ASA3 Proposed Anesthesia Anesthesia Type: MAC Risk / Benefits Reviewed With: PT / POA / Parent / Guardian, Accepts Plan and Informed Consent Obtained History Surgery Operation Date: 10/28/24 16:30 Proposed Procedures p Colonoscopy EGD Dr. Adonay Urias MD Height/Weight Height: 5 ft 6 in Weight: 72 kg Allergies Allergy/AdvReac Type Severity Reaction Status Date / Time No Known Allergies Allergy Verified 10/28/24 11:53 Medications Home Medications Medication Instructions Recorded Confirmed Last Taken fluticasone propionate 50 2 spray intranasal DAILY 01/06/24 10/26/24 06/11/24 mcg/actuation nasal spray,suspension (Flonase Allergy Relief) naltrexone microspheres 380 mg 380 mg IM Q28D 01/15/24 10/27/24 Unknown intramuscular suspension,extended release (Vivitrol) buspirone 10 mg tablet 15 mg PO BID 03/16/24 10/26/24 06/11/24 albuterol sulfate 90 mcg/actuation 2 puff inhalation QID PRN 04/23/24 10/26/24 Unknown aerosol inhaler shortness of breath or wheezing #6.7 grams celecoxib 200 mg capsule 200 mg PO BID 04/28/24 10/26/24 06/11/24 escitalopram oxalate 10 mg tablet 10 mg PO HS 06/12/24 10/26/24 06/11/24 famotidine 40 mg tablet 40 mg PO HS 06/12/24 10/26/24 06/11/24 folic acid 1 mg tablet 1 mg PO HS 06/12/24 10/27/24 06/11/24 magnesium oxide 400 mg (241.3 mg 400 mg PO BID 06/12/24 10/27/24 06/11/24 magnesium) tablet potassium chloride 20 mEq 20 meq PO HS 06/12/24 10/27/24 06/11/24 tablet,extended release tamsulosin 0.4 mg capsule 0.4 mg PO HS Frequency 06/12/24 10/27/24 06/11/24 lamotrigine 25 mg tablet (Lamictal) 100 mg PO HS 06/19/24 10/27/24 Unknown diclofenac sodium 1 % topical gel 2 g topical QID PRN Pain 07/09/24 10/26/24 Unknown (Voltaren Arthritis Pain) ergocalciferol (vitamin D2) 50 mcg 50 mcg PO .twice weekly 07/13/24 10/26/24 Unknown (2,000 unit) capsule cholecalciferol (vitamin D3) 125 125 mcg PO Q4D #90 caps 07/17/24 10/26/24 Unknown mcg (5,000 unit) capsule cane #1 ea 08/06/24 10/26/24 Unknown heating pads #1 ea 08/06/24 10/26/24 Unknown peg 3350-electrolytes 236 240 ml PO Q10M #4,000 mL 08/17/24 10/27/24 Unknown gram-22.74 gram-6.74 gram-5.86 gram solution (Golytely) emtricitabine 200 mg-tenofovir 1 tab PO DAILY 09/23/24 10/26/24 Unknown disoproxil fumarate 300 mg tablet thiamine HCl (vitamin B1) 100 mg 100 mg PO HS #90 tabs 10/26/24 10/27/24 Unknown tablet Active Medications Generic Name Dose Route Start Last Admin Trade Name Freq PRN Reason Stop Dose Admin Albuterol 2 puffs 10/27/24 02:13 10/27/24 21:49 Albuterol Hfa 8 Gm Inhaler INH 11/26/24 02:12 2 puffs QID PRN Administration shortness of breath or wheezin Buspirone HCl 15 mg 10/27/24 09:00 10/28/24 09:08 Buspirone 15 Mg Tab PO 11/26/24 08:59 15 mg BID JORGE L Administration Escitalopram Oxalate 10 mg 10/27/24 21:00 10/27/24 20:25 Escitalopram Oxalate 10 Mg Tab PO 11/26/24 20:59 10 mg HS JORGE L Administration Pantoprazole Sodium 40 mg in 10 mls @ 5 mls/min 10/27/24 02:13 10/27/24 20:41 Protonix IV 11/26/24 02:12 5 mls/min BID JORGE L Administration Folic Acid 1 mg/ Syringe 10 mls @ 5 mls/min 10/27/24 09:00 10/27/24 08:58 IV 11/26/24 08:59 5 mls/min QAM JORGE L Administration Thiamine HCl 100 mg/ Syringe 10 mls @ 2 mls/min 10/27/24 09:00 10/27/24 08:58 IV 11/26/24 08:59 2 mls/min QAM JORGE L Administration Famotidine 20 mg in 5 mls @ 2.5 mls/min 10/27/24 21:00 10/27/24 20:24 Pepcid 20mg Iv Push IV 11/26/24 20:59 2.5 mls/min HS JORGE L Administration Lamotrigine 100 mg 10/27/24 21:00 10/27/24 20:25 Lamotrigine 100 Mg Tab PO 11/26/24 20:59 100 mg HS JORGE L Administration Protocol Potassium Chloride 20 meq 10/27/24 21:00 10/27/24 20:23 Potassium Chloride Crtab 20 Meq Tabcr PO 11/26/24 20:59 20 meq HS JORGE L Administration Tamsulosin HCl 0.4 mg 10/27/24 21:00 10/27/24 20:24 Tamsulosin Hcl 0.4 Mg Cap PO 11/26/24 20:59 0.4 mg HS JORGE L Administration NPO Date Last Intake of Fluids: 10/28/24 Time Last Intake of Fluids: 00:03 Date Last Intake of Solids: 10/26/24 Time Last Intake of Solids: 11:00 Past Medical History Medical History (Updated 10/27/24 @ 07:33 by Adalberto Urias MD) B12 deficiency Positive anti-CCP test History of urinary urgency Prostate cancer dx 05/2023, xrt tx and injections; "cured as of 05/2024" Biliary colic hx, f/u PCP Cholelithiasis hx, f/u PCP Alcohol use disorder hx, sober 9 months as of 07/09/24 Pancytopenia hx Esophageal varices hx Thrombocytopenia (07/06/20) hx; Cirrhosis vs. Folate deficiency vs. EtOH marrow suppression Tubular adenoma hx, 2 removed Bilateral tinnitus Sensorineural hearing loss (SNHL) of both ears Septic shock hx, 08/2023, hospitalized [facility] Aspiration pneumonitis hx, 08/2023, hospitalized [facility] ARDS (adult respiratory distress syndrome) 08/2023, hospitalized [facility] from aspiration pneumonitis Hypomagnesemia hx, resolved per pt. Gastritis hx Elevated ferritin (07/11/20) HH genetic testing ordered. Cirrhosis Back problem "MESSED UP DISCS IN MY BACK" Hx of esophageal reflux History of skin cancer ON CHEEK--removed in office Varicose veins of both lower extremities Sleep apnea CPAP Asthma "MILD" NO INHALER Hepatic steatosis (07/15/20) On US 07/15/2020 Past Family History Family History Mother Breast cancer Father Diabetes Colorectal cancer Stroke Brother Prostate cancer Heart disease Colorectal cancer Other Unknown family medical history Denies family history of Ovarian cancer Coronary heart disease Myocardial infarction Congenital kidney disease Lung cancer Cystic kidney disease Past Surgical History Surgical History Hx of tooth extraction all upper teeth removed History of tonsillectomy History of colonoscopy 08/2020 repeat 3 yrs Hx of wisdom tooth extraction Social History Smoking Status: Never smoker Do You Dip or Chew Tobacco: No Hx Alcohol Use: Yes Alcohol type: hard liquor alcohol intake frequency: 0-2 drinks per day Alcohol Intake Frequency Comment: 1 year sober Hx Substance Use: No substance use type: does not use Last Used Substance Other:: remote hx, 40 years ago "only used about 5x each" Review of Systems ROS Unobtainable: All systems reviewed & are unremarkable except as noted in Subjective Gastrointestinal: as per Subjective / HPI and + blood in stools rectal bleeding Physical Exam Vital Signs Last Vital Signs Temp 37.5 C 10/28/24 11:55 Pulse 58 L 10/28/24 11:55 Resp 16 10/28/24 11:55 BP 98/69 L 10/28/24 11:55 Pulse Ox 92 10/28/24 11:55 O2 Del Method Room Air 10/28/24 11:55 O2 Flow Rate 3 10/27/24 08:05 FiO2 21 10/27/24 03:28 Constitutional no acute distress ENMT Mouth: + poor dentition and + chipped teeth; no TMJ abnormality Thyromental Distance: > or= 3.5 Finger Breadths Mallampati Class: II Neck normal visual inspection Respiratory normal respiratory effort; no respiratory distress Auscultation: lungs clear to auscultation bilaterally Cardiovascular Rate/Rhythm: regular rate and regular rhythm Musculoskeletal Spine: normal cervical ROM Extremities: extremities normal to inspection Neurologic moves all extremities Motor/Sensory: no sensory deficit Psychiatric Orientation: alert and oriented x 3 Testing Laboratory Results 10/28/24 06:17 10/28/24 06:17 PT 12.4 Seconds (9.0-12.0) H 10/26/24 19:13 INR 1.2 (0.9-1.1) H 10/26/24 19:13 APTT 28 Seconds (21-31) 10/26/24 19:13 Blood Type A Negative 10/27/24 00:38 Antibody Screen NEGATIVE 10/27/24 00:38
--- NOTE | 2024-10-28 12:43 | GI REPORT ---
[facility] Patient: RUBEN PENN : 1965 Sex at : Male Age: 59 Years Procedure: Upper GI endoscopy Date: 10/28/2024 Attending Physician: Adalberto Urias MD Referring MD: Referred Self Indications: - History of cirrhosis Medications: - Monitored Anesthesia Care Complications: - No immediate complications. Procedure: - Prior to the procedure, a History and Physical was performed, and patient medications and allergies were reviewed. The patient's tolerance of previous anesthesia was also reviewed. The risks and benefits of the procedure and the sedation options and risks were discussed with the patient. All questions were answered, and informed consent was obtained. [Anticoagulant Agents] [Days Prior to Procedure]. [ASA Grade]. After reviewing the risks and benefits, the patient was deemed in satisfactory condition to undergo the procedure. - The egd scope was introduced through the mouth and advanced to the second part of the duodenum. - The upper GI endoscopy was accomplished without difficulty. - The patient tolerated the procedure well. Findings: - The examined esophagus was normal. No varices noted. - The entire examined stomach was normal. - The examined duodenum was normal. Impression: - Normal esophagus. - Normal stomach. - Normal examined duodenum. - No specimens collected. Recommendation: - Resume previous diet. - Patient has a contact number available for emergencies. The signs and symptoms of potential delayed complications were discussed with the patient. Return to normal activities tomorrow. Written discharge instructions were provided to the patient. Procedure Code(s): - 22901, Esophagogastroduodenoscopy, flexible, transoral; diagnostic, including collection of specimen(s) by brushing or washing, when performed (separate procedure) CPT(R) - 2023 copyright [employer]. All Rights Reserved. The CPT codes, CCI edits and ICD codes generated are intended as suggestions and were generated based on input data. These codes are preliminary and upon dump operator review may be revised to meet current compliance and payer requirements. The provider is responsible for the final determination of appropriate codes, and modifiers. Adalberto Urias MD This document has been electronically signed. Note Initiated:10/28/2024 Note Completed:10/28/2024 12:43 PM \\[email or web address]\Data\Provation\Results\LIVE\[id number].pdf
--- NOTE | 2024-10-28 12:48 | GI REPORT ---
[facility] Patient: RUBEN PENN : 1965 Sex at : Male Age: 59 Years Procedure: Colonoscopy Date: 10/28/2024 Attending Physician: Adalberto Urias MD Referring MD: Referred Self Indications: - Evaluation of unexplained GI bleeding presenting with Hematochezia Medications: - Monitored Anesthesia Care Complications: - No immediate complications. Procedure: - Prior to the procedure, a History and Physical was performed, and patient medications, allergies and sensitivities were reviewed. The patient's tolerance of previous anesthesia was reviewed. - The risks and benefits of the procedure and the sedation options and risks were discussed with the patient. All questions were answered and informed consent was obtained. - ASA Grade Assessment: I - A normal, healthy patient. - Prior Anticoagulants: The patient has taken no anticoagulant or antiplatelet agents. - The adult colonoscope was introduced through the anus and advanced to the terminal ileum, with identification of the appendiceal orifice and ileocecal valve. - The appendiceal orifice and the ileocecal valve were photographed. - The colonoscopy was performed without difficulty. - The patient tolerated the procedure well. - The quality of the bowel preparation was adequate. Findings: - The perianal and digital rectal examinations were normal. - The terminal ileum appeared normal. - Many diverticula were found in the entire colon. - Multiple small angiodysplastic lesions without bleeding were found in the rectum. Consistent with radiation Proctitis. Coagulation for hemostasis using argon plasma was successful. - No other significant abnormalities were identified in a careful examination of the remainder of the colon. Impression: - The examined portion of the ileum was normal. - Diverticulosis in the entire examined colon. - Multiple non-bleeding colonic angiodysplastic lesions. Treated with argon plasma coagulation (APC). - No specimens collected. Recommendation: - Discharge patient to home. - Patient has a contact number available for emergencies. The signs and symptoms of potential delayed complications were discussed with the patient. Return to normal activities tomorrow. Written discharge instructions were provided to the patient. - Resume previous diet. - Repeat colonoscopy in 6 weeks to evaluate the response to therapy. Procedure Code(s): - 23193, Colonoscopy, flexible; with control of bleeding, any method Diagnosis Code(s): - K92.1, Melena (includes Hematochezia) - K55.20, Angiodysplasia of colon without hemorrhage - K57.30, Diverticulosis of large intestine without perforation or abscess without bleeding CPT(R) - 2023 copyright [employer]. All Rights Reserved. The CPT codes, CCI edits and ICD codes generated are intended as suggestions and were generated based on input data. These codes are preliminary and upon automatic engraver review may be revised to meet current compliance and payer requirements. The provider is responsible for the final determination of appropriate codes, and modifiers. Adalberto Urias MD This document has been electronically signed. Note Initiated:10/28/2024 Note Completed:10/28/2024 12:47 PM \\[email or web address]\[email or web address]\Data\Provation\Results\LIVE\[id number]
--- NOTE | 2024-10-28 12:57 | Anesthesiology Progress Note ---
Date of Service October 28, 2024 Anesthesia Post Procedure Vital Signs Vital Signs: Temp Pulse Pulse Pulse Resp BP BP 10/28/24 12:43 78 12 103/65 10/28/24 11:55 37.5 C 58 L 16 98/69 L 10/28/24 07:49 37.0 C 56 L 18 111/62 10/28/24 03:42 35.8 C L 63 20 93/62 L 10/28/24 03:22 61 12 10/28/24 01:00 60 10/28/24 01:00 64 10/27/24 22:39 35.9 C L 60 18 103/65 10/27/24 20:32 36.5 C 49 L 18 101/56 L 10/27/24 18:32 36.6 C 68 97/60 L 10/27/24 14:10 53 L 20 94/60 L Pulse Ox O2 Del Method 10/28/24 12:43 91 Room Air 10/28/24 11:55 92 Room Air 10/28/24 07:49 97 Room Air 10/28/24 03:42 93 CPAP 10/28/24 03:22 95 10/28/24 01:00 10/28/24 01:00 10/27/24 22:39 95 Room Air 10/27/24 20:32 96 Room Air 10/27/24 18:32 92 Room Air 10/27/24 14:10 93 Room Air Pain Intensity Right Lower Abdomen: Pain Intensity: 3 Transfer of Care Handoff Completed per policy Notes Mental Status: alert / awake / arousable and participated in evaluation Patient Amnestic to Procedure: Yes Nausea / Vomiting: adequately controlled Pain: adequately controlled Airway Patency, RR, SpO2: stable & adequate BP & HR: stable & adequate Hydration State: stable & adequate Anesthetic Complications: no major complications apparent and Pt Satisfied with anesthetic care
[2024-10-28] MEDS: PROPOFOL IV EMULSION 10 MG/ML 20 ML VIAL IV ONE (13:59)
[2024-10-28] MEDS: LIDOCAINE 2% 2 ML VIAL/AMP(20MG/ML) INFIL ONE (13:59)
[2024-10-28] MEDS: DICLOFENAC SOD 1% GEL 100 GM TUBE EXT SCH (17:24)
[2024-10-28] MEDS: MAGNESIUM SULFATE / D5W 1 GM/100 ML BAG IV ONE (20:49)
[2024-10-29 06:42] LABS: Alanine Aminotransferase 11.0 U/L (7-52); Albumin Globulin Ratio 1.4 (0.9-2); Alkaline Phosphatase 78.0 U/L (34-104); Anion Gap 6.0 (3-11); Bilirubin,Total 0.6 mg/dl (0.2-1.0); Blood Urea Nitrogen 9.0 mg/dl (6-23); Calcium 8.7 mg/dl (8.6-10.3); Carbon Dioxide 27.0 mmol/L (21-32); Chloride 106.0 mmol/L (98-107); Creatinine Clr Calc Pharmacy 68.4 ml/min; Globulin 2.4 gm/dl (2.5-4.0); Glucose 98.0 mg/dl (70-99(Fasting)); Magnesium 1.5 mg/dl (1.7-2.4); Potassium 4.1 mmol/L (3.5-5.1); Sodium 139.0 mmol/L (136-145); Total Protein 5.8 gm/dl (6.0-8.3)
--- NOTE | 2024-10-29 07:32 | Gastroenterology Progress Note ---
Date of Service October 29, 2024 Assessment & Plan (1) Radiation proctitis: Plan: Underwent colonoscopy yesterday with APC thermal therapy of radiation proctitis which was because of rectal bleeding. Has had rectal bleeding postprocedure which is not uncommon. Monitor hemoglobin hematocrit. Would observe patient for at least another 24 hours to confirm that bleeding stops. If persists may need to reevaluate treatment. Have him remain on clear liquid diet for now. Admission and Anticipated Discharge Date Admission Date: October 28, 2024 Subjective Having rectal bleeding post endoscopic therapeutic procedure. Denies chest pain shortness of breath or abdominal pain. Physical Exam Physical Exam: No acute distress Respiratory rate regular Cardiac rhythm regular Abdomen soft nontender Results & Data Results & Data Vital Signs (Past 12 Hours) Vital Signs Temp Pulse Pulse Resp BP Pulse Ox O2 Del Method 10/29/24 03:44 70 15 94 10/29/24 03:26 36.9 C 73 18 101/61 93 BiPAP 10/28/24 23:33 37.2 C 75 19 112/63 96 BiPAP 10/28/24 23:21 70 24 98 10/28/24 23:14 71 18 92 Room Air 10/28/24 21:46 68 10/28/24 20:02 37.1 C 76 18 95/61 L 92 Room Air PG Care Time/CCT Total # of Minutes Spent Total Time Spent with Patient: Total time spent is greater than 50% in coordination of care (as documented) at patient's floor/unit and/or counseling patient: Coding Level of Care Code 16719 SUB INP/OBS CARE 2/35MIN Diagnoses Radiation proctitis K62.7
--- NOTE | 2024-10-29 07:39 | Discharge Summary ---
Discharge Summary Date of Service October 29, 2024 Principal Dx & Hospital Course #1 = Principal Diagnosis (1) Rectal bleeding: (2) Abdominal pain: (3) Anxiety and depression: (4) Alcohol use disorder in remission: (5) Cirrhosis: (6) Pancytopenia: (7) Esophageal varices: (8) Cholelithiasis: Plan 59-year-old male with a past medical history that includes alcohol abuse in remission, cirrhosis, varices, cholelithiasis, prostate cancer, anxiety/depression who presents with rectal bleeding and RLQ abdominal pain: #Rectal bleeding: -Hb stable -GI consulted. Colonoscopy revealed multiple small angiodysplasia lesions within the rectum/colon consistent with radiation proctitis. Argon plasma coagulation for hemostasis was successful. No other bleeding seen EGD normal Was recommended to resume previous diet, discharge home, and repeat colonoscopy in 6 weeks Iron studies during admission did not show a low iron, or transferrin saturation. Ferritin was lower range of normal. Recommended to continue daily iron supplementation on discharge - Continue Protonix -Outpatient GI follow-up #Abdominal pain: CTA/P: Shows subtle fat stranding representing reactive mesenteric adenitis, partial bladder distention suspicious for chronic cystitis. No change in chronic liver morphology. No significant change in mild bilateral perinephric fat stranding. Cholelithiasis and cystic duct lithiasis with no significant change and mild subserosal edema suggestive of chronic choley/colic. No obvious findings that would explain focal RLQ pain - ?related to recent increase in loo se stools- gastroenteritis or similar process would also correlate with reactive mesenteric lymphadenitis Stool studies ordered however not collected due to lack of sample #Cirrhosis // #Pancytopenia: Patient follows with outpatient hepatology - appears fairly stable since becoming sober 1 year ago - due for EGD and HCC screening Heme/onc records reviewed - patient had BM biopsy done previously that was negative for myelodysplastic syndrome Pancytopenia most likely d/t combination of decreased liver synthetic function coupled with hypersplenism secondary to portal hypertension #Anxiety/Depression: Continue Lexapro, Lamictal, BuSpar #AUD in remission: Patient is on Vivitrol injections Q28 days Continue daily folate/thiamine supplementation #LUTS: Continue tamsulosin Admission HPI Per Admitting Provider 59-year-old male with a past medical history that includes alcohol abuse in remission, cirrhosis, varices, cholelithiasis, prostate cancer, anxiety/depression who presents with rectal bleeding and RLQ abdominal pain. BRBPR for past 2 weeks with all bowel movements, sometimes when passing gas, and sometimes spontaneously leaks. Reports occasional maroonish stool but denies overt melena. No pain associated with rectal bleeding but patient has had RLQ dull, intermittent abdominal pain for past 4-5 days, different that his typical RUQ biliar colic-like pain. New RLQ pain not correlated with eating, seems to occur fairly randomly but has been more constant today. Last scopes in 2020, patient states that he is scheduled for repeat scope in November. Denies unintentional weight loss. Unknown family history so patient not sure if any relatives have a h/o CRC. Since rectal bleeding started, reports some weakness, postural dizziness, mildly increased shortness of breath. Denies chest pain, palpitations, syncope. Denies fevers, chills, nausea, vomiting. No recent dietary or med changes. ED course: Hgb on presentation 12.5 (baseline 10-12), repeat 8 hours later 10.8 Plt count 76 Labs o/w unremarkable for the most part, MELD score 9 CT A/P w/contrast demonstrated: - Faint contrast blush in the mid rectum, approximately 9 cm from the anal verge, associated with a prominent adjacent branch of the superior rectal vein, suggest rectal telangiectasia - Reactive mesenteric lymphadenitis Discharge Plan Discharge Items Reason For Visit: RECTAL BLEEDING Discharge Diagnosis: gi bleed Condition on Discharge: Fair Activity: Resume your previous activity Non-emergency contact: Primary Care Provider and Program Manager Transportation Call non-emergency contact if: you have any medication questions Follow-up/Referrals: Valdemar Santo DO [Primary Care Provider] - Diet: Regular Addtl Attending Provider Instructions: please follow up with your PCP and gastroeterologist Pending Studies at Discharge: No Stand-Alone Forms: My [employer], Smoking Cessation Medications and DC Order Prescriptions: Continued lamotrigine [Lamictal] 25 mg tablet 100 mg PO HS albuterol sulfate 90 mcg/actuation HFA aerosol inhaler 2 puff inhalation QID PRN (Reason: shortness of breath or wheezing) Qty: 6.7 1RF cholecalciferol (vitamin D3) 125 mcg (5,000 unit) capsule 125 mcg PO Q4D Qty: 90 3RF (DME) cane Device See Rx Instructions .Route Qty: 1 0RF Rx Instructions: single pointed cane with a curved handle DME COdde e0100 (DME) heating pads Pad See Rx Instructions .Route Qty: 1 0RF Rx Instructions: w moisture DME code e0215 peg 3350-electrolytes [Golytely] 236-22.74-6.74 -5.86 gram recon soln 240 ml PO Q10M Qty: 4000 0RF Rx Instructions: Take per split dose instructions in preparation for colonoscopy fluticasone propionate [Flonase Allergy Relief] 50 mcg/actuation spray,suspension 2 spray intranasal DAILY Rx Instructions: administer into each nostril Vivitrol 380 mg suspension,extended rel recon 380 mg IM Q28D thiamine HCl (vitamin B1) 100 mg tablet 100 mg PO HS Qty: 90 3RF celecoxib 200 mg capsule 200 mg PO BID buspirone 10 mg tablet 15 mg PO BID diclofenac sodium [Voltaren Arthritis Pain] 1 % gel 2 g topical QID PRN (Reason: Pain) ergocalciferol (vitamin D2) 50 mcg (2,000 unit) capsule 50 mcg PO .twice weekly Rx Instructions: Take 1 tablet Saturday and . famotidine 40 mg tablet 40 mg PO HS magnesium oxide 400 mg (241.3 mg magnesium) tablet 400 mg PO BID tamsulosin 0.4 mg capsule 0.4 mg PO HS Rx Instructions: Take 1 pill after supper. folic acid 1 mg tablet 1 mg PO HS Rx Instructions: TAKE 1 TAB BY MOUTH EVERY MORNING escitalopram oxalate 10 mg tablet 10 mg PO HS potassium chloride 20 mEq tablet extended release 20 meq PO HS emtricitabine-tenofovir (TDF) 200-300 mg tablet 1 tab PO DAILY Admission Data Admit Date/Time: 10/28/24 10:30 Attending Provider: Nick Patrick Admit Provider: Pastor Middleton Primary Care Provider: Valdemar Santo Other Providers: Emory Kaur; Suresh Lima; Arnold Frank; Palmira Young; Monica Blackburn; Christina Hdez; Mariza Patiño; Sukhdeep Unger; Sara Das; Fran Pollock; Eveline Cowan; Toshia Scott; Effie Mcpherson; Crista Plaza; Anahi Mejia; Janeth Kasper; Fili Dubose; Chapito Charles; Jess Lara; Pan Mckenzie Jr; Kirk Rincon.; Bari Valdovinos; Jhon Garcia; Harmeet Spencer; Tracie Nails; Adalberto Urias I; Yelena Hoffman; Juan Ramon Louise; Ranjeet Jang; Petr Head; Kristopher Oleary Hospital Stay Data Consultations 10/26/24 23:10 ED Decision to Admit Stat 10/27/24 02:13 Consult Gastroenterology Routine Procedures Performed Operation Date: 10/28/24 16:30 Actual Procedures p Esophagogastroduodenoscopy - Adalberto Urias MD s Colonoscopy Hemostasis - Adalberto Urias MD Diagnostic Imagining Performed 10/26/24 19:02 CT abd pelvis IV con only Stat Pending Results Patient Have Any Pending Studies at Discharge: No Discharge Instructions Given to Patient (Per Discharging Provider) please follow up with your PCP and gastroeterologist Coding Diagnoses Rectal bleeding K62.5 Abdominal pain R10.9 Anxiety and depression F41.9; F32.9 Alcohol use disorder in remission F10.91 Cirrhosis K74.60 Ascites presence: unspecified Hepatic cirrhosis type: unspecified hepatic cirrhosis Pancytopenia D61.818 Esophageal varices I85.00 Cholelithiasis K80.20
[2024-10-29 08:08] LABS: Hematocrit (blood only) 31.3 % (42.0-52.0); Hemoglobin 10.8 g/dl (14.0-18.0); Immature Granulocytes # (auto) 0.01 K/uL (0.01-0.20); Immature Granulocytes % (auto) 0.2 %; Mean Corpuscular Hemoglobin 32.5 pg (25.0-34.0); Mean Corpuscular Volume 94.3 fL (80.0-100.0); Platelet Count 77 K/uL (130-400); RDW Standard Deviation 46.0 fL (36.4-46.3); Red Blood Count 3.32 M/uL (4.70-6.10); White Blood Count 4.60 K/ul (4.8-10.8)
--- NOTE | 2024-10-29 09:26 | Hospitalist Progress Note ---
Date of Service October 29, 2024 Assessment & Plan (1) Rectal bleeding: Plan: Nick is a 59-year-old male with past medical history of radiation proctitis, cirrhosis with former alcohol use in remission, pancytopenia with bone marrow biopsy negative for MDS and suspected to be due to decreased synthetic function and hypersplenism, anxiety/depression, LUTS who presented with hematochezia. Hematochezia He underwent endoscopy and colonoscopy with GI. Upper endoscopy was normal. Radiation proctitis/colonic angiodysplastic lesions treated with APC. Was hopeful for discharge 10/29 however unfortunately overnight did have continued bright red blood per rectum and some maroon stool with lightheadedness N.p.o. GI following --> may rescope Hemoglobin 10.8, no indication for transfusion. Does have some lightheadedness and appears slightly volume contracted with low SBP this morning. 500 cc supplemental fluid given and placed on IV FM while NPO. BP improved - H&H q6h x2 Pancytopenia Hemoglobin threshold 7.0, or acute symptoms Likely due to hypersplenism and liver dysfunction. No evidence of MDS on prior bone marrow biopsy Has a history of alcohol use disorder in remission Platelet level 77, no indication for acute transfusion Acute on chronic hypomagnesemia Repletion, continue trend and repletion as needed. Daily magnesium supplement Alcohol use disorder in remission On monthly Vivitrol LUTS Continue Flomax Right upper quadrant pain ? Chronic biliary colic with chronic stones on CT. No evidence of acute cholecystitis. Reactive mesenteric lymphadenitis is seen. Stool studies pending no pain on 10/29 reassessment. DVT prophylaxis: SCDs, chemical prophylaxis contraindicated due to bleeding Disposition: PCU CODE STATUS: Full code (2) Abdominal pain: (3) Anxiety and depression: (4) Alcohol use disorder in remission: (5) Cirrhosis: (6) Pancytopenia: (7) Esophageal varices: (8) Cholelithiasis: Admission and Anticipated Discharge Date Admission Date: October 28, 2024 Subjective Unfortunately has continued to have large amounts of bright red, and some maroon output overnight. Has felt a little bit lightheaded today although not like he was going to pass out. Feels slightly nauseous. Denies abdominal pain. No chest pain chest pressure. No shortness of breath. GI following. May re-scope. NPO. BP normally low 100s, pt sbp 88-90s w/ manual recheck. Mild lightheadedness intermittently overnight No tachycardia. Hgb uptrending >10. NSS 500cc x1 ordered + IVFM. MM tacky. Physical Exam Physical Exam: General: A&Ox3. NAD. Cooperative. HEENT: Atraumatic, normocephalic. Hearing grossly intact Pulm: CTAB A&P. -wheezes, -rales, -rhonchi. Symmetrical chest rise. No increased work of breathing. No respiratory distress. Cardiac: RRR, -mrg. Radial pulses intact and symmetrical. Abdominal: Abdomen is soft, nontender Results & Data Results & Data Vital Signs (Past 12 Hours) Vital Signs Temp Pulse Pulse Resp BP BP Pulse Ox 10/29/24 08:00 36.7 C 84 18 98/58 L 94 10/29/24 03:44 70 15 94 10/29/24 03:26 36.9 C 73 18 101/61 93 10/28/24 23:33 37.2 C 75 19 112/63 96 10/28/24 23:21 70 24 98 10/28/24 23:14 71 18 92 10/28/24 21:46 68 O2 Del Method 10/29/24 08:00 Room Air 10/29/24 03:44 10/29/24 03:26 BiPAP 10/28/24 23:33 BiPAP 10/28/24 23:21 10/28/24 23:14 Room Air 10/28/24 21:46 PG Care Time/CCT Total # of Minutes Spent Total Time Spent with Patient: Total time spent is greater than 50% in coordination of care (as documented) at patient's floor/unit and/or counseling patient: Coding Level of Care Code 82520 SUB INP/OBS CARE 3/50MIN Diagnoses Rectal bleeding K62.5 Abdominal pain R10.9 Anxiety and depression F41.9; F32.9 Alcohol use disorder in remission F10.91 Cirrhosis K74.60 Ascites presence: unspecified Hepatic cirrhosis type: unspecified hepatic cirrhosis Pancytopenia D61.818 Esophageal varices I85.00 Cholelithiasis K80.20 (5) Cirrhosis Ascites presence: unspecified Hepatic cirrhosis type: unspecified hepatic cirrhosis Qualified Code(s): K74.60 - Unspecified cirrhosis of liver
[2024-10-29] MEDS: MAGNESIUM OXIDE 400 MG TAB PO SCH (09:36)
[2024-10-29] MEDS: MAGNESIUM SULFATE / D5W 1 GM/100 ML BAG IV ONE (09:37)
[2024-10-29] MEDS: LACTATED RINGER'S 500 ML IV ONE (09:40)
[2024-10-29 14:27] LABS: Hematocrit (blood only) 30.9 % (42.0-52.0); Hemoglobin 10.7 g/dl (14.0-18.0)
[2024-10-29 20:13] LABS: Hematocrit (blood only) 31.1 % (42.0-52.0); Hemoglobin 10.7 g/dl (14.0-18.0)
[2024-10-30 03:06] VITALS: RESP 18
[2024-10-30 06:17] LABS: Hematocrit (blood only) 34.3 % (42.0-52.0); Hemoglobin 12.0 g/dl (14.0-18.0); Immature Granulocytes # (auto) 0.02 K/uL (0.01-0.20); Immature Granulocytes % (auto) 0.4 %; Mean Corpuscular Hemoglobin 33.4 pg (25.0-34.0); Mean Corpuscular Volume 95.5 fL (80.0-100.0); Platelet Count 81 K/uL (130-400); RDW Standard Deviation 46.5 fL (36.4-46.3); Red Blood Count 3.59 M/uL (4.70-6.10); White Blood Count 5.66 K/ul (4.8-10.8)
[2024-10-30 06:33] LABS: Anion Gap 6.0 (3-11); Blood Urea Nitrogen 9.0 mg/dl (6-23); Calcium 8.8 mg/dl (8.6-10.3); Carbon Dioxide 30.0 mmol/L (21-32); Chloride 105.0 mmol/L (98-107); Creatinine Clr Calc Pharmacy 58.8 ml/min; Glucose 100.0 mg/dl (70-99(Fasting)); Potassium 4.2 mmol/L (3.5-5.1); Sodium 141.0 mmol/L (136-145)
--- NOTE | 2024-10-30 07:25 | Gastroenterology Progress Note ---
Date of Service October 30, 2024 Assessment & Plan (1) Radiation proctitis: Plan: Status post APC coagulation thermal therapy. No significant bleeding. Okay for discharge today from GI standpoint. Please send him home with a prescription for [place] suppositories 1 at bedtime for 2 weeks. He will follow-up in November for repeat colonoscopy and treatment. Admission and Anticipated Discharge Date Admission Date: October 28, 2024 Subjective Feeling much better today less rectal bleeding no abdominal pain tolerated regular diet Physical Exam Physical Exam: No acute distress Respiratory rate regular Cardiac rhythm regular Abdomen soft nontender Results & Data Results & Data Vital Signs (Past 12 Hours) Vital Signs Temp Pulse Pulse Resp BP BP Pulse Ox 10/30/24 03:04 36.6 C 69 18 106/67 95 10/30/24 02:30 72 14 94 10/30/24 00:33 68 20 97 10/29/24 23:27 70 10/29/24 23:07 36.8 C 68 18 96/61 L 91 10/29/24 20:34 36.9 C 79 18 101/56 L 93 O2 Del Method 10/30/24 03:04 CPAP 10/30/24 02:30 10/30/24 00:33 10/29/24 23:27 10/29/24 23:07 Room Air 10/29/24 20:34 Room Air Laboratory Results Laboratory Results - last 48 hr 10/27/24 10/28/24 10/29/24 10:12 06:17 05:27 WBC RBC Hgb Hct MCV MCH MCHC RDW Std Deviation RDW Coeff of Melissa Plt Count MPV Immature Gran % (Auto) Neut % (Auto) Lymph % (Auto) [place] % (Auto) Eos % (Auto) Baso % (Auto) Neut # (Auto) Lymph # (Auto) [place] # (Auto) Eos # (Auto) Baso # (Auto) Immature Gran # (Auto) Sodium 141 139 Potassium 4.1 4.1 Chloride 109 H 106 Carbon Dioxide 29 27 Anion Gap 3 6 BUN 10 9 Creatinine 0.96 1.05 Est Cr Clr Drug Dosing 74.8 68.4 eGFR 91.05 81.77 BUN/Creatinine Ratio 10.4 8.6 L Glucose 81 98 Calcium 8.5 L 8.7 Magnesium 1.5 L Total Bilirubin 0.8 0.6 AST 24 22 ALT 11 11 Alkaline Phosphatase 75 78 Total Protein 5.4 L 5.8 L Albumin 3.2 L 3.4 Globulin 2.2 L 2.4 L Albumin/Globulin Ratio 1.5 1.4 POC Stool Occult Blood Cancelled 10/29/24 10/29/24 10/29/24 05:31 12:52 20:02 WBC 4.60 L RBC 3.32 L Hgb 10.8 L 10.7 L 10.7 L Hct 31.3 L 30.9 L 31.1 L MCV 94.3 MCH 32.5 MCHC 34.5 RDW Std Deviation 46.0 RDW Coeff of Melissa 13.3 Plt Count 77 L MPV 10.9 Immature Gran % (Auto) 0.2 Neut % (Auto) 71.9 Lymph % (Auto) 15.9 [place] % (Auto) 9.3 Eos % (Auto) 2.0 Baso % (Auto) 0.7 Neut # (Auto) 3.31 Lymph # (Auto) 0.[address] [place] # (Auto) 0.43 Eos # (Auto) 0.09 Baso # (Auto) 0.03 Immature Gran # (Auto) 0.01 Sodium Potassium Chloride Carbon Dioxide Anion Gap BUN Creatinine Est Cr Clr Drug Dosing eGFR BUN/Creatinine Ratio Glucose Calcium Magnesium Total Bilirubin AST ALT Alkaline Phosphatase Total Protein Albumin Globulin Albumin/Globulin Ratio POC Stool Occult Blood 10/30/24 05:54 WBC 5.66 RBC 3.59 L Hgb 12.0 L Hct 34.3 L MCV 95.5 MCH 33.4 MCHC 35.0 RDW Std Deviation 46.5 H RDW Coeff of Melissa 13.1 Plt Count 81 L MPV 10.6 Immature Gran % (Auto) 0.4 Neut % (Auto) 63.2 Lymph % (Auto) 24.7 [place] % (Auto) 8.0 Eos % (Auto) 3.2 Baso % (Auto) 0.5 Neut # (Auto) 3.58 Lymph # (Auto) 1.40 [place] # (Auto) 0.45 Eos # (Auto) 0.18 Baso # (Auto) 0.03 Immature Gran # (Auto) 0.02 Sodium 141 Potassium 4.2 Chloride 105 Carbon Dioxide 30 Anion Gap 6 BUN 9 Creatinine 1.22 Est Cr Clr Drug Dosing 58.8 eGFR 68.29 BUN/Creatinine Ratio 7.4 L Glucose 100 H Calcium 8.8 Magnesium Total Bilirubin AST ALT Alkaline Phosphatase Total Protein Albumin Globulin Albumin/Globulin Ratio POC Stool Occult Blood PG Care Time/CCT Total # of Minutes Spent Total Time Spent with Patient: Total time spent is greater than 50% in coordination of care (as documented) at patient's floor/unit and/or counseling patient: Coding Level of Care Code 03405 SUB INP/OBS CARE 2/35MIN Diagnoses Radiation proctitis K62.7
[2024-10-30 08:23] VITALS: TEMP 98.2; O2SAT 91
--- NOTE | 2024-10-30 08:50 | Discharge Summary ---
Discharge Summary Date of Service October 30, 2024 Principal Dx & Hospital Course #1 = Principal Diagnosis (1) Rectal bleeding: Nick is a 59-year-old male with past medical history of radiation proctitis, cirrhosis with former alcohol use in remission, pancytopenia with bone marrow biopsy negative for MDS and suspected to be due to decreased synthetic function and hypersplenism, anxiety/depression, LUTS who presented with hematochezia. Hematochezia He underwent endoscopy and colonoscopy with GI. Upper endoscopy was normal. Radiation proctitis/colonic angiodysplastic lesions treated with APC. Was hopeful for discharge 10/29 however unfortunately overnight did have continued bright red blood per rectum and some maroon stool with lightheadedness. This resolved the following day. Lower GI bleeding improved 10/30, he felt clinically well, hemoglobin uptrending at 12.0. Has baseline pressures 90slow 100s and was at/near baseline on discharge. Zullinger well for discharge Was discharged to continue mesalamine 1 g [place] suppositories for 2 weeks per GI recommendations Recommended for follow-up CBC and BMP within 1 week by PCP Will have outpatient follow-up with GI and is planned for follow-up colonoscopy around November Pancytopenia Hemoglobin threshold 7.0, or acute symptoms Likely due to hypersplenism and liver dysfunction. No evidence of MDS on prior bone marrow biopsy Has a history of alcohol use disorder in remission Platelet transfusion was not indicated or required Stable counts at time of discharge Acute on chronic hypomagnesemia Repletion, continue trend and repletion as needed. Daily magnesium supplement Alcohol use disorder in remission On monthly Vivitrol LUTS Continue Flomax Right upper quadrant pain ? Chronic biliary colic with chronic stones on CT. No evidence of acute cholecystitis. Reactive mesenteric lymphadenitis is seen. No pain at time of discharge (2) Abdominal pain: (3) Anxiety and depression: (4) Alcohol use disorder in remission: (5) Cirrhosis: (6) Pancytopenia: (7) Esophageal varices: (8) Cholelithiasis: Discharge Exam General: A&Ox3. NAD. Cooperative. HEENT: Atraumatic, normocephalic. Hearing grossly intact Pulm: CTAB A&P. -wheezes, -rales, -rhonchi. Symmetrical chest rise. No increased work of breathing. No respiratory distress. Cardiac: RRR, -mrg. Radial pulses intact and symmetrical. Abdominal: Abdomen is soft, nontender Extremities: Moving all extremities equally. Warm and dry. Cap refill in the thumb brisk Discharge Plan Discharge Items Patient Disposition: Home - Self-Care Reason For Visit: RECTAL BLEEDING Discharge Diagnosis: gi bleed Condition on Discharge: Fair Activity: Resume your previous activity Non-emergency contact: Primary Care Provider and Cat Scanner Operator Call non-emergency contact if: you have any medication questions Follow-up/Referrals: Arnold Frank DO [Physician] - 11/03/24 8:30 am (Hospital follow up on November 03 at 8:30 am.) Valdemar Santo DO [Primary Care Provider] - 11/03/24 11:30 am (Hospital follow up on November 03 at 11:30 am.) Diet: Regular Addtl Attending Provider Instructions: please follow up with your PCP and gastroeterologist Addtl Marine Steam Fitter Helper Provider Instructions: You were seen in the hospital for rectal bleeding. You were found to have proctitis. You had some bleeding lesions treated with argon coagulation by gastroenterology. Your rectal bleeding gradually improved. Please take a mesalamine 1g suppository once daily at night for 2 weeks. You should have repeat blood work by your PCP within one week including a CBC and BMP. If you develop any new or worsening symptoms including fever, chills, sweats, chest pain, chest pressure, difficulty breathing, uncontrolled nausea/vomiting, rash, wheezing, passing out or nearly passing out, bleeding, black/bloody bowel movements, or other new or concerning symptoms please call your primary care physician, or call 911 for re-evaluation in the emergency department if you are very concerned. Pending Studies at Discharge: No Stand-Alone Forms: My [facility] [employer], Smoking Cessation Medications and DC Order Prescriptions: New mesalamine 1,000 mg suppository 1 g KS HS 14 Days Qty: 14 0RF Continued lamotrigine [Lamictal] 25 mg tablet 100 mg PO HS albuterol sulfate 90 mcg/actuation HFA aerosol inhaler 2 puff inhalation QID PRN (Reason: shortness of breath or wheezing) Qty: 6.7 1RF cholecalciferol (vitamin D3) 125 mcg (5,000 unit) capsule 125 mcg PO Q4D Qty: 90 3RF (DME) cane Device See Rx Instructions .Route Qty: 1 0RF Rx Instructions: single pointed cane with a curved handle DME COdde e0100 (DME) heating pads Pad See Rx Instructions .Route Qty: 1 0RF Rx Instructions: w moisture DME code e0215 peg 3350-electrolytes [Golytely] 236-22.74-6.74 -5.86 gram recon soln 240 ml PO Q10M Qty: 4000 0RF Rx Instructions: Take per split dose instructions in preparation for colonoscopy fluticasone propionate [Flonase Allergy Relief] 50 mcg/actuation spray,suspension 2 spray intranasal DAILY Rx Instructions: administer into each nostril Vivitrol 380 mg suspension,extended rel recon 380 mg IM Q28D thiamine HCl (vitamin B1) 100 mg tablet 100 mg PO HS Qty: 90 3RF celecoxib 200 mg capsule 200 mg PO BID buspirone 10 mg tablet 15 mg PO BID diclofenac sodium [Voltaren Arthritis Pain] 1 % gel 2 g topical QID PRN (Reason: Pain) ergocalciferol (vitamin D2) 50 mcg (2,000 unit) capsule 50 mcg PO .twice weekly Rx Instructions: Take 1 tablet Saturday and . famotidine 40 mg tablet 40 mg PO HS magnesium oxide 400 mg (241.3 mg magnesium) tablet 400 mg PO BID tamsulosin 0.4 mg capsule 0.4 mg PO HS Rx Instructions: Take 1 pill after supper. folic acid 1 mg tablet 1 mg PO HS Rx Instructions: TAKE 1 TAB BY MOUTH EVERY MORNING escitalopram oxalate 10 mg tablet 10 mg PO HS potassium chloride 20 mEq tablet extended release 20 meq PO HS emtricitabine-tenofovir (TDF) 200-300 mg tablet 1 tab PO DAILY Discharge Orders: Discharge Order (Routine); Ordered 10/30/24 Ordered By: Nick Patrick Admission Data Admit Date/Time: 10/28/24 10:30 Attending Provider: Nick Patrick Admit Provider: Pastor Middleton Primary Care Provider: Valdemar Santo Other Providers: Emory Kaur; Suresh Lima; Arnold Frank; Palmira Young; Monica Blackburn; Christina Hdez; Mariza Patiño; Sukhdeep Unger; Sara Das; Fran Pollock; Eveline Cowan; Toshia Scott; Effie Mcpherson; Crista Plaza; Anahi Mejia; Janeth Kasper; Fili Dubose; Chapito Charles; Jess Lara; Pan Mckenzie Jr; Kirk Rincon; Bair Valdovinos; Jhon Garcia; Harmeet Spencer; Tracie Nails; Adalberto Urias I; Yelena Hoffman; Mino Louise; Ranjeet Jang; Petr Head; Kristopher Oleary Other Interventions: Discharge Summary Assessment (RN) Last Done: 10/30/24 09:16 Hospital Stay Data Consultations 10/26/24 23:10 ED Decision to Admit Stat 10/27/24 02:13 Consult Gastroenterology Routine Procedures Performed Operation Date: 10/28/24 16:30 Actual Procedures p Esophagogastroduodenoscopy - Adalberto Urias MD s Colonoscopy Hemostasis - Adalberto Urias MD Diagnostic Imagining Performed 10/26/24 19:02 CT abd pelvis IV con only Stat Pending Results Patient Have Any Pending Studies at Discharge: No Discharge Instructions Given to Patient (Per Discharging Provider) please follow up with your PCP and gastroeterologist Total Time Total Time Spent Total Time Spent (In Minutes): . Time spend day of discharge 35 minutes including direct patient care, documentation, review of labs and images, and coordination of care. Coding Level of Care Code 76417 INP/OBS DISCH >30 MIN Diagnoses Rectal bleeding K62.5 Abdominal pain R10.9 Anxiety and depression F41.9; F32.9 Alcohol use disorder in remission F10.91 Cirrhosis K74.60 Ascites presence: unspecified Hepatic cirrhosis type: unspecified hepatic cirrhosis Pancytopenia D61.818 Esophageal varices I85.00 Cholelithiasis K80.20
[2024-10-30 09:17] VITALS: BP 106/67; PULSE 56
== END 2024-10-30 10:13 | disposition home or self-care (01) | DRG 394 ==
LOC: SUATTDRO → ED 16:05 → EDINP 16:05 → SUATTDRO 10-27 01:07 → 2E 10-27 02:13